=== PATIENT | female | born 1940 | race Caucasian/White ===

== ENCOUNTER → 2020-04-22 10:13 | Outpatient (BNVA) | payer MEDICARE, SELFPAY | PROVIDERS: PCP Internal Medicine; Visit Provider Internal Medicine Cardiovascular Disease | DX: I49.3 Ventricular premature depolarization (principal); I70.0 Atherosclerosis of aorta; R00.2 Palpitations; R53.82 Chronic fatigue, unspecified | CPT/HCPCS: 93005; 99212 ==

== ENCOUNTER 2020-07-16 10:27 | Outpatient (REF) | payer MEDICARE, SELFPAY ==
[2020-07-16 15:29] LABS: Alanine Aminotransferase 14 U/L (0-31); Albumin Level 3.8 g/dL (3.5-5.0); Alkaline Phosphatase 67 U/L (39-117); Anion Gap 15 (12-20); Aspartate Amino Transferase 18 U/L (5-31); Bilirubin Total 0.7 mg/dL (0.0-1.0); Blood Urea Nitrogen 17 mg/dL (9-16); Calcium 9.4 mg/dL (8.4-10.2); Carbon Dioxide 25 mmol/L (22-29); Chloride 107 mmol/L (96-108); Estimated Glomerular Filt Rate > 60; Glucose Random 113 mg/dL (60-115); Phosphorus 3.4 mg/dL (2.7-4.5); Potassium 4.5 mmol/L (3.3-5.1); Sodium 142 mmol/L (135-145); Total Protein 6.5 g/dL (6.5-8.0)
[2020-07-18 09:36] LABS: Calcium (PTHI) 9.5 mg/dL (8.6-10.4); PTHI 39 pg/mL (14-64)
[2020-07-20 12:21] LABS: Calcium, Ionized 5.2 mg/dL (4.8-5.6)
== END 2020-07-16 10:28 | disposition home or self-care (01) ==
LOC: HO.LAB 10:27
PROVIDERS: PCP Internal Medicine; Visit Provider Internal Medicine
DX: M81.0 Age-related osteoporosis without current pathological fracture (principal); E55.9 Vitamin D deficiency, unspecified; Z79.899 Other long term (current) drug therapy
CPT/HCPCS: 36415; 80053; 82306; 82330; 83970; 84100; Q3014

== ENCOUNTER 2020-07-17 11:47 | Outpatient (REF) | payer MEDICARE, SELFPAY | END 2020-07-17 11:48 | disposition home or self-care (01) | LOC: HO.LNP 11:47 | PROVIDERS: Visit Provider Internal Medicine | DX: Z13.89 Encounter for screening for other disorder (principal) | CPT/HCPCS: 82523 ==

== ENCOUNTER 2020-07-21 16:02 | Outpatient (REF) | payer MEDICARE, SELFPAY ==
[2020-07-26 04:41] LABS: N-Telopeptide 30 (see note); NTXCreaRU 44 mg/dL (20-275)
== END 2020-07-21 16:03 | disposition home or self-care (01) ==
LOC: HO.LNP 16:02
PROVIDERS: Visit Provider Internal Medicine
DX: M81.0 Age-related osteoporosis without current pathological fracture (principal)
CPT/HCPCS: 82523

== ENCOUNTER 2020-10-13 15:20 | Outpatient (REF) | payer MEDICARE, SELFPAY ==
--- NOTE | ~2020-10-13 | CT_ITS ---
EXAMINATION: CT CHEST WITHOUT CONTRAST CLINICAL INFORMATION: Solitary pulmonary nodule. COMPARISON: CTA chest dated 08/06/2019. TECHNIQUE: Multidetector volumetric CT imaging of the chest was done. Axial MIP volume rendering provided. Sagittal and coronal reformatted images were obtained. This CT examination was performed using dose optimization techniques as appropriate, variously including the following: *Automated exposure control *Adjustment of mA and/or kV according to patient size (this includes techniques or standardized protocols for targeted exams where dose is matched to indication/reason for exam; i.e. extremities or head) *Use of iterative reconstruction technique DLP: 155 mGy-cm. FINDINGS: [employer]ILD[employer] RETAIL: Unremarkable. LUNGS: Biapical nodular pleural thickening is unchanged. Linear scarring redemonstrated within the right middle lobe and lingula. Focal mucus plugging redemonstrated within the left upper lobe measuring up to 0.3 cm, slightly decreased when compared to the prior examination (previously 0.4 cm). No new pulmonary nodule, mass, or airspace consolidation. The central airways are patent. MEDIASTINUM: No cardiomegaly. No pericardial effusion. No thoracic aortic dilatation. Scattered atherosclerotic calcifications. No superior mediastinal or hilar lymphadenopathy. Unremarkable thyroid. PLEURA: No pleural effusion or pneumothorax. AXILLA: Left axillar surgical lymph nodes. No axillary or internal mammary lymphadenopathy. UPPER ABDOMEN: Status post cholecystectomy. Otherwise, the visualized upper abdominal structures are unremarkable. OSSEOUS STRUCTURES: Vertebral plasty redemonstrated in in T8 and T9. Mild compression deformity redemonstrated at T4, unchanged. No new lytic or blastic osseous lesion. CT/CT chest wo con IMPRESSION: 1. Previously described left upper lobe nodule represents focal mucus plugging and is slightly decreased in size when compared to the prior examination now measuring 0.3 cm (previously 0.4 cm). No new pulmonary nodule, mass, or airspace consolidation. 2. No lymphadenopathy.
== END 2020-10-13 15:21 | disposition home or self-care (01) ==
LOC: HO.CT 15:20
PROVIDERS: Visit Provider Internal Medicine
DX: R91.1 Solitary pulmonary nodule (principal)
CPT/HCPCS: 71250

== ENCOUNTER → 2020-10-19 09:53 | Outpatient (BNVA) | payer MEDICARE, SELFPAY | PROVIDERS: PCP Internal Medicine; Visit Provider Internal Medicine ==

== ENCOUNTER 2021-03-29 15:36 | Outpatient (REF) | payer MEDICARE, SELFPAY ==
--- NOTE | ~2021-03-29 | XR_ITS ---
EXAMINATION: XR THORACIC SPINE CLINICAL INFORMATION: Mid back pain COMPARISON: Dorsal spine 01/31/2019. TECHNIQUE: 3 views of the thoracic spine were obtained. FINDINGS: There is exaggerated thoracic kyphosis. There is cement augmentation of T8 and T9 compression fracture unchanged to 01/31/2019. There is compression deformity T8 T4 vertebra which is chronic and unchanged. No new acute compression fracture seen. There is mild ventral spondylosis/bridging osteophyte T9-T10 disc level. The vertebral alignments and the disc heights are maintained normal. No aggressive lytic or sclerotic process. The paravertebral soft tissues are normal. XR/XR thoracic spine 3V IMPRESSION: Old T8 and T9 compression fracture with cement augmentation. There is a old T4 compression fracture unchanged as well since 2019. Interval no acute compression fracture, lytic or sclerotic process. Mild spondylosis.
== END 2021-03-29 15:37 | disposition home or self-care (01) ==
LOC: HO.XRAY 15:36
PROVIDERS: PCP Internal Medicine; Visit Provider Internal Medicine
DX: M54.6 Pain in thoracic spine (principal); G89.29 Other chronic pain
CPT/HCPCS: 72072

== ENCOUNTER 2021-04-08 11:19 | Outpatient (REF) | payer MEDICARE, SELFPAY ==
[2021-04-08 11:58] LABS: MANUAL DIFF FLAG NO
[2021-04-08 13:04] LABS: Basophils Absolute Auto 0.1 X10*3/uL (0.0-0.2); Basophils Percent Auto 0.6 % (0-2); Eosinophils Absolute Auto 0.1 X10*3/uL (0.0-0.4); Eosinophils Percent Auto 1.8 % (0-4); Hematocrit 41.1 % (37.0-47.0); Imm Gran Abs Auto 0.03 X10*3/uL (0.00-0.03); Imm Gran Pct Auto 0.4 % (0.0-0.4); Lymphocytes Absolute Auto 3.1 X10*3/uL (1.2-4.9); Lymphocytes Percent Auto 38.6 % (20-40); Mean Corpuscular HGB Conc 34.1 g/dl (31.0-35.0); Mean Corpuscular Hemoglobin 31.2 pg (27.0-33.0); Mean Corpuscular Volume 91.5 fL (80.0-98.0); Mean Platelet Volume 10.3 fL (9.4-12.3); Monocytes Percent Auto 12.5 % (2-11); Neutrophils Absolute Auto 3.7 x10*3/uL (2.0-8.3); Neutrophils Percent Auto 46.1 % (45-73); Platelet Count 260 X10*3/uL (160-400); Red Blood Count 4.49 X10*6/uL (4.20-5.50)
[2021-04-08 13:07] LABS: Appearance Urine CLEAR; Color Urine YELLOW; Glucose Urine UA NEG (NEG); Leukocyte Esterase Urine NEG (NEG); Nitrite Urine NEG (NEG); Specific Gravity - Urine >= 1.030 (1.005-1.025); Urine Blood NEG (NEG); Urine Ketones NEG (NEG); Urine Protein NEG (NEG-TRACE)
[2021-04-08 13:21] LABS: Estimated Average Glucose 100 mg/dL; Hemoglobin A1c % 5.1 %
[2021-04-08 13:40] LABS: Alanine Aminotransferase 17 U/L (0-31); Albumin Level 4.1 g/dL (3.5-5.0); Alkaline Phosphatase 60 U/L (39-117); Anion Gap 14 (12-20); Aspartate Amino Transferase 26 U/L (5-31); Bilirubin Total 0.8 mg/dL (0.0-1.0); Blood Urea Nitrogen 16 mg/dL (9-16); Calcium 10.1 mg/dL (8.4-10.2); Carbon Dioxide 30 mmol/L (22-29); Chloride 101 mmol/L (96-108); Cholesterol 242 mg/dL; Estimated Glomerular Filt Rate > 60; Glucose Random 113 mg/dL (60-115); HDL Cholesterol 48 mg/dL; LDL Cholesterol Calculated 149 mg/dl; Potassium 4.2 mmol/L (3.3-5.1); Sodium 141 mmol/L (135-145); Total Protein 6.9 g/dL (6.5-8.0); Triglycerides 227 mg/dL
[2021-04-08 14:39] LABS: Vitamin B12 218 pg/mL (200-900)
== END 2021-04-08 11:20 | disposition home or self-care (01) ==
LOC: HO.LAB 11:19
PROVIDERS: PCP Internal Medicine; Visit Provider Internal Medicine
DX: R41.3 Other amnesia (principal); R73.01 Impaired fasting glucose; E78.00 Pure hypercholesterolemia, unspecified; K21.9 Gastro-esophageal reflux disease without esophagitis
CPT/HCPCS: 36415; 80053; 80061; 81003; 82607; 83036; 85025

== ENCOUNTER 2021-05-17 17:11 | Outpatient (REF) | payer OTHER, SELFPAY ==
[2021-05-17 18:24] LABS: Appearance Urine CLEAR; Color Urine DK YELLOW; Glucose Urine UA NEG (NEG); Leukocyte Esterase Urine NEG (NEG); Nitrite Urine NEG (NEG); PH 5.5 (5.0-8.0); Specific Gravity - Urine >= 1.030 (1.005-1.025); Urine Blood NEG (NEG); Urine Ketones NEG (NEG); Urine Protein NEG (NEG-TRACE)
== END 2021-05-17 17:12 | disposition home or self-care (01) ==
LOC: HO.LAB 17:11
PROVIDERS: Visit Provider Internal Medicine
DX: R35.0 Frequency of micturition (principal)
CPT/HCPCS: 81003; 87086

== ENCOUNTER 2021-07-05 13:20 | Outpatient (REF) | payer OTHER, SELFPAY ==
[2021-07-05 14:14] LABS: Appearance Urine CLEAR; Color Urine YELLOW; Glucose Urine UA NEG (NEG); Leukocyte Esterase Urine NEG (NEG); Nitrite Urine NEG (NEG); PH 5.5 (5.0-8.0); Specific Gravity - Urine >= 1.030 (1.005-1.025); Urine Blood NEG (NEG); Urine Ketones NEG (NEG); Urine Protein NEG (NEG-TRACE)
[2021-07-05 14:30] LABS: Calcium Oxalate Crystals Urine 2+ /LPF; Mucus Urine TRACE /LPF; RBC Urine 0 /HPF (0); Squamous Epithelial Cell Urine TRACE /LPF; WBC Urine 0-2 /HPF (0-4)
== END 2021-07-05 13:21 | disposition home or self-care (01) ==
LOC: HO.LNP 13:20
PROVIDERS: PCP Internal Medicine; Visit Provider Internal Medicine
DX: R35.0 Frequency of micturition (principal); R68.83 Chills (without fever)
CPT/HCPCS: 81001; 87086

== ENCOUNTER 2021-07-06 13:09 | Outpatient (REF) | payer OTHER, SELFPAY ==
--- NOTE | ~2021-07-06 | MM_ITS ---
EXAMINATION: MM SCREENING DIGITAL BREAST TOMOSYNTHESIS, BILATERAL CLINICAL INFORMATION: Screening. Asymptomatic. Left breast cancer status post lumpectomy, 1999. Due for yearly. COMPARISON: Mammography: 04/18/2017, 04/13/2016, 03/06/2015 TECHNIQUE: Digital breast tomosynthesis is performed in both the craniocaudal and mediolateral oblique views along with computer-aided detection (CAD). Synthesized 2D images are generated from the tomosynthesis. Additional right cleavage view is provided. FINDINGS: There are scattered areas of fibroglandular density (ACR BI-RADS breast composition Category b). There are post therapy changes left breast with reduced breast size and stable scarring. Neither breast shows interval mass or architectural abnormality or developing density. There are scattered bilateral benign coarse and ductal secretory and vascular calcifications overall slightly increased on each side. No interval abnormal calcifications. The axilla are unremarkable. There are no significant changes. MM/MM tomosynthesis screening BI IMPRESSION: No mammographic evidence of malignancy. Post therapy changes left breast. ASSESSMENT: BI-RADS 2: Benign RECOMMENDATION: Routine annual mammography screening. This patient's information was entered into a reminder system with a target due date for their next mammogram.
--- NOTE | ~2021-07-06 | MM_ITS ---
EXAMINATION: BONE DENSITOMETRY CLINICAL INDICATION: Age-related osteoporosis without current pathological fracture. COMPARISON: Previous BD dated 06/14/2018 and baseline BD dated 11/07/2007. TECHNIQUE: Using a [employer] DXA System (software version: 13.1) manufactured by [employer], dual-energy x-ray absorptiometry was performed of the lumbar spine and left hip. The images are of good technical quality. Summary results are attached. FINDINGS: AP SPINE L1-L4: Current: BMD 1.012 g/cm2, Z-score -0.1, T-score -1.4, osteopenia, 0.4% increase from previous, 6.8% increase from baseline (<5% change is not significant). Prior: BMD 1.008 g/cm2. Baseline: BMD 0.948 g/cm2. LEFT FEMUR, NECK: Current: BMD 0.750 g/cm2, Z-score -0.3, T-score -2.1, osteopenia. Prior: BMD 0.737 g/cm2. Baseline: BMD 0.812 g/cm2. LEFT FEMUR, TOTAL: Current: BMD 0.873 g/cm2, Z-score 0.5, T-score -1.1, osteopenia, 4.6% increase from previous, 9.2% decrease from baseline (<5% change is not significant). Prior: BMD 0.835 g/cm2. Baseline: BMD 0.961 g/cm2. IDENTIFIED RISK FACTORS: Osteoporosis, height loss, menopause. HISTORY OF FRACTURE: None listed. MEDICATIONS: Calcium supplements or multivitamin, vitamin D, calcitonin. MM/XR DEXA axial skeleton IMPRESSION: 1. DIAGNOSIS: Osteopenia based on the lowest T-score value of -2.1 in the femoral neck applying World Health Organization criteria. 2. 10-YEAR FRACTURE RISK PREDICTION, FRAX: Major osteoporotic fracture (clinical spine, forearm, hip or shoulder) 15.0%. Hip fracture 4.3%. 3. Treatment Recommendations: NOF guidelines recommend consideration for treatment in postmenopausal women and men age 50 and older presenting with the following: -A hip or vertebral (clinical or morphometric) fracture. -T-score less than or equal to -2.5 at the femoral neck or spine after appropriate evaluation to exclude secondary causes. -Low bone mass at the hip or spine and a 10-year fracture probability by FRAX of greater than or equal to 3% for hip fracture or greater than or equal to 20% for major osteoporotic fracture based on the [place] adapted WHO algorithm. 4. Other Recommendations: All treatment decisions require clinical judgment and consideration of individual patient factors, including patient preferences, comorbidities, previous drug use, risk factors not captured in the FRAX model (e.g. frailty, falls, vitamin D deficiency, increased bone turnover, interval significant decline in bone density) and possible under or overestimation of fracture risk by FRAX. Additional medical evaluation for secondary cause of low bone mineral density may be appropriate. FUTURE SCAN RECOMMENDATION: People with diagnosed cases of osteoporosis or at high risk for fracture should have regular bone mineral density tests. For patients eligible for Medicare, routine testing is allowed once every 2 years. The testing frequency can be increased to one year for patients who have rapidly progressing disease, those who are receiving or discontinuing medical therapy to restore bone mass, or have additional risk factors.
== END 2021-07-06 13:10 | disposition home or self-care (01) ==
LOC: HO.MAMMO 13:09
PROVIDERS: PCP Internal Medicine; Visit Provider Internal Medicine
DX: Z12.31 Encounter for screening mammogram for malignant neoplasm of breast (principal); Z13.820 Encounter for screening for osteoporosis; M81.0 Age-related osteoporosis without current pathological fracture; Z78.0 Asymptomatic menopausal state
CPT/HCPCS: 77063; 77067; 77080

== ENCOUNTER 2021-07-19 10:26 | Outpatient (REF) | payer OTHER, SELFPAY ==
[2021-07-19 14:24] LABS: Alanine Aminotransferase 22 U/L (0-31); Albumin Level 3.7 g/dL (3.5-5.0); Alkaline Phosphatase 62 U/L (39-117); Anion Gap 10 (12-20); Aspartate Amino Transferase 22 U/L (5-31); Bilirubin Total 0.5 mg/dL (0.0-1.0); Blood Urea Nitrogen 18 mg/dL (9-16); Calcium 9.3 mg/dL (8.4-10.2); Carbon Dioxide 28 mmol/L (22-29); Chloride 109 mmol/L (96-108); Estimated Glomerular Filt Rate > 60; Glucose Random 110 mg/dL (60-115); Phosphorus 2.9 mg/dL (2.7-4.5); Potassium 4.3 mmol/L (3.3-5.1); Sodium 143 mmol/L (135-145); Total Protein 6.4 g/dL (6.5-8.0)
[2021-07-19 14:48] LABS: Vitamin D 25-OH Total 26.2 ng/mL (>30)
[2021-07-20 13:37] LABS: Calcium (PTHI) 9.1 mg/dL (8.6-10.4); PTHI 52 pg/mL (16-77)
[2021-07-23 14:41] LABS: Alkaline Phosphatase Bone 10.1 mcg/L (see note)
== END 2021-07-19 10:27 | disposition home or self-care (01) ==
LOC: HO.LAB 10:26
PROVIDERS: PCP Internal Medicine; Visit Provider Internal Medicine
DX: M81.0 Age-related osteoporosis without current pathological fracture (principal); E55.9 Vitamin D deficiency, unspecified
CPT/HCPCS: 36415; 80053; 82306; 83970; 84075; 84100; Q3014

== ENCOUNTER 2021-09-08 13:00 | Outpatient (RCR) | payer OTHER, MEDICAID, SELFPAY | END 2021-09-30 17:12 | disposition home or self-care (01) | LOC: HO.PT 13:00 | PROVIDERS: PCP Internal Medicine; Visit Provider Internal Medicine | DX: R26.89 Other abnormalities of gait and mobility (principal) | CPT/HCPCS: 97110; 97162; 97530 ==

== ENCOUNTER 2021-10-07 15:12 | Outpatient (REF) | payer OTHER, MEDICAID, SELFPAY ==
[2021-10-07 16:25] LABS: Alanine Aminotransferase 18 U/L (0-31); Albumin Level 4.1 g/dL (3.5-5.0); Alkaline Phosphatase 75 U/L (39-117); Anion Gap 13 (12-20); Aspartate Amino Transferase 20 U/L (5-31); Bilirubin Total 0.7 mg/dL (0.0-1.0); Blood Urea Nitrogen 19 mg/dL (9-16); Calcium 9.7 mg/dL (8.4-10.2); Carbon Dioxide 28 mmol/L (22-29); Chloride 105 mmol/L (96-108); Estimated Glomerular Filt Rate > 60; Glucose Random 116 mg/dL (60-115); Phosphorus 3.3 mg/dL (2.7-4.5); Potassium 4.1 mmol/L (3.3-5.1); Sodium 142 mmol/L (135-145); Total Protein 6.9 g/dL (6.5-8.0)
[2021-10-07 16:45] LABS: Vitamin D 25-OH Total 38.1 ng/mL (>30)
[2021-10-08 12:27] LABS: Calcium (PTHI) 10.1 mg/dL (8.6-10.4); PTHI 44 pg/mL (16-77)
[2021-10-11 14:31] LABS: Alkaline Phosphatase Bone 11.1 mcg/L (see note)
== END 2021-10-07 15:13 | disposition home or self-care (01) ==
LOC: HO.LAB 15:12
PROVIDERS: PCP Internal Medicine; Visit Provider Internal Medicine
DX: M81.0 Age-related osteoporosis without current pathological fracture (principal); E55.9 Vitamin D deficiency, unspecified
CPT/HCPCS: 36415; 80053; 82306; 83970; 84075; 84100

== ENCOUNTER 2021-10-08 14:43 | Outpatient (REF) | payer OTHER, MEDICAID, SELFPAY ==
[2021-10-14 02:22] LABS: N-Telopeptide 56 (see note); NTXCreaRU 126 mg/dL (20-275)
== END 2021-10-08 14:44 | disposition home or self-care (01) ==
LOC: HO.LNP 14:43
PROVIDERS: Visit Provider Internal Medicine
DX: M81.0 Age-related osteoporosis without current pathological fracture (principal)
CPT/HCPCS: 82523

== ENCOUNTER → 2021-10-13 12:45 | Outpatient (BNVA) | payer OTHER, MEDICAID, SELFPAY | PROVIDERS: PCP Internal Medicine; Visit Provider Internal Medicine | DX: M81.0 Age-related osteoporosis without current pathological fracture (principal) | CPT/HCPCS: 96372 ==

== ENCOUNTER 2021-11-10 13:01 | Outpatient (REF) | payer OTHER, MEDICAID, SELFPAY ==
[2021-11-10 15:02] LABS: Estimated Glomerular Filt Rate > 60
[2021-11-10 15:16] LABS: Vitamin D 25-OH Total 33.5 ng/mL (>30)
[2021-11-11 14:03] LABS: Calcium (PTHI) 9.5 mg/dL (8.6-10.4); PTHI 56 pg/mL (16-77)
== END 2021-11-10 13:02 | disposition home or self-care (01) ==
LOC: HO.LAB 13:01
PROVIDERS: PCP Internal Medicine; Visit Provider Internal Medicine
DX: M81.0 Age-related osteoporosis without current pathological fracture (principal); E55.9 Vitamin D deficiency, unspecified
CPT/HCPCS: 36415; 82306; 82565; 83970

== ENCOUNTER 2021-11-29 15:57 | Outpatient (REF) | payer OTHER, MEDICAID, SELFPAY ==
[2021-11-29 16:12] LABS: Appearance Urine Clear; Color Urine Yellow; Glucose Urine UA Negative (Negative); Leukocyte Esterase Urine Negative (Negative); Nitrite Urine Negative (Negative); PH 5.5 (5.0-9.0); Urine Blood Negative (Negative); Urine Ketones Negative (Negative); Urine Protein Negative (Neg-Trace)
== END 2021-11-29 15:58 | disposition home or self-care (01) ==
LOC: HO.LNP 15:57
PROVIDERS: Visit Provider Internal Medicine
DX: R41.0 Disorientation, unspecified (principal); R35.0 Frequency of micturition
CPT/HCPCS: 81003; 87086

== ENCOUNTER 2021-12-13 12:04 | Outpatient (REF) | payer OTHER, MEDICAID, SELFPAY ==
--- NOTE | ~2021-12-13 | XR_ITS ---
EXAMINATION: XR PELVIS CLINICAL INFORMATION: Pain COMPARISON: CT abdomen pelvis 12/26/2018 TECHNIQUE: AP view of the pelvis. FINDINGS: Pelvic ring is intact. Sacroiliac joints are symmetric. There is neither fracture nor dislocation of either hip. There is mild narrowing of both femoral acetabular joint spaces. XR/XR pelvis 1-2V IMPRESSION: Mild degenerative changes of both hips without fracture or dislocation.
== END 2021-12-13 12:05 | disposition home or self-care (01) ==
LOC: HO.HOSX 12:04
PROVIDERS: Visit Provider Orthopaedic Surgery
DX: M54.50 Low back pain, unspecified (principal); M25.551 Pain in right hip; M25.552 Pain in left hip
CPT/HCPCS: 72170; 99202

== ENCOUNTER 2022-03-04 14:17 | Outpatient (REF) | payer OTHER, MEDICAID, SELFPAY ==
--- NOTE | ~2022-03-04 | MM_ITS ---
EXAMINATION: MM DIAGNOSTIC DIGITAL BREAST TOMOSYNTHESIS, LEFT US DIAGNOSTIC ULTRASOUND BREAST, LEFT CLINICAL INFORMATION: Pain upper right breast over one month. Tender fullness medial left breast near sternum. Prior history left lumpectomy for breast cancer, 1999. COMPARISON: Mammography: 07/06/2021, 04/18/2017, 04/13/2016 TECHNIQUE: Digital breast tomosynthesis is performed in both the craniocaudal and mediolateral oblique views along with computer-aided detection (CAD). Synthesized 2D images are generated from the tomosynthesis. Additional left CC and left MLO x2 views are obtained. Ultrasound left breast is targeted to the areas of clinical concern. Grayscale imaging and color Doppler are performed without and with harmonics. FINDINGS: There are scattered areas of fibroglandular density (ACR BI-RADS breast composition Category b). Parenchymal pattern is similar to prior exams and there is no interval mass or developing density or architectural abnormality. There is old scarring with benign dystrophic calcification within the scar. Other scattered benign coarse calcifications are seen in the left breast. The skin contours are smooth. There is no skin thickening or coarsening of the All's ligaments. The axilla is unremarkable. Ultrasound demonstrates no cystic or solid mass, architectural abnormality, or focal duct ectasia. The deep parasternal soft tissues are unremarkable. There is no skin thickening or edema tracking in soft tissue planes. Results are discussed with the patient at time of visit. MM/MM tomosynthesis diagnostic LT IMPRESSION: 1. No mammographic evidence of malignancy or inflammatory changes. 2. Unremarkable targeted left breast ultrasound. ASSESSMENT: BI-RADS 2: Benign RECOMMENDATION: Routine annual mammography screening. This patient's information was entered into a reminder system with a target due date for their next mammogram.
== END 2022-03-04 14:18 | disposition home or self-care (01) ==
LOC: HO.MAMMO 14:17
PROVIDERS: PCP Internal Medicine; Visit Provider Registered Nurse
DX: N64.4 Mastodynia (principal)
CPT/HCPCS: 76642; 77061; 77065

== ENCOUNTER 2022-05-03 09:36 | Outpatient (REF) | payer OTHER, MEDICAID, SELFPAY ==
[2022-05-03 11:43] LABS: Alanine Aminotransferase 24 U/L (0-31); Albumin Level 4.2 g/dL (3.5-5.0); Alkaline Phosphatase 67 U/L (39-117); Anion Gap 15 (12-20); Aspartate Amino Transferase 28 U/L (5-31); Bilirubin Total 0.9 mg/dL (0.0-1.0); Blood Urea Nitrogen 16 mg/dL (9-16); Calcium 9.5 mg/dL (8.4-10.2); Carbon Dioxide 30 mmol/L (22-29); Chloride 101 mmol/L (96-108); Estimated Glomerular Filt Rate > 60; Glucose Random 122 mg/dL (60-115); Potassium 4.2 mmol/L (3.3-5.1); Sodium 142 mmol/L (135-145); Total Protein 7.2 g/dL (6.5-8.0)
[2022-05-03 12:02] LABS: Vitamin D 25-OH Total 42.8 ng/mL (>30)
[2022-05-05 21:17] LABS: Calcium (PTHI) 8.4 mg/dL (8.6-10.4); PTHI 63 pg/mL (16-77)
[2022-05-06 15:54] LABS: Alkaline Phosphatase Bone 10.4 mcg/L (see note)
== END 2022-05-03 09:37 | disposition home or self-care (01) ==
LOC: HO.LAB 09:36
PROVIDERS: PCP Internal Medicine; Visit Provider Internal Medicine
DX: M81.0 Age-related osteoporosis without current pathological fracture (principal); E55.9 Vitamin D deficiency, unspecified
CPT/HCPCS: 36415; 80053; 82306; 83970; 84075; 84100

== ENCOUNTER 2022-05-04 14:11 | Outpatient (REF) | payer OTHER, MEDICAID, SELFPAY ==
[2022-05-11 17:49] LABS: N-Telopeptide 38 (see note); NTXCreaRU 247 mg/dL (20-275)
== END 2022-05-04 14:12 | disposition home or self-care (01) ==
LOC: HO.LNP 14:11
PROVIDERS: Visit Provider Internal Medicine
DX: M81.0 Age-related osteoporosis without current pathological fracture (principal)
CPT/HCPCS: 82523

== ENCOUNTER → 2022-05-18 12:39 | Outpatient (BNVA) | payer OTHER, MEDICAID, SELFPAY | PROVIDERS: PCP Internal Medicine; Visit Provider Internal Medicine | DX: M81.0 Age-related osteoporosis without current pathological fracture (principal) | CPT/HCPCS: 96372 ==

== ENCOUNTER 2022-05-25 13:06 | Outpatient (REF) | payer OTHER, MEDICAID, SELFPAY ==
[2022-05-31 04:08] LABS: HPV mRNA E6/E7 rflx Not Detected (Not Detected)
== END 2022-05-25 13:07 | disposition home or self-care (01) ==
LOC: HO.LNP 13:06
PROVIDERS: Visit Provider Obstetrics & Gynecology
DX: Z12.4 Encounter for screening for malignant neoplasm of cervix (principal); Z11.51 Encounter for screening for human papillomavirus (HPV); N95.0 Postmenopausal bleeding
CPT/HCPCS: 87624; 88142; 99202

== ENCOUNTER 2022-06-02 16:59 | Outpatient (REF) | payer OTHER, MEDICAID, SELFPAY ==
--- NOTE | ~2022-06-02 | XR_ITS ---
EXAMINATION: XR HIP, RIGHT CLINICAL INFORMATION: Pain chronic COMPARISON: None available. TECHNIQUE: Two views of the right hip. FINDINGS: Bones are normal. No fracture. Alignment is anatomic. Hip joint space is maintained. Mild atherosclerotic disease. XR/XR hip RT min 2V IMPRESSION: Normal right hip.
[2022-06-02 17:18] LABS: MANUAL DIFF FLAG NO
[2022-06-02 17:25] LABS: Basophils Percent Auto 0.4 % (0-2); Eosinophils Absolute Auto 0.2 X10*3/uL (0.0-0.4); Eosinophils Percent Auto 1.8 % (0-4); Hematocrit 44.3 % (37.0-47.0); Hemoglobin 14.8 g/dl (12.0-16.0); Imm Gran Abs Auto 0.04 X10*3/uL (0.00-0.03); Imm Gran Pct Auto 0.4 % (0.0-0.4); Lymphocytes Absolute Auto 3.5 X10*3/uL (1.2-4.9); Lymphocytes Percent Auto 34.8 % (20-40); Mean Corpuscular HGB Conc 33.4 g/dl (31.0-35.0); Mean Corpuscular Hemoglobin 30.5 pg (27.0-33.0); Mean Corpuscular Volume 91.3 fL (80.0-98.0); Mean Platelet Volume 9.6 fL (9.4-12.3); Monocytes Absolute Auto 0.8 X10*3/uL (0.1-1.2); Monocytes Percent Auto 8.3 % (2-11); Neutrophils Absolute Auto 5.4 x10*3/uL (2.0-8.3); Neutrophils Percent Auto 54.3 % (45-73); Platelet Count 247 X10*3/uL (160-400); Red Blood Count 4.85 X10*6/uL (4.20-5.50); Red Cell Distribution Width 12.9 % (11.0-16.0)
[2022-06-02 18:03] LABS: Alanine Aminotransferase 24 U/L (0-31); Albumin Level 4.1 g/dL (3.5-5.0); Alkaline Phosphatase 75 U/L (39-117); Anion Gap 13 (12-20); Aspartate Amino Transferase 27 U/L (5-31); Bilirubin Total 0.6 mg/dL (0.0-1.0); Blood Urea Nitrogen 24 mg/dL (9-16); Calcium 10.1 mg/dL (8.4-10.2); Carbon Dioxide 30 mmol/L (22-29); Chloride 104 mmol/L (96-108); Estimated Glomerular Filt Rate > 60; Glucose Random 110 mg/dL (60-115); Sodium 143 mmol/L (135-145); Total Protein 7.1 g/dL (6.5-8.0)
[2022-06-02 18:19] LABS: Thyroid Stimulating Hormone 4.09 uIU/mL (0.32-4.0)
== END 2022-06-02 17:00 | disposition home or self-care (01) ==
LOC: HO.LAB 16:59
PROVIDERS: PCP Internal Medicine; Visit Provider Internal Medicine
DX: M25.551 Pain in right hip (principal); G89.29 Other chronic pain; I10 Essential (primary) hypertension; M15.9 Polyosteoarthritis, unspecified; R35.0 Frequency of micturition
CPT/HCPCS: 36415; 73502; 80053; 83735; 84443; 85025

== ENCOUNTER 2022-06-06 12:55 | Emergency (ER) | payer OTHER, MEDICAID, SELFPAY ==
--- NOTE | ~2022-06-06 | CT_ITS ---
EXAMINATION: CT HEAD WITHOUT CONTRAST CLINICAL INFORMATION: Dizziness COMPARISON: Previous head CT September 2007 and brain MRI February 2012 TECHNIQUE: Contiguous axial imaging was performed from the skull base to vertex without intravenous administration of contrast. This CT examination was performed using dose optimization techniques as appropriate, variously including the following: *Automated exposure control *Adjustment of mA and/or kV according to patient size (this includes techniques or standardized protocols for targeted exams where dose is matched to indication/reason for exam; i.e. extremities or head) *Use of iterative reconstruction technique DLP: 604 mGy-cm FINDINGS: There is no evidence of an extra-axial collection. There is no evidence of intra or extra-axial hemorrhage. The ventricles and extra-axial CSF spaces are appropriate. Yanez-white matter differentiation is normal. No mass, mass effect or infarct. Review of bone windows is normal. The paranasal sinuses, mastoid air cells and middle ears are clear. CT/CT head/brain wo IV con IMPRESSION: Unremarkable exam.
[2022-06-06 13:41] VITALS: BP 179/63; PULSE 78; RESP 18; TEMP 36.7; O2SAT 99; BMI 34.2
--- NOTE | 2022-06-06 13:45 | ECG_ITS ---
Test Reason : dizziness Blood Pressure : / mmHG Vent. Rate : 073 BPM Atrial Rate : 073 BPM P-R Int : 198 ms QRS Dur : 090 ms QT Int : 380 ms P-R-T Axes : 011 005 011 degrees QTc Int : 418 ms Normal sinus rhythm Low voltage QRS Borderline ECG When compared with ECG of 06-AUG-2012 14:03, No significant change was found Referred By: Ramírez Doyle Electronically Signed By:VIRI HUIZAR MD
--- NOTE | 2022-06-06 13:48 | ED_ITS ---
HPI - General Adult General Chief complaint: General Medical <SOURAV Troy - Last Filed: 06/06/22 20:45> Stated complaint: dizziness <SOURAV Troy - Last Filed: 06/06/22 20:45> Time Seen by Provider: 06/06/22 16:49 <SOURAV Troy - Last Filed: 06/06/22 20:45> Source: patient, RN notes reviewed and old records reviewed <Leopoldo Mckeon - Last Filed: 06/06/22 18:29> Mode of arrival: ambulatory <Leopoldo Mckeon - Last Filed: 06/06/22 18:29> Limitations: no limitations <Leopoldo Mckeon - Last Filed: 06/06/22 18:29> History of Present Illness HPI narrative: 81-year-old female past medical history significant for osteoarthritis, osteoporosis, atherosclerosis presents for evaluation dizziness. Patient reports when she woke up this morning sometime between 8-9am she felt dizzy. She states she was not walking into things or anything, but I felt off kilter. She denies any associated symptoms including headaches, chest pain, palpitations, or shortness of breath. She did mention to nursing that she had an episode of diarrhea At the time of my evaluation, she reports her symptoms have mostly resolved. She does not feel dizzy. She believes she may have had an episode of vertigo in the past, many years ago <Leopoldo Mckeon - Last Filed: 06/06/22 18:29> Related Data Home medications: Home Medications Medication Instructions Recorded Confirmed hydrochlorothiazide 12.5 mg capsule 12.5 mg PO DAILY 04/22/20 12/13/21 multivitamin 1 tab PO DAILY 04/22/20 12/13/21 omeprazole 20 mg capsule,delayed 20 mg PO DAILY 04/22/20 12/13/21 release celecoxib 200 mg capsule 200 mg PO BID 05/25/22 magnesium oxide 400 mg (241.3 mg 400 mg PO DAILY 05/25/22 magnesium) tablet Previous Rx's Medication Instructions Recorded aspirin 81 mg tablet,delayed 81 mg PO DAILY #90 tabs 01/01/20 release (Adult Aspirin Regimen) metoprolol succinate 25 mg 25 mg PO DAILY #90 tabs 01/01/20 tablet,extended release 24 hr tolterodine 4 mg capsule,extended 4 mg PO .COMPLEX 90 days #90 caps 02/12/20 release 24 hr atorvastatin 40 mg tablet 40 mg PO BEDTIME 90 days #90 tabs 03/31/20 ciprofloxacin HCl 250 mg tablet 250 mg PO BID 5 days #10 tabs 04/24/21 cholecalciferol (vitamin D3) 50 100 mcg PO DAILY 30 days #60 caps 07/21/21 mcg (2,000 unit) capsule denosumab 60 mg/mL subcutaneous 60 mg subcut [id number] #1 mL 05/04/22 syringe (Prolia) meclizine 25 mg tablet 25 mg PO TID PRN dizziness #20 tabs 06/06/22 <SOURAV Troy - Last Filed: 06/06/22 20:45> Allergies/adverse reactions: Allergies Allergy/AdvReac Type Severity Reaction Status Date / Time meperidine [Meperidine] Allergy Intermediate HIVES Verified 05/25/22 13:24 Penicillins Allergy Intermediate OPPOSITE Verified 05/25/22 13:24 EFFECT phenobarbital [PHENOBARBITAL] Allergy Unknown SWELLING Verified 05/25/22 13:24 demerol Allergy Unknown Unknown Uncoded 05/25/22 13:24 penicillin Allergy Unknown Unknown Uncoded 05/25/22 13:24 <SOURAV Troy - Last Filed: 06/06/22 20:45> Review of Systems Constitutional: Constitutional: Reports as per HPI, Denies chills, Denies fatigue, Denies fever(s) and Denies headache(s) <Leopoldo Mckeon - Last Filed: 06/06/22 18:29> Comments: Reports dizziness <Leopoldo Mckeon - Last Filed: 06/06/22 18:29> ENT: Denies headache(s) <Leopoldo Mckeon - Last Filed: 06/06/22 18:29> Cardiovascular: Cardiovascular: Denies chest pain and Denies dyspnea <Leopoldo Mckeon - Last Filed: 06/06/22 18:29> Respiratory: Respiratory: Denies cough and Denies dyspnea <Leopoldo Mckeon - Last Filed: 06/06/22 18:29> Gastrointestinal: Gastrointestinal: Denies abdominal pain, Denies constipation and Denies vomiting <Leopoldo Mckeon - Last Filed: 06/06/22 18:29> Genitourinary: Genitourinary: Denies dysuria <Leopoldo Mckeon - Last Filed: 06/06/22 18:29> Neurologic: Denies headache(s) and Denies focal weakness <Leopoldo Mckeon - Last Filed: 06/06/22 18:29> Endocrine: Endocrine: Denies fatigue <Leopoldo Mckeon - Last Filed: 06/06/22 18:29> [facility] Past Medical History Medical History: Medical History Osteoporosis Vitamin D deficiency <SOURAV Troy - Last Filed: 06/06/22 20:45> Surgical History: Surgical History History of History of knee surgery <SOURAV Troy - Last Filed: 06/06/22 20:45> Family History Family History: Family History Father Appendicitis, acute Mother No problems noted. <SOURAV Troy - Last Filed: 06/06/22 20:45> Social History Social History: Social History Household Members: None Housing: House Alcohol intake: never Patient Tobacco Use Status: Never used Tobacco Smoked in Last 30 Days: No Use of substances other than those prescribed or required for medical reasons: No Advance Directives: No Advance Directives Information Provided: No Current occupational status: retired <SOURAV Troy - Last Filed: 06/06/22 20:45> Physical Exam ED Vital Signs: Vital Signs - 24 hr 06/06/22 13:41 06/06/22 17:11 06/06/22 17:11 Temperature 98.1 F Pulse Rate 78 80 78 Respiratory Rate 18 20 Blood Pressure 179/63 H 191/78 H 191/78 H Pulse Oximetry 99 97 Oxygen Delivery Method Room Air Room Air 06/06/22 17:13 06/06/22 17:14 06/06/22 18:08 Temperature Pulse Rate 76 83 77 Respiratory Rate 17 Blood Pressure 167/66 H 169/77 H 154/69 H Pulse Oximetry 97 Oxygen Delivery Method Room Air BMI result Body Mass Index 34.2 <SOURAV Troy - Last Filed: 06/06/22 20:45> Vital Signs - 24 hr 06/06/22 13:41 06/06/22 17:11 06/06/22 17:11 Temperature 98.1 F Pulse Rate 78 80 78 Respiratory Rate 18 20 Blood Pressure 179/63 H 191/78 H 191/78 H Pulse Oximetry 99 97 Oxygen Delivery Method Room Air Room Air 06/06/22 17:13 06/06/22 17:14 06/06/22 18:08 Temperature Pulse Rate 76 83 77 Respiratory Rate 17 Blood Pressure 167/66 H 169/77 H 154/69 H Pulse Oximetry 97 Oxygen Delivery Method Room Air BMI result Body Mass Index 34.2 <Leopoldo Mckeon - Last Filed: 06/06/22 18:29> Const General: healthy appearing, comfortable, no acute distress, alert and awake <Leopoldo Mckeon - Last Filed: 06/06/22 18:29> Nutritional Appearance: well nourished <Leopoldo Caleroy - Last Filed: 06/06/22 18:29> Orientation/consciousness: patient oriented x3 <Leopoldo Caleroy - Last Filed: 06/06/22 18:29> HENMT Head: Yes normocephalic and Yes atraumatic <Leopoldo OEben - Last Filed: 06/06/22 18:29> Throat: Yes posterior oropharynx normal <Leopoldo Caleroy - Last Filed: 06/06/22 18:29> Eyes Eyelids: Yes eyelids normal <Leopoldo Mckeon - Last Filed: 06/06/22 18:29> Conjunctivae: conjunctivae normal <Leopoldo Mckeon Last Filed: 06/06/22 18:29> Sclerae: sclerae normal <Leopoldochamp Calero Last Filed: 06/06/22 18:29> Corneas: corneas normal <Leopoldo Calero Last Filed: 06/06/22 18:29> Pupils: Equal, round and reactive pupils present <Leopoldo Mckeon - Last Filed: 06/06/22 18:29> EOM: EOMs intact bilaterally <Leopoldo Calero Last Filed: 06/06/22 18:29> Neck Neck: Yes full ROM <Leopoldo Calero Last Filed: 06/06/22 18:29> Resp Effort & Inspection: normal respiratory effort, able to speak in complete sentences, no audible wheezes and not labored <Leopoldo Calero Last Filed: 06/06/22 18:29> Auscultation: clear to auscultation bilaterally <Leopoldo OEben - Last Filed: 06/06/22 18:29> Cardio Rate: regular rate <Leopoldo O Last Filed: 06/06/22 18:29> Rhythm: regular rhythm <Leopoldo O Last Filed: 06/06/22 18:29> GI Inspection: No distended <Leopoldo [place]and[place] Filed: 06/06/22 18:29> Palpation (GI): Soft to palpation, not firm, nontender, no guarding and not rigid <Leopoldo OH[place]and[place] - Last Filed: 06/06/22 18:29> Auscultation: normoactive bowel sounds <Leopoldochamp Calero Last Filed: 06/06/22 18:29> Skin General skin exam: no rashes or lesions noted and elasticity normal <Leopoldo OHallandale - Last Filed: 06/06/22 18:29> Neuro General: patient oriented x3 <Leopoldo Calero Last Filed: 06/06/22 18:29> Cranial nerves: Yes CN's II-XII intact bilaterally, Yes Equal, round and reactive pupils present and Yes Bilaterally intact EOM present <Leopoldo Calero Last Filed: 06/06/22 18:29> Cognition (Neuro): normal cognition <Leopoldo OHalland[place] - Last Filed: 06/06/22 18:29> Gait exam (Neuro): Normal gait present <Leopoldo OEben - Last Filed: 06/06/22 18:29> Coordination: [id number] test normal, [id number] test normal, does not sway with eyes open and Normal rapid alternating movements of the distal upper extremity present (Neuro) <Leopoldochamp Calero Last Filed: 06/06/22 18:29> Romberg Test: Negative <Leopoldo Mckeon - Last Filed: 06/06/22 18:29> Extrem Other: Moving all extremities well without any obvious deformities <Leopoldo Mckeon - Last Filed: 06/06/22 18:29> Course Course Course Narrative: RME: 81 yold female with pmh of DM. presents to the ED for dizziness/lighteadedness. patient states she woke up with lighteadedness. Patient states also have diarrhea. Negatie for any neuro exam deficits on exam. negative for nystagmus. patient is A0x3. Labs/EKG/head CT/UA ordered. Nurse Vega spoke with her Son Catrachito who states patient has started become more confused the past couple of months. <SOURAV Troy - Last Filed: 06/06/22 20:45> Reevaluation(s) Reevaluation #1: Patient reports feeling significant after meclizine. Negative for orthostatics, UA negative for infection. Patient likely had an episode of vertigo <Leopoldo Mckeon - Last Filed: 06/06/22 18:29> Time: 18:24 <Leopoldo Mckeon - Last Filed: 06/06/22 18:29> Medications Administered Discontinued Medications Generic Name Dose Route Start Last Admin Trade Name Freq PRN Reason Stop Dose Admin Meclizine HCl 25 mg 06/06/22 17:06 06/06/22 17:21 Meclizine Hcl 25 Mg Tablet PO 06/06/22 17:07 25 mg ONCE ONE Administration <SOURAV Troy - Last Filed: 06/06/22 20:45> Medications Administered Discontinued Medications Generic Name Dose Route Start Last Admin Trade Name Freq PRN Reason Stop Dose Admin Meclizine HCl 25 mg 06/06/22 17:06 06/06/22 17:21 Meclizine Hcl 25 Mg Tablet PO 06/06/22 17:07 25 mg ONCE ONE Administration <Leopoldo Mckeon - Last Filed: 06/06/22 18:29> Medical Decision Making Medical Decision Making MDM Narrative: 81-year-old female presents for evaluation of dizziness and lightheadedness that has resolved prior to my evaluation.Thr patient's work up is negative including CT of brain, labs are unrearkable, ekg without acute ischemia. Vitals have been significant for Hypertension only. We will check orthostatics, but I feel this is less likely. The patient has a negative cerebellar neuro exam. At this time I feel the most likely diagnosis is peripheral vertigo. We will trial a dose of Meclizine <Leopoldo Mckeon - Last Filed: 06/06/22 18:29> Differential Diagnosis Vertigo, dizziness, lightheadedness, orthostasis, cerebellar infarct less likely <Leopoldo Mckeon - Last Filed: 06/06/22 18:29> Lab Data Result Diagrams: 06/06/22 14:07 06/06/22 14:07 <SOURAV Troy - Last Filed: 06/06/22 20:45> Labs: Lab Results 06/06/22 06/06/22 06/06/22 Range/Units 14:07 14:07 14:07 WBC 7.9 (4.8-10.8) X10*3/uL RBC 4.84 (4.20-5.50) X10*6/uL Hgb 14.5 (12.0-16.0) g/dl Hct 44.1 (37.0-47.0) % MCV 91.1 (80.0-98.0) fL MCH 30.0 (27.0-33.0) pg MCHC 32.9 (31.0-35.0) g/dl RDW 12.9 (11.0-16.0) % Plt Count 233 (160-400) X10*3/uL MPV 9.5 (9.4-12.3) fL Immature Gran % (Auto) 0.3 (0.0-0.4) % Neut % (Auto) 49.8 (45-73) % Lymph % (Auto) 38.2 (20-40) % [place] % (Auto) 9.1 (2-11) % Eos % (Auto) 2.1 (0-4) % Baso % (Auto) 0.5 (0-2) % Lymph # (Auto) 3.0 (1.2-4.9) X10*3/uL [place] # (Auto) 0.7 (0.1-1.2) X10*3/uL Eos # (Auto) 0.2 (0.0-0.4) X10*3/uL Baso # (Auto) 0.0 (0.0-0.2) X10*3/uL Abs Immat Gran (auto) 0.02 (0.00-0.03) X10*3/uL Absolute Neuts (auto) 4.0 (2.0-8.3) x10*3/uL Absolute Nucleated RBC 0.000 (0.0-0.012) X10*3/uL Nucleated RBC % (auto) 0.0 (0.0-0.2) /100WBC PT 10.8 (10.0-13.1) SEC INR 0.9 (0.9-1.1) APTT 31.8 (26.0-36.4) SEC Sodium 144 (135-145) mmol/L Potassium 4.7 (3.3-5.1) mmol/L Chloride 106 (96-108) mmol/L Carbon Dioxide 30 H (22-29) mmol/L Anion Gap 13 (12-20) BUN 24 H (9-16) mg/dL Creatinine 0.85 (0.5-1.4) mg/dL Estim Creat Clear Calc 49.1 Estimated GFR > 60 Random Glucose 119 H (60-115) mg/dL Calcium 9.6 (8.4-10.2) mg/dL Total Bilirubin 0.6 (0.0-1.0) mg/dL AST 26 (5-31) U/L ALT 22 (0-31) U/L Alkaline Phosphatase 66 (39-117) U/L Troponin I High Sens (<3.5-17.0) ng/L Total Protein 6.7 (6.5-8.0) g/dL Albumin 3.9 (3.5-5.0) g/dL Urine Color Urine Appearance Urine pH (5.0-9.0) Ur Specific [place] (1.005-1.025) Urine Protein (Neg-Trace) mg/dL Urine Glucose (UA) (Negative) mg/dL Urine Ketones (Negative) mg/dL Urine Blood (Negative) Urine Nitrite (Negative) Ur Leukocyte Esterase (Negative) Influenza Type A (PCR) (Negative) Influenza Type B (PCR) (Negative) RSV RNA Qual (PCR) (Negative) SARS-CoV-2 RNA (RT-PCR) (Negative) 06/06/22 06/06/22 06/06/22 Range/Units 14:07 14:07 18:12 WBC (4.8-10.8) X10*3/uL RBC (4.20-5.50) X10*6/uL Hgb (12.0-16.0) g/dl Hct (37.0-47.0) % MCV (80.0-98.0) fL MCH (27.0-33.0) pg MCHC (31.0-35.0) g/dl RDW (11.0-16.0) % Plt Count (160-400) X10*3/uL MPV (9.4-12.3) fL Immature Gran % (Auto) (0.0-0.4) % Neut % (Auto) (45-73) % Lymph % (Auto) (20-40) % [place] % (Auto) (2-11) % Eos % (Auto) (0-4) % Baso % (Auto) (0-2) % Lymph # (Auto) (1.2-4.9) X10*3/uL [place] # (Auto) (0.1-1.2) X10*3/uL Eos # (Auto) (0.0-0.4) X10*3/uL Baso # (Auto) (0.0-0.2) X10*3/uL Abs Immat Gran (auto) (0.00-0.03) X10*3/uL Absolute Neuts (auto) (2.0-8.3) x10*3/uL Absolute Nucleated RBC (0.0-0.012) X10*3/uL Nucleated RBC % (auto) (0.0-0.2) /100WBC PT (10.0-13.1) SEC INR (0.9-1.1) APTT (26.0-36.4) SEC Sodium (135-145) mmol/L Potassium (3.3-5.1) mmol/L Chloride (96-108) mmol/L Carbon Dioxide (22-29) mmol/L Anion Gap (12-20) BUN (9-16) mg/dL Creatinine (0.5-1.4) mg/dL Estim Creat Clear Calc Estimated GFR Random Glucose (60-115) mg/dL Calcium (8.4-10.2) mg/dL Total Bilirubin (0.0-1.0) mg/dL AST (5-31) U/L ALT (0-31) U/L Alkaline Phosphatase (39-117) U/L Troponin I High Sens 3.8 (<3.5-17.0) ng/L Total Protein (6.5-8.0) g/dL Albumin (3.5-5.0) g/dL Urine Color Yellow Urine Appearance Clear Urine pH 6.0 (5.0-9.0) Ur Specific [place] 1.025 (1.005-1.025) Urine Protein Negative (Neg-Trace) mg/dL Urine Glucose (UA) Negative (Negative) mg/dL Urine Ketones Negative (Negative) mg/dL Urine Blood Negative (Negative) Urine Nitrite Negative (Negative) Ur Leukocyte Esterase Negative (Negative) Influenza Type A (PCR) NEGATIVE (Negative) Influenza Type B (PCR) NEGATIVE (Negative) RSV RNA Qual (PCR) NEGATIVE (Negative) SARS-CoV-2 RNA (RT-PCR) NEGATIVE (Negative) <SOURAV Troy - Last Filed: 06/06/22 20:45> Lab Results 06/06/22 06/06/22 06/06/22 Range/Units 14:07 14:07 14:07 WBC 7.9 (4.8-10.8) X10*3/uL RBC 4.84 (4.20-5.50) X10*6/uL Hgb 14.5 (12.0-16.0) g/dl Hct 44.1 (37.0-47.0) % MCV 91.1 (80.0-98.0) fL MCH 30.0 (27.0-33.0) pg MCHC 32.9 (31.0-35.0) g/dl RDW 12.9 (11.0-16.0) % Plt Count 233 (160-400) X10*3/uL MPV 9.5 (9.4-12.3) fL Immature Gran % (Auto) 0.3 (0.0-0.4) % Neut % (Auto) 49.8 (45-73) % Lymph % (Auto) 38.2 (20-40) % [place] % (Auto) 9.1 (2-11) % Eos % (Auto) 2.1 (0-4) % Baso % (Auto) 0.5 (0-2) % Lymph # (Auto) 3.0 (1.2-4.9) X10*3/uL [place] # (Auto) 0.7 (0.1-1.2) X10*3/uL Eos # (Auto) 0.2 (0.0-0.4) X10*3/uL Baso # (Auto) 0.0 (0.0-0.2) X10*3/uL Abs Immat Gran (auto) 0.02 (0.00-0.03) X10*3/uL Absolute Neuts (auto) 4.0 (2.0-8.3) x10*3/uL Absolute Nucleated RBC 0.000 (0.0-0.012) X10*3/uL Nucleated RBC % (auto) 0.0 (0.0-0.2) /100WBC PT 10.8 (10.0-13.1) SEC INR 0.9 (0.9-1.1) APTT 31.8 (26.0-36.4) SEC Sodium 144 (135-145) mmol/L Potassium 4.7 (3.3-5.1) mmol/L Chloride 106 (96-108) mmol/L Carbon Dioxide 30 H (22-29) mmol/L Anion Gap 13 (12-20) BUN 24 H (9-16) mg/dL Creatinine 0.85 (0.5-1.4) mg/dL Estim Creat Clear Calc 49.1 Estimated GFR > 60 Random Glucose 119 H (60-115) mg/dL Calcium 9.6 (8.4-10.2) mg/dL Total Bilirubin 0.6 (0.0-1.0) mg/dL AST 26 (5-31) U/L ALT 22 (0-31) U/L Alkaline Phosphatase 66 (39-117) U/L Troponin I High Sens (<3.5-17.0) ng/L Total Protein 6.7 (6.5-8.0) g/dL Albumin 3.9 (3.5-5.0) g/dL Urine Color Urine Appearance Urine pH (5.0-9.0) Ur Specific [place] (1.005-1.025) Urine Protein (Neg-Trace) mg/dL Urine Glucose (UA) (Negative) mg/dL Urine Ketones (Negative) mg/dL Urine Blood (Negative) Urine Nitrite (Negative) Ur Leukocyte Esterase (Negative) Influenza Type A (PCR) (Negative) Influenza Type B (PCR) (Negative) RSV RNA Qual (PCR) (Negative) SARS-CoV-2 RNA (RT-PCR) (Negative) 06/06/22 06/06/22 06/06/22 Range/Units 14:07 14:07 18:12 WBC (4.8-10.8) X10*3/uL RBC (4.20-5.50) X10*6/uL Hgb (12.0-16.0) g/dl Hct (37.0-47.0) % MCV (80.0-98.0) fL MCH (27.0-33.0) pg MCHC (31.0-35.0) g/dl RDW (11.0-16.0) % Plt Count (160-400) X10*3/uL MPV (9.4-12.3) fL Immature Gran % (Auto) (0.0-0.4) % Neut % (Auto) (45-73) % Lymph % (Auto) (20-40) % [place] % (Auto) (2-11) % Eos % (Auto) (0-4) % Baso % (Auto) (0-2) % Lymph # (Auto) (1.2-4.9) X10*3/uL [place] # (Auto) (0.1-1.2) X10*3/uL Eos # (Auto) (0.0-0.4) X10*3/uL Baso # (Auto) (0.0-0.2) X10*3/uL Abs Immat Gran (auto) (0.00-0.03) X10*3/uL Absolute Neuts (auto) (2.0-8.3) x10*3/uL Absolute Nucleated RBC (0.0-0.012) X10*3/uL Nucleated RBC % (auto) (0.0-0.2) /100WBC PT (10.0-13.1) SEC INR (0.9-1.1) APTT (26.0-36.4) SEC Sodium (135-145) mmol/L Potassium (3.3-5.1) mmol/L Chloride (96-108) mmol/L Carbon Dioxide (22-29) mmol/L Anion Gap (12-20) BUN (9-16) mg/dL Creatinine (0.5-1.4) mg/dL Estim Creat Clear Calc Estimated GFR Random Glucose (60-115) mg/dL Calcium (8.4-10.2) mg/dL Total Bilirubin (0.0-1.0) mg/dL AST (5-31) U/L ALT (0-31) U/L Alkaline Phosphatase (39-117) U/L Troponin I High Sens 3.8 (<3.5-17.0) ng/L Total Protein (6.5-8.0) g/dL Albumin (3.5-5.0) g/dL Urine Color Yellow Urine Appearance Clear Urine pH 6.0 (5.0-9.0) Ur Specific [place] 1.025 (1.005-1.025) Urine Protein Negative (Neg-Trace) mg/dL Urine Glucose (UA) Negative (Negative) mg/dL Urine Ketones Negative (Negative) mg/dL Urine Blood Negative (Negative) Urine Nitrite Negative (Negative) Ur Leukocyte Esterase Negative (Negative) Influenza Type A (PCR) NEGATIVE (Negative) Influenza Type B (PCR) NEGATIVE (Negative) RSV RNA Qual (PCR) NEGATIVE (Negative) SARS-CoV-2 RNA (RT-PCR) NEGATIVE (Negative) <Leopoldo Mckeon - Last Filed: 06/06/22 18:29> Discharge Plan Discharge Clinical Impression: Vertigo <SOURAV Troy - Last Filed: 06/06/22 20:45> Patient Disposition: Home, Self-Care <SOURAV Troy - Last Filed: 06/06/22 20:45> Instructions: Vertigo (ED) <SOURAV Troy - Last Filed: 06/06/22 20:45> Additional Instructions: Take Meclizine as needed for any further dizziness. Your symptoms are most consistent with vertigo Follow up with your primary doctor <SOURAV Troy - Last Filed: 06/06/22 20:45> Prescriptions: New meclizine 25 mg tablet 25 mg PO TID PRN (Reason: dizziness) Qty: 20 0RF No Action metoprolol succinate 25 mg tablet extended release 24 hr 25 mg PO DAILY Qty: 90 4RF aspirin [Adult Aspirin Regimen] 81 mg tablet,delayed release (DR/EC) 81 mg PO DAILY Qty: 90 4RF tolterodine 4 mg capsule,extended release 24hr 4 mg PO .COMPLEX 90 Days Qty: 90 2RF Rx Instructions: 4 mg PO twice a day; atorvastatin 40 mg tablet 40 mg PO BEDTIME 90 Days Qty: 90 0RF Rx Instructions: needs cardiology follow up ciprofloxacin HCl 250 mg tablet 250 mg PO BID 5 Days Qty: 10 0RF cholecalciferol (vitamin D3) 50 mcg (2,000 unit) capsule 100 mcg PO DAILY 30 Days Qty: 60 11RF Prolia 60 mg/mL syringe 60 mg subcut [id number] Qty: 1 2RF omeprazole 20 mg capsule,delayed release(DR/EC) 20 mg PO DAILY hydrochlorothiazide 12.5 mg capsule 12.5 mg PO DAILY multivitamin Tablet 1 tab PO DAILY celecoxib 200 mg capsule 200 mg PO BID magnesium oxide 400 mg (241.3 mg magnesium) tablet 400 mg PO DAILY <SOURAV Troy - Last Filed: 06/06/22 20:45> Interventions: ED Discharge Assessment Last Done: 06/06/22 18:54 <SOURAV Troy - Last Filed: 06/06/22 20:45> Discharge Date/Time: 06/06/22 18:55 <SOURAV Troy - Last Filed: 06/06/22 20:45>
[2022-06-06 14:11] LABS: MANUAL DIFF FLAG NO
[2022-06-06 14:14] LABS: Basophils Percent Auto 0.5 % (0-2); Eosinophils Absolute Auto 0.2 X10*3/uL (0.0-0.4); Eosinophils Percent Auto 2.1 % (0-4); Hematocrit 44.1 % (37.0-47.0); Hemoglobin 14.5 g/dl (12.0-16.0); Imm Gran Abs Auto 0.02 X10*3/uL (0.00-0.03); Imm Gran Pct Auto 0.3 % (0.0-0.4); Lymphocytes Percent Auto 38.2 % (20-40); Mean Corpuscular HGB Conc 32.9 g/dl (31.0-35.0); Mean Corpuscular Volume 91.1 fL (80.0-98.0); Mean Platelet Volume 9.5 fL (9.4-12.3); Monocytes Absolute Auto 0.7 X10*3/uL (0.1-1.2); Monocytes Percent Auto 9.1 % (2-11); Neutrophils Percent Auto 49.8 % (45-73); Platelet Count 233 X10*3/uL (160-400); Red Blood Count 4.84 X10*6/uL (4.20-5.50); Red Cell Distribution Width 12.9 % (11.0-16.0); White Blood Count 7.9 X10*3/uL (4.8-10.8)
[2022-06-06 14:19] LABS: INTERNATIONAL NORM RATIO 0.9 (0.9-1.1); Prothrombin Time 10.8 SEC (10.0-13.1)
[2022-06-06 14:22] LABS: Partial Thromboplastin Time 31.8 SEC (26.0-36.4)
[2022-06-06 14:28] LABS: Alanine Aminotransferase 22 U/L (0-31); Albumin Level 3.9 g/dL (3.5-5.0); Alkaline Phosphatase 66 U/L (39-117); Anion Gap 13 (12-20); Aspartate Amino Transferase 26 U/L (5-31); Bilirubin Total 0.6 mg/dL (0.0-1.0); Blood Urea Nitrogen 24 mg/dL (9-16); Calcium 9.6 mg/dL (8.4-10.2); Carbon Dioxide 30 mmol/L (22-29); Chloride 106 mmol/L (96-108); Creatinine Clr Calc Pharmacy 49.1; Estimated Glomerular Filt Rate > 60; Glucose Random 119 mg/dL (60-115); Potassium 4.7 mmol/L (3.3-5.1); Sodium 144 mmol/L (135-145); Total Protein 6.7 g/dL (6.5-8.0)
[2022-06-06 14:35] LABS: Troponin-I High Sensitivity 3.8 ng/L (<3.5-17.0)
[2022-06-06 15:04] LABS: Influenza A PCR NEGATIVE (Negative); Influenza B PCR NEGATIVE (Negative); Resp Syncy Virus RNA Qual PCR NEGATIVE (Negative); SARS COV2 PCR INHOUSE NEGATIVE (Negative)
[2022-06-06 17:11] VITALS: BP 191/78; PULSE 78; PULSE 80; RESP 20; O2SAT 97
[2022-06-06 17:13] VITALS: BP 167/66; PULSE 76
[2022-06-06 17:14] VITALS: BP 169/77; PULSE 83
[2022-06-06] MEDS: Meclizine HCl 25 MG TABLET PO (17:21)
[2022-06-06 18:08] VITALS: BP 154/69; PULSE 77; RESP 17; O2SAT 97
[2022-06-06 18:18] LABS: Appearance Urine Clear; Color Urine Yellow; Glucose Urine UA Negative (Negative); Leukocyte Esterase Urine Negative (Negative); Nitrite Urine Negative (Negative); Specific Gravity - Urine 1.025 (1.005-1.025); Urine Blood Negative (Negative); Urine Ketones Negative (Negative); Urine Protein Negative (Neg-Trace)
== END 2022-06-06 18:55 | disposition home or self-care (01) ==
PROVIDERS: Physician Assistant; Emergency Provider Student in an Organized Health Care Education/Training Program; PCP Internal Medicine
DX: R42 Dizziness and giddiness (principal); R94.31 Abnormal electrocardiogram [ECG] [EKG]; Z20.822 Contact with and (suspected) exposure to COVID-19; Z20.828 Contact with and (suspected) exposure to other viral communicable diseases; Z79.899 Other long term (current) drug therapy
CPT/HCPCS: 0241U; 70450; 80053; 81003; 84484; 85025; 85610; 85730; 93005; 99284

== ENCOUNTER 2022-06-07 14:51 | Outpatient (REF) | payer OTHER, MEDICAID, SELFPAY ==
--- NOTE | ~2022-06-07 | US_ITS ---
EXAMINATION: US PELVIS CLINICAL INFORMATION: Postmenopausal bleeding COMPARISON: CT abdomen and pelvis 12/26/2018. TECHNIQUE: Ultrasound of the pelvis is performed using both transabdominal and transvaginal transducers along with Doppler. Transvaginal imaging is performed due to inadequate visualization transabdominally. FINDINGS: Uterus: The uterus is anteverted and measures 7.1 x 2.5 x 4.5 cm. The double wall endometrial thickness is 13 mm. The endometrium appears thickened and cystic. The myometrium is heterogeneous. There is a 2.5 x 2.7 x 3.0 cm fibroid at the uterine fundus. Adnexa: Neither ovary is seen. No free fluid. US/US pelvic and transvaginal IMPRESSION: Abnormally thickened and cystic endometrium measuring 1.3 cm in thickness. Neoplasm not excluded. Recommend gynecology referral for consideration of endometrial biopsy. 3.0 cm uterine fundal fibroid. Nonvisualization of the ovaries.
== END 2022-06-07 14:52 | disposition home or self-care (01) ==
LOC: HO.US 14:51
PROVIDERS: Visit Provider Obstetrics & Gynecology
DX: N95.0 Postmenopausal bleeding (principal)
CPT/HCPCS: 76830; 76856

== ENCOUNTER → 2022-06-14 10:23 | Outpatient (BNVA) | payer OTHER, MEDICAID, SELFPAY | PROVIDERS: PCP Internal Medicine; Visit Provider Obstetrics & Gynecology | DX: N95.0 Postmenopausal bleeding (principal) | CPT/HCPCS: 99212 ==

== ENCOUNTER → 2022-06-15 08:35 | Outpatient (BNVA) | payer OTHER, MEDICAID, SELFPAY | PROVIDERS: PCP Internal Medicine; Visit Provider Obstetrics & Gynecology | DX: N95.0 Postmenopausal bleeding (principal); R93.89 Abnormal findings on diagnostic imaging of other specified body structures; M81.0 Age-related osteoporosis without current pathological fracture; E55.9 Vitamin D deficiency, unspecified | CPT/HCPCS: 58100; 99212 ==

== ENCOUNTER 2022-07-06 14:00 | Outpatient (REF) | payer OTHER, MEDICAID, SELFPAY ==
[2022-07-15 05:39] LABS: N-Telopeptide 20 (see note); NTXCreaRU 120 mg/dL (20-275)
== END 2022-07-06 14:01 | disposition home or self-care (01) ==
LOC: HO.LNP 14:00
PROVIDERS: Visit Provider Internal Medicine
DX: M81.0 Age-related osteoporosis without current pathological fracture (principal)
CPT/HCPCS: 82523

== ENCOUNTER → 2022-07-12 14:58 | Outpatient (BNVA) | payer OTHER, MEDICAID, SELFPAY | PROVIDERS: PCP Internal Medicine; Visit Provider Obstetrics & Gynecology | DX: D25.9 Leiomyoma of uterus, unspecified (principal); N95.0 Postmenopausal bleeding; M81.0 Age-related osteoporosis without current pathological fracture; E55.9 Vitamin D deficiency, unspecified | CPT/HCPCS: 99212 ==

== ENCOUNTER 2022-07-29 08:50 | Day surgery (SDC) | payer OTHER, MEDICAID, SELFPAY ==
[2022-07-26 17:26] VITALS: BMI 35.3
--- NOTE | 2022-07-28 08:59 | P.CONAN_ITS ---
Documented by User: Lexy Mack NP 07/28/22 08:59 HPI - Anesthesia Eval Consult details Narrative: 81yo F for D&C Hysteroscopy,poss myomectomy,poss polypectomy, PMFSH Active Problems Active Problems: All Active Problems (Updated 07/12/22 @ 15:26 by Amarjit Saha MD) Myoma (Acute) Postmenopausal bleeding (Acute) Lumbosacral pain (Acute) Bilateral primary osteoarthritis of hip (Acute) Recurrent UTI (urinary tract infection) (Acute) Vitamin D deficiency (Acute) Osteoporosis (Acute) Fatigue (Acute) Aortic atherosclerosis (Acute) Palpitations (Acute) Premature ventricular complex (Acute) Past Medical History Medical History Osteoporosis Vitamin D deficiency Family History Family History Father Appendicitis, acute Mother No problems noted. Surgical History Surgical History History of History of knee surgery Social History Social History Household Members: None Housing: House Alcohol intake: never Patient Tobacco Use Status: Former Tobacco user Use of substances other than those prescribed or required for medical reasons: No Are you DNR?: No Advance Directives: No Advance Directives Information Provided: Yes Current occupational status: retired Meds Allergies Allergy/AdvReac Type Severity Reaction Status Date / Time meperidine [Meperidine] Allergy Intermediate HIVES Verified 07/12/22 15:17 Penicillins Allergy Intermediate OPPOSITE Verified 07/12/22 15:17 EFFECT phenobarbital [PHENOBARBITAL] Allergy Unknown SWELLING Verified 07/12/22 15:17 Home Medications Medication Instructions Recorded Confirmed Last Taken Type hydrochlorothiazide 12.5 mg capsule 12.5 mg PO DAILY 04/22/20 07/28/22 Unknown History multivitamin 1 tab PO DAILY 04/22/20 07/28/22 Unknown History celecoxib 200 mg capsule 200 mg PO BID 05/25/22 07/28/22 Unknown History magnesium oxide 400 mg (241.3 mg 400 mg PO DAILY 05/25/22 07/28/22 Unknown History magnesium) tablet cyanocobalamin (vitamin B-12) 1,000 mcg PO DAILY 07/28/22 07/28/22 Unknown History 1,000 mcg tablet (Vitamin B-12) pantoprazole 40 mg tablet,delayed 40 mg PO DAILY 07/28/22 07/28/22 Unknown History release Exam Exam Date and Time: July 28, 2022 0859 Height,Weight and Vital Signs: Height 5 ft Weight 82.1 kg Pertinent Lab Results Pertinent Lab Results: Laboratory Tests 06/06/22 06/06/22 14:07 14:07 WBC 7.9 Hgb 14.5 Hct 44.1 Plt Count 233 Sodium 144 Potassium 4.7 Chloride 106 Carbon Dioxide 30 H BUN 24 H Creatinine 0.85 Narrative Narrative: EKG 05/2022 Vent. Rate : 073 BPM ? ? Atrial Rate : 073 BPM ?? P-R Int : 198 ms? QRS Dur : 090 ms ? ? QT Int : 380 ms ? ? ? P-R-T Axes : 011 005 011 degrees ?? QTc Int : 418 ms ? Normal sinus rhythm Low voltage QRS Borderline ECG When compared with ECG of 06-AUG-2012 14:03, No significant change was found Assessment and Plan Assessment Anesthesia Assessment: Chart Reviewed Documented by User: Shanique Seals MD 07/29/22 09:22 [facility] Past Medical History Medical History Osteoporosis Vitamin D deficiency Family History Family History Father Appendicitis, acute Mother No problems noted. Surgical History Surgical History History of History of knee surgery Social History Social History Household Members: None Housing: House Alcohol intake: never Patient Tobacco Use Status: Former Tobacco user Use of substances other than those prescribed or required for medical reasons: No Are you DNR?: No Advance Directives: No Advance Directives Information Provided: Yes Current occupational status: retired Meds Allergies Allergy/AdvReac Type Severity Reaction Status Date / Time meperidine [Meperidine] Allergy Intermediate HIVES Verified 07/12/22 15:17 Penicillins Allergy Intermediate OPPOSITE Verified 07/12/22 15:17 EFFECT phenobarbital [PHENOBARBITAL] Allergy Unknown SWELLING Verified 07/12/22 15:17 Home Medications Medication Instructions Recorded Confirmed Last Taken Type hydrochlorothiazide 12.5 mg capsule 12.5 mg PO DAILY 04/22/20 07/28/22 Unknown History multivitamin 1 tab PO DAILY 04/22/20 07/28/22 Unknown History celecoxib 200 mg capsule 200 mg PO BID 05/25/22 07/28/22 Unknown History magnesium oxide 400 mg (241.3 mg 400 mg PO DAILY 05/25/22 07/28/22 Unknown History magnesium) tablet cyanocobalamin (vitamin B-12) 1,000 mcg PO DAILY 07/28/22 07/28/22 Unknown History 1,000 mcg tablet (Vitamin B-12) pantoprazole 40 mg tablet,delayed 40 mg PO DAILY 07/28/22 07/28/22 Unknown Hist ory release Exam Airway Mallampati Class: II TM Dist: >3cm Neck ROM: Full Partial: Upper Assessment and Plan Final Anesthetic Review NPO: Yes Final Preanesthetic Review: No Changes in Pt Med Stat, Meds/Allgs Chart Reviewed, Consent Obtained/Reviewed and Anes Risks/Benef Reviewed Patient Risk: Low Procedure Risk: Low Anesthetic Plan Anesthetic Plan: GA Disposition: Standard PACU
[2022-07-29] VITALS (17 sets, daily range): BP systolic 144–175; BP diastolic 61–77; PULSE 61–85; RESP 16–20; TEMP 36.1–36.6; O2SAT 91–99
--- NOTE | 2022-07-29 09:50 | MHC.SHP ---
Pre-Procedural Eval Section A Date of Service: 07/29/22 The patient is an INPATIENT: No Changes since office visit: No Cold of Flu in the past 2 weeks, No New Medical Problems, No Changes in Medication and No Patient answered all questions The History & Physical has been completed within 30 days and I have reviewed it.: Yes Section B Chief Complaint: Postmenopausal bleeding Allergies: Allergies Allergy/AdvReac Type Severity Reaction Status Date / Time meperidine [Meperidine] Allergy Intermediate HIVES Verified 07/12/22 15:17 Penicillins Allergy Intermediate OPPOSITE Verified 07/12/22 15:17 EFFECT phenobarbital [PHENOBARBITAL] Allergy Unknown SWELLING Verified 07/12/22 15:17 Plan Diagnosis/Plan: Unchanged I have reviewed the history and physical and performed a pertinent physical examination on my patient. No changes have occurred unless specified. Time Spent With Patient Time: Total time managing care of this patient today ____ minutes.
--- NOTE | 2022-07-29 10:46 | P.BOP_ITS ---
Brief Operative Note Date of Service: 07/29/22 Pre-op diagnosis: Postmenopausal bleeding with abnormal endometrial thickening by ultrasound Post-op diagnosis: same (Normal endometrial cavity with no evidence of pathology) Procedure: Hysteroscopy D&C Surgeon: Amarjit Saha MD Anesthesia: GLMA Was an Control And Recovery Combat Rescue used for this Procedure?: No Estimated blood loss (mL): 0 Pathology: other (Endometrial Scrapping. ) Condition: stable Disposition: PACU
--- NOTE | 2022-07-29 10:46 | P.OP_ITS ---
Operative Note Operative Note Date of Service: 07/29/22 Narrative: Preop Diagnosis: Post Menopausal bleeding with abnormal endometrium by ultrasound Operation: Diagnostic Hysteroscopy, Dilataion & Curettage Post Op Diagnosis: Normal endometrial cavity QBL: Minimal Anesthesia: GLMA Surgeon: Amarjit Saha MD Real Estate Transaction Coordinator: None Complication: None Pathology: Endometrial Scrapings Procedure: The patient was put in the dorsal lithotomy position, scrubbed, and draped in the usual manner. A sterile speculum was inserted in the patient's vagina. The anterior lip of the cervix was grasped with a single tooth tenaculum. The cervix was dilated up to 5 mm, then the scope was inserted in the patient's uterus. Inspection revealed Normal endometrial cavity. The Myosure Reach device was used; the scope was removed from the endometrial cavity , sharp curettings was carried on with minimal to moderate amount of tissues retrieved. At the end of the procedure, all instruments were taken out of the patient uterine and vaginal cavity. The single tooth tenaculum was removed and homeostasis was assured using pressure,. The patient tolerated the procedure well and was transferred to the PACU in a stable condition.
[2022-07-29] MEDS: Acetaminophen 325 MG TABLET 650 MG PO (11:11)
[2022-07-29] MEDS: fentaNYL citrate/PF 100 MCG/2 ML VIAL 25 MCG IVPUSH ×2 (11:13→11:24)
[2022-07-29] MEDS: ondansetron HCL 4 MG/2 ML VIAL IVPUSH (11:32)
== END 2022-07-29 15:33 | disposition home or self-care (01) ==
PROVIDERS: PCP Internal Medicine; Visit Provider Obstetrics & Gynecology
PROC: 0UDB8ZZ Extraction of Endometrium, Via Natural or Artificial Opening Endoscopic (ICD-10-PCS; CPT 58558; principal; 2022-07-29 10:30)
DX: N95.0 Postmenopausal bleeding (principal); D21.9 Benign neoplasm of connective and other soft tissue, unspecified; I10 Essential (primary) hypertension; M15.9 Polyosteoarthritis, unspecified; M81.0 Age-related osteoporosis without current pathological fracture; E55.9 Vitamin D deficiency, unspecified; R42 Dizziness and giddiness; Z79.899 Other long term (current) drug therapy; Z88.0 Allergy status to penicillin; Z88.8 Allergy status to other drugs, medicaments and biological substances; Z87.891 Personal history of nicotine dependence
CPT/HCPCS: 58558; 88305; J1100; J2250; J2405; J3010

== ENCOUNTER → 2022-08-01 13:50 | Outpatient (BNVA) | payer OTHER, MEDICAID, SELFPAY | PROVIDERS: PCP Internal Medicine; Visit Provider Obstetrics & Gynecology | DX: N95.0 Postmenopausal bleeding (principal) | CPT/HCPCS: 99212 ==

== ENCOUNTER → 2022-08-16 15:00 | Outpatient (BNVA) | payer OTHER, MEDICAID, SELFPAY | PROVIDERS: PCP Internal Medicine; Visit Provider Obstetrics & Gynecology | DX: N95.0 Postmenopausal bleeding (principal); Z98.890 Other specified postprocedural states | CPT/HCPCS: 99212 ==

== ENCOUNTER 2022-08-22 14:43 | Outpatient (REF) | payer OTHER, MEDICAID, SELFPAY ==
[2022-08-22 14:52] LABS: Appearance Urine Clear; Color Urine Yellow; Glucose Urine UA Negative (Negative); Leukocyte Esterase Urine Negative (Negative); Nitrite Urine Negative (Negative); Specific Gravity - Urine 1.015 (1.005-1.025); Urine Blood Negative (Negative); Urine Ketones Negative (Negative); Urine Protein Negative (Neg-Trace)
[2022-08-22 14:55] LABS: Bacteria Urine None Seen (None Seen); Hyaline Casts Urine 0-2 /LPF (0-2); RBC Urine 0-2 /HPF (0-2); Squamous Epithelial Cell Urine 0-2 /HPF (0-2); WBC Urine 0-5 /HPF (0-5)
== END 2022-08-22 14:44 | disposition home or self-care (01) ==
LOC: HO.LNP 14:43
PROVIDERS: Visit Provider Internal Medicine
DX: R39.15 Urgency of urination (principal); N30.00 Acute cystitis without hematuria
CPT/HCPCS: 81001

== ENCOUNTER 2022-08-26 15:02 | Outpatient (REF) | payer OTHER, MEDICAID, SELFPAY ==
[2022-08-26 15:21] LABS: Appearance Urine Clear; Color Urine Yellow; Glucose Urine UA Negative (Negative); Leukocyte Esterase Urine Negative (Negative); Nitrite Urine Negative (Negative); PH 6.5 (5.0-9.0); Urine Blood Negative (Negative); Urine Ketones Negative (Negative); Urine Protein Negative (Neg-Trace)
[2022-08-26 15:25] LABS: Bacteria Urine None Seen (None Seen); Hyaline Casts Urine 0-2 /LPF (0-2); RBC Urine 0-2 /HPF (0-2); Squamous Epithelial Cell Urine 0-2 /HPF (0-2); WBC Urine 0-5 /HPF (0-5)
== END 2022-08-26 15:03 | disposition home or self-care (01) ==
LOC: HO.LNP 15:02
PROVIDERS: Visit Provider Internal Medicine
DX: R30.0 Dysuria (principal)
CPT/HCPCS: 81001; 87086

== ENCOUNTER 2022-09-07 09:18 | Outpatient (AMB) | payer OTHER, MEDICAID, SELFPAY ==
--- NOTE | 2022-09-07 09:18 | MHC.OFFVIS ---
Intake Intake Visit Reasons: F/Up osteoporosis Allergies meperidine [Meperidine] Allergy (Intermediate, Verified 09/07/22 10:30) HIVES Penicillins Allergy (Intermediate, Verified 09/07/22 10:30) OPPOSITE EFFECT phenobarbital [PHENOBARBITAL] Allergy (Unknown, Verified 09/07/22 10:30) SWELLING Medication List - Last Reconciled 09/07/22 by Alis Oneil, DO celecoxib 200 mg PO BID cholecalciferol (vitamin D3) 100 mcg (2 x 50 mcg (2,000 unit)) PO DAILY 30 days cyanocobalamin (vitamin B-12) (Vitamin B-12) 1,000 mcg PO DAILY denosumab (Prolia) 60 mg subcut [id number] hydrochlorothiazide 12.5 mg PO DAILY magnesium oxide 400 mg PO DAILY multivitamin 1 tab PO DAILY pantoprazole 40 mg PO DAILY HPI HPI Comments History of Present Illness Details 81 YO Female who is seen in F/U for Osteoporosis. First diagnosed in 2018 after she suffered a compression fracture of the T8 vertebrate. She subsequently had kyphoplasty, which resulted in compression fracture of the T9 vertebrate. She was subsequently referred to Endocrinology. She underwent a full biochemical workup for secondary causes of Osteoporosis and this was WNL. She was started on Prolia 04/09/2019 and tolerated this well. She was due for her second dose in September 2019, but was scheduled for dental extractions so this was placed on hold. She then resumed therapy and had her most recent dose 05/18/2022. No history of pathologic fracture or ONJ. Has 0-1 servings of dietary calcium per day in the form of milk or cheese. Takes a Calcium supplement 600 mg once daily. She takes an additional Vitamin D 2000 IU daily. Takes Omeprazole daily. Was previously on phenobarbital for seizures, but not in many years. Denies ever using anticoagulant or glucocorticoid medication. Does no weight bearing exercise currently. Fracture history: Compression fracture of T8 Vertebrate in June 2018. Had Kyphoplasty 07/10/18 and subsequently suffered compression fracture of the T9 Vertebrate. Height loss: Has lost 4 inches in height. WEIGHER AND CRUSHER history: Menarche was age 14. Menses was always regular. . She did not breastfeed. Menopause was in her 50's. Did not use HRT. History of Kidney stones: She does have a history of kidney stones. Does not recall if these were calcium stones. Denies a family history of Osteoporosis or hip fracture. DXA dated 07/06/2021: FINDINGS: AP SPINE L1-L4: Current: BMD 1.012 g/cm2, Z-score -0.1, T-score -1.4, osteopenia, 0.4% increase from previous, 6.8% increase from baseline (<5% change is not significant). Prior: BMD 1.008 g/cm2. Baseline: BMD 0.948 g/cm2. LEFT FEMUR, NECK: Current: BMD 0.750 g/cm2, Z-score -0.3, T-score -2.1, osteopenia. Prior: BMD 0.737 g/cm2. Baseline: BMD 0.812 g/cm2. LEFT FEMUR, TOTAL: Current: BMD 0.873 g/cm2, Z-score 0.5, T-score -1.1, osteopenia, 4.6% increase from previous, 9.2% decrease from baseline (<5% change is not significant). Prior: BMD 0.835 g/cm2. Baseline: BMD 0.961 g/cm2. Labs: No recent pertinent labs. [facility] Medical History Breast cancer Osteoporosis Vitamin D deficiency Surgical History History of History of knee surgery Family History Father Appendicitis, acute Mother No problems noted. Social History Household Members: None Housing: House Alcohol intake: never Patient Tobacco Use Status: Former Tobacco user Current occupational status: retired Assessment & Plan Assessment & Plan (1) Osteoporosis: Code(s): M81.0 - Age-related osteoporosis without current pathological fracture Plan: Patient with Osteoporosis of the spine. BMD is artificially increased due to compression fractures and arthritic changes. The fact that she is having fragility/compression fractures of the spine indicates Osteoporosis. Treatment is indicated. Risk factors are daily PPI use, previous antiepileptic use and postmenopausal status. She is unable to tolerate oral bisphosphponates due to her severe GERD. She was started on Prolia and has tolerated this well. Her first dose was 04/09/2019. She had been having dental issues and her second dose was postponed. Most recent Prolia was 05/18/2022. She will be due October 2022 and this is scheduled. She will do labs 1 week prior to the visit. We did review that the risk of vertebral fracture significantly increases if prolia dose is delayed, so it is imperative that she gets her prolia on time every 6 months. She verbalizes understanding. All of her questions were answered. She is in agreement with this plan of care. I spent 20 minutes in reviewing the record, seeing the patient and documenting in the medical record, including 5 minutes on the phone with the Patient. (2) Vitamin D deficiency: Code(s): E55.9 - Vitamin D deficiency, unspecified Plan: Patient with Vitamin D deficiency. She remains on Vitamin D 2000 IU daily. Orders: Orders Alkaline Phosphatase Bone 2 Months M81.0 - Age-related osteoporosis without current pathological fracture Comprehensive Met. Panel 2 Months M81.0 - Age-related osteoporosis without current pathological fracture Phosphorus 2 Months M81.0 - Age-related osteoporosis without current pathological fracture PTHI 2 Months M81.0 - Age-related osteoporosis without current pathological fracture Vitamin D 25-OH Total 2 Months E55.9 - Vitamin D deficiency, unspecified Collagen Crosslinks NTX 2 Months M81.0 - Age-related osteoporosis without current pathological fracture Telehealth Telehealth Location of provider rendering services: practice address Location of patient: address on file Patient Identification confirmed using: Name, : Yes Telehealth method: voice only Patient verbally consented to treatment: Yes Patient verbally consented to billing insurance company: Yes Patient informed of any privacy concerns related to visit: Yes Coding Level of Care Code Tele Est Pt Level 3 (18704) Diagnoses Osteoporosis M81.0 Vitamin D deficiency E55.9
== END 2022-09-07 10:55 | disposition home or self-care (01) ==
LOC: HO.ENCR 09:18
PROVIDERS: PCP Internal Medicine; Visit Provider Internal Medicine
DX: M81.0 Age-related osteoporosis without current pathological fracture (principal); E55.9 Vitamin D deficiency, unspecified
CPT/HCPCS: 99213

== ENCOUNTER → 2022-09-07 09:18 | Outpatient (BNVA) | payer OTHER, MEDICAID, SELFPAY | PROVIDERS: PCP Internal Medicine; Visit Provider Internal Medicine | DX: M81.0 Age-related osteoporosis without current pathological fracture (principal); E55.9 Vitamin D deficiency, unspecified | CPT/HCPCS: Q3014 ==

== ENCOUNTER 2022-09-16 12:15 | Outpatient (REF) | payer OTHER, MEDICAID, SELFPAY ==
--- NOTE | ~2022-09-16 | XR_ITS ---
EXAMINATION: XR LUMBOSACRAL SPINE CLINICAL INFORMATION: Lumbar pain. COMPARISON: X-ray lumbar spine 01/26/2018. TECHNIQUE: Three views of the lumbosacral spine. FINDINGS: Again noted mild thoracolumbar scoliosis. No evidence of acute compression deformity or traumatic subluxation. Partially imaged chronic fractures with vertebroplasty cement at T8 and T9. Stable chronic mild anterolisthesis of L4 on L5. Mild multilevel intervertebral disc height loss. Moderate facet arthropathy at L4-L5 and L5-S1 leading to some degree of neural foraminal encroachment and central canal stenosis. SI joints are symmetric. Scattered atherosclerotic disease. Right upper quadrant surgical clips. Calcified body in the left pelvis, likely a phlebolith or a degenerative fibroid. XR/XR lumbar spine 2-3V IMPRESSION: 1. No acute compression deformity or traumatic subluxation. 2. Chronic fractures of T8 and T9 with vertebroplasty cement. 3. Mild thoracolumbar scoliosis. 4. Moderate facet arthropathy in the lower lumbar spine. Further imaging with an MRI of the lumbar spine could be obtained as clinically indicated.
== END 2022-09-16 12:16 | disposition home or self-care (01) ==
LOC: HO.XRAY 12:15
PROVIDERS: PCP Internal Medicine; Visit Provider Registered Nurse
DX: M54.50 Low back pain, unspecified (principal)
CPT/HCPCS: 72100

== ENCOUNTER 2022-11-16 10:32 | Outpatient (REF) | payer OTHER, MEDICAID, SELFPAY ==
--- NOTE | ~2022-11-16 | MR_ITS ---
EXAMINATION: MR LUMBAR SPINE WITHOUT CONTRAST CLINICAL INFORMATION: Lumbar radiculopathy with numbness down right leg. COMPARISON: Plain films the lumbar spine 09/16/2022. MRI scan of the lumbar spine 10/14/2016. TECHNIQUE: MRI of the lumbar spine was obtained using routine sequences without contrast. FINDINGS: VERTEBRAL BODIES AND PARASPINAL STRUCTURES: There is a mild levoscoliosis. There is a mild grade 1 anterolisthesis at L4-L5, with mild narrowing of intervertebral disc height at this level. There is disc desiccation of the discs throughout the lumbar spine. The study partially redemonstrates the compression fractures and sequelae of augmentation at T9. There are Schmorl's nodes at adjacent endplates at T10-T11, unchanged. No acute compression fractures are demonstrated on the current study. Overall, marrow signal is homogenous. The study redemonstrates the extrarenal pelvis an mild prominence of the collecting system of the right kidney. There is a small cyst at the lower pole of the left kidney. The visualized pelvic structures are unremarkable. CONUS MEDULLARIS AND CAUDA EQUINA: Normal, terminating at the level of L1. Accounting for artifact, spinal cord signal appears normal. SPINAL LEVELS: T12-L1: The facet joints appear normal bilaterally. Disc contour is normal. There is no central stenosis or foraminal narrowing. L1-L2: There is mild bilateral facet arthropathy. Disc contour is normal. There is no central stenosis or foraminal narrowing. L2-L3: There is mild to moderate bilateral facet arthropathy. There are small bilateral posterior disc protrusions with narrowing of the subarticular recesses, which have developed since the prior study, more prominent on the left. There is impingement on the traversing L3 nerve roots bilaterally. There is no foraminal nerve root impingement. There is mild central stenosis. L3-L4: There is moderate bilateral facet arthropathy. There is a broad-based posterior disc protrusion with minimal mass effect on the thecal sac. There is no central stenosis, and the neural foramina are patent bilaterally. L4-L5: There is severe bilateral facet arthropathy with ligamenta flava hypertrophy and facet joint effusions which appear more severe compared to prior imaging. There is mild unroofing of the disc as a result of the anterolisthesis, and there is narrowing of the bilateral subarticular recesses. There is moderate to severe central stenosis. There are inferior foraminal disc protrusions bilaterally without exiting nerve root impingement. L5-S1: There is severe left and moderate right facet arthropathy. There is a synovial cyst off the posterior left facet joint. There is a shallow posterior disc protrusion without mass effect on the thecal sac. There is no central stenosis, and the neural foramina are patent bilaterally. MR/MR lumbar spine wo con IMPRESSION: 1. There is a grade 1 anterolisthesis at L4-L5 secondary to severe facet arthropathy. There is narrowing of the bilateral subarticular recesses and there is moderate to severe central stenosis. 2. At L2-L3 there is facet arthropathy and there are small bilateral posterior disc protrusions. There is narrowing of the subarticular recesses with impingement on the traversing L3 nerve roots bilaterally. There is mild central stenosis. 3. At L5-S1 there is facet arthropathy and there is a shallow posterior disc protrusion. There is no central stenosis or foraminal narrowing. 4. The study partially redemonstrates the compression fracture of T9 with sequelae of augmentation.
== END 2022-11-16 10:33 | disposition home or self-care (01) ==
LOC: HO.MRI 10:32
PROVIDERS: PCP Internal Medicine; Visit Provider Internal Medicine
DX: M54.16 Radiculopathy, lumbar region (principal)
CPT/HCPCS: 72148

== ENCOUNTER 2022-11-22 15:25 | Outpatient (REF) | payer OTHER, MEDICAID, SELFPAY ==
[2022-11-26 21:14] LABS: N-Telopeptide 66 (see note); NTXCreaRU 203 mg/dL (20-275)
== END 2022-11-22 15:26 | disposition home or self-care (01) ==
LOC: HO.LNP 15:25
PROVIDERS: Visit Provider Internal Medicine
DX: M81.0 Age-related osteoporosis without current pathological fracture (principal)
CPT/HCPCS: 82523

== ENCOUNTER 2022-12-02 12:53 | Outpatient (AMB) | payer OTHER, MEDICAID, SELFPAY ==
--- NOTE | 2022-12-02 13:11 | MHC.PC.OV ---
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 Transferring care from Dr Pedro Sarmiento . Medical records have not been requested and have not received. Rubber Splicer Required: No Technician Semiconductor Development: Not Required per policy Accompanied by: Self / Same As Patient Allergies meperidine [Meperidine] Allergy (Intermediate, Verified 12/02/22 13:39) HIVES phenobarbital [PHENOBARBITAL] Allergy (Unknown, Verified 12/02/22 13:39) SWELLING Medication List - Last Reconciled 12/02/22 by BEVERLY Aguilar celecoxib 200 mg PO BID cholecalciferol (vitamin D3) 100 mcg (2 x 50 mcg (2,000 unit)) PO DAILY 30 days cyanocobalamin (vitamin B-12) (Vitamin B-12) 1,000 mcg PO DAILY denosumab (Prolia) 60 mg subcut [id number] hydrochlorothiazide 12.5 mg PO DAILY magnesium oxide 400 mg PO DAILY multivitamin 1 tab PO DAILY pantoprazole 40 mg PO DAILY Tobacco use date assessed: 12/02/22 Fall risk assessment: 1 Fall in past year Last assessed Fall Risk: 12/02/22 Dental Screening Dental Screen Date: 12/02/22 Did you have a dental visit in the last 12 months?: No Did you have a dental problem in the last 6 months where you did not have access to dental care?: No Was dental information given to patient?: No HPI HPI Comments History of Present Illness Details 82-year-old female new patient presents today to establish care. Past medical history significant for osteoporosis, vitamin-D deficiency, bilateral osteoarthritis of hips, aortic atherosclerosis. This is my 1st time meeting patient, she does appear to be somewhat forgetful he has a bunch hand written notes in order to remember to tell this PCP that she stepped on a patch fork and fell injuring her back. Patient was for lumbar spine MRI by previous PCP Dr. Prado which showed posterior disc protrusion with narrowing subarticular recess with impingement on transversing L3 nerve roots bilaterally and mild central canal stenosis. Patient reports she does have back soreness . Denies any radiculopathy symptoms. Denies any bowel incontinence does have previously documented urine incontinence. Patient was advised to follow-up with [facility] Dr. De Luna will enter referral for this. Patient was advised to the family member to her appointment with her. MR/MR lumbar spine wo con IMPRESSION: 1. There is a grade 1 anterolisthesis at L4-L5 secondary to severe facet arthropathy. There is narrowing of the bilateral subarticular recesses and there is moderate to severe central stenosis. 2. At L2-L3 there is facet arthropathy and there are small bilateral posterior disc protrusions. There is narrowing of the subarticular recesses with impingement on the traversing L3 nerve roots bilaterally. There is mild central stenosis. 3. At L5-S1 there is facet arthropathy and there is a shallow posterior disc protrusion. There is no central stenosis or foraminal narrowing. 4. The study partially redemonstrates the compression fracture of T9 with sequelae of augmentation. Previous pcp: Dr. Pedro Prado [facility] Medical History (Updated 12/02/22 @ 14:07 by BEVERLY Aguilar) Recurrent UTI (urinary tract infection) [place] Postmenopausal bleeding Palpitations Premature ventricular complex Breast cancer Vitamin D deficiency Osteoporosis Surgical History (Updated 12/02/22 @ 13:24 by Mrat Mckay [facility]) History of breast biopsy History of History of knee surgery Family History Father Appendicitis, acute Mother No problems noted. Social History (Updated 12/02/22 @ 13:45 by BEVERLY Aguilar) Household Members: None Housing: House Alcohol intake: current Alcohol intake frequency: holidays/special occasions only Alcohol type: wine Patient Tobacco Use Status: Former Tobacco user e-Cigarette/Vaping Use: Never Used Second Hand Smoke Exposure: Yes service: No Current occupational status: retired Cognitive needs: No Hearing needs: No Vision needs: Yes (glasses) Questionnaire PHQ-9 Over the last 2 weeks, how often have you been bothered by any of the following problems? 1. Little interest or pleasure in doing things: not at all 2. Feeling down, depressed, or hopeless: not at all 3. Trouble falling or staying asleep, or sleeping too much: not at all 4. Feeling tired or having little energy: not at all 5. Poor appetite or overeating: not at all 6. Feeling bad about yourself - or that you are a failure or have let yourself or your family down: not at all 7. Trouble concentrating on things, such as reading the newspaper or watching television: not at all 8. Moving or speaking so slowly that other people could have noticed. Or the opposite - being so fidgety or restless that you have been moving around a lot more than usual: not at all 9. Thoughts that you would be better off or of hurting yourself in some way: not at all Total score: 0 Depression Screening Interpretation: Negative Depression Screening Done: Yes 56909 - PHQ-9 Billing: Yes Source: Developed by Drs. Juan Manuel Camarillo, Eva Wesley, Davion Herrera and colleagues, with an educational sophia from [employer]. Thrive Questionnaire Date Thrive assessed: 12/02/22 I am a: Patient What is your living situation today?: I have a steady place to live Within the past 12 months, did the food you bought not last and you didn't have the money to get more?: Never true Within the past 12 months, did you worry whether your food would run out before you got money to buy more?: Never true Do you have trouble paying for medicines?: No Do you have trouble getting transportation to medical appointments?: No Do you have trouble paying your heating and electricity bill?: No Do you have trouble taking care of your child, family member or friend?: No Do you have trouble with day-to-day activities such as bathing, preparing meals, shopping, managing finances, etc.?: No Are you currently unemployed and looking for a job?: No Are you interested in more education?: No Currently or been in a relationship where the following occur: no concerns reported AUDIT C Alcohol Use Questionnaire (AUDIT-C) 1. How often do you have a drink containing alcohol?: Never Total Score: 0 AZUL-7 AMB Questionnaire AZUL-7 Date AZUL - 7 assessed: 12/02/22 Feeling nervous, anxious, or on edge: 0 = Not at all Not being able to stop or control worryin = Not at all Worrying too much about different things: 0 = Not at all Trouble relaxin = Not at all Being so restless that it is hard to sit still: 0 = Not at all Becoming easily annoyed or irritable: 0 = Not at all Feeling afraid as if something awful might happen: 0 = Not at all Total AZUL-7 score (0-4 normal; 5-9 mild; 10-14 moderate; 15-21 severe): 0 Source: Developed by Drs. Juan Manuel Camarillo, Eva Wesley, Davion Herrera and colleagues, with an educational sophia from [employer]. AZUL-7 Assessment Billing AZUL-7 Assessment Tool: AZUL-7 Assessment 62215 Review of Systems Const Denies chills, Denies fatigue, Denies fever(s) and Denies poor appetite Eyes Denies no additional complaints ENT Reports Normal hearing present Card Denies chest pain, Denies syncope, Denies rapid heart rate and Denies dyspnea Resp Denies cough and Denies dyspnea GI Denies change in stool character, Denies constipation, Denies diarrhea, Denies nausea and Denies vomiting Denies urinary frequency, Denies dysuria and Denies urinary urgency Neuro Reports Normal hearing present, Denies confusion and Denies syncope Psych Denies confusion Endo Denies fatigue Physical exam (Primary Care) Vital Signs: Last Vital Signs Pulse 77 12/02/22 13:13 BP 132/62 12/02/22 13:13 Pulse Ox 96 12/02/22 13:13 Oxygen Delivery Method Room Air 12/02/22 13:13 BMI result Body Mass Index 33.8 Tobacco/Smoking Status: Tobacco use Status Tobacco use date assessed 12/02/22 12/02/22 13:25 Patient Tobacco Use Status Former Tobacco user 12/02/22 13:45 e-Cigarette/Vaping Use Never Used 12/02/22 13:45 PHQ-9: PHQ-9 Score PHQ-9: Total score 0 12/02/22 13:45 Depression Screening Interpretation: Negative Thrive Assessment: Date of Thrive Assessment Date Thrive assessed 12/02/22 12/02/22 13:25 Currently or been in a relationship where the following occur: no concerns reported Const General: No confusion Orientation/consciousness: No confusion HENMT Head: Yes normocephalic and Yes atraumatic Eyes Conjunctivae: conjunctivae normal Chest Chest palpation & inspection: normal inspection of the chest Resp Effort & Inspection: normal respiratory effort Auscultation: clear to auscultation bilaterally, no crackles, no rhonchi and no wheezes Cardio Rate: regular rate Rhythm: regular rhythm Heart sounds: S1 normal heart sound present and S2 normal heart sound present GI Inspection: Yes normal to inspection Neuro General: No confusion Cranial nerves: Yes Normal hearing present Extrem General: No edema Office Procedures Flu Questionnaire Does the patient have a severe egg allergy?: No Does the patient have severe life threatening allergies?: No Does the patient have a fever or illness today?: No Has the patient ever had Guillain-[place] Syndrome?: No Has the patient ever had any past reaction to a flu shot?: No Immunizations flu vacc [id number] 6mos up(PF) 60 mcg(15 mcgx4)/0.5 mL IM syringe Performing Provider: BEVERLY Aguilar Performing Location: [facility] Administered by: JARED Gan on 12/02/22 13:26 Dose Route Admin Location Dispensed Lot Number Expiration Date NDC [employer] Captain 0.5 mL IM Right Deltoid 0.5 mL [id number] 08/27/23 27135-286-81 [facility] VIS Given Date VIS Provided VIS Publication Date 12/02/22 Single Vaccine 20 Eligibility Eligibility Date Funding Source Not [facility] Eligible 12/02/22 Private Assessment and Plan Assessment & Plan (1) Vitamin D deficiency: Code(s): E55.9 - Vitamin D deficiency, unspecified Plan: Vitamin-D level ordered (2) Hypertension: Code(s): I10 - Essential (primary) hypertension Plan: Continue on hydrochlorothiazide. Follow low-salt diet exercise. (3) Osteoporosis: Code(s): M81.0 - Age-related osteoporosis without current pathological fracture Plan: Patient reports previously followed by Dr. Donnelly, currently in the process of establishing care with Dr. Carrizales to continue denosumab injections. Patient reports her last appointment was canceled. Patient was advised to call endocrinology to reschedule this appointment. (4) Protrusion of lumbar intervertebral disc: Code(s): M51.26 - Other intervertebral disc displacement, lumbar region Plan: Referral entered to Dr. Turk [facility] spine [facility]. Plan Follow up in 3 months Orders: Orders Complete Blood Count Auto Diff Today Z13.0 - Encounter for screening for diseases of the blood and blood-forming organs and certain disorders involving the immune mechanism Comprehensive Alvin. Panel Fast Today I10 - Essential (primary) hypertension Influenza [id number] Immunization Today Z23 - Encounter for immunization Lipid Panel Today Z13.1 - Encounter for screening for diabetes mellitus TSH reflex Free T4 Today Z13.29 - Encounter for screening for other suspected endocrine disorder UA CC w/rflx Micro + Cult Today N39.0 - Urinary tract infection, site not specified Vitamin D 25-OH Total Today E55.9 - Vitamin D deficiency, unspecified Vitamin B12 and Folate Today Z13.21 - Encounter for screening for nutritional disorder Referrals Neurosurgery Referral M51.26 - Other intervertebral disc displacement, lumbar region Coding Level of Care Code New Pt Level 4 (34722) Diagnoses Vitamin D deficiency E55.9 Hypertension I10 Osteoporosis M81.0 Protrusion of lumbar intervertebral disc M51.26 Additional Codes AZUL-7 Assessment Billing - AZUL-7 Assessment Tool: AZUL-7 Assessment 67391 ([id number])
[2022-12-02 13:13] VITALS: BP 132/62; PULSE 77; O2SAT 96; BMI 33.8
== END 2022-12-02 14:11 | disposition home or self-care (01) ==
PROVIDERS: PCP Internal Medicine; Visit Provider Nurse Practitioner Family
DX: E55.9 Vitamin D deficiency, unspecified (principal); I10 Essential (primary) hypertension; M81.0 Age-related osteoporosis without current pathological fracture; M51.26 Other intervertebral disc displacement, lumbar region; Z23 Encounter for immunization
CPT/HCPCS: 90471; 90686; 99204

== ENCOUNTER 2023-01-03 13:50 | Outpatient (AMB) | payer OTHER, MEDICAID, SELFPAY ==
--- NOTE | 2023-01-03 14:04 | AM.OFFVISNUR ---
Intake Intake Visit Reasons: Prolia Allergies meperidine [Meperidine] Allergy (Intermediate, Verified 12/02/22 13:39) HIVES phenobarbital [PHENOBARBITAL] Allergy (Unknown, Verified 12/02/22 13:39) SWELLING Office Meds Prolia 60 mg/mL subcutaneous syringe Performing Provider: Juan Manuel Carrizales MD Performing Location: [facility] [place] [facility] Administered by: Jhonny Sanchez RN on 01/03/23 14:04 Dose Route Admin Location Dispensed Lot Number Expiration Date [facility] Respiratory Assistant 60 mg subcut Right arm 1 mL [id number] 04/26/25 AMGEN Comments: Patient denies pain, rash, N/V, fever, cough, itching, SOB, and fatigue. Coding Assessment & Plan Assessment & Plan Orders: Orders AMB Denosumab Injection Patient Supplied Today M81.0 - Age-related osteoporosis without current pathological fracture
== END 2023-01-03 14:16 | disposition home or self-care (01) ==
LOC: HO.ENCR 13:50
PROVIDERS: PCP Nurse Practitioner Family; Visit Provider Internal Medicine Endocrinology, Diabetes & Metabolism
DX: M81.0 Age-related osteoporosis without current pathological fracture (principal)

== ENCOUNTER → 2023-01-03 13:50 | Outpatient (BNVA) | payer OTHER, MEDICAID, SELFPAY | PROVIDERS: PCP Nurse Practitioner Family; Visit Provider Internal Medicine Endocrinology, Diabetes & Metabolism | DX: M81.0 Age-related osteoporosis without current pathological fracture (principal); Z79.620 Long term (current) use of immunosuppressive biologic | CPT/HCPCS: 96372; J0897 ==

== ENCOUNTER 2023-01-05 13:58 | Outpatient (AMB) | payer OTHER, MEDICAID, SELFPAY ==
--- NOTE | 2023-01-05 14:15 | MHC.OFFVIS ---
Intake Intake Visit Reasons: Intervertebral disc displacement Beef Splitter Required: No Allergies meperidine [Meperidine] Allergy (Intermediate, Verified 12/02/22 13:39) HIVES phenobarbital [PHENOBARBITAL] Allergy (Unknown, Verified 12/02/22 13:39) SWELLING PFSH Medical History (Updated 12/02/22 @ 14:07 by BEVERLY Aguilar) Recurrent UTI (urinary tract infection) [place] Postmenopausal bleeding Palpitations Premature ventricular complex Breast cancer Vitamin D deficiency Osteoporosis Surgical History (Updated 12/02/22 @ 13:24 by JARED Gan) History of breast biopsy History of History of knee surgery Family History Father Appendicitis, acute Mother No problems noted. Social History (Updated 12/02/22 @ 13:45 by BEVERLY Aguilar) Household Members: None Housing: House Alcohol intake: current Alcohol intake frequency: holidays/special occasions only Alcohol type: wine Patient Tobacco Use Status: Former Tobacco user e-Cigarette/Vaping Use: Never Used Second Hand Smoke Exposure: Yes service: No Current occupational status: retired Cognitive needs: No Hearing needs: No Vision needs: Yes (glasses) Assessment & Plan Assessment & Plan (1) Protrusion of lumbar intervertebral disc: Code(s): M51.26 - Other intervertebral disc displacement, lumbar region Plan Dear Makenna, Thank you for referring MRs Venegas to our office today. She is a very nice 82-year-old female who presents today for evaluation of her right leg numbness that happened after she was stepping on a pitch fork to push it into the ground. Initially it was quite bothersome but now it is at a point where she is really just noticing ever so slightly. She had a lumbar MRI done showing stenosis at L4-5 with spondylolisthesis and was sent today to see us. She does have chronic low back pain but it is not all that bothersome and she tells me it is nothing she would have come to the office to have an evaluation for. Currently, she is really just here for informational purposes and does not want any type of operation or intervention. PMH: She is reasonably healthy for age, had a history of 4 sections, knee surgery and a kidney stone. Previous thoracic compression fracture. Social hx: She does not smoke Medications: Celebrex, vitamin D3, vitamin B12, Prolia for osteoporosis, hydrochlorothiazide, magnesium oxide and pantoprazole Allergies: Meperidine and phenobarb Physical exam: She is awake alert oriented no acute distress demonstrates full strength of bilateral lower extremities with normal reflexes, no clonus, no Navarro's Imaging review: Lumbar MRI at [facility] shows degenerative disc disease at L4-5 with spondylolisthesis and facet arthropathy, there was a small synovial cyst on the left side of the facet. She has other low-grade degenerative disc disease at other levels but nothing severe. Impression: 82-year-old female presents for evaluation of right leg numbness which goes down into her right lateral thigh, into her lateral calf consistent with what sounds like an L5 dermatome. It started when she was putting a lot of force into a pinch fork trying to push it into the ground. I suspect that when she did this she irritated the facet joint and set the nerve into his cycle of inflammation. Thankfully it is not painful. Strictly speaking from the standpoint of numbness, there is nothing surgical we need to do for this, and the fact that it is resolving on its own is a good sign and it should continue to go away. If she develops any other concerning signs like weakness or severe pain she will call us back. Thank you for allowing us to care for your patient. The total time spent with this visit with this patient was 45 minutes reviewing history, physical exam, lumbar imaging review, and implementation of treatment plan or further diagnostic testing Rito De Luna MD,PhD [facility] Coding Level of Care Code New Pt Level 4 (92048) Diagnoses Protrusion of lumbar intervertebral disc M51.26
== END 2023-01-05 15:22 | disposition home or self-care (01) ==
PROVIDERS: PCP Nurse Practitioner Family; Referring Provider Nurse Practitioner Family; Visit Provider Physician Assistant
DX: M51.26 Other intervertebral disc displacement, lumbar region (principal)
CPT/HCPCS: 99204

== ENCOUNTER → 2023-01-05 13:58 | Outpatient (BNVA) | payer OTHER, MEDICAID, SELFPAY | PROVIDERS: PCP Nurse Practitioner Family; Referring Provider Nurse Practitioner Family; Visit Provider Physician Assistant | DX: M51.26 Other intervertebral disc displacement, lumbar region (principal) | CPT/HCPCS: 99202 ==

== ENCOUNTER 2023-02-16 13:49 | Outpatient (REF) | payer OTHER, MEDICAID, SELFPAY | END 2023-02-16 13:50 | disposition home or self-care (01) | LOC: HO.LNP 13:49 | PROVIDERS: Visit Provider Internal Medicine | DX: Z13.89 Encounter for screening for other disorder (principal) ==

== ENCOUNTER 2023-02-17 | Outpatient (REF) | payer OTHER, MEDICAID, SELFPAY ==
[2023-02-17 14:04] LABS: Appearance Urine Cloudy; Color Urine Dark Yellow; Glucose Urine UA Negative (Negative); Leukocyte Esterase Urine Small (1+) (Negative); Nitrite Urine Positive (Negative); Specific Gravity - Urine 1.025 (1.005-1.025); UMIC TRIGGER UACC YES; Urine Blood Negative (Negative); Urine Ketones Trace mg/dL (Negative); Urine Protein Negative (Neg-Trace)
[2023-02-17 14:21] LABS: Bacteria Urine 4+ (None Seen); Calcium Oxalate Crystals Urine Present; Hyaline Casts Urine 0-2 /LPF (0-2); UACC Culture Trigger YES; WBC Urine 21-50 /HPF (0-5)
== END 2023-02-17 00:01 | disposition home or self-care (01) ==
LOC: HO.LNP
PROVIDERS: Visit Provider Internal Medicine
DX: R39.9 Unspecified symptoms and signs involving the genitourinary system (principal)
CPT/HCPCS: 81001; 87086; 87088; 87186

== ENCOUNTER 2023-03-06 13:55 | Outpatient (AMB) | payer OTHER, MEDICAID, SELFPAY ==
--- NOTE | 2023-03-06 14:08 | A.OFFPC_ITS ---
Vital Signs 03/06/23 14:13 Height 5 ft Weight 177 lb BMI 34.6 BP 132/78 Blood Pressure Location Rt brachial Position Sitting Pulse 71 Pulse Source Pulse Oximeter Pulse Oximetry (%) 98 Oxygen Delivery Method Room Air Intake Visit Reasons: HTN, L3 disc protrusion, osteoporsis Intake Note: Patient is here to follow up on HTN, L3 Disc protrusion, Osteoporosis. Chief Credit Officer Required: No Photogrammetric Engineer: Not Required per policy Accompanied by: Self / Same As Patient Allergies meperidine [Meperidine] Allergy (Intermediate, Verified 03/06/23 14:57) HIVES phenobarbital [PHENOBARBITAL] Allergy (Unknown, Verified 03/06/23 14:57) SWELLING Medication List - Last Reconciled 03/06/23 by Abdirahman Sun MD celecoxib 200 mg PO BID cholecalciferol (vitamin D3) 100 mcg (2 x 50 mcg (2,000 unit)) PO DAILY 30 days cyanocobalamin (vitamin B-12) (Vitamin B-12) 1,000 mcg PO DAILY denosumab (Prolia) 60 mg subcut [id number] hydrochlorothiazide 12.5 mg PO DAILY magnesium oxide 400 mg PO DAILY multivitamin 1 tab PO DAILY nitrofurantoin macrocrystal (Macrodantin) 100 mg PO BID pantoprazole 40 mg PO DAILY Tobacco use date assessed: 03/06/23 Fall risk assessment: 1 Fall in past year (02/19/23) Last assessed Fall Risk: 03/06/23 Dental Screening Dental Screen Date: 03/06/23 Did you have a dental visit in the last 12 months?: No Did you have a dental problem in the last 6 months where you did not have access to dental care?: No Was dental information given to patient?: No HPI HTN, L3 disc protrusion, osteoporsis HPI Details 82-year-old female presents to the offic e for a review of her medical condition. I will be assuming her care as her primary care provider has left the office. Patient is complaining of chronic pain in the right and left hip. Symptoms started 2 months ago. No fall or injury prior to the onset of symptoms. She had an MRI of the lower back which showed degenerative joint disease. Patient has difficulty sleeping at night, the hips hurt and when she turns it bothers her even more. No urinary difficulties. Able to function and do activities of daily living. Patient lives alone, drives on her own. Getting into the car is not painful. Denies any morning stiffness. She is able to do her grocery shopping without difficulty. [facility] Medical History (Updated 12/02/22 @ 14:07 by BEVERLY Aguilar) Recurrent UTI (urinary tract infection) [place] Postmenopausal bleeding Palpitations Premature ventricular complex Breast cancer Vitamin D deficiency Osteoporosis Surgical History History of breast biopsy History of History of knee surgery Family History Father Appendicitis, acute Mother No problems noted. Social History Household Members: None Housing: House Alcohol intake: current Alcohol intake frequency: holidays/special occasions only Alcohol type: wine Patient Tobacco Use Status: Former Tobacco user e-Cigarette/Vaping Use: Never Used Second Hand Smoke Exposure: Yes service: No Current occupational status: retired Cognitive needs: No Hearing needs: No Vision needs: Yes (glasses) Questionnaire PHQ-9 Over the last 2 weeks, how often have you been bothered by any of the following problems? 1. Little interest or pleasure in doing things: not at all 2. Feeling down, depressed, or hopeless: not at all 3. Trouble falling or staying asleep, or sleeping too much: not at all 4. Feeling tired or having little energy: not at all 5. Poor appetite or overeating: not at all 6. Feeling bad about yourself - or that you are a failure or have let yourself or your family down: not at all 7. Trouble concentrating on things, such as reading the newspaper or watching television: not at all 8. Moving or speaking so slowly that other people could have noticed. Or the opposite - being so fidgety or restless that you have been moving around a lot more than usual: not at all 9. Thoughts that you would be better off or of hurting yourself in some way: not at all Total score: 0 Depression Screening Interpretation: Negative Depression Screening Done: Yes Source: Developed by Drs. Juan Manuel Camarillo, EvaDavion Mcgee and colleagues, with an educational sophia from [employer]. Thrive Questionnaire Date Thrive assessed: 03/06/23 I am a: Patient What is your living situation today?: I have a steady place to live Within the past 12 months, did the food you bought not last and you didn't have the money to get more?: Never true Within the past 12 months, did you worry whether your food would run out before you got money to buy more?: Never true Do you have trouble paying for medicines?: No Do you have trouble getting transportation to medical appointments?: No Do you have trouble paying your heating and electricity bill?: No Do you have trouble taking care of your child, family member or friend?: No Do you have trouble with day-to-day activities such as bathing, preparing meals, shopping, managing finances, etc.?: No Are you currently unemployed and looking for a job?: No Are you interested in more education?: No Currently or been in a relationship where the following occur: no concerns reported AUDIT C Alcohol Use Questionnaire (AUDIT-C) 1. How often do you have a drink containing alcohol?: Never Total Score: 0 AZUL-7 AMB Questionnaire AZUL-7 Date AZUL - 7 assessed: 03/06/23 Feeling nervous, anxious, or on edge: 0 = Not at all Not being able to stop or control worryin = Not at all Worrying too much about different things: 0 = Not at all Trouble relaxin = Not at all Being so restless that it is hard to sit still: 0 = Not at all Becoming easily annoyed or irritable: 0 = Not at all Feeling afraid as if something awful might happen: 0 = Not at all Total AZUL-7 score (0-4 normal; 5-9 mild; 10-14 moderate; 15-21 severe): 0 Source: Developed by Drs. Juan Manuel Camarillo, Davion Spear and colleagues, with an educational sophia from [employer]. Physical exam (Primary Care) Vital Signs: Last Vital Signs Pulse 71 03/06/23 14:13 BP 132/78 03/06/23 14:13 Pulse Ox 98 03/06/23 14:13 Oxygen Delivery Method Room Air 03/06/23 14:13 BMI result Body Mass Index 34.6 Tobacco/Smoking Status: Tobacco use Status Tobacco use date assessed 03/06/23 03/06/23 14:18 Patient Tobacco Use Status Former Tobacco user 03/06/23 14:11 e-Cigarette/Vaping Use Never Used 03/06/23 14:11 PHQ-9: PHQ-9 Score PHQ-9: Total score 0 03/06/23 14:11 Depression Screening Interpretation: Negative Thrive Assessment: Date of Thrive Assessment Date Thrive assessed 03/06/23 03/06/23 14:11 Currently or been in a relationship where the following occur: no concerns reported Const General: cooperative and healthy appearing Nutritional Appearance: well nourished Orientation/consciousness: patient oriented x3 Limitations: no limitations HENMT Head: Yes normal to inspection Eyes General: appearance normal, both eyes and all related structures Neck Neck: Yes normal visual inspection Chest Chest palpation & inspection: normal palpation of entire chest wall Resp Effort & Inspection: normal respiratory effort Neuro General: patient oriented x3 Extrem Other: Right and left hip: Tenderness over the greater tuberosity. Bilaterally. Assessment and Plan Assessment & Plan (1) Bursitis: Code(s): M71.9 - Bursopathy, unspecified Plan: Anti-inflammatory and Voltaren gel prescribed. Patient needs anti- inflammatories but due to her advanced age, bleeding is a significant risk. Patient was advised to use the topical anti-inflammatory as much as possible. Her MRIs were reviewed and discussed with the patient. Coding Level of Care Code Est Pt Level 4 (22307) Diagnoses Bursitis M71.9
[2023-03-06 14:13] VITALS: BP 132/78; PULSE 71; O2SAT 98; BMI 34.6
== END 2023-03-06 15:00 | disposition home or self-care (01) ==
PROVIDERS: PCP Internal Medicine; Visit Provider Internal Medicine
DX: M71.9 Bursopathy, unspecified (principal)
CPT/HCPCS: 99214

== ENCOUNTER → 2023-03-20 14:00 | Outpatient (BNV) | payer OTHER, MEDICAID, SELFPAY | PROVIDERS: PCP Internal Medicine; Visit Provider Radiology Diagnostic Radiology | DX: Z12.31 Encounter for screening mammogram for malignant neoplasm of breast (principal) | CPT/HCPCS: 77063; 77067 ==

== ENCOUNTER 2023-03-20 15:20 | Outpatient (REF) | payer OTHER, MEDICAID, SELFPAY ==
--- NOTE | ~2023-03-20 | MM_ITS ---
EXAMINATION: MM SCREENING DIGITAL BREAST TOMOSYNTHESIS, BILATERAL CLINICAL INFORMATION: Screening. Asymptomatic. The patient has a history of left breast cancer diagnosed in 2000. COMPARISON: Mammography: This study is compared with prior exams dating back to 2018. TECHNIQUE: Digital breast tomosynthesis is performed in both the craniocaudal and mediolateral oblique views along with computer-aided detection (CAD). Synthesized 2D images are generated from the tomosynthesis. FINDINGS: There are scattered areas of fibroglandular density (ACR BI-RADS breast composition Category b). There are no significant masses, abnormal calcifications, or other abnormalities. There are unchanged, bilateral, benign calcifications. There are postsurgical changes in the upper outer quadrant of the left breast from prior cancer treatment. MM/MM tomosynthesis screening BI IMPRESSION: No mammographic evidence of malignancy. ASSESSMENT: BI-RADS BI-RADS 2 - Benign Findings RECOMMENDATION: Routine annual mammography screening. 1 year F/U This examination should not preclude the clinical evaluation of a suspicious palpable abnormality. This patient's information was entered into a reminder system with a target due date for their next mammogram.
== END 2023-03-20 15:21 | disposition home or self-care (01) ==
LOC: HO.MAMMO 15:20
PROVIDERS: PCP Internal Medicine; Visit Provider Internal Medicine
DX: Z12.31 Encounter for screening mammogram for malignant neoplasm of breast (principal)
CPT/HCPCS: 77063; 77067

== ENCOUNTER 2023-04-06 13:51 | Outpatient (AMB) | payer OTHER, MEDICAID, SELFPAY ==
--- NOTE | 2023-04-06 13:54 | A.OFFPC_ITS ---
Vital Signs 04/06/23 13:55 Height 5 ft Weight 175 lb 4 oz BMI 34.2 BP 132/70 Blood Pressure Location Rt brachial Position Sitting Pulse 92 Pulse Source Pulse Oximeter Pulse Oximetry (%) 97 Oxygen Delivery Method Room Air Intake Visit Reasons: Dizziness (neurology) Intake Note: Patient is here today for dizziness and has been going on for a while. Complaint of chills in the spine. 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 Patient is reporting symptoms of feeling woozy . She reports the symptoms have been going on for months. Happens once in a while with no specific aggravating or relieving factors. No loss of consciousness. No fall or injury. Does not report any nausea or vomiting. [facility] Medical History Recurrent UTI (urinary tract infection) [place] Postmenopausal bleeding Palpitations Premature ventricular complex Breast cancer Vitamin D deficiency Osteoporosis Surgical History History of breast biopsy History of History of knee surgery Family History Father Appendicitis, acute Mother No problems noted. Social History Household Members: None Housing: House Alcohol intake: current Alcohol intake frequency: holidays/special occasions only Alcohol type: wine Patient Tobacco Use Status: Former Tobacco user e-Cigarette/Vaping Use: Never Used Second Hand Smoke Exposure: Yes service: No Current occupational status: retired Cognitive needs: No Hearing needs: No Vision needs: Yes (glasses) Questionnaire Thrive Questionnaire Date Thrive assessed: 03/06/23 AZUL-7 AMB Questionnaire AZUL-7 Date AZUL - 7 assessed: 03/06/23 Source: Developed by Eva Rivera B.W. Lupillo, Davion Herrera and colleagues, with an educational sophia from [employer]. Physical exam (Primary Care) Vital Signs: Last Vital Signs Pulse 92 04/06/23 13:55 BP 132/70 04/06/23 13:55 Pulse Ox 97 04/06/23 13:55 Oxygen Delivery Method Room Air 04/06/23 13:55 Care Plan Goal for BP management: Blood pressure is stable. Continue current medications. BMI result Body Mass Index 34.2 BMI Assessment/Plan discussion: High (1 lb per week weight loss suggested.) BMI High, discussed plan: lifestyle, weight reduction and dietary Tobacco/Smoking Status: Tobacco use Status Tobacco use date assessed 03/06/23 04/06/23 14:04 Patient Tobacco Use Status Former Tobacco user 04/06/23 14:04 e-Cigarette/Vaping Use Never Used 04/06/23 14:04 Thrive Assessment: Date of Thrive Assessment Date Thrive assessed 03/06/23 04/06/23 14:04 Office Procedures EKG Details: Sinus tachycardia. 04175-[id number], Complete Assessment and Plan Assessment & Plan (1) Dizziness: Code(s): R42 - Dizziness and giddiness Plan: EKG was unremarkable. Patient was reassured. A CT scan of the head will be ordered. Will call with the results. Orders: Orders AMB EKG-In Office Today R42 - Dizziness and giddiness Coding Level of Care Code Est Pt Level 4 (13418) Diagnoses Dizziness R42 CPT Codes EKG - CPT: 88742-[id number], Complete ([id number])
[2023-04-06 13:55] VITALS: BP 132/70; PULSE 92; O2SAT 97; BMI 34.2
== END 2023-04-06 14:56 | disposition home or self-care (01) ==
PROVIDERS: PCP Nurse Practitioner Family; Visit Provider Internal Medicine
DX: R42 Dizziness and giddiness (principal)
CPT/HCPCS: 93000; 99214

== ENCOUNTER 2023-07-07 16:14 | Outpatient (REF) | payer OTHER, MEDICAID, SELFPAY ==
[2023-07-07 18:56] LABS: Anion Gap 14 (12-20); Blood Urea Nitrogen 20 mg/dL (9-16); Carbon Dioxide 26 mmol/L (22-29); Chloride 104 mmol/L (96-108); Estimated Glomerular Filt Rate > 60; Glucose Random 100 mg/dL (60-115); Potassium 3.9 mmol/L (3.3-5.1); Sodium 140 mmol/L (135-145)
== END 2023-07-07 16:15 | disposition home or self-care (01) ==
LOC: HO.LAB 16:14
PROVIDERS: Visit Provider Internal Medicine Endocrinology, Diabetes & Metabolism
DX: M81.0 Age-related osteoporosis without current pathological fracture (principal)
CPT/HCPCS: 36415; 80048; 82040

== ENCOUNTER 2023-07-10 13:56 | Outpatient (AMB) | payer OTHER, MEDICAID, SELFPAY ==
--- NOTE | 2023-07-10 14:09 | AM.OFFVISNUR ---
Intake Intake Visit Reasons: Prolia injection Allergies meperidine [Meperidine] Allergy (Intermediate, Verified 04/06/23 13:55) HIVES phenobarbital [PHENOBARBITAL] Allergy (Unknown, Verified 04/06/23 13:55) SWELLING Office Meds Prolia 60 mg/mL subcutaneous syringe Performing Provider: Juan Manuel Carrizales MD Performing Location[facility] Administered by: Anna Bradley RN on 07/10/23 14:11 Dose Route Admin Location Dispensed Lot Number Expiration Date [facility] Synthetic Department Supervisor 60 mg subcut 1 mL [id number] 10/27/25 43622-752-14 AMGEN Comments: Consent for signed. Pt tolerated injection well. Given in right arm, per pt request with hx breast cancer Coding Assessment & Plan Assessment & Plan Orders: Orders AMB Denosumab Injection Patient Supplied Today M81.0 - Age-related osteoporosis without current pathological fracture Medications: New Prolia (denosumab) 60 mg subcut ONCE 1 mL 0RF NS M81.0 - Age-related osteoporosis without current pathological fracture
== END 2023-07-10 14:08 | disposition home or self-care (01) ==
PROVIDERS: PCP Internal Medicine
DX: M81.0 Age-related osteoporosis without current pathological fracture (principal)

== ENCOUNTER → 2023-07-10 13:56 | Outpatient (BNVA) | payer OTHER, MEDICAID, SELFPAY | PROVIDERS: PCP Internal Medicine | DX: M81.0 Age-related osteoporosis without current pathological fracture (principal); Z79.620 Long term (current) use of immunosuppressive biologic | CPT/HCPCS: 96372; J0897 ==

== ENCOUNTER 2023-07-27 15:01 | Outpatient (AMB) | payer OTHER, MEDICAID, SELFPAY ==
--- NOTE | 2023-07-27 15:26 | A.OFFPC_ITS ---
Vital Signs 07/27/23 15:27 Height 5 ft Weight 179 lb 2 oz BMI 35.0 BP 110/72 Blood Pressure Location Lt brachial Position Sitting Pulse 66 Pulse Source Pulse Oximeter Pulse Oximetry (%) 97 Oxygen Delivery Method Room Air Intake Visit Reasons: 3mth f/u Intake Note: Patient is here to follow up on HTN, Osteoporosis. Pencil Inspector Required: No Federal Law Clerk: Not Required per policy Accompanied by: Self / Same As Patient Allergies meperidine [Meperidine] Allergy (Intermediate, Verified 07/28/23 12:40) HIVES phenobarbital [PHENOBARBITAL] Allergy (Unknown, Verified 07/28/23 12:40) SWELLING Medication List - Last Reconciled 07/28/23 by Abdirahman Sun MD cholecalciferol (vitamin D3) 100 mcg (2 x 50 mcg (2,000 unit)) PO DAILY 30 days cyanocobalamin (vitamin B-12) (Vitamin B-12) 1,000 mcg PO DAILY denosumab (Prolia) 60 mg subcut [id number] diclofenac sodium 1% (Voltaren Arthritis Pain) 4 grams topical QID hydrochlorothiazide 12.5 mg PO DAILY magnesium oxide 400 mg PO DAILY meloxicam 15 mg PO DAILY multivitamin 1 tab PO DAILY pantoprazole 40 mg PO DAILY sulfamethoxazole-trimethoprim 800-160 mg (Bactrim DS) 1 tab PO BID 7 days Tobacco use date assessed: 07/27/23 Fall risk assessment: No Falls in past year Last assessed Fall Risk: 07/27/23 Dental Screening Dental Screen Date: 03/06/23 HPI 3mth f/u HPI Details 82-year-old female presents to the [facility] to discuss her chronic medical conditions. Patient comes alone to the office. Patient is complaining of wooziness an unsteady gait while walking. She reports no falls. There has been no improvement in this complaint since her last visit. She can not recall if she had a CT scan done. Still driving and able to do her activities of daily living independently. Patient is requesting refills on medications for her lower back pain. Patient reports in the past she has had urinary tract infections, her symptoms were lower back pain. Though she does not have obvious symptoms currently she would like a refill on Bactrim. [facility] Medical History Dementia Recurrent UTI (urinary tract infection) [place] Postmenopausal bleeding Palpitations Premature ventricular complex Breast cancer Vitamin D deficiency Osteoporosis Surgical History History of breast biopsy History of History of knee surgery Family History Father Appendicitis, acute Mother No problems noted. Social History Household Members: None Housing: House Alcohol intake: current Alcohol intake frequency: holidays/special occasions only Alcohol type: wine Patient Tobacco Use Status: Former Tobacco user e-Cigarette/Vaping Use: Never Used Second Hand Smoke Exposure: Yes service: No Current occupational status: retired Cognitive needs: No Hearing needs: No Vision needs: Yes (glasses) Questionnaire Thrive Questionnaire Date Thrive assessed: 03/06/23 AZUL-7 AMB Questionnaire AZUL-7 Date AZUL - 7 assessed: 03/06/23 Source: Developed by Drs. Juan Manuel Camarillo, Eva Wesley, Davion Herrera and colleagues, with an educational sophia from [employer]. Physical exam (Primary Care) Vital Signs: Last Vital Signs Pulse 66 07/27/23 15:27 BP 110/72 07/27/23 15:27 Pulse Ox 97 07/27/23 15:27 Oxygen Delivery Method Room Air 07/27/23 15:27 Care Plan Goal for BP management: Blood pressure is in range. BMI result Body Mass Index 35.0 Tobacco/Smoking Status: Tobacco use Status Tobacco use date assessed 07/27/23 07/27/23 15:36 Patient Tobacco Use Status Former Tobacco user 07/27/23 15:36 e-Cigarette/Vaping Use Never Used 07/27/23 15:36 Thrive Assessment: Date of Thrive Assessment Date Thrive assessed 03/06/23 07/27/23 15:36 Advance Care Planning discussion: Exists, not on file Date of discussion: 07/27/23 Who was present: Patient Forms completed: Health Care Proxy and MOLST Actual minutes spent: 5 Const General: cooperative and healthy appearing Nutritional Appearance: well nourished Orientation/consciousness: patient oriented x3 Limitations: no limitations HENMT Head: Yes normal to inspection Eyes General: appearance normal, both eyes and all related structures Neck Neck: Yes normal visual inspection Chest Chest palpation & inspection: normal palpation of entire chest wall Resp Effort & Inspection: normal respiratory effort Neuro General: patient oriented x3 Assessment and Plan Assessment & Plan (1) Dementia: Code(s): F03.90 - Unspecified dementia, unspecified severity, without behavioral disturbance, psychotic disturbance, mood disturbance, and anxiety Plan: After patient left, I spoke to her son after obtaining the necessary permission. Son reports that on 2 separate occasions patient forgot where she had parked her car in the mall. She needed assistance in finding her car. Also she has b andren confused at certain times. I suspect she is beginning to have the early onset of dementia. A CT scan was ordered in March and despite patient's insistence, it was never done. There is no record of it in the hospital. A repeat CT scan has been ordered again. This time I informed the son that he should accompany his mother at the time of the procedure. (2) Urine incontinence: Code(s): R32 - Unspecified urinary incontinence Plan: Empiric treatment with Bactrim. (3) Aortic atherosclerosis: Code(s): I70.0 - Atherosclerosis of aorta Plan: Condition is stable. Orders: Orders CT head/brain wo IV con Today F03.90 - Unspecified dementia, unspecified severity, without behavioral disturbance, psychotic disturbance, mood disturbance, and anxiety Medications: New sulfamethoxazole-trimethoprim 800-160 mg (Bactrim DS) 1 tab PO BID 7 days 14 tabs 0RF Refilled meloxicam 15 mg PO DAILY 14 tabs 0RF diclofenac sodium 1% (Voltaren Arthritis Pain) apply to single knee, ankle, foot; for foot includes sole/toes/top of foot 4 grams topical QID 100 grams 0RF Coding Level of Care Code Est Pt Level 4 (36748) Complex EM visit Add On G2211 Diagnoses Dementia F03.90 Urine incontinence R32 Aortic atherosclerosis I70.0 Additional Codes Vital Signs *Quality* - Advance Care Planning discussion: Exists, not on file ([id number])
[2023-07-27 15:27] VITALS: BP 110/72; PULSE 66; O2SAT 97; BMI 35.0
== END 2023-07-27 16:38 | disposition home or self-care (01) ==
PROVIDERS: PCP Internal Medicine; Visit Provider Internal Medicine
DX: F03.90 Unspecified dementia, unspecified severity, without behavioral disturbance, psychotic disturbance, mood disturbance, and anxiety (principal); R32 Unspecified urinary incontinence; I70.0 Atherosclerosis of aorta; Z00.00 Encounter for general adult medical examination without abnormal findings
CPT/HCPCS: 1123F; 99214; G2211

== ENCOUNTER 2023-08-08 15:35 | Outpatient (AMB) | payer OTHER, MEDICAID, SELFPAY ==
[2023-08-08 15:36] VITALS: BP 136/76; PULSE 77; BMI 35.0
--- NOTE | 2023-08-08 15:36 | MHC.OFFVIS ---
Vital Signs 08/08/23 15:36 Height 5 ft Weight 179 lb 0.246 oz BMI 35.0 BP 136/76 Blood Pressure Location Lt brachial Position Sitting Pulse 77 Pulse Source Pulse Oximeter Intake Visit Reasons: Osteoporosis/confirmed Intake Note: Patient presents today for Osteoporosis, last seen by Dr. Donnelly on 09/07/2022. Swing Ride Operator Required: No Accompanied by: Self / Same As Patient Allergies meperidine [Meperidine] Allergy (Intermediate, Verified 08/08/23 15:40) HIVES phenobarbital [PHENOBARBITAL] Allergy (Unknown, Verified 08/08/23 15:40) SWELLING HPI Comments Details: 82 YO Female who is seen in F/U for Osteoporosis. First diagnosed in 2018 after she suffered a compression fracture of the T8 vertebrate. She subsequently had kyphoplasty, which resulted in compression fracture of the T9 vertebrate. She was subsequently referred to Endocrinology. She underwent a full biochemical workup for secondary causes of Osteoporosis and this was WNL. She was started on Prolia 04/09/2019 and tolerated this well. She was due for her second dose in September 2019, but was scheduled for dental extractions so this was placed on hold. She then resumed therapy and had her most recent dose 05/18/2022. No history of pathologic fracture or ONJ. Has 0-1 servings of dietary calcium per day in the form of milk or cheese. Takes a Calcium supplement 600 mg once daily. She takes an additional Vitamin D 2000 IU daily. Takes Omeprazole daily. Was previously on phenobarbital for seizures, but not in many years. Denies ever using anticoagulant or glucocorticoid medication. Does no weight bearing exercise currently. Fracture history: Compression fracture of T8 Vertebrate in June 2018. Had Kyphoplasty 07/10/18 and subsequently suffered compression fracture of the T9 Vertebrate. Height loss: Has lost 4 inches in height. 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 Menses was always regular. . She did not breastfeed. Menopause was in her 50's. Did not use HRT. History of Kidney stones: She does have a history of kidney stones. Does not recall if these were calcium stones. Denies a family history of Osteoporosis or hip fracture. DXA dated 07/06/2021: FINDINGS: AP SPINE L1-L4: Current: BMD 1.012 g/cm2, Z-score -0.1, T-score -1.4, osteopenia, 0.4% increase from previous, 6.8% increase from baseline (<5% change is not significant). Prior: BMD 1.008 g/cm2. Baseline: BMD 0.948 g/cm2. LEFT FEMUR, NECK: Current: BMD 0.750 g/cm2, Z-score -0.3, T-score -2.1, osteopenia. Prior: BMD 0.737 g/cm2. Baseline: BMD 0.812 g/cm2. LEFT FEMUR, TOTAL: Current: BMD 0.873 g/cm2, Z-score 0.5, T-score -1.1, osteopenia, 4.6% increase from previous, 9.2% decrease from baseline (<5% change is not significant). Prior: BMD 0.835 g/cm2. Baseline: BMD 0.961 g/cm2. Labs: No recent pertinent labs. Secondary workup was negative. Some back pain but no fx PFSH Medical History Dementia Recurrent UTI (urinary tract infection) My[place] Postmenopausal bleeding Palpitations Premature ventricular complex Breast cancer Vitamin D deficiency Osteoporosis Surgical History History of breast biopsy History of History of knee surgery Family History Father Appendicitis, acute Mother No problems noted. Social History Household Members: None Housing: House Alcohol intake: current Alcohol intake frequency: holidays/special occasions only Alcohol type: wine Patient Tobacco Use Status: Former Tobacco user e-Cigarette/Vaping Use: Never Used Second Hand Smoke Exposure: Yes service: No Current occupational status: retired Cognitive needs: No Hearing needs: No Vision needs: Yes (glasses) Assessment & Plan Assessment & Plan (1) Osteoporosis: Code(s): M81.0 - Age-related osteoporosis without current pathological fracture Category: Medical Plan: This 82-year-old white female with a history of osteoporosis and compression fractures of the lumbar spine with negative secondary workup. She is currently receiving Prolia since 2019. Plan is to recheck a DEXA bone density of the hip and spine. Assuming no subsequent fractures and stable bone density, could consider transitioning from Prolia to either oral or intravenous bisphosphonate or could continue Prolia for a full 5 years considering the previous history of vertebral fractures before transitioning Orders: Orders XR DEXA axial skeleton Today M81.0 - Age-related osteoporosis without current pathological fracture Coding Level of Care Code Est Pt Level 3 (72768) Diagnoses Osteoporosis M81.0
== END 2023-08-08 15:53 | disposition home or self-care (01) ==
PROVIDERS: PCP Internal Medicine; Visit Provider Internal Medicine Endocrinology, Diabetes & Metabolism
DX: M81.0 Age-related osteoporosis without current pathological fracture (principal)
CPT/HCPCS: 99213

== ENCOUNTER → 2023-08-08 15:35 | Outpatient (BNVA) | payer OTHER, MEDICAID, SELFPAY | PROVIDERS: PCP Internal Medicine; Visit Provider Internal Medicine Endocrinology, Diabetes & Metabolism | DX: M81.0 Age-related osteoporosis without current pathological fracture (principal) | CPT/HCPCS: 99212 ==

== ENCOUNTER 2023-08-30 14:35 | Outpatient (REF) | payer OTHER, MEDICAID, SELFPAY ==
--- NOTE | ~2023-08-30 | MM_ITS ---
EXAMINATION: BONE DENSITOMETRY CLINICAL INDICATION: Age-related osteoporosis without current pathological fracture. COMPARISON: Previous BD dated 07/06/2021 and baseline BD dated 11/07/2007. TECHNIQUE: Using a [employer] DXA System (software version: 13.1) manufactured by [employer], dual-energy x-ray absorptiometry was performed of the lumbar spine and left hip. The images are of good technical quality. Summary results are attached. FINDINGS: LEFT FEMUR, NECK: Current: BMD 0.766 g/cm2, Z-score 0.0, T-score -2.0, osteopenia. Prior: BMD 0.750 g/cm2. Baseline: BMD 0.812 g/cm2. LEFT FEMUR, TOTAL: Current: BMD 0.905 g/cm2, Z-score 1.0, T-score -0.8, normal, 3.7% increase from previous, 5.8% decrease from baseline (<5% change is not significant). Prior: BMD 0.873 g/cm2. Baseline: BMD 0.961 g/cm2. AP SPINE L1-L4: Current: BMD 1.033 g/cm2, Z-score 0.2, T-score -1.2, osteopenia, 2.1% increase from previous, 9.0% increase from baseline (<5% change is not significant). Prior: BMD 1.012 g/cm2. Baseline: BMD 0.948 g/cm2. IDENTIFIED RISK FACTORS: Height loss, history of fracture (adult), menopause, osteoporosis, thiazide. HISTORY OF FRACTURE: Spine. MEDICATIONS: Vitamin D, calcium. MM/XR DEXA axial skeleton IMPRESSION: 1. DIAGNOSIS: Osteopenia based on the lowest T-score value of -2.0 in the femoral neck applying World Health Organization criteria. 2. 10-YEAR FRACTURE RISK PREDICTION, FRAX: Major osteoporotic fracture (clinical spine, forearm, hip or shoulder) 21.1%. Hip fracture 5.7%. 3. Treatment Recommendations: NOF guidelines recommend consideration for treatment in postmenopausal women and men age 50 and older presenting with the following: -A hip or vertebral (clinical or morphometric) fracture. -T-score less than or equal to -2.5 at the femoral neck or spine after appropriate evaluation to exclude secondary causes. -Low bone mass at the hip or spine and a 10-year fracture probability by FRAX of greater than or equal to 3% for hip fracture or greater than or equal to 20% for major osteoporotic fracture based on the [place] adapted WHO algorithm. 4. Other Recommendations: All treatment decisions require clinical judgment and consideration of individual patient factors, including patient preferences, comorbidities, previous drug use, risk factors not captured in the FRAX model (e.g. frailty, falls, vitamin D deficiency, increased bone turnover, interval significant decline in bone density) and possible under or overestimation of fracture risk by FRAX. Additional medical evaluation for secondary cause of low bone mineral density may be appropriate. FUTURE SCAN RECOMMENDATION: People with diagnosed cases of osteoporosis or at high risk for fracture should have regular bone mineral density tests. For patients eligible for Medicare, routine testing is allowed once every 2 years. The testing frequency can be increased to one year for patients who have rapidly progressing disease, those who are receiving or discontinuing medical therapy to restore bone mass, or have additional risk factors.
== END 2023-08-30 14:36 | disposition home or self-care (01) ==
LOC: HO.MAMMO 14:35
PROVIDERS: PCP Internal Medicine; Visit Provider Internal Medicine Endocrinology, Diabetes & Metabolism
DX: M81.0 Age-related osteoporosis without current pathological fracture (principal)
CPT/HCPCS: 77080

== ENCOUNTER 2023-09-06 13:26 | Outpatient (REF) | payer OTHER, MEDICAID, SELFPAY | END 2023-09-06 13:27 | disposition home or self-care (01) | LOC: HO.LAB 13:26 | PROVIDERS: PCP Internal Medicine; Visit Provider Internal Medicine | DX: Z13.89 Encounter for screening for other disorder (principal) ==

== ENCOUNTER 2023-09-06 15:50 | Outpatient (REF) | payer OTHER, MEDICAID, SELFPAY ==
[2023-09-07 11:12] LABS: Appearance Urine Cloudy; Color Urine Dark Yellow; Glucose Urine UA Negative (Negative); Leukocyte Esterase Urine Negative (Negative); Nitrite Urine Positive (Negative); PH 6.5 (5.0-9.0); UMIC TRIGGER UACC YES; Urine Blood Negative (Negative); Urine Ketones Trace mg/dL (Negative); Urine Protein Trace mg/dL (Neg-Trace)
[2023-09-07 11:40] LABS: Bacteria Urine None Seen (None Seen); Calcium Oxalate Crystals Urine Present; Hyaline Casts Urine 0-2 /LPF (0-2); RBC Urine 0-2 /HPF (0-2); Squamous Epithelial Cell Urine 0-2 /HPF (0-2); UACC Culture Trigger YES; WBC Urine 0-5 /HPF (0-5)
== END 2023-09-06 15:51 | disposition home or self-care (01) ==
LOC: HO.LNP 15:50
PROVIDERS: Visit Provider Internal Medicine
DX: N39.0 Urinary tract infection, site not specified (principal)
CPT/HCPCS: 81001; 81003; 87086

== ENCOUNTER 2023-09-27 09:46 | Outpatient (AMB) | payer OTHER, MEDICAID, SELFPAY ==
--- NOTE | 2023-09-27 09:50 | MHC.PC.OV ---
Vital Signs 09/27/23 09:51 Height 5 ft Weight 172 lb 2 oz BMI 33.6 BP 118/72 Blood Pressure Location Rt brachial Position Sitting Pulse 89 Pulse Source Pulse Oximeter Pulse Oximetry (%) 95 Oxygen Delivery Method Room Air Intake Visit Reasons: Urinary tract infection Intake Note: Patient is here to follow up on UTI, symptoms are burning, urgency and unbalance gait. Vice President Risk Management Required: No Supervisor Hide House: Not Required per policy Accompanied by: Self / Same As Patient Allergies meperidine [Meperidine] Allergy (Intermediate, Verified 09/27/23 09:50) HIVES Sulfa (Sulfonamide Antibiotics) Allergy (Intermediate, Verified 09/27/23 09:50) Unknown phenobarbital [PHENOBARBITAL] Allergy (Unknown, Verified 09/27/23 09:50) SWELLING Tobacco use date assessed: 09/27/23 Fall risk assessment: No Falls in past year Last assessed Fall Risk: 09/27/23 Dental Screening Dental Screen Date: 03/06/23 HPI Urinary tract infection HPI Details 82-year-old female presents to the office for a sick visit. Patient is reporting burning symptoms on urination. Increased frequency of urination. No urinary incontinence. No fevers or chills. [facility] Medical History Dementia Recurrent UTI (urinary tract infection) [place] Postmenopausal bleeding Palpitations Premature ventricular complex Breast cancer Vitamin D deficiency Osteoporosis Surgical History History of breast biopsy History of History of knee surgery Family History Father Appendicitis, acute Mother No problems noted. Social History Household Members: None Housing: House Alcohol intake: current Alcohol intake frequency: holidays/special occasions only Alcohol type: wine Patient Tobacco Use Status: Former Tobacco user e-Cigarette/Vaping Use: Never Used Second Hand Smoke Exposure: Yes service: No Current occupational status: retired Cognitive needs: No Hearing needs: No Vision needs: Yes (glasses) Questionnaire Thrive Questionnaire Date Thrive assessed: 03/06/23 AZUL-7 AMB Questionnaire AZUL-7 Date AZUL - 7 assessed: 03/06/23 Source: Developed by Drs. Juan Manuel Camarillo, Eva Wesley, Davion Herrera and colleagues, with an educational sophia from [employer]. Physical exam (Primary Care) Vital Signs: Last Vital Signs Pulse 89 09/27/23 09:51 BP 118/72 09/27/23 09:51 Pulse Ox 95 09/27/23 09:51 Oxygen Delivery Method Room Air 09/27/23 09:51 BMI result Body Mass Index 33.6 Tobacco/Smoking Status: Tobacco use Status Tobacco use date assessed 09/27/23 09/27/23 09:57 Patient Tobacco Use Status Former Tobacco user 09/27/23 09:57 e-Cigarette/Vaping Use Never Used 09/27/23 09:57 Thrive Assessment: Date of Thrive Assessment Date Thrive assessed 03/06/23 09/27/23 09:57 Const General: cooperative and healthy appearing Nutritional Appearance: well nourished Orientation/consciousness: patient oriented x3 Limitations: no limitations HENMT Head: Yes normal to inspection Eyes General: appearance normal, both eyes and all related structures Neck Neck: Yes normal visual inspection Chest Chest palpation & inspection: normal palpation of entire chest wall Resp Effort & Inspection: normal respiratory effort General: Yes Bimanual renal exam normal bilaterally and Yes no CVA tenderness Back/Spine/Pelvis Back: no CVA tenderness Neuro General: patient oriented x3 Assessment and Plan Assessment & Plan (1) Recurrent UTI (urinary tract infection): Code(s): N39.0 - Urinary tract infection, site not specified Plan: 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 Bactrim and Pyridium have been called in. Orders: Orders AMB Urinalysis Automated Today N39.0 - Urinary tract infection, site not specified Coding Level of Care Code Est Pt Level 3 (56445) Complex EM visit Add On G2211 Diagnoses Recurrent UTI (urinary tract infection) N39.0
[2023-09-27 09:51] VITALS: BP 118/72; PULSE 89; O2SAT 95; BMI 33.6
== END 2023-09-27 11:09 | disposition home or self-care (01) ==
PROVIDERS: PCP Internal Medicine; Visit Provider Internal Medicine
DX: N39.0 Urinary tract infection, site not specified (principal)
CPT/HCPCS: 99213; G2211

== ENCOUNTER 2023-09-27 12:42 | Outpatient (REF) | payer OTHER, MEDICAID, SELFPAY ==
[2023-09-27 12:50] LABS: Appearance Urine Clear; Color Urine Yellow; Glucose Urine UA Negative (Negative); Leukocyte Esterase Urine Negative (Negative); Nitrite Urine Negative (Negative); Specific Gravity - Urine 1.015 (1.005-1.025); Urine Blood Negative (Negative); Urine Ketones Negative (Negative); Urine Protein Negative (Neg-Trace)
== END 2023-09-27 12:43 | disposition home or self-care (01) ==
LOC: HO.LNP 12:42
PROVIDERS: Visit Provider Internal Medicine
DX: N39.0 Urinary tract infection, site not specified (principal)
CPT/HCPCS: 81003

== ENCOUNTER 2023-10-13 16:09 | Emergency (ER) | payer OTHER, MEDICAID, SELFPAY ==
--- NOTE | ~2023-10-13 | XR_ITS ---
EXAMINATION: XR ANKLE, RIGHT XR FOOT, RIGHT CLINICAL INFORMATION: Pain. Swelling. COMPARISON: None TECHNIQUE: AP, lateral, and mortise views of the right ankle and AP, lateral, and oblique views of the right foot. FINDINGS: RIGHT ANKLE: Bones are osteopenic. No fracture or malalignment. Ankle mortise is symmetric. Soft tissues are swollen. Mild multifocal osteoarthritis in the midfoot at the TMT joints. Moderate sized enthesopathic spurs are present at the Achilles tendon insertion and plantar fascial origin on the calcaneus. RIGHT FOOT: Bones are osteopenic. No fracture or malalignment. Mild multifocal osteoarthritis in the midfoot at the TMT joints and at the first MTP joint. More moderate multifocal osteoarthritis in the interphalangeal joints. No erosions. Soft tissues are unremarkable. XR/XR foot RT min 3V IMPRESSION: 1. No acute fracture or malalignment in the right ankle and foot. 2. Mild multifocal osteoarthritis in the midfoot and forefoot, most notably at the interphalangeal joints 3. Osteopenia.
--- NOTE | ~2023-10-13 | XR_ITS ---
EXAMINATION: XR ANKLE, RIGHT XR FOOT, RIGHT CLINICAL INFORMATION: Pain. Swelling. COMPARISON: None TECHNIQUE: AP, lateral, and mortise views of the right ankle and AP, lateral, and oblique views of the right foot. FINDINGS: RIGHT ANKLE: Bones are osteopenic. No fracture or malalignment. Ankle mortise is symmetric. Soft tissues are swollen. Mild multifocal osteoarthritis in the midfoot at the TMT joints. Moderate sized enthesopathic spurs are present at the Achilles tendon insertion and plantar fascial origin on the calcaneus. RIGHT FOOT: Bones are osteopenic. No fracture or malalignment. Mild multifocal osteoarthritis in the midfoot at the TMT joints and at the first MTP joint. More moderate multifocal osteoarthritis in the interphalangeal joints. No erosions. Soft tissues are unremarkable. XR/XR ankle RT min 3V IMPRESSION: 1. No acute fracture or malalignment in the right ankle and foot. 2. Mild multifocal osteoarthritis in the midfoot and forefoot, most notably at the interphalangeal joints 3. Osteopenia.
--- NOTE | 2023-10-13 16:55 | ED_ITS ---
HPI - Extremity Injury (Lower) General Chief Complaint: Extremity Injury, Lower Stated Complaint: R ankle pain Time Seen by Provider: 10/13/23 18:00 Source: patient Mode of arrival: ambulatory Limitations: no limitations History of Present Illness ED Provider: Gabriela RUBIN HPI Narrative: 83-year-old female history of dementia, osteoporosis, aortic arthrosclerosis, hypertension, incontinence presenting to the emergency department with complaints of right-sided foot pain atraumatic in nature for the past 2 days. Patient reports pain is worse with weight-bearing, movement and better at rest. She has been elevating her extremity with little to no relief. Reports pain is 3/10, with associated tingling. Denies fevers, chills, blunt trauma, numbness, chest pain or shortness of breath. Related Data Home Medications ?Medication ?Instructions ?Recorded ?Confirmed hydrochlorothiazide 12.5 mg capsule 12.5 mg PO DAILY 04/22/20 03/06/23 multivitamin 1 tab PO DAILY 04/22/20 03/06/23 magnesium oxide 400 mg (241.3 mg 400 mg PO DAILY 05/25/22 03/06/23 magnesium) tablet cyanocobalamin (vitamin B-12) 1,000 mcg PO DAILY 07/28/22 03/06/23 1,000 mcg tablet (Vitamin B-12) pantoprazole 40 mg tablet,delayed 40 mg PO DAILY 07/28/22 03/06/23 release Previous Rx's ?Medication ?Instructions ?Recorded cholecalciferol (vitamin D3) 50 100 mcg (2 x 50 mcg (2,000 unit)) 07/21/21 mcg (2,000 unit) capsule PO DAILY 30 days #60 caps denosumab 60 mg/mL subcutaneous 60 mg subcut [id number] #1 mL 06/14/23 syringe (Prolia) diclofenac sodium 1 % topical gel 4 g topical QID #100 grams 07/27/23 (Voltaren Arthritis Pain) celecoxib 200 mg capsule (Celebrex) 200 mg PO DAILY #14 caps 08/03/23 memantine 5 mg-10 mg tablets in a See Rx Instructions PO PER PKG DIR 08/04/23 dose pack (Namenda Titration Ashwin) #49 ea nitrofurantoin macrocrystal 100 mg 100 mg PO BID 5 days #10 caps 07/31/24 capsule phenazopyridine 200 mg tablet 200 mg PO TID #6 tabs 09/27/23 acetaminophen 325 mg capsule 325 mg PO Q4H PRN pain #30 caps 10/13/23 (Tylenol) Allergies Allergy/AdvReac Type Severity Reaction Status Date / Time meperidine [Meperidine] Allergy Intermediate HIVES Verified 10/13/23 17:01 Sulfa (Sulfonamide Allergy Intermediate Unknown Verified 10/13/23 17:01 Antibiotics) phenobarbital [PHENOBARBITAL] Allergy Unknown SWELLING Verified 10/13/23 17:01 Review of Systems Review of Systems: Yes all other systems are reviewed and are negative [facility] Past Medical History Attestation statement: The following information was validated with the patient. Source: old records reviewed and nursing notes reviewed Medical History Dementia Recurrent UTI (urinary tract infection) [place] Postmenopausal bleeding Palpitations Premature ventricular complex Breast cancer Vitamin D deficiency Osteoporosis Surgical History History of breast biopsy History of History of knee surgery Family History Family History Father Appendicitis, acute Mother No problems noted. Social History Social History Household Members: None Housing: House Alcohol intake: current Alcohol intake frequency: holidays/special occasions only Alcohol type: wine Patient Tobacco Use Status: Former Tobacco user e-Cigarette/Vaping Use: Never Used Second Hand Smoke Exposure: Yes Advance Directives: No Advance Directives Information Provided: No service: No Current occupational status: retired Cognitive needs: No Hearing needs: No Vision needs: Yes (glasses) Physical Exam Vital Signs: Vital Signs: Last Vital Signs Temp 98.0 F 10/13/23 20:21 Pulse 82 10/13/23 20:21 Resp 16 10/13/23 20:21 BP 165/71 H 10/13/23 20:21 Pulse Ox 97 10/13/23 20:21 O2 Del Method Room Air 10/13/23 20:21 BMI result Body Mass Index 31.1 Vital signs stable Appearance: Alert.? Oriented X3.? No acute distress.? Head: Normocephalic, atraumatic, no step-offs or deformities Eyes: Pupils equal, round and reactive to light.? ENT: Pharynx normal.? Neck: Normal inspection.? Neck supple.? CVS: Normal heart rate and rhythm.? Pulses normal.? Respiratory: No respiratory distress.? Breath sounds normal.? Abdomen: Soft and nontender.? Skin: Skin warm and dry.? Normal skin color.? Normal skin turgor.? Extremities: No lower extremity edema.? No calf ttp. 5/5 strength to bilateral upper and lower extremities + mild swelling noted to lateral aspect of R foot. 2+ DP,AT,PT pulses equal and b/l. Normal distal sensation. No foot drop b/l. Back: No midline tenderness, no C-spine tenderness, full range of motion, no CVA tenderness bilaterally Neuro: Oriented X 3.? No motor deficit.? No sensory deficit. CN 2-12 intact Course Course Course Narrative: This is a Rapid Medical Exam performed in triage by Graciela Lennon PA-C. Full HPI, ROS and PE to be performed by primary ED provider. 83 year-old w/ PMHx dementia, OA, presenting to the ED c/o atraumatic right ankle pain since yesterday. reports difficulty ambulating 2/2 pain. PE: + mild swelling noted to lateral aspect of right foot. NV intact. No calf tenderness Plan: XR Reevaluation(s) Reevaluation #1: nallely wrap applied. Imaging still pending. Time: 20:00 Reevaluation #2: Imaging taking a long time to result therefore will only call patient if results are abnormal Educated patient on diagnosis and treatment plan, answered all question, patient verbalizes understanding. At this time patient will be discharged home, advised to return with new or worsening symptoms. Educated on worrisome signs and symptoms and when to return. At this time I feel comfortable discharge home. Medications Administered Discontinued Medications Generic Name Dose Route Start Last Admin Trade Name Freq PRN Reason Stop Dose Admin Acetaminophen 975 mg 10/13/23 19:57 10/13/23 20:12 Acetaminophen 325 Mg Tablet PO 10/13/23 19:58 975 mg ONCE ONE Administration Medical Decision Making Medical Decision Making [facility] Narrative: 1806 83 year old female presents w/ atraumatic r ankle pain X 2 days PE No lower extremity edema.? No calf ttp. 5/5 strength to bilateral upper and lower extremities + mild swelling noted to lateral aspect of R foot. 2+ DP,AT,PT pulses equal and b/l. Normal distal sensation. No foot drop b/l. History and physical exam concerning for inflammatory arthritis versus arthritis versus pathological fracture. Unlikely dislocations no signs of neurovascular compromise, threat to limb. Unlikely arterial or venous occlusion. Less likely gout or pseudogout. Plan imaging. Differential Diagnosis Differential Diagnoses: The differential diagnosis associated with the presentation includes History and physical exam concerning for inflammatory arthritis versus arthritis versus pathological fracture. Unlikely dislocations no signs of neurovascular compromise, threat to limb. Unlikely arterial or venous occlusion. Less likely gout or pseudogout. Admission/Observation Consideration of admission/observation: Escalation of care including admission/observation considered possible Independent Interpretation I performed an independent interpretation of an: Plain X-Ray Radiology Impression Discussion of test interpretation with radiology: I have reviewed the radiologist's reading. Discharge Plan Discharge Clinical Impression: Acute pain of right foot Patient Disposition: Home, Self-Care Instructions: Arthralgia (ED) Additional Instructions: Take your medications as prescribed. If you were prescribed antibiotics today, it is important that you take your medication to their entirety, do not skip any doses, do not finish them early. Follow-up with your primary care provider this week. Return to the emergency department with new or worsening symptoms. Such as fevers, chills, chest pain, shortness of breath, nausea, vomiting, dizziness, headache, vision changes, lethargy In case of emergency call 911 You can take ibuprofen every 6 hours Tylenol every 4 as needed for pain or discomfort. Follow up with ortho Prescriptions: New acetaminophen [Tylenol] 325 mg capsule 325 mg PO Q4H PRN (Reason: pain) Qty: 30 0RF No Action cholecalciferol (vitamin D3) 50 mcg (2,000 unit) capsule 100 mcg PO DAILY 30 Days Qty: 60 11RF Prolia 60 mg/mL syringe 60 mg subcut [id number] Qty: 1 3RF celecoxib [Celebrex] 200 mg capsule 200 mg PO DAILY Qty: 14 0RF memantine [Namenda Titration Ashwin] 5-10 mg tablets,dose pack See Rx Instructions PO PER PKG DIR Qty: 49 0RF Rx Instructions: PO PER PKG DIR pantoprazole 40 mg tablet,delayed release (DR/EC) 40 mg PO DAILY cyanocobalamin (vitamin B-12) [Vitamin B-12] 1,000 mcg tablet 1,000 mcg PO DAILY diclofenac sodium [Voltaren Arthritis Pain] 1 % gel 4 g topical QID Qty: 100 0RF Rx Instructions: apply to single knee, ankle, foot; for foot includes sole/toes/top of foot phenazopyridine 200 mg tablet 200 mg PO TID Qty: 6 0RF Rx Instructions: TID daily after meals for 2 days nitrofurantoin macrocrystal 100 mg capsule 100 mg PO BID 5 Days Qty: 10 0RF Rx Instructions: must administer with a meal/food hydrochlorothiazide 12.5 mg capsule 12.5 mg PO DAILY multivitamin Tablet 1 tab PO DAILY magnesium oxide 400 mg (241.3 mg magnesium) tablet 400 mg PO DAILY Referrals: [facility] Orthopedic Surgeons [Provider Group] - 2 days Abdirahman Sun MD [Primary Care Provider] - 2 days Interventions: ED Discharge Assessment Last Done: 10/13/23 20:21 Discharge Date/Time: 10/13/23 20:22 Print Language: Surinamese
[2023-10-13 16:56] VITALS: BP 142/64; PULSE 81; RESP 18; TEMP 37.1; O2SAT 93; BMI 31.1
[2023-10-13 17:12] VITALS: BP 165/71; PULSE 82; RESP 16; TEMP 36.7; O2SAT 97
[2023-10-13] MEDS: Acetaminophen 325 MG TABLET 975 MG PO (20:12)
[2023-10-13 20:21] VITALS: BP 165/71; PULSE 82; RESP 16; TEMP 36.7; O2SAT 97
== END 2023-10-13 20:22 | disposition home or self-care (01) ==
PROVIDERS: Emergency Provider Emergency Medicine; PCP Internal Medicine
DX: M25.571 Pain in right ankle and joints of right foot (principal)
CPT/HCPCS: 73610; 73630; 99283

== ENCOUNTER 2023-10-19 13:54 | Outpatient (AMB) | payer OTHER, MEDICAID, SELFPAY ==
--- NOTE | 2023-10-19 14:07 | AM.OFFWIN_ITS ---
Intake Vital Signs 10/19/23 14:08 Height 5 ft 2 in Weight 175 lb BMI 32.0 BP 124/80 Blood Pressure Location Rt brachial Position Sitting Pulse 87 Pulse Source Pulse Oximeter Pulse Oximetry (%) 98 Oxygen Delivery Method Room Air Intake Visit Reasons: EP- sore throat, RT twisted ankle Intake Note: Patient here for sore throat that has been present for a couple of days. Patient Tobacco Use Status: Former Tobacco user Allergies meperidine [Meperidine] Allergy (Intermediate, Verified 10/19/23 14:09) HIVES Sulfa (Sulfonamide Antibiotics) Allergy (Intermediate, Verified 10/19/23 14:09) Unknown phenobarbital [PHENOBARBITAL] Allergy (Unknown, Verified 10/19/23 14:09) SWELLING Do you need a note to return to daycare/school/sports/work: No HPI HPI Comments History of Present Illness Details 83 y/o female patient who presents to [facility] walk [facility] clinic with c/o sore- throat x 3 days. Denies fevers, chills, nausea or vomiting. Pt also c/o right Ankle/foot pain. She twisted her Ankle last week. She was seen at [facility] and Xrays were taken. Impression: OA right Ankle. [facility] Medical History Dementia Recurrent UTI (urinary tract infection) [place] Postmenopausal bleeding Palpitations Premature ventricular complex Breast cancer Vitamin D deficiency Osteoporosis Surgical History History of breast biopsy History of History of knee surgery Family History Father Appendicitis, acute Mother No problems noted. Social History Household Members: None Housing: House Alcohol intake: current Alcohol intake frequency: holidays/special occasions only Alcohol type: wine Patient Tobacco Use Status: Former Tobacco user e-Cigarette/Vaping Use: Never Used Second Hand Smoke Exposure: Yes service: No Current occupational status: retired Cognitive needs: No Hearing needs: No Vision needs: Yes (glasses) Review of Systems Const All systems reviewed & are unremarkable except as noted in HPI and below Physical Exam Vital Signs: Last Vital Signs Pulse 87 10/19/23 14:08 BP 124/80 10/19/23 14:08 Pulse Ox 98 10/19/23 14:08 Oxygen Delivery Method Room Air 10/19/23 14:08 BMI result Body Mass Index 32.0 Const General: cooperative and comfortable Nutritional Appearance: obese Orientation/consciousness: patient oriented x3 HEENT Head: Yes normocephalic Ears: external ears normal and TM's normal bilaterally General nose exam: Normal external nose present Mouth: moist mucous membranes Resp Effort & Inspection: normal respiratory effort and able to speak in complete sentences Auscultation: clear to auscultation bilaterally, no crackles, no rales, no rhonchi and no wheezes Cardio Heart sounds: S1 normal heart sound present and S2 normal heart sound present Neuro General: patient oriented x3, gait normal and moves all extremities Extrem Right lower extremity: normal to inspection, full ROM and ankle Details: normal to inspection and no edema; no tenderness and no swelling Left lower extremity: normal to inspection and full ROM Psych Speech and movement: Normal speech and movement present Results AMB Rapid Strep AMB Rapid Strep Negative Last Edit by JASMYN Henao on 10/19/23 14:20 Results Reviewed Results Reviewed: Laboratory Last Values Strep Scn Rapid Clinic Negative 10/19/23 14:19 Assessment & Plan Assessment & Plan (1) Laryngitis: Code(s): J04.0 - Acute laryngitis Plan: Rest Voice Warm fluids with honey OTC remedies (2) Acute right ankle pain: Code(s): M25.571 - Pain in right ankle and joints of right foot Plan: Xray show OA Rest joint IceHot NSAIDs for pain relief. Orders: Orders AMB Rapid Strep Screen Today Z13.9 - Encounter for screening, unspecified Coding Level of Care Code Est Pt Level 3 (59496) Diagnoses Laryngitis J04.0 Acute right ankle pain M25.571 Time Spent (min) 15
[2023-10-19 14:08] VITALS: BP 124/80; PULSE 87; O2SAT 98; BMI 32.0
== END 2023-10-19 14:50 | disposition home or self-care (01) ==
PROVIDERS: PCP Internal Medicine; Visit Provider Nurse Practitioner Family
DX: J04.0 Acute laryngitis (principal); M25.571 Pain in right ankle and joints of right foot; Z13.9 Encounter for screening, unspecified
CPT/HCPCS: 87880; 99213

== ENCOUNTER → 2023-11-02 15:19 | Outpatient (AMB) | payer OTHER, MEDICAID, SELFPAY ==
--- NOTE | 2023-11-02 15:20 | MHC.PC.OV ---
Vital Signs 11/02/23 15:21 Height 5 ft 2 in Weight 172 lb 6 oz BMI 31.5 BP 130/80 Blood Pressure Location Rt brachial Position Sitting Pulse 84 Pulse Source Pulse Oximeter Pulse Oximetry (%) 96 Oxygen Delivery Method Room Air Intake Visit Reasons: 3mth f/u Intake Note: Patient is here to follow up on Dementia, Osteoporosis. Complain of right ankle sprain over a week ago. 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 Required: No Senior Instructional Designer: Not Required per policy Accompanied by: Self / Same As Patient Allergies meperidine [Meperidine] Allergy (Intermediate, Verified 11/03/23 13:01) HIVES Sulfa (Sulfonamide Antibiotics) Allergy (Intermediate, Verified 11/03/23 13:01) Unknown phenobarbital [PHENOBARBITAL] Allergy (Unknown, Verified 11/03/23 13:01) SWELLING Medication List - Last Reconciled 11/03/23 by Abdirahman Sun MD acetaminophen (Tylenol) 325 mg PO Q4H PRN celecoxib (Celebrex) 200 mg PO DAILY cholecalciferol (vitamin D3) 100 mcg (2 x 50 mcg (2,000 unit)) PO DAILY 30 days cyanocobalamin (vitamin B-12) (Vitamin B-12) 1,000 mcg PO DAILY denosumab (Prolia) 60 mg subcut [id number] diclofenac sodium 1% (Voltaren Arthritis Pain) 4 grams topical QID hydrochlorothiazide 12.5 mg PO DAILY magnesium oxide 400 mg PO DAILY memantine (Namenda Titration Ashwin) PO PER PKG DIR multivitamin 1 tab PO DAILY pantoprazole 40 mg PO DAILY Tobacco use date assessed: 11/02/23 Fall risk assessment: No Falls in past year Last assessed Fall Risk: 11/02/23 Dental Screening Dental Screen Date: 03/06/23 HPI 3mth f/u HPI Details 83 yr old female presents to the office to discuss her chronic medical problems. She sprained her ankle 2 weeks ago. Patient was evaluated at the walk-in clinic. X-rays were unremarkable. Patient's symptoms are improving. Compliant with her medications. Able to function and do activities of daily living. Patient is driving and living independently. [facility] Medical History Dementia Recurrent UTI (urinary tract infection) Myoma Postmenopausal bleeding Palpitations Premature ventricular complex Breast cancer Vitamin D deficiency Osteoporosis Surgical History History of breast biopsy History of History of knee surgery Family History Father Appendicitis, acute Mother No problems noted. Social History Household Members: None Housing: House Alcohol intake: current Alcohol intake frequency: holidays/special occasions only Alcohol type: wine Patient Tobacco Use Status: Former Tobacco user e-Cigarette/Vaping Use: Never Used Second Hand Smoke Exposure: Yes service: No Current occupational status: retired Cognitive needs: No Hearing needs: No Vision needs: Yes (glasses) Questionnaire Thrive Questionnaire Date Thrive assessed: 03/06/23 AZUL-7 AMB Questionnaire AZUL-7 Date AZUL - 7 assessed: 03/06/23 Source: Developed by Drs. Juan Manuel Camarillo, Eva Wesley, Davion Herrera and colleagues, with an educational sophia from [employer]. Physical exam (Primary Care) Vital Signs: Last Vital Signs Pulse 84 11/02/23 15:21 BP 130/80 11/02/23 15:21 Pulse Ox 96 11/02/23 15:21 Oxygen Delivery Method Room Air 11/02/23 15:21 BMI result Body Mass Index 31.5 Tobacco/Smoking Status: Tobacco use Status Tobacco use date assessed 11/02/23 11/02/23 15:29 Patient Tobacco Use Status Former Tobacco user 11/02/23 15:29 e-Cigarette/Vaping Use Never Used 11/02/23 15:29 Thrive Assessment: Date of Thrive Assessment Date Thrive assessed 03/06/23 11/02/23 15:29 Extrem Other: Right Ankle: No swelling noted. Full range of motion. Assessment and Plan Assessment & Plan (1) Ankle sprain: Code(s): S93.409A - Sprain of unspecified ligament of unspecified ankle, initial encounter Plan: The ankle sprain should improve and patient should have full recovery. I am more concerned about her mental health. Patient today is more active and alert. In the past she has been confused. Patient is living alone, driving. I have tried to reach the family on 2 separate occasions. I will be contacting the son again today. If I do not hear from the son, I will be contacting elderly services for guidance. Coding Level of Care Code Est Pt Level 4 (44405) Complex EM visit Add On G2211 Diagnoses Ankle sprain S93.409A
[2023-11-02 15:21] VITALS: BP 130/80; PULSE 84; O2SAT 96; BMI 31.5
== END ==
PROVIDERS: PCP Internal Medicine; Visit Provider Internal Medicine
DX: S93.401A Sprain of unspecified ligament of right ankle, initial encounter (principal); F03.90 Unspecified dementia, unspecified severity, without behavioral disturbance, psychotic disturbance, mood disturbance, and anxiety; M81.0 Age-related osteoporosis without current pathological fracture
CPT/HCPCS: 99214; G2211

== ENCOUNTER 2023-11-11 13:42 | Emergency (ER) | payer OTHER, MEDICAID, SELFPAY ==
--- NOTE | 2023-11-11 13:45 | ED_ITS ---
HPI - Female Genitourinary General Chief complaint: Urogenital-Female Stated complaint: UTI Time Seen by Provider: 11/11/23 17:12 Source: patient Mode of arrival: ambulatory Limitations: no limitations History of Present Illness ED Provider: Dr. Damian Gardner HPI Narrative: 83-year-old female with a history of urinary tract infections, dementia, lumbar disc disease, hypertension, osteoporosis who presents emergency department for evaluation of right flank pain, burning with urination, urgency x2 days. Patient states that yesterday she developed a burning sensation ?below?. She states that the sensation is worse with urinating. She did not have frequency but she states she has urgency and ?just makes it to the bathroom on time?. She also states that she was having pain in her right flank area. She describes this as a mild, constant pain which is not worse with movement. She denied fever, chills, vomiting or diarrhea. She did have nausea. She was not noted any hematuria. Patient had a positive urine culture on 02/17/2023 which grew Proteus mirabilis greater than 100,000 colony-forming units resistant to amoxicillin, nitrofurantoin and ceftriaxone. It was sensitive to ceftriaxone, ertapenem, levofloxacin and Bactrim Related Data Home Medications ?Medication ?Instructions ?Recorded ?Confirmed hydrochlorothiazide 12.5 mg capsule 12.5 mg PO DAILY 04/22/20 03/06/23 multivitamin 1 tab PO DAILY 04/22/20 03/06/23 magnesium oxide 400 mg (241.3 mg 400 mg PO DAILY 05/25/22 03/06/23 magnesium) tablet cyanocobalamin (vitamin B-12) 1,000 mcg PO DAILY 07/28/22 03/06/23 1,000 mcg tablet (Vitamin B-12) pantoprazole 40 mg tablet,delayed 40 mg PO DAILY 07/28/22 03/06/23 release Previous Rx's ?Medication ?Instructions ?Recorded cholecalciferol (vitamin D3) 50 100 mcg (2 x 50 mcg (2,000 unit)) 07/21/21 mcg (2,000 unit) capsule PO DAILY 30 days #60 caps denosumab 60 mg/mL subcutaneous 60 mg subcut [id number] #1 mL 06/14/23 syringe (Prolia) diclofenac sodium 1 % topical gel 4 g topical QID #100 grams 07/27/23 (Voltaren Arthritis Pain) celecoxib 200 mg capsule (Celebrex) 200 mg PO DAILY #14 caps 08/03/23 memantine 5 mg-10 mg tablets in a See Rx Instructions PO PER PKG DIR 08/04/23 dose pack (Nano Christopher) #49 ea acetaminophen 325 mg capsule 325 mg PO Q4H PRN pain #30 caps 10/13/23 (Tylenol) levofloxacin 500 mg tablet 500 mg PO DAILY 3 days #3 tabs 11/11/23 Allergies Allergy/AdvReac Type Severity Reaction Status Date / Time meperidine [Meperidine] Allergy Intermediate HIVES Verified 11/11/23 13:51 Sulfa (Sulfonamide Allergy Intermediate Unknown Verified 11/11/23 13:51 Antibiotics) phenobarbital [PHENOBARBITAL] Allergy Unknown SWELLING Verified 11/11/23 13:51 PMFSH Past Medical History Medical History Dementia Recurrent UTI (urinary tract infection) Myoma Postmenopausal bleeding Palpitations Premature ventricular complex Breast cancer Vitamin D deficiency Osteoporosis Surgical History History of breast biopsy History of History of knee surgery Family History Family History Father Appendicitis, acute Mother No problems noted. Social History Social History Household Members: None Housing: House Alcohol intake: current Alcohol intake frequency: holidays/special occasions only Alcohol type: wine Patient Tobacco Use Status: Former Tobacco user e-Cigarette/Vaping Use: Never Used Second Hand Smoke Exposure: Yes Advance Directives: No Advance Directives Information Provided: No Do you have a plan to hurt others: No Plan service: No Current occupational status: retired Cognitive needs: No Hearing needs: No Vision needs: Yes (glasses) Physical Exam 2 Vital Signs: Vital Signs: Last Vital Signs Temp 97.6 F 11/11/23 17:13 Pulse 70 11/11/23 17:13 Resp 16 11/11/23 17:13 BP 221/66 H 11/11/23 17:13 Pulse Ox 96 11/11/23 17:13 O2 Del Method Room Air 11/11/23 17:13 BMI result Body Mass Index 33.8 Elevated blood pressure 221/66 Exam: General: Awake, alert in no distress Head: Normocephalic, atraumatic EENT: PERRL, sclera normal, conjunctiva normal, mouth revealed moist membranes Neck: Supple, no adenopathy Lung: breath sounds symmetric, no wheezing, rales or rhonchi Heart: regular rate and rhythm, normal S1, S2 no murmurs or rubs Abdomen: soft, non-tender, nondistended, normal bowel sounds Back: no vertebral tenderness, no CVAT Neuro: Awake, alert, oriented, normal speech Course Course Course Narrative: This is an RME performed by Charlie Theodore CNP: Additional HPI, ROS, PE not included below will be deferred to primary provider. Patient is an 83-year-old female who presents to emergency department for evaluation of R flank pain my kidney is sore tothe touch , dysuria onset was yesterday. Hx prior UTI. Endorses associated nausea but no vomiting, no fevers or chills. Has a previous urine culture 01/2023 growing Proteus mirabilis with susceptibility to ertapenem, gentamicin, levofloxacin, and Bactrim / resistance to ampicillin, ceftriaxone, Macrobid. Plan: Serum labs, urinalysis Medical Decision Making Medical Decision Making MDM Narrative: 83-year-old female with a history of urinary tract infections, dementia, lumbar disc disease, hypertension, osteoporosis who presents emergency department for evaluation of right flank pain, burning with urination, urgency x2 days with no concerning systemic symptoms. Vital signs did reveal an elevated blood pressure but the patient does have essential hypertension and is asymptomatic. Physical examination was unremarkable. Differential diagnosis: ?Includes but is not limited to cystitis, pyelonephritis, renal colic, ureteral stone, electrolyte abnormalities, anemia Following evaluation was ordered: CBC, CMP, urinalysis Patient was initially treated with the following: Levofloxacin 500 mg over Course: 17:52 Patient's physical examination was unremarkable with no significant CVA tenderness or suprapubic tenderness. Patient's laboratory evaluation was unremarkable and urinalysis was negative. Patient's clinical presentation however is concerning for urinary tract infection and I did discuss empiric treatment with the patient and she agreed. Given her previous positive culture for Proteus mirabilis I did treat the patient with levofloxacin 500 mg daily for 3 days. She was given her 1st dose here in the emergency department. She was given printed and verbal instructions and discharged home. Admission/Observation Consideration of admission/observation: Escalation of care including admission/observation considered Lab Data MDM Lab Attestation statement: I reviewed the patient's lab results. My interpretation patient's laboratory evaluation is as follows: CBC was normal. CMP was normal. Urinalysis was negative. 11/11/23 14:16 11/11/23 14:16 Labs: Lab Results 11/11/23 11/11/23 Range/Units 14:16 16:47 WBC 6.7 (4.8-10.8) X10*3/uL RBC 4.44 (4.20-5.50) X10*6/uL Hgb 14.1 (12.0-16.0) g/dl Hct 39.6 (37.0-47.0) % MCV 89.2 (80.0-98.0) fL MCH 31.8 (27.0-33.0) pg MCHC 35.6 H (31.0-35.0) g/dl RDW 12.6 (11.0-16.0) % Plt Count 205 (160-400) X10*3/uL MPV 9.6 (9.4-12.3) fL Immature Gran % (Auto) 0.3 (0.0-0.4) % Neut % (Auto) 44.3 L (45-73) % Lymph % (Auto) 41.9 H (20-40) % [place] % (Auto) 11.1 H (2-11) % Eos % (Auto) 1.8 (0-4) % Baso % (Auto) 0.6 (0-2) % Lymph # (Auto) 2.8 (1.2-4.9) X10*3/uL [place] # (Auto) 0.8 (0.1-1.2) X10*3/uL Eos # (Auto) 0.1 (0.0-0.4) X10*3/uL Baso # (Auto) 0.0 (0.0-0.2) X10*3/uL Abs Immat Gran (auto) 0.02 (0.00-0.03) X10*3/uL Absolute Neuts (auto) 3.0 (2.0-8.3) x10*3/uL Absolute Nucleated RBC 0.000 (0.0-0.012) X10*3/uL Nucleated RBC % (auto) 0.0 (0.0-0.2) /100WBC Sodium 139 (135-145) mmol/L Potassium 3.6 (3.3-5.1) mmol/L Chloride 104 (96-108) mmol/L Carbon Dioxide 26 (22-29) mmol/L Anion Gap 13 (12-20) BUN 13 (9-16) mg/dL Creatinine 0.76 (0.5-1.4) mg/dL Estim Creat Clear Calc 52.9 Estimated GFR > 60 Random Glucose 108 (60-115) mg/dL Calcium 9.6 (8.4-10.2) mg/dL Total Bilirubin 0.4 (0.0-1.0) mg/dL AST 22 (5-31) U/L ALT 19 (0-31) U/L Alkaline Phosphatase 46 (39-117) U/L Total Protein 6.7 (6.5-8.0) g/dL Albumin 3.8 (3.5-5.0) g/dL Urine Color Yellow Urine Appearance Clear Urine pH 6.5 (5.0-9.0) Ur Specific [place] <= 1.005 (1.005-1.025) Urine Protein Negative (Neg-Trace) mg/dL Urine Glucose (UA) Negative (Negative) mg/dL Urine Ketones Negative (Negative) mg/dL Urine Blood Negative (Negative) Urine Nitrite Negative (Negative) Ur Leukocyte Esterase Negative (Negative) External Record Review External record reviewed: Other (Microbiology studies) Prescription Management I considered prescription management with: Antibiotic (Levofloxacin) Chronic Conditions Patient?s care impacted by: Hypertension Discharge Plan Discharge Clinical Impression: Urinary tract infection Patient Disposition: Home, Self-Care Instructions: Acute Urinary Retention in Women (ED) Additional Instructions: Your blood work was normal. Your urine chemical test did not reveal any evidence for white blood cells however your symptoms are concerning for urinary tract infection therefore I am going to treat you with oral antibiotics. Take Levaquin (levofloxacin) 500 mg pills, 1 pill daily for 3 days. You were given your 1st dose here in the emergency department at 18:00 so take your next dose tomorrow, Monday11/11/2023 at 6 p.m. Take Tylenol 325 mg pills, 2 pills every 6 hours as needed for pain and fever Follow-up with your doctor in 2 days. Please return to the emergency department if your symptoms get worse or if you develop any symptoms that are concerning to you. Prescriptions: New levofloxacin 500 mg tablet 500 mg PO DAILY 3 Days Qty: 3 0RF No Action cholecalciferol (vitamin D3) 50 mcg (2,000 unit) capsule 100 mcg PO DAILY 30 Days Qty: 60 11RF Prolia 60 mg/mL syringe 60 mg subcut [id number] Qty: 1 3RF celecoxib [Celebrex] 200 mg capsule 200 mg PO DAILY Qty: 14 0RF memantine [Namenda Titration Ashwin] 5-10 mg tablets,dose pack See Rx Instructions PO PER PKG DIR Qty: 49 0RF Rx Instructions: PO PER PKG DIR pantoprazole 40 mg tablet,delayed release (DR/EC) 40 mg PO DAILY cyanocobalamin (vitamin B-12) [Vitamin B-12] 1,000 mcg tablet 1,000 mcg PO DAILY acetaminophen [Tylenol] 325 mg capsule 325 mg PO Q4H PRN (Reason: pain) Qty: 30 0RF diclofenac sodium [Voltaren Arthritis Pain] 1 % gel 4 g topical QID Qty: 100 0RF Rx Instructions: apply to single knee, ankle, foot; for foot includes sole/toes/top of foot hydrochlorothiazide 12.5 mg capsule 12.5 mg PO DAILY multivitamin Tablet 1 tab PO DAILY magnesium oxide 400 mg (241.3 mg magnesium) tablet 400 mg PO DAILY Print Language: Slovak
[2023-11-11 13:47] VITALS: BP 152/68; PULSE 77; RESP 18; TEMP 36.6; O2SAT 98; BMI 33.8
[2023-11-11 14:20] LABS: MANUAL DIFF FLAG NO
[2023-11-11 14:22] LABS: Basophils Percent Auto 0.6 % (0-2); Eosinophils Absolute Auto 0.1 X10*3/uL (0.0-0.4); Eosinophils Percent Auto 1.8 % (0-4); Hematocrit 39.6 % (37.0-47.0); Hemoglobin 14.1 g/dl (12.0-16.0); Imm Gran Abs Auto 0.02 X10*3/uL (0.00-0.03); Imm Gran Pct Auto 0.3 % (0.0-0.4); Lymphocytes Absolute Auto 2.8 X10*3/uL (1.2-4.9); Lymphocytes Percent Auto 41.9 % (20-40); Mean Corpuscular HGB Conc 35.6 g/dl (31.0-35.0); Mean Corpuscular Hemoglobin 31.8 pg (27.0-33.0); Mean Corpuscular Volume 89.2 fL (80.0-98.0); Mean Platelet Volume 9.6 fL (9.4-12.3); Monocytes Absolute Auto 0.8 X10*3/uL (0.1-1.2); Monocytes Percent Auto 11.1 % (2-11); Neutrophils Percent Auto 44.3 % (45-73); Platelet Count 205 X10*3/uL (160-400); Red Blood Count 4.44 X10*6/uL (4.20-5.50); Red Cell Distribution Width 12.6 % (11.0-16.0); White Blood Count 6.7 X10*3/uL (4.8-10.8)
[2023-11-11 14:44] LABS: Alanine Aminotransferase 19 U/L (0-31); Albumin Level 3.8 g/dL (3.5-5.0); Alkaline Phosphatase 46 U/L (39-117); Anion Gap 13 (12-20); Aspartate Amino Transferase 22 U/L (5-31); Bilirubin Total 0.4 mg/dL (0.0-1.0); Blood Urea Nitrogen 13 mg/dL (9-16); Calcium 9.6 mg/dL (8.4-10.2); Carbon Dioxide 26 mmol/L (22-29); Chloride 104 mmol/L (96-108); Creatinine Clr Calc Pharmacy 52.9; Estimated Glomerular Filt Rate > 60; Glucose Random 108 mg/dL (60-115); Potassium 3.6 mmol/L (3.3-5.1); Sodium 139 mmol/L (135-145); Total Protein 6.7 g/dL (6.5-8.0)
[2023-11-11 16:56] LABS: Appearance Urine Clear; Color Urine Yellow; Glucose Urine UA Negative (Negative); Leukocyte Esterase Urine Negative (Negative); Nitrite Urine Negative (Negative); PH 6.5 (5.0-9.0); Specific Gravity - Urine <= 1.005 (1.005-1.025); Urine Blood Negative (Negative); Urine Ketones Negative (Negative); Urine Protein Negative (Neg-Trace)
[2023-11-11 17:13] VITALS: BP 221/66; PULSE 70; RESP 16; TEMP 36.4; O2SAT 96
[2023-11-11] MEDS: levoFLOXacin 500 MG TABLET PO (17:56)
[2023-11-11 17:58] VITALS: BP 194/67; PULSE 74; RESP 16; TEMP 36.5; O2SAT 94
[2023-11-11 19:12] VITALS: BP 194/67; PULSE 74; RESP 16; TEMP 36.5; O2SAT 94
== END 2023-11-11 19:12 | disposition home or self-care (01) ==
PROVIDERS: Nurse Practitioner Family; Emergency Provider Emergency Medicine Emergency Medical Services; PCP Internal Medicine
DX: N39.0 Urinary tract infection, site not specified (principal); I10 Essential (primary) hypertension; Z87.440 Personal history of urinary (tract) infections
CPT/HCPCS: 36415; 80053; 81003; 85025; 99283; 99284

== ENCOUNTER 2023-11-21 13:04 | Outpatient (AMB) | payer OTHER, MEDICAID, SELFPAY ==
[2023-11-21 13:10] VITALS: BP 136/80; PULSE 92; TEMP 36.5; O2SAT 97; BMI 33.4
--- NOTE | 2023-11-21 13:10 | MHC.OFFWIV ---
Intake Vital Signs 11/21/23 13:10 Height 5 ft Weight 171 lb BMI 33.4 BP 136/80 Blood Pressure Location Lt brachial Position Sitting Pulse 92 Pulse Source Pulse Oximeter Temp 97.7 F Temp Source Oral Pulse Oximetry (%) 97 Oxygen Delivery Method Room Air Intake Visit Reasons: EP ?UTI Intake Note: pt c/o burning, foggy mind. Started yesterday Patient Tobacco Use Status: Former Tobacco user Allergies meperidine [Meperidine] Allergy (Intermediate, Verified 11/21/23 13:10) HIVES Sulfa (Sulfonamide Antibiotics) Allergy (Intermediate, Verified 11/21/23 13:10) Unknown phenobarbital [PHENOBARBITAL] Allergy (Unknown, Verified 11/21/23 13:10) SWELLING Do you need a note to return to daycare/school/sports/work: No HPI HPI Comments History of Present Illness Details Patient is an 83-year-old female complaining of 2 days of burning with urination and brain fog. She denies any low back pain, blood in her urine or fevers. She states usually when she has UTIs, she gets a little bit of brain fog. [facility] Medical History Dementia Recurrent UTI (urinary tract infection) Myoma Postmenopausal bleeding Palpitations Premature ventricular complex Breast cancer Vitamin D deficiency Osteoporosis Surgical History History of breast biopsy History of History of knee surgery Family History Father Appendicitis, acute Mother No problems noted. Social History Household Members: None Housing: House Alcohol intake: current Alcohol intake frequency: holidays/special occasions only Alcohol type: wine Patient Tobacco Use Status: Former Tobacco user e-Cigarette/Vaping Use: Never Used Second Hand Smoke Exposure: Yes service: No Current occupational status: retired Cognitive needs: No Hearing needs: No Vision needs: Yes (glasses) Review of Systems Const All systems reviewed & are unremarkable except as noted in HPI and below Physical Exam Vital Signs: Last Vital Signs Temp 97.7 F 11/21/23 13:10 Pulse 92 09/24/24 13:10 BP 136/80 11/21/23 13:10 Pulse Ox 97 11/21/23 13:10 Oxygen Delivery Method Room Air 11/21/23 13:10 BMI result Body Mass Index 33.4 Const General: cooperative, healthy appearing, comfortable, no acute distress and well developed Orientation/consciousness: patient oriented x3 Limitations: no limitations HEENT Head: Yes normal to inspection Ears: hearing grossly normal bilaterally General nose exam: Normal external nose present Face and sinus: Yes normal facial exam Eyes General: appearance normal, both eyes and all related structures Neck Neck: Yes normal visual inspection and Yes full ROM Resp Effort & Inspection: normal respiratory effort and able to speak in complete sentences Skin General skin exam: no rashes or lesions noted Neuro General: patient oriented x3 Extrem General: Yes normal to inspection Assessment & Plan Assessment & Plan (1) Urinary tract infection: Code(s): N39.0 - Urinary tract infection, site not specified Qualifiers: Urinary tract infection type: acute cystitis Hematuria presence: without hematuria Qualified Code(s): N30.00 - Acute cystitis without hematuria Plan: Vital signs stable, patient well-appearing, sent antibiotic to pharmacy. Plan See above Medications: New cefuroxime axetil 500 mg PO Q12H 10 tabs 0RF Coding Level of Care Code Est Pt Level 3 (43599) Diagnoses Acute cystitis without hematuria N30.00 Urinary tract infection type: acute cystitis Hematuria presence: without hematuria
== END 2023-11-21 15:43 | disposition home or self-care (01) ==
PROVIDERS: PCP Internal Medicine; Visit Provider Physician Assistant
DX: Z13.9 Encounter for screening, unspecified (principal); N30.00 Acute cystitis without hematuria

== ENCOUNTER → 2023-11-21 13:04 | Outpatient (BNVA) | payer OTHER, MEDICAID, SELFPAY | PROVIDERS: PCP Internal Medicine | DX: N30.00 Acute cystitis without hematuria (principal) | CPT/HCPCS: 81003; 99212 ==

== ENCOUNTER 2023-12-07 14:36 | Outpatient (AMB) | payer OTHER, MEDICAID, SELFPAY ==
--- NOTE | 2023-12-07 14:46 | MHC.OFFVIS ---
Vital Signs 12/07/23 14:50 Height 5 ft Weight 172 lb 9.951 oz BMI 33.7 BP 146/66 H Blood Pressure Location Lt brachial Position Sitting Pulse 83 Pulse Source Pulse Oximeter Intake Visit Reasons: Osteoporosis-conf Intake Note: Patient present today for Osteoporosis follow up visit. 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 Accompanied by: Self / Same As Patient Allergies meperidine [Meperidine] Allergy (Intermediate, Verified 12/07/23 14:52) HIVES Sulfa (Sulfonamide Antibiotics) Allergy (Intermediate, Verified 12/07/23 14:52) Unknown phenobarbital [PHENOBARBITAL] Allergy (Unknown, Verified 12/07/23 14:52) SWELLING Medication List - Last Reconciled 12/07/23 by Juan Manuel Carrizales MD acetaminophen (Tylenol) 325 mg PO Q4H PRN cefuroxime axetil 500 mg PO Q12H celecoxib (Celebrex) 200 mg PO DAILY cholecalciferol (vitamin D3) 100 mcg (2 x 50 mcg (2,000 unit)) PO DAILY 30 days cyanocobalamin (vitamin B-12) (Vitamin B-12) 1,000 mcg PO DAILY denosumab (Prolia) 60 mg subcut [id number] diclofenac sodium 1% (Voltaren Arthritis Pain) 4 grams topical QID hydrochlorothiazide 12.5 mg PO DAILY magnesium oxide 400 mg PO DAILY memantine (Namenda Titration Ashwin) PO PER PKG DIR multivitamin 1 tab PO DAILY HPI Comments Details: 83 YO Female who is seen in F/U for Osteoporosis. First diagnosed in 2018 after she suffered a compression fracture of the T8 vertebrate. She subsequently had kyphoplasty, which resulted in compression fracture of the T9 vertebrate. She was subsequently referred to Endocrinology. She underwent a full biochemical workup for secondary causes of Osteoporosis and this was WNL. She was started on Prolia 04/09/2019 and tolerated this well. She was due for her second dose in September 2019, but was scheduled for dental extractions so this was placed on hold. She then resumed therapy and had her most recent dose 05/18/2022. No history of pathologic fracture or ONJ. Has 0-1 servings of dietary calcium per day in the form of milk or cheese. Takes a Calcium supplement 600 mg once daily. She takes an additional Vitamin D 2000 IU daily. Takes Omeprazole daily. Was previously on phenobarbital for seizures, but not in many years. Denies ever using anticoagulant or glucocorticoid medication. Does no weight bearing exercise currently. Fracture history: Compression fracture of T8 Vertebrate in June 2018. Had Kyphoplasty 07/10/18 and subsequently suffered compression fracture of the T9 Vertebrate. Height loss: Has lost 4 inches in height. 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 Menses was always regular. . She did not breastfeed. Menopause was in her 50's. Did not use HRT. History of Kidney stones: She does have a history of kidney stones. Does not recall if these were calcium stones. Denies a family history of Osteoporosis or hip fracture. DXA dated 07/06/2021: FINDINGS: AP SPINE L1-L4: Current: BMD 1.012 g/cm2, Z-score -0.1, T-score -1.4, osteopenia, 0.4% increase from previous, 6.8% increase from baseline (<5% change is not significant). Prior: BMD 1.008 g/cm2. Baseline: BMD 0.948 g/cm2. LEFT FEMUR, NECK: Current: BMD 0.750 g/cm2, Z-score -0.3, T-score -2.1, osteopenia. Prior: BMD 0.737 g/cm2. Baseline: BMD 0.812 g/cm2. LEFT FEMUR, TOTAL: Current: BMD 0.873 g/cm2, Z-score 0.5, T-score -1.1, osteopenia, 4.6% increase from previous, 9.2% decrease from baseline (<5% change is not significant). Prior: BMD 0.835 g/cm2. Baseline: BMD 0.961 g/cm2. Labs: No recent pertinent labs. Secondary workup was negative. Some back pain but no fx . She has received almost 5 years of Prolia therapy. Recent bone density showed osteopenia [facility] Medical History Dementia Recurrent UTI (urinary tract infection) Myoma Postmenopausal bleeding Palpitations Premature ventricular complex Breast cancer Vitamin D deficiency Osteoporosis Surgical History History of breast biopsy History of History of knee surgery Family History Father Appendicitis, acute Mother No problems noted. Social History Household Members: None Housing: House Alcohol intake: current Alcohol intake frequency: holidays/special occasions only Alcohol type: wine Patient Tobacco Use Status: Former Tobacco user e-Cigarette/Vaping Use: Never Used Second Hand Smoke Exposure: Yes service: No Current occupational status: retired Cognitive needs: No Hearing needs: No Vision needs: Yes (glasses) Physical Exam Vital Signs: Last Vital Signs Pulse 83 12/07/23 14:50 BP 146/66 H 12/07/23 14:50 BMI result Body Mass Index 33.7 Assessment & Plan Assessment & Plan (1) Osteoporosis: Code(s): M81.0 - Age-related osteoporosis without current pathological fracture Category: Medical Plan: This 83-year-old white female with a history of osteoporosis and compression fractures of the lumbar spine with negative secondary workup. She is currently receiving Prolia since 2019. DEXA bone density shows stability Plan is to consider transitioning from Prolia to either oral or intravenous bisphosphonate or could continue Prolia for a full 5 years considering the previous history of vertebral fractures before transitioning. This could be done after the next subsequent dose of Prolia is given in 12/2023 when the subsequent dose is due on 06/2024 or, we can continue the Prolia for full 5- 10 years duration as safety data is present for up to 10 years of Prolia use Coding Level of Care Code Est Pt Level 3 (49613) Diagnoses Osteoporosis M81.0
[2023-12-07 14:50] VITALS: BP 146/66; PULSE 83; BMI 33.7
== END 2023-12-07 15:22 | disposition home or self-care (01) ==
PROVIDERS: PCP Internal Medicine; Visit Provider Internal Medicine Endocrinology, Diabetes & Metabolism
DX: M81.0 Age-related osteoporosis without current pathological fracture (principal)
CPT/HCPCS: 99213

== ENCOUNTER → 2023-12-07 14:36 | Outpatient (BNVA) | payer OTHER, MEDICAID, SELFPAY | PROVIDERS: PCP Internal Medicine; Visit Provider Internal Medicine Endocrinology, Diabetes & Metabolism | DX: M81.0 Age-related osteoporosis without current pathological fracture (principal); E55.9 Vitamin D deficiency, unspecified; Z79.620 Long term (current) use of immunosuppressive biologic | CPT/HCPCS: 99212 ==

== ENCOUNTER 2023-12-12 11:42 | Outpatient (AMB) | payer OTHER, MEDICAID, SELFPAY ==
--- NOTE | 2023-12-12 11:59 | MHC.OFFWIV ---
Intake Vital Signs 12/12/23 12:00 Height 5 ft Weight 171 lb BMI 33.4 BP 140/90 H Blood Pressure Location Rt brachial Position Sitting Pulse 60 Pulse Source Pulse Oximeter Pulse Oximetry (%) 98 Oxygen Delivery Method Room Air Intake Visit Reasons: EP UTI? Intake Note: Patient here for burning when urinating that have been present for a couple of days. Patient Tobacco Use Status: Former Tobacco user Allergies meperidine [Meperidine] Allergy (Intermediate, Verified 12/12/23 12:09) HIVES Sulfa (Sulfonamide Antibiotics) Allergy (Intermediate, Verified 12/12/23 12:09) Unknown phenobarbital [PHENOBARBITAL] Allergy (Unknown, Verified 12/12/23 12:09) SWELLING Do you need a note to return to daycare/school/sports/work: No HPI HPI Comments History of Present Illness Details Patient is an 83-year-old female complaining of 2 days of burning with urination and increased frequency of urination. She denies any low back pain or fevers and has a very remote history of kidney stones. She states it does not feel like kidney stones and she has not noticed any blood in her urine. [facility] Medical History Dementia Recurrent UTI (urinary tract infection) Myoma Postmenopausal bleeding Palpitations Premature ventricular complex Breast cancer Vitamin D deficiency Osteoporosis Surgical History History of breast biopsy History of History of knee surgery Family History Father Appendicitis, acute Mother No problems noted. Social History Household Members: None Housing: House Alcohol intake: current Alcohol intake frequency: holidays/special occasions only Alcohol type: wine Patient Tobacco Use Status: Former Tobacco user e-Cigarette/Vaping Use: Never Used Second Hand Smoke Exposure: Yes service: No Current occupational status: retired Cognitive needs: No Hearing needs: No Vision needs: Yes (glasses) Review of Systems Const All systems reviewed & are unremarkable except as noted in HPI and below Physical Exam Vital Signs: Last Vital Signs Pulse 60 12/12/23 12:00 BP 140/90 H 12/12/23 12:00 Pulse Ox 98 12/12/23 12:00 Oxygen Delivery Method Room Air 12/12/23 12:00 BMI result Body Mass Index 33.4 Const General: cooperative, healthy appearing, comfortable and no acute distress Orientation/consciousness: patient oriented x3 HEENT Head: Yes normal to inspection Ears: hearing grossly normal bilaterally General nose exam: Normal external nose present Face and sinus: Yes normal facial exam Neck Neck: Yes normal visual inspection, Yes trachea midline and Yes supple Resp Effort & Inspection: normal respiratory effort and able to speak in complete sentences Skin General skin exam: no rashes or lesions noted Neuro General: patient oriented x3 Psych Appearance: grossly normal Speech and movement: Normal speech and movement present Attitude: cooperative Thought process: Normal thought process present Insight: Good insight present (Psych) Judgement: Good judgement present (Psych) Assessment & Plan Assessment & Plan (1) Urinary tract infection: Code(s): N39.0 - Urinary tract infection, site not specified Qualifiers: Hematuria presence: without hematuria Urinary tract infection type: acute cystitis Qualified Code(s): N30.00 - Acute cystitis without hematuria Plan: Urinalysis is negative for leukocyte esterase or nitrites or blood. We will treat based on symptoms. Recommended patient follow up with PCP if no improvement in her symptoms. Plan See above Medications: New cefuroxime axetil 500 mg PO Q12H 10 tabs 0RF Coding Level of Care Code Est Pt Level 3 (65425) Diagnoses Acute cystitis without hematuria N30.00 Hematuria presence: without hematuria Urinary tract infection type: acute cystitis
[2023-12-12 12:00] VITALS: BP 140/90; PULSE 60; O2SAT 98; BMI 33.4
== END 2023-12-12 12:21 | disposition home or self-care (01) ==
PROVIDERS: PCP Internal Medicine; Visit Provider Physician Assistant
DX: Z13.9 Encounter for screening, unspecified (principal); N30.00 Acute cystitis without hematuria

== ENCOUNTER → 2023-12-12 11:42 | Outpatient (BNVA) | payer OTHER, MEDICAID, SELFPAY | PROVIDERS: PCP Internal Medicine; Visit Provider Physician Assistant | DX: N30.00 Acute cystitis without hematuria (principal) | CPT/HCPCS: 81003; 99212 ==

== ENCOUNTER 2023-12-16 17:48 | Emergency (ER) | payer OTHER, MEDICAID, SELFPAY ==
--- NOTE | 2023-12-16 17:49 | ECG_ITS ---
Test Reason : CHEST PAIN Blood Pressure : / mmHG Vent. Rate : 070 BPM Atrial Rate : 070 BPM P-R Int : 194 ms QRS Dur : 094 ms QT Int : 376 ms P-R-T Axes : 036 -03 018 degrees QTc Int : 406 ms Normal sinus rhythm Normal ECG When compared with ECG of 06-JUN-2022 13:56, No significant change was found Referred By: Generic ED Physician Electronically Signed By:ANASTASIA ARANA
[2023-12-16 17:54] VITALS: BP 162/57; PULSE 67; RESP 18; TEMP 36.2; O2SAT 98; BMI 33.5
[2023-12-16 18:39] LABS: MANUAL DIFF FLAG NO
[2023-12-16 18:45] LABS: Basophils Absolute Auto 0.1 X10*3/uL (0.0-0.2); Basophils Percent Auto 0.5 % (0-2); Eosinophils Absolute Auto 0.1 X10*3/uL (0.0-0.4); Eosinophils Percent Auto 1.1 % (0-4); Hemoglobin 14.8 g/dl (12.0-16.0); Imm Gran Abs Auto 0.03 X10*3/uL (0.00-0.03); Imm Gran Pct Auto 0.3 % (0.0-0.4); Lymphocytes Absolute Auto 3.6 X10*3/uL (1.2-4.9); Lymphocytes Percent Auto 34.4 % (20-40); Mean Corpuscular HGB Conc 35.2 g/dl (31.0-35.0); Mean Corpuscular Hemoglobin 31.9 pg (27.0-33.0); Mean Corpuscular Volume 90.5 fL (80.0-98.0); Mean Platelet Volume 9.7 fL (9.4-12.3); Monocytes Percent Auto 9.4 % (2-11); Neutrophils Absolute Auto 5.6 x10*3/uL (2.0-8.3); Neutrophils Percent Auto 54.3 % (45-73); Platelet Count 228 X10*3/uL (160-400); Red Blood Count 4.64 X10*6/uL (4.20-5.50); White Blood Count 10.4 X10*3/uL (4.8-10.8)
[2023-12-16 18:58] LABS: Alanine Aminotransferase 21 U/L (0-31); Albumin Level 4.1 g/dL (3.5-5.0); Alkaline Phosphatase 56 U/L (39-117); Anion Gap 13 (12-20); Aspartate Amino Transferase 26 U/L (5-31); Bilirubin Direct 0.2 mg/dL (0.0-0.5); Bilirubin Total 0.5 mg/dL (0.0-1.0); Blood Urea Nitrogen 11 mg/dL (9-16); Calcium 9.9 mg/dL (8.4-10.2); Carbon Dioxide 29 mmol/L (22-29); Chloride 100 mmol/L (96-108); Creatinine Clr Calc Pharmacy 57.9; Estimated Glomerular Filt Rate > 60; Glucose Random 105 mg/dL (60-115); Lipase 21 U/L (8-78); Potassium 4.2 mmol/L (3.3-5.1); Sodium 138 mmol/L (135-145); Total Protein 7.1 g/dL (6.5-8.0)
[2023-12-16 19:03] LABS: Troponin-I High Sensitivity 3.5 ng/L (<3.5-17.0)
[2023-12-16 19:32] VITALS: BP 208/67; PULSE 69; RESP 16; TEMP 36.4; O2SAT 98
[2023-12-16 20:48] VITALS: BP 174/68
[2023-12-16 20:51] LABS: Appearance Urine Clear; Color Urine Yellow; Glucose Urine UA Negative (Negative); Leukocyte Esterase Urine Negative (Negative); Nitrite Urine Negative (Negative); Urine Blood Negative (Negative); Urine Ketones Trace mg/dL (Negative); Urine Protein Negative (Neg-Trace)
--- NOTE | 2023-12-16 21:19 | ED_ITS ---
HPI - General Adult General Chief complaint: General Medical Stated complaint: HBP/heartburn Time Seen by Provider: 12/16/23 21:07 Source: patient Mode of arrival: ambulatory Limitations: no limitations History of Present Illness ED Provider: lexy JOAQUIN narrative: Patient with history of chronic GERD on Protonix patient was seen at urgent care center earlier blood pressure was 206/74 repeat blood pressure in the ER was 148/88 patient denied any chest pain no shortness a breath Related Data Home Medications ?Medication ?Instructions ?Recorded ?Confirmed hydrochlorothiazide 12.5 mg capsule 12.5 mg PO DAILY 04/22/20 12/07/23 multivitamin 1 tab PO DAILY 04/22/20 12/07/23 magnesium oxide 400 mg (241.3 mg 400 mg PO DAILY 05/25/22 12/07/23 magnesium) tablet cyanocobalamin (vitamin B-12) 1,000 mcg PO DAILY 07/28/22 12/07/23 1,000 mcg tablet (Vitamin B-12) denosumab 60 mg/mL subcutaneous 60 mg subcut [id number] 12/14/23 syringe (Prolia) Previous Rx's ?Medication ?Instructions ?Recorded cholecalciferol (vitamin D3) 50 100 mcg (2 x 50 mcg (2,000 unit)) 07/21/21 mcg (2,000 unit) capsule PO DAILY 30 days #60 caps diclofenac sodium 1 % topical gel 4 g topical QID #100 grams 07/27/23 (Voltaren Arthritis Pain) celecoxib 200 mg capsule (Celebrex) 200 mg PO DAILY #14 caps 08/03/23 memantine 5 mg-10 mg tablets in a See Rx Instructions PO PER PKG DIR 08/04/23 dose pack (Namenda Titration Ashwin) #49 ea acetaminophen 325 mg capsule 325 mg PO Q4H PRN pain #30 caps 10/13/23 (Tylenol) cefuroxime axetil 500 mg tablet 500 mg PO Q12H #10 tabs 12/12/23 sucralfate 1 gram tablet 1 g PO TID #90 tabs 12/16/23 Allergies Allergy/AdvReac Type Severity Reaction Status Date / Time meperidine [Meperidine] Allergy Intermediate HIVES Verified 12/16/23 17:58 Sulfa (Sulfonamide Allergy Intermediate Unknown Verified 12/16/23 17:58 Antibiotics) phenobarbital [PHENOBARBITAL] Allergy Unknown SWELLING Verified 12/16/23 17:58 Review of Systems 2 Review of Systems: Yes all other systems are reviewed and are negative [facility] Past Medical History Medical History Dementia Recurrent UTI (urinary tract infection) Myoma Postmenopausal bleeding Palpitations Premature ventricular complex Breast cancer Vitamin D deficiency Osteoporosis Surgical History History of breast biopsy History of History of knee surgery Family History Family History Father Appendicitis, acute Mother No problems noted. Social History Social History Household Members: None Housing: House Alcohol intake: never Patient Tobacco Use Status: Former Tobacco user Smoked in Last 30 Days: No e-Cigarette/Vaping Use: Never Used Second Hand Smoke Exposure: Yes Use of substances other than those prescribed or required for medical reasons: No Advance Directives: No Advance Directives Information Provided: No Do you have a plan to hurt others: No Plan service: No Current occupational status: retired Cognitive needs: No Hearing needs: No Vision needs: Yes (glasses) Physical Exam ED Vital Signs: Vital Signs - 24 hr 12/16/23 17:54 12/16/23 19:32 12/16/23 20:48 Temperature 97.2 F 97.6 F Pulse Rate 67 69 Respiratory Rate 18 16 Blood Pressure 162/57 H 208/67 H 174/68 H Pulse Oximetry 98 98 Oxygen Delivery Method Room Air Room Air 12/16/23 21:53 12/16/23 22:24 Temperature 97.6 F 97.6 F Pulse Rate 68 68 Respiratory Rate 18 18 Blood Pressure 148/88 H 148/88 H Pulse Oximetry 96 96 Oxygen Delivery Method Room Air Room Air BMI result Body Mass Index 33.5 Appearance: Alert. Oriented X3. No acute distress. Eyes: No pallor or icterus ENT: Pharynx normal. Oral Mucosa moist Neck: Normal inspection. Neck supple. CVS: Normal heart rate and rhythm. Pulses normal. Respiratory: No respiratory distress. Equal air entry bilateral, no wheezing/rales/rhonchi Abdomen: Soft and mild epigastric tenderness Bowel sounds are present, no mass palpable, no CVA tenderness Skin: Skin warm and dry. Normal skin color. Normal skin turgor. Extremities: No lower extremity edema. No calf tenderness Neuro: Oriented X 3. Medications Administered Discontinued Medications Generic Name Dose Route Start Last Admin Trade Name Kuldeepq PRN Reason Stop Dose Admin Al Hydroxide/Mg Hydroxide 30 ml 12/16/23 21:31 12/16/23 21:46 Magnesium Hydrox/Alum Hydrox 30 Ml Oral.Susp PO 12/16/23 21:32 30 ml ONCE ONE Administration Lidocaine HCl 15 ml 12/16/23 21:31 12/16/23 21:46 Lidocaine Hcl Viscous 2 % 15 Ml Solution MUCOUS MEM 12/16/23 21:32 15 ml ONCE ONE Administration Medical Decision Making Medical Decision Making [facility] Narrative: Patient with chronic GERDworkup is negative for ACS patient has responded to Maalox and lidocaine viscous will discharge home on sucralfate advised to follow up with GI Differential Diagnosis Differential Diagnoses: The differential diagnosis associated with the presentation includes Gastritis/pancreatitis/cholecystitis Lab Data [facility] Lab Attestation statement: I reviewed the patient's lab results. 12/16/23 18:33 12/16/23 18:33 Labs: Lab Results 12/16/23 12/16/23 Range/Units 18:33 20:44 WBC 10.4 (4.8-10.8) X10*3/uL RBC 4.64 (4.20-5.50) X10*6/uL Hgb 14.8 (12.0-16.0) g/dl Hct 42.0 (37.0-47.0) % MCV 90.5 (80.0-98.0) fL MCH 31.9 (27.0-33.0) pg MCHC 35.2 H (31.0-35.0) g/dl RDW 13.0 (11.0-16.0) % Plt Count 228 (160-400) X10*3/uL MPV 9.7 (9.4-12.3) fL Immature Gran % (Auto) 0.3 (0.0-0.4) % Neut % (Auto) 54.3 (45-73) % Lymph % (Auto) 34.4 (20-40) % Blanco % (Auto) 9.4 (2-11) % Eos % (Auto) 1.1 (0-4) % Baso % (Auto) 0.5 (0-2) % Lymph # (Auto) 3.6 (1.2-4.9) X10*3/uL Blanco # (Auto) 1.0 (0.1-1.2) X10*3/uL Eos # (Auto) 0.1 (0.0-0.4) X10*3/uL Baso # (Auto) 0.1 (0.0-0.2) X10*3/uL Abs Immat Gran (auto) 0.03 (0.00-0.03) X10*3/uL Absolute Neuts (auto) 5.6 (2.0-8.3) x10*3/uL Absolute Nucleated RBC 0.000 (0.0-0.012) X10*3/uL Nucleated RBC % (auto) 0.0 (0.0-0.2) /100WBC Sodium 138 (135-145) mmol/L Potassium 4.2 (3.3-5.1) mmol/L Chloride 100 (96-108) mmol/L Carbon Dioxide 29 (22-29) mmol/L Anion Gap 13 (12-20) BUN 11 (9-16) mg/dL Creatinine 0.69 (0.5-1.4) mg/dL Estim Creat Clear Calc 57.9 Estimated GFR > 60 Random Glucose 105 (60-115) mg/dL Calcium 9.9 (8.4-10.2) mg/dL Total Bilirubin 0.5 (0.0-1.0) mg/dL Direct Bilirubin 0.2 (0.0-0.5) mg/dL AST 26 (5-31) U/L ALT 21 (0-31) U/L Alkaline Phosphatase 56 (39-117) U/L Troponin I High Sens 3.5 (<3.5-17.0) ng/L Total Protein 7.1 (6.5-8.0) g/dL Albumin 4.1 (3.5-5.0) g/dL Lipase 21 (8-78) U/L Urine Color Yellow Urine Appearance Clear Urine pH 6.0 (5.0-9.0) Ur Specific Souris 1.010 (1.005-1.025) Urine Protein Negative (Neg-Trace) mg/dL Urine Glucose (UA) Negative (Negative) mg/dL Urine Ketones Trace (Negative) mg/dL Urine Blood Negative (Negative) Urine Nitrite Negative (Negative) Ur Leukocyte Esterase Negative (Negative) Independent Interpretation I performed an independent interpretation of an: EKG Interpretation: Normal sinus rhythm heart rate 70 beats per minute normal intervals normal axis no acute ST-T changes no acute ischemia Discharge Plan Discharge Clinical Impression: GERD with esophagitis Patient Disposition: Home, Self-Care Instructions: Gastroesophageal Reflux Disease (ED) Additional Instructions: Continue to take protonix Take sucralfate 1 tablet 3 times a day before meals Follow up with city surveyor Continue take your blood pressure medicine Prescriptions: New sucralfate 1 gram tablet 1 g PO TID Qty: 90 0RF No Action cholecalciferol (vitamin D3) 50 mcg (2,000 unit) capsule 100 mcg PO DAILY 30 Days Qty: 60 11RF celecoxib [Celebrex] 200 mg capsule 200 mg PO DAILY Qty: 14 0RF memantine [Namenda Titration Ashwin] 5-10 mg tablets,dose pack See Rx Instructions PO PER PKG DIR Qty: 49 0RF Rx Instructions: PO PER PKG DIR Prolia 60 mg/mL syringe 60 mg subcut [id number] cyanocobalamin (vitamin B-12) [Vitamin B-12] 1,000 mcg tablet 1,000 mcg PO DAILY acetaminophen [Tylenol] 325 mg capsule 325 mg PO Q4H PRN (Reason: pain) Qty: 30 0RF diclofenac sodium [Voltaren Arthritis Pain] 1 % gel 4 g topical QID Qty: 100 0RF Rx Instructions: apply to single knee, ankle, foot; for foot includes sole/toes/top of foot hydrochlorothiazide 12.5 mg capsule 12.5 mg PO DAILY multivitamin Tablet 1 tab PO DAILY magnesium oxide 400 mg (241.3 mg magnesium) tablet 400 mg PO DAILY cefuroxime axetil 500 mg tablet 500 mg PO Q12H Qty: 10 0RF Referrals: Parvin Dodge MD [Physician] - 1 week Interventions: ED Discharge Assessment Last Done: 12/16/23 22:24 Discharge Date/Time: 12/16/23 22:25 Print Language: Finnish
[2023-12-16] MEDS: Lidocaine HCl Viscous 2 % 15 ML SOLUTION MUCOUS MEM (21:46)
[2023-12-16] MEDS: Magnesium Hydrox/Alum Hydrox 30 ML ORAL.SUSP PO (21:46)
[2023-12-16 21:53] VITALS: BP 148/88; PULSE 68; RESP 18; TEMP 36.4; O2SAT 96
[2023-12-16 22:24] VITALS: BP 148/88; PULSE 68; RESP 18; TEMP 36.4; O2SAT 96
== END 2023-12-16 22:25 | disposition home or self-care (01) ==
PROVIDERS: Emergency Provider Internal Medicine; PCP Internal Medicine
DX: K21.00 Gastro-esophageal reflux disease with esophagitis, without bleeding (principal); R10.13 Epigastric pain; Z87.440 Personal history of urinary (tract) infections; Z87.891 Personal history of nicotine dependence; Z79.899 Other long term (current) drug therapy
CPT/HCPCS: 36415; 80048; 80076; 81003; 83690; 84484; 85025; 93005; 99283; 99284

== ENCOUNTER → 2023-12-16 17:49 | Outpatient (BNV) | payer OTHER, MEDICAID, SELFPAY | PROVIDERS: Emergency Provider Internal Medicine; PCP Internal Medicine; Visit Provider Internal Medicine | DX: R07.9 Chest pain, unspecified (principal) | CPT/HCPCS: 93010 ==

== ENCOUNTER 2023-12-22 11:47 | Outpatient (AMB) | payer OTHER, MEDICAID, SELFPAY ==
[2023-12-22 12:01] VITALS: BP 142/84; PULSE 86; O2SAT 96; BMI 33.3
--- NOTE | 2023-12-22 12:01 | MHC.OFFWIV ---
Intake Vital Signs 12/22/23 12:01 Height 5 ft Weight 170 lb 6 oz BMI 33.3 BP 142/84 H Blood Pressure Location Rt brachial Position Sitting Pulse 86 Pulse Source Pulse Oximeter Pulse Oximetry (%) 96 Oxygen Delivery Method Room Air Intake Visit Reasons: EP ? UTI Patient Tobacco Use Status: Former Tobacco user Allergies meperidine [Meperidine] Allergy (Intermediate, Verified 12/22/23 12:01) HIVES Sulfa (Sulfonamide Antibiotics) Allergy (Intermediate, Verified 12/22/23 12:01) Unknown phenobarbital [PHENOBARBITAL] Allergy (Unknown, Verified 12/22/23 12:01) SWELLING Medication List - Last Reconciled 12/22/23 by Destini Christine MD acetaminophen (Tylenol) 325 mg PO Q4H PRN cholecalciferol (vitamin D3) 100 mcg (2 x 50 mcg (2,000 unit)) PO DAILY 30 days cyanocobalamin (vitamin B-12) (Vitamin B-12) 1,000 mcg PO DAILY denosumab (Prolia) 60 mg subcut [id number] diclofenac sodium 1% (Voltaren Arthritis Pain) 4 grams topical QID hydrochlorothiazide 12.5 mg PO DAILY magnesium oxide 400 mg PO DAILY memantine (Namenda Titration Ashwin) PO PER PKG DIR multivitamin 1 tab PO DAILY sucralfate 1 g PO TID Do you need a note to return to daycare/school/sports/work: No HPI EP ? UTI HPI Details Patient is 83-year-old female with a history of recurrent UTI Came in today to be evaluated for possible bladder infection Patient is allergic to sulfa Last set of labs reviewed, GFR 57.9, that was this month Review system reveals no fever no chills no nausea no vomiting no abdominal pain except slight suprapubic discomfort No new back pain There is no blood in the urine, patient says that there is some mild irritation around genitalia but there is no dysuria or frequency of urination UA reveals no signs of infection Patient was reassured If irritation gets worse patient need to see primary care for evaluation She does not want any examination at this time She will consult with pharmacy to see if she can use [id number] diaper rash cream for few days That might help with the irritation PFSH Medical History Dementia Recurrent UTI (urinary tract infection) Myoma Postmenopausal bleeding Palpitations Premature ventricular complex Breast cancer Vitamin D deficiency Osteoporosis Surgical History History of breast biopsy History of History of knee surgery Family History Father Appendicitis, acute Mother No problems noted. Social History Household Members: None Housing: House Alcohol intake: never Patient Tobacco Use Status: Former Tobacco user e-Cigarette/Vaping Use: Never Used Second Hand Smoke Exposure: Yes service: No Current occupational status: retired Cognitive needs: No Hearing needs: No Vision needs: Yes (glasses) Review of Systems Const All systems reviewed & are unremarkable except as noted in HPI and below Physical Exam Vital Signs: Last Vital Signs Pulse 86 12/22/23 12:01 BP 142/84 H 12/22/23 12:01 Pulse Ox 96 12/22/23 12:01 Oxygen Delivery Method Room Air 12/22/23 12:01 BMI result Body Mass Index 33.3 Const General: no acute distress Orientation/consciousness: patient oriented x3 Eyes General: appearance normal, both eyes and all related structures Resp Effort & Inspection: normal respiratory effort and able to speak in complete sentences Neuro General: patient oriented x3 Psych Mental Status: mental status grossly normal Assessment & Plan Assessment & Plan (1) Burning with urination: Code(s): R30.0 - Dysuria Plan Patient is 83-year-old female with a history of recurrent UTI Came in today to be evaluated for possible bladder infection Patient is allergic to sulfa Last set of labs reviewed, GFR 57.9, that was this month Review system reveals no fever no chills no nausea no vomiting no abdominal pain except slight suprapubic discomfort No new back pain There is no blood in the urine, patient says that there is some mild irritation around genitalia but there is no dysuria or frequency of urination UA reveals no signs of infection Patient was reassured If irritation gets worse patient need to see primary care for evaluation She does not want any examination at this time She will consult with pharmacy to see if she can use [id number] diaper rash cream for few days That might help with the irritati Coding Level of Care Code Est Pt Level 3 (08206) Diagnoses Burning with urination R30.0
== END 2023-12-22 12:19 | disposition home or self-care (01) ==
PROVIDERS: PCP Internal Medicine; Visit Provider Internal Medicine
DX: R30.0 Dysuria (principal); Z13.9 Encounter for screening, unspecified

== ENCOUNTER → 2023-12-22 11:47 | Outpatient (BNVA) | payer OTHER, MEDICAID, SELFPAY | PROVIDERS: PCP Internal Medicine | DX: R30.0 Dysuria (principal) | CPT/HCPCS: 81003; 99212 ==

== ENCOUNTER 2024-01-09 13:48 | Outpatient (REF) | payer OTHER, MEDICAID, SELFPAY ==
[2024-01-09 15:36] LABS: Albumin Level 4.3 g/dL (3.5-5.0); Anion Gap 14 (12-20); Blood Urea Nitrogen 15 mg/dL (9-16); Calcium 10.8 mg/dL (8.4-10.2); Carbon Dioxide 32 mmol/L (22-29); Chloride 100 mmol/L (96-108); Estimated Glomerular Filt Rate > 60; Glucose Random 100 mg/dL (60-115); Potassium 4.4 mmol/L (3.3-5.1); Sodium 142 mmol/L (135-145)
== END 2024-01-09 13:49 | disposition home or self-care (01) ==
LOC: HO.LAB 13:48
PROVIDERS: PCP Internal Medicine; Referring Provider Internal Medicine Endocrinology, Diabetes & Metabolism; Visit Provider Internal Medicine
DX: I10 Essential (primary) hypertension (principal); M81.0 Age-related osteoporosis without current pathological fracture; Z79.899 Other long term (current) drug therapy
CPT/HCPCS: 36415; 80048; 82040; 99212

== ENCOUNTER 2024-01-09 13:48 | Outpatient (AMB) | payer OTHER, MEDICAID, SELFPAY ==
--- NOTE | 2024-01-09 14:01 | MHC.PC.OV ---
Vital Signs 01/09/24 14:02 Height 5 ft Weight 169 lb BMI 33.0 BP 130/70 Blood Pressure Location Lt brachial Position Sitting Pulse 84 Pulse Source Pulse Oximeter Pulse Oximetry (%) 97 Oxygen Delivery Method Room Air Intake Visit Reasons: [facility] 12/15 HBP/heartburn Intake Note: Patient is here to follow-up after a visit the emergency department at [facility] on 12/16/23. Pt decline flu shot today. Sanitation Lead Required: No Data Support Analyst: Not Required per policy Accompanied by: Self / Same As Patient Allergies meperidine [Meperidine] Allergy (Intermediate, Verified 01/09/24 14:02) HIVES Sulfa (Sulfonamide Antibiotics) Allergy (Intermediate, Verified 01/09/24 14:02) Unknown phenobarbital [PHENOBARBITAL] Allergy (Unknown, Verified 01/09/24 14:02) SWELLING Tobacco use date assessed: 01/09/24 Fall risk assessment: No Falls in past year Last assessed Fall Risk: 01/09/24 Dental Screening Dental Screen Date: 03/06/23 HPI [facility] 12/15 HBP/heartburn HPI Details 83-year-old female with a past medical history of hypertension currently on hydrochlorothiazide 12.5 mg daily who presents for concerns of elevated blood pressure. On 12/16/2023 patient was noted to have an elevated BP reading at the Urgent Care she was then sent to the ER. Patient initially went to the urgent care for dysuria. They noticed her blood pressure was elevated at 206/74 and she was sent to the ER. While in the emergency department patient's blood pressure was monitored and the highest it went was 144/88. She denied any chest pain, shortness of breath therefore she was discharged home. She reports she has been taking her hydrochlorothiazide as prescribed daily. She denies any changes in medication or diet. She has been monitoring her blood pressure daily at 15:00 and reports it has been in the 130s/80s. She denies any dysuria, urinary frequency, urgency, hematuria, rashes, abnormal vaginal discharge, abnormal vaginal odor, diarrhea constipation or any other symptoms complaints or concerns. Patient has not received flu shot although she does not want to receive the flu vaccine here she would like to go to [facility] and received the COVID/RSV/flu vaccine all at once. Patient reports she lives alone. She can perform all daily activities. She does her own grocery shopping. She still drives her own car. She walks without any assistive devices. She reports she has 4 kids although 3 of them live out of state and her 1 son lives in [place]. [facility] Medical History Dementia Recurrent UTI (urinary tract infection) Myoma Postmenopausal bleeding Palpitations Premature ventricular complex Breast cancer Vitamin D deficiency Osteoporosis Surgical History History of breast biopsy History of History of knee surgery Family History Father Appendicitis, acute Mother No problems noted. Social History Household Members: None Housing: House Alcohol intake: never Patient Tobacco Use Status: Former Tobacco user e-Cigarette/Vaping Use: Never Used Second Hand Smoke Exposure: Yes service: No Current occupational status: retired Cognitive needs: No Hearing needs: No Vision needs: Yes (glasses) Questionnaire Thrive Questionnaire Date Thrive assessed: 03/06/23 AZUL-7 AMB Questionnaire AZUL-7 Date AZUL - 7 assessed: 03/06/23 Source: Developed by Drs. Juan Manuel Camarillo, Eva Wesley, Davion Herrera and colleagues, with an educational sophia from [employer]. Review of Systems Const All systems reviewed & are unremarkable except as noted in HPI and below Physical exam (Primary Care) Vital Signs: Last Vital Signs Pulse 84 01/09/24 14:02 BP 130/70 01/09/24 14:02 Pulse Ox 97 01/09/24 14:02 Oxygen Delivery Method Room Air 01/09/24 14:02 Appearance: Alert. Oriented. No acute distress. ? Head: Normal external exam. Normocephalic. Atraumatic.? Eyes: EOMI. Conjunctiva and sclera normal. Eyelids normal. ? ENT: Moist mucous membranes. Normal Voice, Neck: Normal inspection. Neck supple. FROM. No adenopathy. Thyroid Normal. No meningeal signs. No neck mass noted. CVS: Normal heart rate and rhythm. Heart sound normal. No murmurs noted. Pulses normal throughout. Respiratory: No respiratory distress. Painless inspiration. Breath sounds normal. No wheezes/rales/rhonchi noted. Chest nontender. ?No accessory muscle usage noted or decreased air movement noted. Abdomen: Soft and nontender. Bowel sounds normal in all 4 quadrants. No distention noted.? No organomegaly noted.? Back: ?No CVA tenderness.? Full range of motion noted. Skin: Skin warm and dry.? Normal skin color.? Normal skin turgor. No rashes/lesions/lacerations noted. Extremities: No lower extremity edema. ? Extremities exhibit normal range of motion.? Extremities nontender. Neuro: Oriented.? No motor deficit.? No sensory deficit.? Reflexes normal. Psych: Normal affect. Normal thought process. Normal judgment. Good insight. BMI result Body Mass Index 33.0 Tobacco/Smoking Status: Tobacco use Status Tobacco use date assessed 01/09/24 01/09/24 14:07 Patient Tobacco Use Status Former Tobacco user 01/09/24 14:07 e-Cigarette/Vaping Use Never Used 01/09/24 14:07 Thrive Assessment: Date of Thrive Assessment Date Thrive assessed 03/06/23 01/09/24 14:07 Results Reviewed Results Reviewed: Patient had blood pressure cuff monitor at bedside when I reviewed the readings it appears that patient's blood pressure has been in the 120s/130s over 80/90s. Coding Level of Care Code Est Pt Level 4 (97882) Complex EM visit Add On G2211 Diagnoses Hypertension I10 Assessment & Plan Assessment & Plan (1) Hypertension: Code(s): I10 - Essential (primary) hypertension Category: Medical Plan: Patient is currently on hydrochlorothiazide 12.5 mg daily taking as prescribed. When assessing her blood pressure monitor her blood pressure was in the 130s/120s-89/90's over the past few days. Patient will continue her current antihypertensive regimen.
[2024-01-09 14:02] VITALS: BP 130/70; PULSE 84; O2SAT 97; BMI 33.0
== END 2024-01-09 14:25 | disposition home or self-care (01) ==
PROVIDERS: PCP Internal Medicine; Visit Provider Internal Medicine
DX: I10 Essential (primary) hypertension (principal)

== ENCOUNTER 2024-01-15 13:36 | Outpatient (AMB) | payer OTHER, MEDICAID, SELFPAY ==
--- NOTE | 2024-01-15 14:10 | AM.OFFVISNUR ---
Intake Visit Reasons: Prolia injection Allergies meperidine [Meperidine] Allergy (Intermediate, Verified 01/09/24 14:02) HIVES Sulfa (Sulfonamide Antibiotics) Allergy (Intermediate, Verified 01/09/24 14:02) Unknown phenobarbital [PHENOBARBITAL] Allergy (Unknown, Verified 01/09/24 14:02) SWELLING Office Meds Prolia 60 mg/mL subcutaneous syringe Performing Provider: Juan Manuel Carrizales MD [place] [facility] Administered by: Anna Bradley RN on 01/15/24 14:10 Dose Route Admin Location Dispensed Lot Number Expiration Date [facility] Senior Partner 60 mg subcut Left upper arm 1 mL [id number] 08/26/26 39250-767-82 AMGEN Comments: Pt signed consent form. Pt tolerated injection well and denied any problems with previous injections. Pt aware to repeat labs. Assessment & Plan Assessment & Plan Orders: Orders AMB Denosumab Injection Practice Supplied Today M81.0 - Age-related osteoporosis without current pathological fracture Medications: New Prolia (denosumab) 60 mg subcut ONCE 1 mL 0RF NS M81.0 - Age-related osteoporosis without current pathological fracture
== END 2024-01-15 14:08 | disposition home or self-care (01) ==
PROVIDERS: PCP Internal Medicine
DX: M81.0 Age-related osteoporosis without current pathological fracture (principal)

== ENCOUNTER → 2024-01-15 13:36 | Outpatient (BNVA) | payer OTHER, MEDICAID, SELFPAY | PROVIDERS: PCP Internal Medicine | DX: M81.0 Age-related osteoporosis without current pathological fracture (principal) | CPT/HCPCS: 36415; 82040; 82310; 96372; J0897 ==

== ENCOUNTER 2024-01-15 14:19 | Outpatient (REF) | payer OTHER, MEDICAID, SELFPAY ==
[2024-01-15 15:05] LABS: Albumin Level 3.9 g/dL (3.5-5.0); Calcium 10.2 mg/dL (8.4-10.2)
== END 2024-01-15 14:20 | disposition home or self-care (01) ==
LOC: HO.LAB 14:19
PROVIDERS: PCP Internal Medicine; Visit Provider Internal Medicine Endocrinology, Diabetes & Metabolism
DX: Z13.89 Encounter for screening for other disorder (principal)
CPT/HCPCS: 36415; 82040; 82310

== ENCOUNTER 2024-02-06 12:57 | Outpatient (AMB) | payer OTHER, MEDICAID, SELFPAY ==
--- NOTE | 2024-02-06 13:31 | A.OFFPC_ITS ---
Vital Signs 02/06/24 13:32 Height 5 ft Weight 169 lb 2 oz BMI 33.0 BP 130/66 Blood Pressure Location Lt brachial Position Sitting Pulse 77 Pulse Source Pulse Oximeter Pulse Oximetry (%) 96 Oxygen Delivery Method Room Air Intake Visit Reasons: Back pain Intake Note: Patient is here to follow up on Back pain. 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 per policy Accompanied by: Self / Same As Patient Allergies meperidine [Meperidine] Allergy (Intermediate, Verified 02/06/24 14:35) HIVES Sulfa (Sulfonamide Antibiotics) Allergy (Intermediate, Verified 02/06/24 14:35) Unknown phenobarbital [PHENOBARBITAL] Allergy (Unknown, Verified 02/06/24 14:35) SWELLING Medication List - Last Reconciled 02/06/24 by Abdirahman Sun MD acetaminophen (Tylenol) 325 mg PO Q4H PRN cholecalciferol (vitamin D3) 100 mcg (2 x 50 mcg (2,000 unit)) PO DAILY 30 days cyanocobalamin (vitamin B-12) (Vitamin B-12) 1,000 mcg PO DAILY denosumab (Prolia) 60 mg subcut [id number] diclofenac sodium 1% (Voltaren Arthritis Pain) 4 grams topical QID hydrochlorothiazide 12.5 mg PO DAILY magnesium oxide 400 mg PO DAILY memantine (Namenda Titration Ashwin) PO PER PKG DIR multivitamin 1 tab PO DAILY sucralfate 1 g PO TID Tobacco use date assessed: 02/06/24 Fall risk assessment: No Falls in past year Last assessed Fall Risk: 02/06/24 Dental Screening Dental Screen Date: 03/06/23 HPI Back pain HPI Details 83-year-old female [facility] for a sick [facility]. Patient reports mild lower back pain that started yesterday. She was worried about kidney stones and wanted a follow-up visit. No difficulty urinating. No fevers or chills. No nausea or vomiting. [facility] Medical History Dementia Recurrent UTI (urinary tract infection) Myoma Postmenopausal bleeding Palpitations Premature ventricular complex Breast cancer Vitamin D deficiency Osteoporosis Surgical History History of breast biopsy History of History of knee surgery Family History Father Appendicitis, acute Mother No problems noted. Social History Household Members: None Housing: House Alcohol intake: never Patient Tobacco Use Status: Former Tobacco user e-Cigarette/Vaping Use: Never Used Second Hand Smoke Exposure: Yes service: No Current occupational status: retired Cognitive needs: No Hearing needs: No Vision needs: Yes (glasses) Questionnaire Thrive Questionnaire Date Thrive assessed: 03/06/23 AZUL-7 AMB Questionnaire AZUL-7 Date AZUL - 7 assessed: 03/06/23 Source: Developed by Drs. Juan Manuel Camarillo, Eva Wesley, Davion Herrera and colleagues, with an educational sophia from [employer]. Physical exam (Primary Care) Vital Signs: Last Vital Signs Pulse 77 02/06/24 13:32 BP 130/66 02/06/24 13:32 Pulse Ox 96 02/06/24 13:32 Oxygen Delivery Method Room Air 02/06/24 13:32 BMI result Body Mass Index 33.0 Tobacco/Smoking Status: Tobacco use Status Tobacco use date assessed 02/06/24 02/06/24 13:39 Patient Tobacco Use Status Former Tobacco user 02/06/24 13:39 e-Cigarette/Vaping Use Never Used 02/06/24 13:39 Thrive Assessment: Date of Thrive Assessment Date Thrive assessed 03/06/23 02/06/24 13:39 Back/Spine/Pelvis Other: Back: No visible rash. No spinal tenderness. No paraspinal spasm. Results AMB Urinalysis Dipstick UR Leukocytes Negative Last Edit by JARED Gan on 02/06/24 13:49 UR Nitrite Negative Last Edit by JARED Gan on 02/06/24 13:49 UR Urobilinogen Normal Last Edit by JARED Gan on 02/06/24 13:49 UR Protein 30 Last Edit by JARED Gan on 02/06/24 13:49 UR Ph 6.0 Last Edit by JARED Gan on 02/06/24 13:49 UR Blood Negative Last Edit by JARED Gan on 02/06/24 13:49 UR Specific [place] 1.030 Last Edit by JARED Gan on 02/06/24 13: 49 UR Ketone Negative Last Edit by LÓPEZ GanA on 02/06/24 13:49 UR Bilirubin Negative Last Edit by Mart Mckay A on 02/06/24 13:49 UR Glucose Negative Last Edit by Mart Mckay A on 02/06/24 13:49 Results Reviewed Results Reviewed: Laboratory Last Values Urine pH (Clinic) 6.0 02/06/24 13:46 Specific [place] (Clinic) 1.030 02/06/24 13:46 Ur Protein (Clinic) 30 02/06/24 13:46 Ur Ketones (Clinic) Negative 02/06/24 13:46 Urine Blood (Clinic) Negative 02/06/24 13:46 Urine Nitrite Negative 02/06/24 13:46 Urine Bilirubin (Clinic) Negative 02/06/24 13:46 Urobilinogen (Clinic) Normal 02/06/24 13:46 Leukocyte Esterase (Clinic) Negative 02/06/24 13:46 Urine Glucose (Clinic) Negative 02/06/24 13:46 Coding Level of Care Code Est Pt Level 3 (81529) Diagnoses Lower thoracic back pain M54.6 Assessment & Plan Assessment & Plan (1) Lower thoracic back pain: Code(s): M54.6 - Pain in thoracic spine Plan: Likely musculoskeletal. Urinalysis was negative. Reassurance. Orders: Orders AMB Urinalysis Dipstick Today R30.0 - Dysuria Medications: Refilled diclofenac sodium 1% (Voltaren Arthritis Pain) apply to single knee, ankle, foot; for foot includes sole/toes/top of foot 4 grams topical QID 100 grams 0RF
[2024-02-06 13:32] VITALS: BP 130/66; PULSE 77; O2SAT 96; BMI 33.0
== END 2024-02-06 14:13 | disposition home or self-care (01) ==
PROVIDERS: PCP Internal Medicine; Visit Provider Internal Medicine
DX: R30.0 Dysuria (principal); M54.6 Pain in thoracic spine

== ENCOUNTER → 2024-02-06 12:57 | Outpatient (BNVA) | payer OTHER, MEDICAID, SELFPAY | PROVIDERS: PCP Internal Medicine; Visit Provider Internal Medicine | DX: M54.6 Pain in thoracic spine (principal) | CPT/HCPCS: 81002; 99212 ==

== ENCOUNTER 2024-03-21 09:46 | Outpatient (AMB) | payer MEDICARE, MEDICAID, SELFPAY ==
[2024-03-21 10:10] VITALS: BP 128/88; PULSE 71; TEMP 36.1; O2SAT 95; BMI 33.0
--- NOTE | 2024-03-21 10:10 | A.OFFPC_ITS ---
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 by: Self / Same As Patient Allergies meperidine [Meperidine] Allergy (Intermediate, Verified 03/21/24 10:42) HIVES Sulfa (Sulfonamide Antibiotics) Allergy (Intermediate, Verified 03/21/24 10:42) Unknown phenobarbital [PHENOBARBITAL] Allergy (Unknown, Verified 03/21/24 10:42) SWELLING Medication List - Last Reconciled 03/21/24 by Macho Bell PA-C acetaminophen (Tylenol) 325 mg PO Q4H PRN cholecalciferol (vitamin D3) 100 mcg (2 x 50 mcg (2,000 unit)) PO DAILY 30 days cyanocobalamin (vitamin B-12) (Vitamin B-12) 1,000 mcg PO DAILY denosumab (Prolia) 60 mg subcut [id number] diclofenac sodium 1% (Voltaren Arthritis Pain) 4 grams topical QID hydrochlorothiazide 12.5 mg PO DAILY magnesium oxide 400 mg PO DAILY memantine (Namenda Titration Ashwin) PO PER PKG DIR multivitamin 1 tab PO DAILY sucralfate 1 g PO TID Tobacco use date assessed: 03/21/24 Fall risk assessment: No Falls in past year Last assessed Fall Risk: 03/21/24 Dental Screening Dental Screen Date: 03/21/24 Did you have a dental visit in the last 12 months?: Yes Did you have a dental problem in the last 6 months where you did not have access to dental care?: No Was dental information given to patient?: Patient has dentist HPI Sore throat/UTI HPI Details The patient is an 83-year-old female presenting with symptoms of a sore throat, cough, and sneezing, which have been persistent for approximately a week. She reports associated upper respiratory symptoms, including discomfort in the throat and ear without subjective fever. No significant redness or white spots were observed in the throat. She mentions using [id number]-[id number] medications, such as phenol-containing throat spray, Tylenol, and Motrin, intermittently for symptom relief. In addition, she reports experiencing urinary frequency with slight burning, though a urine analysis showed no nitrites or white blood cells, only a small amount of protein. She lives alone and has had no known recent contacts with sick individuals. There is a mention of occasional postnasal drip contributing to her cough, alongside voice changes suggestive of laryngitis, reportedly causing soreness around the vocal cords. The patient has neither sought immediate care for these new symptoms prior to this visit nor experienced similar episodes before. [facility] Medical History Dementia Recurrent UTI (urinary tract infection) Myoma Postmenopausal bleeding Palpitations Premature ventricular complex Breast cancer Vitamin D deficiency Osteoporosis Surgical History History of breast biopsy History of History of knee surgery Family History Father Appendicitis, acute Mother No problems noted. Social History Household Members: None Housing: House Alcohol intake: never Patient Tobacco Use Status: Former Tobacco user e-Cigarette/Vaping Use: Never Used Second Hand Smoke Exposure: Yes service: No Current occupational status: retired Cognitive needs: No Hearing needs: No Vision needs: Yes (glasses) Questionnaire PHQ-9 Over the last 2 weeks, how often have you been bothered by any of the following problems? 1. Little interest or pleasure in doing things: not at all 2. Feeling down, depressed, or hopeless: not at all 3. Trouble falling or staying asleep, or sleeping too much: not at all 4. Feeling tired or having little energy: not at all 5. Poor appetite or overeating: not at all 6. Feeling bad about yourself - or that you are a failure or have let yourself or your family down: not at all 7. Trouble concentrating on things, such as reading the newspaper or watching television: not at all 8. Moving or speaking so slowly that other people could have noticed. Or the opposite - being so fidgety or restless that you have been moving around a lot more than usual: not at all 9. Thoughts that you would be better off or of hurting yourself in some way: not at all Total score: 0 Depression Screening Interpretation: Negative Depression Screening Done: Yes 24002 - PHQ-9 Billing: Yes Source: Developed by Drs. Juan Manuel Camarillo, Eva Wesley, Davion Herrera and colleagues, with an educational sophia from [employer]. Thrive Questionnaire Date Thrive assessed: 03/21/24 I am a: Patient What is your living situation today?: I have a steady place to live Within the past 12 months, did the food you bought not last and you didn't have the money to get more?: Never true Within the past 12 months, did you worry whether your food would run out before you got money to buy more?: Never true Do you have trouble paying for medicines?: No Do you have trouble getting transportation to medical appointments?: No Do you have trouble paying your heating and electricity bill?: No Do you have trouble taking care of your child, family member or friend?: No Do you have trouble with day-to-day activities such as bathing, preparing meals, shopping, managing finances, etc.?: No Are you currently unemployed and looking for a job?: No Are you interested in more education?: No Please select the resources that you would like help with: None Currently or been in a relationship where the following occur: No concerns reported THRIVE Score: 0 AUDIT C Alcohol Use Questionnaire (AUDIT-C) 1. How often do you have a drink containing alcohol?: Never 3. How often do you have six or more drinks on one occasion?: Never Total Score: 0 AZUL-7 AMB Questionnaire AZUL-7 Date AZUL - 7 assessed: 03/21/24 Feeling nervous, anxious, or on edge: 0 = Not at all Not being able to stop or control worryin = Not at all Worrying too much about different things: 0 = Not at all Trouble relaxin = Not at all Being so restless that it is hard to sit still: 0 = Not at all Becoming easily annoyed or irritable: 0 = Not at all Feeling afraid as if something awful might happen: 0 = Not at all Total AZUL-7 score (0-4 normal; 5-9 mild; 10-14 moderate; 15-21 severe): 0 Source: Developed by Drs. Juan Manuel Camarillo, Eva Wesley, Davion Herrera and colleagues, with an educational sophia from [employer]. AZUL-7 Assessment Billing AZUL-7 Assessment Tool: AZUL-7 Assessment 36879 Review of Systems Const Denies headache(s) Eyes Denies loss of vision ENT Details: + change in voice, hoarseness of voice Denies vertigo, Denies dizziness, Denies headache(s), Reports sinus pressure and Reports sore throat Card Denies chest pain, Denies leg edema and Denies lightheadedness Resp Denies cough, Denies hemoptysis and Denies wheezing GI Denies abdominal pain, Denies melena, Denies constipation, Denies diarrhea and Denies vomiting Denies urinary frequency, Denies dysuria, Reports urinary hesitancy and Reports urinary urgency Musc Denies arthralgias, Denies joint swelling, Denies numbness and Denies tingling Neuro Denies Abnormal speech present, Denies behavioral changes, Denies vertigo, Denies dizziness, Denies headache(s), Denies loss of vision, Denies memory loss, Denies numbness and Denies tingling Psych Denies anxiety, Denies behavioral changes, Denies depression, Denies memory loss and Denies panic attacks Alberto/Lymph Denies easy bleeding and Denies easy bruising Aller/Immun Denies wheezing Physical exam (Primary Care) Vital Signs: Last Vital Signs Temp 97.0 F 03/21/24 10:10 Pulse 71 03/21/24 10:10 BP 128/88 03/21/24 10:10 Pulse Ox 95 03/21/24 10:10 Oxygen Delivery Method Room Air 03/21/24 10:10 BMI result Body Mass Index 33.0 Tobacco/Smoking Status: Tobacco use Status Tobacco use date assessed 03/21/24 03/21/24 10:13 Patient Tobacco Use Status Former Tobacco user 03/21/24 10:10 e-Cigarette/Vaping Use Never Used 03/21/24 10:10 PHQ-9: PHQ-9 Score PHQ-9: Total score 0 03/21/24 10:44 Depression Screening Interpretation: Negative Thrive Assessment: Date of Thrive Assessment Date Thrive assessed 03/21/24 03/21/24 10:13 Currently or been in a relationship where the following occur: No concerns reported Const General: healthy appearing, no acute distress, alert and awake Nutritional Appearance: well nourished Orientation/consciousness: oriented to person, oriented to place and oriented to time HENMT Ears: TM's normal bilaterally General nose exam: Normal nasal mucous membranes and turbinates present Eyes Conjunctivae: conjunctivae normal Sclerae: sclerae normal Pupils: Equal, round and reactive pupils present Neck Neck: Yes no lymphadenopathy and Yes no JVD Thyroid: Thyroid normal Carotids: no bruits Resp Effort & Inspection: normal respiratory effort and not tachypneic Auscultation: no crackles, no rales, no rhonchi and no wheezes Cardio Rate: regular rate Rhythm: regular rhythm Heart sounds: no murmurs and normal S1 and S2 GI Palpation (GI): Soft to palpation, nontender, no hepatomegaly and no splenomegaly Auscultation: normal bowel sounds Skin General skin exam: no rashes or lesions noted and dry skin Neuro General: oriented to person, oriented to place and oriented to time Cranial nerves: Yes Equal, round and reactive pupils present Speech: No Abnormal speech present Gait exam (Neuro): Normal gait present Motor exam (neuro): no tremor noted Extrem Right upper extremity: full ROM Left upper extremity: full ROM Right lower extremity: full ROM; no edema Left lower extremity: full ROM; no edema Psych Mental Status: mental status grossly normal Speech and movement: Normal speech and movement present Affect: normal affect Attitude: cooperative Thought process: Normal thought process present Results AMB Urinalysis, Automated UA Leukoctes 0 Leonel/uL Last Edit by JASMYN Rocha on 03/21/24 10:33 UA Nitrite Negative Last Edit by JASMYN Rocha on 03/21/24 10:33 UA Urobilinogen 0 mg/dL Last Edit by JASMYN Rocha on 03/21/24 10:33 UA Protein 15 mg/dL Last Edit by JASMYN Rocha on 03/21/24 10:33 UA pH 6.0 Last Edit by JASMYN Rocha on 03/21/24 10:33 UA Blood 0 [place]/uL Last Edit by JASMYN Rocha on 03/21/24 10:33 UA Specific [place] 1.030 Last Edit by JASMYN Rocha on 03/21/24 10:33 UA Ketone Negative Last Edit by JASMYN Rocha on 03/21/24 10:33 UA Bilirubin 1 mg/dL Last Edit by JASMYN Rocha on 03/21/24 10:33 UA Glucose 0 mg/dL Last Edit by JASMYN Rocha on 03/21/24 10:33 Results Reviewed Results Reviewed: Laboratory Last Values Urine pH (Auto) 6.0 03/21/24 10:32 Specific [place] (Auto) 1.030 03/21/24 10:32 Urine Protein (Auto) 15 mg/dL 03/21/24 10:32 Glucose (UA)(Auto) 0 mg/dL 03/21/24 10:32 Urine Ketones (Auto) Negative 03/21/24 10:32 Urine Blood (Auto) 0 [place]/uL 03/21/24 10:32 Urine Nitrite (Auto) Negative 03/21/24 10:32 Urine Bilirubin (Auto) 1 mg/dL 03/21/24 10:32 Urine Urobilinogen (Auto) 0 mg/dL 03/21/24 10:32 Leukocyte Esterase (Auto) 0 Leonel/uL 03/21/24 10:32 Coding Level of Care Code Est Pt Level 3 (14498) Diagnoses Viral upper respiratory tract infection J06.9 URI type: unspecified viral URI Additional Codes AZUL-7 Assessment Billing - AZUL-7 Assessment Tool: AZUL-7 Assessment 54632 ([id number]) PHQ-9 - 20356 - PHQ-9 Billing: Yes ([id number]) Assessment & Plan Assessment & Plan (1) URI (upper respiratory infection): Code(s): J06.9 - Acute upper respiratory infection, unspecified Category: Medical Qualifiers: URI type: unspecified viral URI Qualified Code(s): J06.9 - Acute upper respiratory infection, unspecified Plan: I discussed with the patient the probable viral nature of her upper respiratory symptoms and advised that symptomatic relief might include staying hydrated, using nasal sprays, and continuing intermittent analgesic use. I offered an antibiotic prescription as a precautionary measure for her symptoms?should they indicate a bacterial component?but explained the virus typically resolves on its own within two weeks, especially given her age. We reviewed the absence of a confirmed urinary infection but acknowledged the symptom of frequency. I explained that if symptoms persist beyond a few days, beginning the prescribed antibiotic might be beneficial Orders: Orders AMB Urinalysis Automated Today R30.0 - Dysuria Medications: New amoxicillin-pot clavulanate 875-125 mg 1 tab PO BID 10 tabs 0RF 5 days N39.0 - Urinary tract infection, site not specified
--- OUTSIDE RECORDS SUMMARY | 2024-03-21 11:07 | XMS_ITS | Clinical Summary ---
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 Name Role Phone Unavailable Primary Care Provider Unavailabl e Social History Tobacco Use Types Packs/Day Years Used Date Smoking Tobacco: Never Assessed Comments Unknown Sex and Gender Information Value Date Recorded Sex Assigned at Female 12/27/2021 10:35 AM EDT Legal Sex Female 10:35 AM EDT Gender Identity Female 12/27/2021 10:35 AM EDT Sexual Orientation Straight 12/27/2021 10 :35 AM EDT Plan of Treatment Health Maintenance Due Date Last Done Comments Depression Screening 1940 Alcohol/Substance Use Screening 1952 Tobacco Screening 1952 DTaP/Tdap/Td Vaccines (1 - Tdap) 09/28/2002 09/27/2002 RSV Patients and Patients Aged 60 years or older (1 - 1-dose 75+ series) 2016 Zoster Vaccines (2 of 2) 01/30/2022 12/05/2021 COVID-19 Vaccine (3 season) 2023 04/27/2020, 04/06/2020 Influenza Vaccine (#1) 2023 3, 12/02/2022, 11/23/2021, Additional history exists Pneumococcal Vaccine: 65+ Years Completed 12/19/2014, 11/27/2006 HIB Vaccines Aged Out No longer eligi ble based on patient's age to complete this topic HPV Vaccines Aged Out No longer eligi ble based on patient's age to complete this topic Hepatitis A Vaccines Aged Out No long er eligible based on patient's age to complete this topic Hepatitis B Vaccines Aged Out No long er eligible based on patient's age to complete this topic IPV Vaccines Aged Out No longer eligi ble based on patient's age to complete this topic Meningococcal Vaccine Aged Out No rody sindi eligible based on patient's age to complete this topic RSV under 20 months Aged Out No longe r eligible based on patient's age to complete this topic Rotavirus Vaccines Aged Out No longer eligible based on patient's age to complete this topic
== END 2024-03-21 10:59 | disposition home or self-care (01) ==
PROVIDERS: PCP Internal Medicine; Visit Provider Physician Assistant
DX: R30.0 Dysuria (principal); J06.9 Acute upper respiratory infection, unspecified

== ENCOUNTER → 2024-03-21 09:46 | Outpatient (BNVA) | payer MEDICARE, MEDICAID, SELFPAY | PROVIDERS: PCP Internal Medicine; Visit Provider Physician Assistant | DX: J06.9 Acute upper respiratory infection, unspecified (principal); R35.0 Frequency of micturition | CPT/HCPCS: 81003; 96127; 99212 ==

== ENCOUNTER 2024-03-25 13:34 | Outpatient (REF) | payer MEDICARE, MEDICAID, SELFPAY ==
--- OUTSIDE RECORDS SUMMARY | 2024-03-25 18:18 | XMS_ITS | Clinical Summary ---
Author Organization [employer] Address 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
== END 2024-03-25 13:35 | disposition home or self-care (01) ==
LOC: HO.MAMMO 13:34
PROVIDERS: PCP Internal Medicine; Visit Provider Internal Medicine
DX: Z13.89 Encounter for screening for other disorder (principal)

== ENCOUNTER 2024-04-03 16:37 | Emergency (ER) | payer MEDICARE, MEDICAID, SELFPAY ==
[2024-04-03 16:39] VITALS: BP 188/76; PULSE 84; RESP 20; TEMP 36.1; O2SAT 97; BMI 33.1
--- NOTE | 2024-04-03 16:42 | ED.GENADULT ---
HPI - General Adult General Chief complaint: Urogenital-Female Stated complaint: UTI/PCP called in Time Seen by Provider: 04/03/24 21:59 Source: patient Mode of arrival: ambulatory Limitations: no limitations History of Present Illness ED Provider: HPI narrative: Patient comes here for dysuria started earlier today denies any frequency does feel pain when she urinates no history of kidney stone no hematuria no fever no chills patient has a workup done before my evaluation which showed normal UA and normal labs Related Data Home Medications ?Medication ?Instructions ?Recorded ?Confirmed hydrochlorothiazide 12.5 mg capsule 12.5 mg PO DAILY 04/22/20 03/21/24 multivitamin 1 tab PO DAILY 04/22/20 03/21/24 magnesium oxide 400 mg (241.3 mg 400 mg PO DAILY 05/25/22 03/21/24 magnesium) tablet cyanocobalamin (vitamin B-12) 1,000 mcg PO DAILY 07/28/22 03/21/24 1,000 mcg tablet (Vitamin B-12) denosumab 60 mg/mL subcutaneous 60 mg subcut [id number] 12/14/23 03/21/24 syringe (Prolia) Previous Rx's ?Medication ?Instructions ?Recorded cholecalciferol (vitamin D3) 50 100 mcg (2 x 50 mcg (2,000 unit)) 07/21/21 mcg (2,000 unit) capsule PO DAILY 30 days #60 caps memantine 5 mg-10 mg tablets in a See Rx Instructions PO PER PKG DIR 08/04/23 dose pack (Namenda Titration Ashwin) #49 ea acetaminophen 325 mg capsule 325 mg PO Q4H PRN pain #30 caps 10/13/23 (Tylenol) sucralfate 1 gram tablet 1 g PO TID #90 tabs 12/16/23 diclofenac sodium 1 % topical gel 4 g topical QID #100 grams 02/06/24 (Voltaren Arthritis Pain) amoxicillin 875 mg-potassium 1 tab PO BID 5 days #10 tabs 03/21/24 clavulanate 125 mg tablet phenazopyridine 200 mg tablet 200 mg PO TID 2 days #6 tabs 04/03/24 (Pyridium) Allergies Allergy/AdvReac Type Severity Reaction Status Date / Time meperidine [Meperidine] Allergy Intermediate HIVES Verified 04/03/24 16:43 Sulfa (Sulfonamide Allergy Intermediate Unknown Verified 04/03/24 16:43 Antibiotics) phenobarbital [PHENOBARBITAL] Allergy Unknown SWELLING Verified 04/03/24 16:43 Review of Systems Review of Systems: Yes all other systems are reviewed and are negative [facility] Past Medical History Medical History Dementia Recurrent UTI (urinary tract infection) Myoma Postmenopausal bleeding Palpitations Premature ventricular complex Breast cancer Vitamin D deficiency Osteoporosis Surgical History History of breast biopsy History of History of knee surgery Family History Family History Father Appendicitis, acute Mother No problems noted. Social History Social History Household Members: None Housing: House Alcohol intake: never Patient Tobacco Use Status: Former Tobacco user e-Cigarette/Vaping Use: Never Used Second Hand Smoke Exposure: Yes Advance Directives: No Advance Directives Information Provided: Yes Do you have a plan to hurt others: No Plan service: No Current occupational status: retired Cognitive needs: No Hearing needs: No Vision needs: Yes (glasses) Physical Exam ED Vital Signs: Vital Signs - 24 hr 04/03/24 16:39 Temperature 97.0 F Pulse Rate 84 Respiratory Rate 20 Blood Pressure 188/76 H Pulse Oximetry 97 Oxygen Delivery Method Room Air BMI result Body Mass Index 33.1 Appearance: Alert. Oriented X3. No acute distress. Eyes: No pallor or icterus ENT: Pharynx normal. Oral Mucosa moist Neck: Normal inspection. Neck supple. CVS: Normal heart rate and rhythm. Pulses normal. Respiratory: No respiratory distress. Equal air entry bilateral, no wheezing/rales/rhonchi Abdomen: Soft and nontender. Bowel sounds are present, no mass palpable, no CVA tenderness Skin: Skin warm and dry. Normal skin color. Normal skin turgor. Neuro: Oriented X 3. No motor deficit. Course Course Course Narrative: This is a Rapid Medical Examination (RME) performed by Hector Brown PA-C in triage. Full HPI, ROS, assessment and treatment plan per primary provider in the Main ED. Plan: Medical Decision Making Medical Decision Making [facility] Narrative: Patient with normal urine evaluate does have dysuria likely from the bladder irritability will prescribe Pyridium advised to drink plenty of fluids Differential Diagnosis Differential Diagnoses: The differential diagnosis associated with the presentation includes Lab Data [facility] Lab Attestation statement: I reviewed the patient's lab results. 04/03/24 17:05 04/03/24 17:05 Labs: Lab Results 04/03/24 04/03/24 Range/Units 17:05 18:12 WBC 8.3 (4.8-10.8) X10*3/uL RBC 4.62 (4.20-5.50) X10*6/uL Hgb 14.5 (12.0-16.0) g/dl Hct 41.8 (37.0-47.0) % MCV 90.5 (80.0-98.0) fL MCH 31.4 (27.0-33.0) pg MCHC 34.7 (31.0-35.0) g/dl RDW 12.8 (11.0-16.0) % Plt Count 207 (160-400) X10*3/uL MPV 9.8 (9.4-12.3) fL Immature Gran % (Auto) 0.2 (0.0-0.4) % Neut % (Auto) 44.2 L (45-73) % Lymph % (Auto) 42.1 H (20-40) % [place] % (Auto) 10.3 (2-11) % Eos % (Auto) 2.8 (0-4) % Baso % (Auto) 0.4 (0-2) % Lymph # (Auto) 3.5 (1.2-4.9) X10*3/uL [place] # (Auto) 0.9 (0.1-1.2) X10*3/uL Eos # (Auto) 0.2 (0.0-0.4) X10*3/uL Baso # (Auto) 0.0 (0.0-0.2) X10*3/uL Abs Immat Gran (auto) 0.02 (0.00-0.03) X10*3/uL Absolute Neuts (auto) 3.7 (2.0-8.3) x10*3/uL Absolute Nucleated RBC 0.000 (0.0-0.012) X10*3/uL Nucleated RBC % (auto) 0.0 (0.0-0.2) /100WBC Sodium 140 (135-145) mmol/L Potassium 4.4 (3.3-5.1) mmol/L Chloride 105 (96-108) mmol/L Carbon Dioxide 29 (22-29) mmol/L Anion Gap 10 L (12-20) BUN 16 (9-16) mg/dL Creatinine 0.79 (0.5-1.4) mg/dL Estim Creat Clear Calc 50.3 Estimated GFR > 60 Random Glucose 114 (60-115) mg/dL Calcium 9.5 D (8.4-10.2) mg/dL Total Bilirubin 0.3 (0.0-1.0) mg/dL AST 26 (5-31) U/L ALT 16 (0-31) U/L Alkaline Phosphatase 50 (39-117) U/L Total Protein 7.3 (6.5-8.0) g/dL Albumin 3.8 (3.5-5.0) g/dL Urine Color Yellow Urine Appearance Cloudy Urine pH 6.0 (5.0-9.0) Ur Specific [place] 1.020 (1.005-1.025) Urine Protein Negative (Neg-Trace) mg/dL Urine Glucose (UA) Negative (Negative) mg/dL Urine Ketones Trace (Negative) mg/dL Urine Blood Negative (Negative) Urine Nitrite Negative (Negative) Ur Leukocyte Esterase Negative (Negative) Discharge Plan Discharge Clinical Impression: Dysuria Patient Disposition: Home, Self-Care Instructions: Dysuria (ED) Additional Instructions: no urinary tract infection seen at this time Your symptoms likely from bladder irritability Drink plenty of fluids, have cranberry juice Pyridium for discomfort Follow up with your PCP if symptoms continues Prescriptions: New phenazopyridine [Pyridium] 200 mg tablet 200 mg PO TID 2 Days Qty: 6 0RF No Action cholecalciferol (vitamin D3) 50 mcg (2,000 unit) capsule 100 mcg PO DAILY 30 Days Qty: 60 11RF memantine [Namenda Titration Ashwin] 5-10 mg tablets,dose pack See Rx Instructions PO PER PKG DIR Qty: 49 0RF Rx Instructions: PO PER PKG DIR Prolia 60 mg/mL syringe 60 mg subcut [id number] cyanocobalamin (vitamin B-12) [Vitamin B-12] 1,000 mcg tablet 1,000 mcg PO DAILY acetaminophen [Tylenol] 325 mg capsule 325 mg PO Q4H PRN (Reason: pain) Qty: 30 0RF sucralfate 1 gram tablet 1 g PO TID Qty: 90 0RF hydrochlorothiazide 12.5 mg capsule 12.5 mg PO DAILY multivitamin Tablet 1 tab PO DAILY diclofenac sodium [Voltaren Arthritis Pain] 1 % gel 4 g topical QID Qty: 100 0RF Rx Instructions: apply to single knee, ankle, foot; for foot includes sole/toes/top of foot magnesium oxide 400 mg (241.3 mg magnesium) tablet 400 mg PO DAILY amoxicillin-pot clavulanate 875-125 mg tablet 1 tab PO BID 5 Days Qty: 10 0RF Print Language: Kyrgyz
[2024-04-03 17:10] LABS: MANUAL DIFF FLAG NO
[2024-04-03 17:12] LABS: Basophils Percent Auto 0.4 % (0-2); Eosinophils Absolute Auto 0.2 X10*3/uL (0.0-0.4); Eosinophils Percent Auto 2.8 % (0-4); Hematocrit 41.8 % (37.0-47.0); Hemoglobin 14.5 g/dl (12.0-16.0); Imm Gran Abs Auto 0.02 X10*3/uL (0.00-0.03); Imm Gran Pct Auto 0.2 % (0.0-0.4); Lymphocytes Absolute Auto 3.5 X10*3/uL (1.2-4.9); Lymphocytes Percent Auto 42.1 % (20-40); Mean Corpuscular HGB Conc 34.7 g/dl (31.0-35.0); Mean Corpuscular Hemoglobin 31.4 pg (27.0-33.0); Mean Corpuscular Volume 90.5 fL (80.0-98.0); Mean Platelet Volume 9.8 fL (9.4-12.3); Monocytes Absolute Auto 0.9 X10*3/uL (0.1-1.2); Monocytes Percent Auto 10.3 % (2-11); Neutrophils Absolute Auto 3.7 x10*3/uL (2.0-8.3); Neutrophils Percent Auto 44.2 % (45-73); Platelet Count 207 X10*3/uL (160-400); Red Blood Count 4.62 X10*6/uL (4.20-5.50); Red Cell Distribution Width 12.8 % (11.0-16.0); White Blood Count 8.3 X10*3/uL (4.8-10.8)
[2024-04-03 17:33] LABS: Alanine Aminotransferase 16 U/L (0-31); Albumin Level 3.8 g/dL (3.5-5.0); Anion Gap 10 (12-20); Aspartate Amino Transferase 26 U/L (5-31); Bilirubin Total 0.3 mg/dL (0.0-1.0); Blood Urea Nitrogen 16 mg/dL (9-16); Calcium 9.5 mg/dL (8.4-10.2); Carbon Dioxide 29 mmol/L (22-29); Chloride 105 mmol/L (96-108); Creatinine Clr Calc Pharmacy 50.3; Estimated Glomerular Filt Rate > 60; Glucose Random 114 mg/dL (60-115); Potassium 4.4 mmol/L (3.3-5.1); Sodium 140 mmol/L (135-145); Total Protein 7.3 g/dL (6.5-8.0)
[2024-04-03 17:44] LABS: Alkaline Phosphatase 50 U/L (39-117)
[2024-04-03 18:21] LABS: Appearance Urine Cloudy; Color Urine Yellow; Glucose Urine UA Negative (Negative); Leukocyte Esterase Urine Negative (Negative); Nitrite Urine Negative (Negative); Urine Blood Negative (Negative); Urine Ketones Trace mg/dL (Negative); Urine Protein Negative (Neg-Trace)
[2024-04-03] MEDS: Phenazopyridine HCL 200 MG TABLET PO (22:30)
[2024-04-03 22:37] VITALS: BP 188/76; PULSE 84; RESP 20; TEMP 36.1; O2SAT 97
== END 2024-04-03 22:37 | disposition home or self-care (01) ==
PROVIDERS: Physician Assistant Medical; Emergency Provider Internal Medicine; PCP Internal Medicine
DX: R30.0 Dysuria (principal); F03.90 Unspecified dementia, unspecified severity, without behavioral disturbance, psychotic disturbance, mood disturbance, and anxiety
CPT/HCPCS: 36415; 80053; 81003; 85025; 99283

== ENCOUNTER 2024-04-25 14:49 | Outpatient (AMB) | payer MEDICARE, MEDICAID, SELFPAY ==
--- NOTE | 2024-04-25 15:17 | MHC.PC.OV ---
Vital Signs 04/25/24 15:18 Height 5 ft Weight 169 lb BMI 33.0 BP 132/70 Blood Pressure Location Lt brachial Position Sitting Pulse 102 H Pulse Source Pulse Oximeter Temp Source Temporal Artery Scan Pulse Oximetry (%) 96 Oxygen Delivery Method Room Air Intake Visit Reasons: 3mth f/u Meat Cooler Required: No Welt Sewer: Not Required per policy Accompanied by: Self / Same As Patient Allergies meperidine [Meperidine] Allergy (Intermediate, Verified 04/26/24 19:42) HIVES Sulfa (Sulfonamide Antibiotics) Allergy (Intermediate, Verified 04/26/24 19:42) Unknown phenobarbital [PHENOBARBITAL] Allergy (Unknown, Verified 04/26/24 19:42) SWELLING Medication List - Last Reconciled 04/26/24 by Abdirahman Sun MD acetaminophen (Tylenol) 325 mg PO Q4H PRN cholecalciferol (vitamin D3) 100 mcg (2 x 50 mcg (2,000 unit)) PO DAILY 30 days cyanocobalamin (vitamin B-12) (Vitamin B-12) 1,000 mcg PO DAILY denosumab (Prolia) 60 mg subcut [id number] diclofenac sodium 1% (Voltaren Arthritis Pain) 4 grams topical QID hydrochlorothiazide 12.5 mg PO DAILY magnesium oxide 400 mg PO DAILY memantine (Namenda Titration Ashwin) PO PER PKG DIR multivitamin 1 tab PO DAILY sucralfate 1 g PO TID Tobacco use date assessed: 04/25/24 Fall risk assessment: No Falls in past year Last assessed Fall Risk: 04/25/24 Dental Screening Dental Screen Date: 03/21/24 HPI 3mth f/u HPI Details 83 yr old female presents to the office to discuss her chronic medical issues. She is requesting an EKG. She has no symptoms of discomfirt or shortness of breath. Wants it for a baseline check. Feeling well otherwise. Compliant with medications/ PFSH Medical History Dementia Recurrent UTI (urinary tract infection) Myoma Postmenopausal bleeding Palpitations Premature ventricular complex Breast cancer Vitamin D deficiency Osteoporosis Surgical History History of breast biopsy History of History of knee surgery Family History Father Appendicitis, acute Mother No problems noted. Social History Household Members: None Housing: House Alcohol intake: never Patient Tobacco Use Status: Former Tobacco user e-Cigarette/Vaping Use: Never Used Second Hand Smoke Exposure: Yes service: No Current occupational status: retired Cognitive needs: No Hearing needs: No Vision needs: Yes (glasses) Questionnaire Thrive Questionnaire Date Thrive assessed: 03/21/24 AZUL-7 AMB Questionnaire AZUL-7 Date AZUL - 7 assessed: 03/21/24 Source: Developed by Drs. Juan Manuel Camarillo, Eva Wesley, Davion Herrera and colleagues, with an educational sophia from [employer]. Physical exam (Primary Care) Vital Signs: Last Vital Signs Pulse 102 H 04/25/24 15:18 BP 132/70 04/25/24 15:18 Pulse Ox 96 04/25/24 15:18 Oxygen Delivery Method Room Air 04/25/24 15:18 BMI result Body Mass Index 33.0 Tobacco/Smoking Status: Tobacco use Status Tobacco use date assessed 04/25/24 04/25/24 15:33 Patient Tobacco Use Status Former Tobacco user 04/25/24 15:17 e-Cigarette/Vaping Use Never Used 04/25/24 15:17 Thrive Assessment: Date of Thrive Assessment Date Thrive assessed 03/21/24 04/25/24 15:17 Const General: cooperative and healthy appearing Nutritional Appearance: well nourished Orientation/consciousness: patient oriented x3 Limitations: no limitations HENMT Head: Yes normal to inspection Eyes General: appearance normal, both eyes and all related structures Neck Neck: Yes normal visual inspection Chest Chest palpation & inspection: normal palpation of entire chest wall Resp Effort & Inspection: normal respiratory effort Neuro General: patient oriented x3 Coding Level of Care Code Est Pt Level 3 (96045) Complex EM visit Add On G2211 Diagnoses Aortic atherosclerosis I70.0 Assessment & Plan Assessment & Plan (1) Aortic atherosclerosis: Code(s): I70.0 - Atherosclerosis of aorta Category: Medical Plan: Condition is stable Plan EKG has been requested. Orders: Orders ECG 12 lead EKG Today I70.0 - Atherosclerosis of aorta
[2024-04-25 15:18] VITALS: BP 132/70; PULSE 102; O2SAT 96; BMI 33.0
--- OUTSIDE RECORDS SUMMARY | 2024-04-25 18:06 | XMS_ITS | Clinical Summary ---
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
== END 2024-04-25 16:12 | disposition home or self-care (01) ==
PROVIDERS: PCP Internal Medicine; Visit Provider Internal Medicine
DX: I70.0 Atherosclerosis of aorta (principal)

== ENCOUNTER → 2024-04-25 14:49 | Outpatient (BNVA) | payer MEDICARE, MEDICAID, SELFPAY | PROVIDERS: PCP Internal Medicine; Visit Provider Internal Medicine | DX: I70.0 Atherosclerosis of aorta (principal) | CPT/HCPCS: 99212 ==

== ENCOUNTER → 2024-04-26 13:39 | Outpatient (REF) | payer MEDICARE, MEDICAID, SELFPAY ==
--- NOTE | 2024-04-26 13:45 | ECG_ITS ---
Test Reason : i70.0 Blood Pressure : */* mmHG Vent. Rate : 84 BPM Atrial Rate : 84 BPM P-R Int : 190 ms QRS Dur : 86 ms QT Int : 348 ms P-R-T Axes : 87 10 36 degrees QTcB Int : 411 ms Normal sinus rhythm Normal ECG When compared with ECG of 16-Dec-2023 17:45, No significant change was found Referred By: Abdirahman Sun Electronically Signed By: Bayron Wilson
--- OUTSIDE RECORDS SUMMARY | 2024-04-26 15:49 | XMS_ITS | Clinical Summary ---
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
== END ==
LOC: HO.CARD 13:39
PROVIDERS: PCP Internal Medicine; Visit Provider Internal Medicine
DX: I70.0 Atherosclerosis of aorta (principal)
CPT/HCPCS: 93005

== ENCOUNTER → 2024-04-26 13:45 | Outpatient (BNV) | payer MEDICARE, MEDICAID, SELFPAY | PROVIDERS: PCP Internal Medicine; Visit Provider Internal Medicine Cardiovascular Disease | DX: I70.0 Atherosclerosis of aorta (principal) | CPT/HCPCS: 93010 ==

== ENCOUNTER 2024-06-06 14:24 | Outpatient (AMB) | payer OTHER, MEDICAID, SELFPAY ==
--- NOTE | 2024-06-06 14:32 | MHC.OFFVIS ---
Vital Signs 06/06/24 14:35 Height 5 ft 0.83 in Weight 172 lb 13.478 oz BMI 32.8 BP 128/84 Blood Pressure Location Rt brachial Position Sitting Pulse 90 Pulse Source Pulse Oximeter Pulse Oximetry (%) 96 Oxygen Delivery Method Room Air Intake Visit Reasons: Osteoporosis Intake Note: Patient present today for Osteoporosis follow up. 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 Accompanied by: Self / Same As Patient Allergies meperidine [Meperidine] Allergy (Intermediate, Verified 06/06/24 14:36) HIVES Sulfa (Sulfonamide Antibiotics) Allergy (Intermediate, Verified 06/06/24 14:36) Unknown phenobarbital [PHENOBARBITAL] Allergy (Unknown, Verified 06/06/24 14:36) SWELLING Medication List - Last Reconciled 06/06/24 by Juan Manuel Carrizales MD acetaminophen (Tylenol) 325 mg PO Q4H PRN cholecalciferol (vitamin D3) 100 mcg (2 x 50 mcg (2,000 unit)) PO DAILY 30 days cyanocobalamin (vitamin B-12) (Vitamin B-12) 1,000 mcg PO DAILY denosumab (Prolia) 60 mg subcut [id number] diclofenac sodium 1% (Voltaren Arthritis Pain) 4 grams topical QID hydrochlorothiazide 12.5 mg PO DAILY magnesium oxide 400 mg PO DAILY memantine (Namenda Titration Ashwin) PO PER PKG DIR multivitamin 1 tab PO DAILY sucralfate 1 g PO TID HPI Comments Details: 83 YO Female who is seen in F/U for Osteoporosis. First diagnosed in 2018 after she suffered a compression fracture of the T8 vertebrate. She subsequently had kyphoplasty, which resulted in compression fracture of the T9 vertebrate. She was subsequently referred to Endocrinology. She underwent a full biochemical workup for secondary causes of Osteoporosis and this was WNL. She was started on Prolia 04/09/2019 and tolerated this well. She was due for her second dose in September 2019, but was scheduled for dental extractions so this was placed on hold. She then resumed therapy and had her most recent dose 05/18/2022. No history of pathologic fracture or ONJ. Has 0-1 servings of dietary calcium per day in the form of milk or cheese. Takes a Calcium supplement 600 mg once daily. She takes an additional Vitamin D 2000 IU daily. Takes Omeprazole daily. Was previously on phenobarbital for seizures, but not in many years. Denies ever using anticoagulant or glucocorticoid medication. Does no weight bearing exercise currently. Fracture history: Compression fracture of T8 Vertebrate in June 2018. Had Kyphoplasty 07/10/18 and subsequently suffered compression fracture of the T9 Vertebrate. Height loss: Has lost 4 inches in height. 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 Menses was always regular. . She did not breastfeed. Menopause was in her 50's. Did not use HRT. History of Kidney stones: She does have a history of kidney stones. Does not recall if these were calcium stones. Denies a family history of Osteoporosis or hip fracture. DXA dated 07/06/2021: FINDINGS: AP SPINE L1-L4: Current: BMD 1.012 g/cm2, Z-score -0.1, T-score -1.4, osteopenia, 0.4% increase from previous, 6.8% increase from baseline (<5% change is not significant). Prior: BMD 1.008 g/cm2. Baseline: BMD 0.948 g/cm2. LEFT FEMUR, NECK: Current: BMD 0.750 g/cm2, Z-score -0.3, T-score -2.1, osteopenia. Prior: BMD 0.737 g/cm2. Baseline: BMD 0.812 g/cm2. LEFT FEMUR, TOTAL: Current: BMD 0.873 g/cm2, Z-score 0.5, T-score -1.1, osteopenia, 4.6% increase from previous, 9.2% decrease from baseline (<5% change is not significant). Prior: BMD 0.835 g/cm2. Baseline: BMD 0.961 g/cm2. Labs: No recent pertinent labs. Secondary workup was negative. Some back pain but no fx since last visit . She has received almost 5 years of Prolia therapy. Recent bone density showed osteopenia The patient is an 83-year-old female presenting with a follow-up related to osteoporosis management, currently undergoing treatment with Prolia injections every six months. Her most recent injection was in December, with the next due in June. Although treatment transition was considered, due to her history of vertebral fractures and slightly improved bone density, it was decided to continue Prolia for 10 years. Recently, the patient sustained a shoulder injury after a fall. While the shoulder is painful, its severity is uncertain. The patient has been advised to seek evaluation either through her primary care physician or an urgent care center. Additionally, the patient reports twisting her ankle, though details on the severity are limited. The patient notes early-stage dementia diagnosed by her physician. This raises concerns about her recall capacity for medical instructions, and she was encouraged to consider bringing someone along for appointments. [facility] Medical History Dementia Recurrent UTI (urinary tract infection) Myoma Postmenopausal bleeding Palpitations Premature ventricular complex Breast cancer Vitamin D deficiency Osteoporosis Surgical History History of breast biopsy History of History of knee surgery Family History Father Appendicitis, acute Mother No problems noted. Social History Household Members: None Housing: House Alcohol intake: never Patient Tobacco Use Status: Former Tobacco user e-Cigarette/Vaping Use: Never Used Second Hand Smoke Exposure: Yes service: No Current occupational status: retired Cognitive needs: No Hearing needs: No Vision needs: Yes (glasses) Physical Exam Const Other: 83 YO Female who is seen in F/U for Osteoporosis. First diagnosed in 2018 after she suffered a compression fracture of the T8 vertebrate. She subsequently had kyphoplasty, which resulted in compression fracture of the T9 vertebrate. She was subsequently referred to Endocrinology. She underwent a full biochemical workup for secondary causes of Osteoporosis and this was WNL. She was started on Prolia 04/09/2019 and tolerated this well. She was due for her second dose in September 2019, but was scheduled for dental extractions so this was placed on hold. She then resumed therapy and had her most recent dose 05/18/2022. No history of pathologic fracture or ONJ. Has 0-1 servings of dietary calcium per day in the form of milk or cheese. Takes a Calcium supplement 600 mg once daily. She takes an additional Vitamin D 2000 IU daily. Takes Omeprazole daily. Was previously on phenobarbital for seizures, but not in many years. Denies ever using anticoagulant or glucocorticoid medication. Does no weight bearing exercise currently. Fracture history: Compression fracture of T8 Vertebrate in June 2018. Had Kyphoplasty 07/10/18 and subsequently suffered compression fracture of the T9 Vertebrate. Height loss: Has lost 4 inches in height. 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 Menses was always regular. . She did not breastfeed. Menopause was in her 50's. Did not use HRT. History of Kidney stones: She does have a history of kidney stones. Does not recall if these were calcium stones. Denies a family history of Osteoporosis or hip fracture. DXA dated 07/06/2021: FINDINGS: AP SPINE L1-L4: Current: BMD 1.012 g/cm2, Z-score -0.1, T-score -1.4, osteopenia, 0.4% increase from previous, 6.8% increase from baseline (<5% change is not significant). Prior: BMD 1.008 g/cm2. Baseline: BMD 0.948 g/cm2. LEFT FEMUR, NECK: Current: BMD 0.750 g/cm2, Z-score -0.3, T-score -2.1, osteopenia. Prior: BMD 0.737 g/cm2. Baseline: BMD 0.812 g/cm2. LEFT FEMUR, TOTAL: Current: BMD 0.873 g/cm2, Z-score 0.5, T-score -1.1, osteopenia, 4.6% increase from previous, 9.2% decrease from baseline (<5% change is not significant). Prior: BMD 0.835 g/cm2. Baseline: BMD 0.961 g/cm2. Labs: No recent pertinent labs. Secondary workup was negative. Currently on Prolia for 5 years. No recent fractures Assessment & Plan Assessment & Plan (1) Osteoporosis: Code(s): M81.0 - Age-related osteoporosis without current pathological fracture Category: Medical Plan: This 83-year-old white female with a history of osteoporosis and compression fractures of the lumbar spine with negative secondary workup. She is currently receiving Prolia since 2019. DEXA bone density shows stability Plan is to continue the Prolia when the subsequent dose is due on 06/2024 Ee can continue the Prolia for full 5- 10 years duration as safety data is present for up to 10 years of Prolia use. The other option would be to switch the Prolia and transition to either oral intravenous bisphosphonate but I feel the risk of vertebral fracture and this patient has 2 great considering a high risk of previous history of vertebral fractures to make the transition. Will discuss these options with the patient. After discussion with the patient, was decided to continue the Prolia for full 10 years' duration 1. Osteoporosis The Prolia treatment will continue for its full course as it appears effective in improving bone density and preventing further fractures. Monitoring of calcium levels will be scheduled prior to the next injection. 2. Shoulder pain Further evaluation by a primary care physician or urgent care provider is advised to determine if a fracture exists. 4. Dementia The patient should consider bringing someone to appointments for support due to early-stage dementia. I discussed with the patient the importance of continuing Prolia treatment due to the positive results observed and the prevention of vertebral fractures. The risks of altering treatment in light of existing vertebral fractures were highlighted. We also went over options for evaluating the shoulder injury and whether urgent care facilities might be an alternative to hospital visits. Additionally, the potential benefits of having someone accompany her to appointments were discussed, considering the early-stage dementia. I instructed her on the importance of completing a blood test a week before the next Prolia injection to ensure her calcium levels are monitored properly. - Continue current osteoporosis management with Prolia and calcium/vitamin D supplements. - Schedule and complete blood tests a week prior to your next injection in June. - Seek evaluation for the shoulder injury at a primary care or urgent care facility. - If persistent or worsened symptoms from the twisted ankle, get it examined. - Consider having someone accompany you to future appointments to assist with recall. The patient had an opportunity to ask questions regarding treatment plan. The patient expressed understanding and agreement with the above treatment plan. The patient is aware they should contact our office by phone for worsening glucose readings or for any low blood sugars which may warrant a change in diabetes medication. Compliance is encouraged with medications and any followup testing/consults which may have been ordered. Patient was informed and verbally consented to the use of an ambient scribe for clinic note documentation during this visit. Orders: Orders Calcium 1 Month M81.0 - Age-related osteoporosis without current pathological fracture Albumin Level 1 Month M81.0 - Age-related osteoporosis without current pathological fracture Basic Metabolic Panel 1 Month M81.0 - Age-related osteoporosis without current pathological fracture Coding Level of Care Code Est Pt Level 3 (04296) Diagnoses Osteoporosis M81.0
[2024-06-06 14:35] VITALS: BP 128/84; PULSE 90; O2SAT 96; BMI 32.8
--- OUTSIDE RECORDS SUMMARY | 2024-06-06 17:09 | XMS_ITS | Clinical Summary ---
Author Organization [employer] Address [address] [facility] [address] [place] [address] Care Team Providers Care Paleobotanist Name Role Phone Unavailable Primary Care Provider [...]
== END 2024-06-06 14:55 | disposition home or self-care (01) ==
LOC: HO.ENCR 14:25
PROVIDERS: PCP Internal Medicine; Visit Provider Internal Medicine Endocrinology, Diabetes & Metabolism
DX: M81.0 Age-related osteoporosis without current pathological fracture (principal)
CPT/HCPCS: 99213

== ENCOUNTER → 2024-06-06 14:24 | Outpatient (BNVA) | payer MEDICARE, MEDICAID, SELFPAY | PROVIDERS: PCP Internal Medicine; Visit Provider Internal Medicine Endocrinology, Diabetes & Metabolism | DX: M81.0 Age-related osteoporosis without current pathological fracture (principal) | CPT/HCPCS: 99212 ==

== ENCOUNTER 2024-07-01 14:21 | Outpatient (REF) | payer MEDICARE, MEDICAID, SELFPAY ==
--- OUTSIDE RECORDS SUMMARY | 2024-07-01 15:53 | XMS_ITS | Clinical Summary ---
Author Organization [employer] Address [address] [facility] [address] [place] [address] Care Team Providers Care Verification Engineer Name Role Phone Unavailable Primary Care Provider [...]
[2024-07-01 16:11] LABS: Albumin Level 4.1 g/dL (3.5-5.0); Anion Gap 12 (12-20); Blood Urea Nitrogen 18 mg/dL (9-16); Calcium 9.9 mg/dL (8.4-10.2); Carbon Dioxide 30 mmol/L (22-29); Chloride 102 mmol/L (96-108); Estimated Glomerular Filt Rate > 60; Glucose Random 97 mg/dL (60-115); Potassium 4.2 mmol/L (3.3-5.1); Sodium 140 mmol/L (135-145)
== END 2024-07-01 14:22 | disposition home or self-care (01) ==
LOC: HO.LAB 14:21
PROVIDERS: PCP Internal Medicine; Visit Provider Internal Medicine Endocrinology, Diabetes & Metabolism
DX: M81.0 Age-related osteoporosis without current pathological fracture (principal)
CPT/HCPCS: 36415; 80048; 82040

== ENCOUNTER 2024-07-16 13:51 | Outpatient (AMB) | payer MEDICARE, MEDICAID, SELFPAY ==
--- NOTE | 2024-07-16 14:15 | AM.OFFVISNUR ---
Intake Visit Reasons: Prolia injection Allergies meperidine [Meperidine] Allergy (Intermediate, Verified 06/06/24 14:36) HIVES Sulfa (Sulfonamide Antibiotics) Allergy (Intermediate, Verified 06/06/24 14:36) Unknown phenobarbital [PHENOBARBITAL] Allergy (Unknown, Verified 06/06/24 14:36) SWELLING Office Meds Prolia 60 mg/mL subcutaneous syringe Performing Provider: Juan Manuel Carrizales MD Performing Location: [facility] Endocrinology Administered by: Theodora Christiansen RN on 07/16/24 14:15 Dose Route Admin Location Dispensed Lot Number Expiration Date [facility] Airset Molder 60 mg subcut Left upper arm 1 mL [id number] 09/26/26 25026-993-94 AMGEN Comments: Pt tolerated injection well. No adverse reactions reported from previous injection. No questions at this time. Assessment & Plan Assessment & Plan Orders: Orders AMB Denosumab Injection Practice Supplied Today M81.0 - Age-related osteoporosis without current pathological fracture Medications: New Prolia (denosumab) 60 mg subcut ONCE 1 mL 0RF NS M81.0 - Age-related osteoporosis without current pathological fracture Coding
--- OUTSIDE RECORDS SUMMARY | 2024-07-16 15:10 | XMS_ITS | Clinical Summary ---
Author Organization [employer] Address [address] [facility] [address] [place] [address] Care Team Providers Care Quality Control Coordinator Name Role Phone Unavailable Primary Care Provider [...] patient's age to complete this topic Meningococcal B Vaccine Aged Out No l onger eligible based on patient's age to complete [...]
== END 2024-07-16 14:11 | disposition home or self-care (01) ==
LOC: HO.ENCR 13:51
PROVIDERS: PCP Internal Medicine; Visit Provider Internal Medicine Endocrinology, Diabetes & Metabolism
DX: M81.0 Age-related osteoporosis without current pathological fracture (principal)

== ENCOUNTER → 2024-07-16 13:51 | Outpatient (BNVA) | payer MEDICARE, MEDICAID, SELFPAY | PROVIDERS: PCP Internal Medicine; Visit Provider Internal Medicine Endocrinology, Diabetes & Metabolism | DX: M81.0 Age-related osteoporosis without current pathological fracture (principal) | CPT/HCPCS: 96372; J0897 ==

== ENCOUNTER 2024-07-23 15:05 | Outpatient (AMB) | payer MEDICARE, MEDICAID, SELFPAY ==
--- OUTSIDE RECORDS SUMMARY | 2024-07-23 15:06 | XMS_ITS | Clinical Summary ---
Author Organization [employer] Address [address] [facility] [address] [place] [address] Care Team Providers Care Automatic Riveting Machine Operator Name Role Phone Unavailable Primary Care Provider [...]
--- NOTE | 2024-07-23 16:22 | AM.OFFWIN_ITS ---
Intake Vital Signs 07/23/24 16:23 Weight 174 lb BP 124/80 Blood Pressure Location Rt brachial Position Sitting Pulse 72 Pulse Source Pulse Oximeter Temp 97.6 F Temp Source Oral Pulse Oximetry (%) 98 Oxygen Delivery Method Room Air Intake Visit Reasons: EP ? UTI Intake Note: Patient here for constant vaginal burning and fatigue that started today. Patient Tobacco Use Status: Former Tobacco user Allergies meperidine [Meperidine] Allergy (Intermediate, Verified 07/23/24 16:23) HIVES Sulfa (Sulfonamide Antibiotics) Allergy (Intermediate, Verified 07/23/24 16:23) Unknown phenobarbital [PHENOBARBITAL] Allergy (Unknown, Verified 07/23/24 16:23) SWELLING Do you need a note to return to daycare/school/sports/work: No HPI HPI Comments History of Present Illness Details 83 y/o Female patient who presents to [facility] walk in clinic with c/o Urinary symptoms since this morning. Pt c/o Dsyuria but denies Frequency and urgency. Denies vaginal discharge or itching. She does stress urinary incontinence and wears Pads. Denies Fevers, chills, nausea or vomiting. [facility] Medical History Dementia Recurrent UTI (urinary tract infection) Myoma Postmenopausal bleeding Palpitations Premature ventricular complex Breast cancer Vitamin D deficiency Osteoporosis Surgical History (Updated 06/13/24 @ 12:21 by Anna Wyatt) History of colonoscopy (~10/13/14) History of breast biopsy History of History of knee surgery Family History Father Appendicitis, acute Mother No problems noted. Social History Household Members: None Housing: House Alcohol intake: never Patient Tobacco Use Status: Former Tobacco user e-Cigarette/Vaping Use: Never Used Second Hand Smoke Exposure: Yes service: No Current occupational status: retired Cognitive needs: No Hearing needs: No Vision needs: Yes (glasses) Review of Systems Const All systems reviewed & are unremarkable except as noted in HPI and below Physical Exam Vital Signs: Last Vital Signs Temp 97.6 F 07/23/24 16:23 Pulse 72 07/23/24 16:23 BP 124/80 07/23/24 16:23 Pulse Ox 98 07/23/24 16:23 Oxygen Delivery Method Room Air 07/23/24 16:23 Const General: no acute distress Nutritional Appearance: obese Orientation/consciousness: patient oriented x3 General: Yes bladder normal to palpation and Yes no CVA tenderness Bimanual exam- vagina & uterus: bladder normal to palpation Back/Spine/Pelvis Back: no CVA tenderness Neuro General: patient oriented x3 Psych Speech and movement: Normal speech and movement present Assessment & Plan Assessment & Plan (1) Burning with urination: Code(s): R30.0 - Dysuria Plan: No urinary tract infection seen at this time. Rapid U/A negative. Symptoms likely from bladder irritability Drink plenty of fluids, have cranberry juice Pyridium for discomfort Follow up with your PCP if symptoms continues Coding Level of Care Code Est Pt Level 4 (76939) Diagnoses Burning with urination R30.0 Time Spent (min) 20
[2024-07-23 16:23] VITALS: BP 124/80; PULSE 72; TEMP 36.4; O2SAT 98
== END 2024-07-23 17:01 | disposition home or self-care (01) ==
PROVIDERS: PCP Internal Medicine; Visit Provider Nurse Practitioner Family
DX: R30.0 Dysuria (principal)

== ENCOUNTER → 2024-07-23 15:05 | Outpatient (BNVA) | payer MEDICARE, MEDICAID, SELFPAY | PROVIDERS: PCP Internal Medicine; Visit Provider Nurse Practitioner Family | DX: R30.0 Dysuria (principal) | CPT/HCPCS: 99212 ==

== ENCOUNTER 2024-10-07 12:51 | Outpatient (AMB) | payer MEDICARE, MEDICAID, SELFPAY ==
--- OUTSIDE RECORDS SUMMARY | 2024-10-07 12:56 | XMS_ITS | Clinical Summary ---
Author Organization [employer] Address [address] [facility] 7[address] [place] [address] Care Team Providers Care Dietician Name Role Phone Unavailable Primary Care Provider [...] season) 2023 04/27/2020, 04/06/2020 Influenza Vaccine (#1) 2024 , 12/02/2022, 11/23/2021, Additional history exists Pneumococcal Vaccine: [...]
--- OUTSIDE RECORDS SUMMARY | 2024-10-07 12:56 | XMS_ITS | Clinical Summary ---
Author Organization [facility] Address [address] [facility] [address] [place] [address] Phone Care Team Providers Care Tong Carrier Name Role Phone Pedro Prado MD Unavailable [phone] Meghan Hodge NP Unavailable [phone] Bayron Wilson MD Unavailable [phone] Unknown, Unknown Primary Care Provider Ena west Allergies Active Allergy Reactions Criticality Noted Date Comments Amlodipine Dizziness 03/17/2022 Esomeprazole Magnesium Headaches 09/08/2016 Meperidine Nausea Only,Hives High 09/08/2016 Montelukast Headaches 09/08/2016 Penicillin Rash Low 09/08/2016 Penicillins High 07/12/2022 Other reaction(s): OPPOSITE EFFECT Phenobarbital Other (See Comments) 09/08/2016 Other reaction(s): swelling of feet Other reaction(s): SWELLING Omeprazole Headaches 09/08/2016 Medications multivitamin per tablet TAKE 1 TABLET BY MOUTH EVERY DAY 90 tablet 3 03/27/19 21 Active vit C,G-ginnyn-nqcnidy hin-minerals (PRESERVISION AREDS-2) capsule Take 1 capsule by mouth 2 (two) times a day. Active VITAMIN D3 50 mcg (2,000 unit) capsule Take 2,000 Units by mouth every morning. 07/22/19 22 Active PROLIA 60 mg/mL Syrg subcutaneous syringe 60 mg every 6 (six) months. Last injection in 02/2022 next injection due 07/[address] Donnelly 05/05/19 Active magnesium oxide (MAG-OX) 400 mg (241.3 mg elemental) tabletIndications: Cramping of hands Take 1 tablet (400 mg total) by mouth nightly at bedtime. 30 tablet 3 05/18/19 23 Active Additional Information Patient taking differently:400 mg Oral2 times daily, Reported on 06/24/2022 acetaminophen (TYLENOL) 325 mg tablet Take 325 mg by mouth daily as needed for headache. Active VITAMIN B-12 1000 MCG tabletIndications: Vitamin B 12 deficiency TAKE 1 TABLET BY MOUTH EVERY DAY 90 tablet 3 10/22/19 23 Active celecoxib (CELEBREX) 200 MG capsuleIndications :Primary osteoarthritis involving multiple joints take 1 capsule by mouth twice a day 60 capsule 1 04/19/19 24 Active hydroCHLOROthiazid e (MICROZIDE) 12.5 mg capsuleIndications :Benign essential hypertension take 1 capsule by mouth every day 90 capsule 3 06/02/19 24 Active pantoprazole (PROTONIX) 40 MG tabletIndications: Gastroesophageal reflux disease, unspecified whether esophagitis present take 1 tablet by mouth every day 90 tablet 3 06/14/19 24 Active Active Problems Problem Noted Date Diagnosed Date Right leg numbness 11/10/2022 Assessment & Plan (11/10/2022 11:46 AM EDT): Await MRI exam stable Dizzy spells 11/10/2022 Assessment & Plan (11/10/2022 11:50 AM EDT): VSS, and exam stable. Discussed adequate hydration and ankle/ leg pumps to assist with maintaining her b/p ervin position slowly Heart burn 11/10/2022 Assessment & Plan (11/10/2022 11:49 AM EDT): Taking PPI, in addition was taking pepto bismol regularly- advised her to stop pepto bismol as that makes stools black. She will monitor and I will ask nsg to call her in a week to see if BM are back to normal If her GI s/s are not controlled with PPI can consider h pylori testing Mild cognitive impairment 11/10/2022 Assessment & Plan (11/10/2022 11:45 AM EDT): She had forgotten her previous evaluations for this complaint. She was A/OX3 Today. Her last labs were WNL. Will monitor. She does live alone and is still driving- has 3 children locally Change in voice 09/14/2022 Assessment & Plan (09/14/2022 3:52 PM EDT): Referral generated Cramping of hands 05/17/2022 Assessment & Plan (05/17/2022 2:48 PM EDT): The complaint of a cramping of the hands is probably related to dehydration. She has been drinking a lot of green tea and then she is on hydrochlorothiazide. Recommend stopping caffeinated beverages including the green tea or at least substituting with decaffeinated version. Drink plenty of water and I have written the magnesium oxide to be taken at night which will help with the cramping. Vaginal bleeding 05/17/2022 Assessment & Plan (05/17/2022 2:50 PM EDT): Reading the original message it sounds like it was vaginal bleeding on 13 May and a one-time process and it needs to be evaluated to rule out malignancy and malignant causes. I do not do a NUMERICAL CONTROL MACHINE OPERATOR examinations but the patient should seek out a tree marker. Since she lives in [place] we will set the patient up with Dr. Kashif Saha, tree marker. Who will be marked a urgent consult. The tree marker can decide whether to image her. We can obtain a CBC today to assess for anemia. This was in part done because she is a little bit symptomatic in terms of wooziness. 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 Discussed possible causes of symptoms including trauma due to jolting pressure on right leg/hip last week. Continue to slowly advance activity. If any swelling or progressive numbness please f/u. Pure hypercholesterolemia 02/17/2017 Immunizations Immunization Administration Dates Next Due COVID-19 (Pre-12/19) Pfizer Vaccine, mRNA, PF ,04/06/2020 Influenza High-Dose Quadrivalent Preservative Fr ee IM 11/23/2021,11/21/2019 Influenza High-Dose Trivalent Preservative Free IM 03/28/2019 Influenza Quadrivalent Adjuvanted Preservative F ree IM 01/05/2023,01/28/2021 Influenza Quadrivalent Preservative Free IM 07/2022 Pneumococcal conjugate PCV13 12/19/2014 Pneumococcal polysaccharide PPSV23 11/27/2006 RSV Vaccine (monovalent, adjuvanted) 01/05/2023 Td (adult) 5 Lf Tetanus Toxoid, PF, Adsorbed 02/2002 Zoster recombinant 12/05/2021 Family History Relation Status Comments Father Mother Social History Tobacco Use Types Packs/Day Years Used Date Smoking Tobacco: Former Cigarettes 0.5 14 1 644 - 2426 Passive Smoke Exposure: Past Smokeless Tobacco: Never Tobacco Cessation:Counseling Given: Not Answered Alcohol Use Standard Drinks/Week Comments No 0 (1 standard drink = 0.6 oz pur e alcohol) Education Answer Date Recorded Are you interested in more education? Not on abel e 06/24/2022 Are you concerned about learning? Not on file 06/24/2022 No 06/24/2022 No 06/24/2022 Digital Access Answer Date Recorded No 07/24/2022 No 07/24/2022 Reliable internet access at home? Not on file 07/24/2022 Device with a working camera? Not on file Comments No Sex and Gender Information Value Date Recorded Sex Assigned at Not on file Legal Sex Female 10:11 PM EDT Gender Identity Not on file Sexual Orientation Not on file Last Filed Vital Signs Vital Sign Reading Time Taken Comments Blood Pressure 142/80 11/10/2022 11:02 AM EDT Pulse 74 11/10/2022 11:02 AM EDT Temperature 36.7 C (98 F) 11/10/2022 11:02 AM EDT Respiratory Rate 16 10/21/2022 12:58 PM EDT Oxygen Saturation 95% 11/10/2022 11:02 AM EDT Inhaled Oxygen Concentration - - Weight 79.4 kg (175 lb) 11/10/2022 11:02 AM EDT Height 152.4 cm (5') 11/10/2022 11:02 AM EDT Body Mass Index 34.18 11/10/2022 11:02 AM EDT Plan of Treatment Health Maintenance Due Date Last Done Comments Adult Td,Tdap Booster 09/27/2012 09/27/2002 ZOSTER VACCINES (2 of 2) 01/30/2022 12/05/2021 BLOOD PRESSURE 05/11/2023 11/10/2022 POTASSIUM LEVEL 06/25/2023 06/24/2022, 05/28, 06/02/2022, Additional history exists FOLLOW UP BONE DENSITY TESTING 07/07/2023 07/06/2021, 07/25/2018, 06/15/2018, Additional history exists DEPRESSION SCREENING 09/15/2023 09/14/2022 COVID-19 VACCINE ( season) 2023 07/21/2021, 12/08/2020, 04/27/2020, Additional history exists PNEUMOCOCCAL VACCINES (50+ years) Completed 12/19/2014, 11/27/2006 OSTEOPOROSIS SCREENING INITIAL (ONE-TIME) Completed 07/06/2021, 07/25/2018, 06/15/2018, Additional history exists RSV VACCINE Completed 01/05/2023 HEPATITIS A VACCINES Aged Out No long er eligible based on patient's age to complete this topic HIB VACCINES Aged Out No longer eligi ble based on patient's age to complete this topic MENINGOCOCCAL VACCINES (ACWY) Aged Out No longer eligible based on patient's age to complete this topic MENINGOCOCCAL VACCINES (B) Aged Out N o longer eligible based on patient's age to complete this topic Medical Devices Not on file Procedures Procedure Name Priority Date/Time Associated Diagnosis Comments BASIC METABOLIC PANEL Routine 06/24/2022 4:15 PM EDT Primary osteoarthritis involving multiple joints Vaginal bleeding Essential hypertension DEXA SCAN Routine 07/06/2021 from Last 3 Months or Most Recently Relevant to Health Maintenance Results * (ABNORMAL) Basic metabolic panel (06/24/2022 4:15 PM EDT) SODIUM 139 133 - 146 mmol/L [facility] CHLORIDE 100 96 - 108 mmol/L [facility] POTASSIUM 4.5 3.3 - 5.1 mmol/L [facility] Comment:Specimen slightly he molyzed, result may be falsely elevated. CO2 28 21 - 35 mmol/L [facility] BUN 21(H) 6 - 19 mg/dL [facility] CREATININE 0.90 0.5 - 1.5 mg/dL [facility] GLUCOSE 90 70 - 99 mg/dL [facility] CALCIUM 10.1 8.4 - 10.3 mg/dL [facility] EGFR 65 >59 mL/min/1.7 3m2 [facility] Comment:Estimated glomerular filtration rate calculated using the CKD-EPI refit equation. ANION GAP 16 10 - 20 mmol/L [facility] Blood 06/24/2022 4:15 PM EDT 06/24/2022 4:17 PM EDT Pedro Prado MD LAB BLOOD ORDERABLES Final Re [facility] Organization Address City/State/ZIP Co de Phone Number [facility] [address] [place] [address] * DEXA SCAN (07/06/2021) us Historical Provider HEALTH MAINTENANCE Edited Result - Final from Last 3 Months or Most Recently Relevant to Health Maintenance Insurance [facility] MEDICARE PART A & B [facility] MEDICARE REPLACEMENT [facility] MEDICARE PART A & B [employer] PPO MEDICARE REPLACEMENT [facility] MEDICARE PART A & B [facility] PPO MEDICARE REPLACEMENT [facility] MEDIC[facility] PART A & B [facility] MEDICARE REPLACEMENT [place] MEDICARE PART A & B [facility] MEDICARE [facility]PLACEMENT [facility] MEDIC[facility] PART A & B [facility] PPO MEDICARE REPLACEMENT [facility] MEDICARE PART A & B [facility] MEDICARE [facility]PLACEMENT [facility] MEDICARE PART A & B [facility] MEDICARE REPLACEMENT [facility] MEDICARE PART A & B [facility] MEDICARE REPLACEMENT Care Teams Tong Carrier Relationship Specialty Start Date End Date Unknown, Unknown, PCP - General 06/26/23 Pedro Prado MD [address] [place] [address] [email or web address] Historical LMR Provider 12/17/16 Meghan Hodge NP [address] [place] [address] Historical LMR Provider 12/17/16 Bayron Wilson MD [address] [place] [address] Hospitalist 04/02/19 Additional Source Comments The information contained in this document represents components of the legal health record. It is not the complete legal health record.[facility]
--- NOTE | 2024-10-07 13:02 | MHC.OFFWIV ---
Intake Vital Signs 10/07/24 13:06 Weight 173 lb BP 142/86 H Blood Pressure Location Rt brachial Position Sitting Pulse 80 Pulse Source Pulse Oximeter Temp 97.8 F Temp Source Oral Pulse Oximetry (%) 95 Oxygen Delivery Method Room Air Intake Visit Reasons: EP UTI? Intake Note: presents with burning sensation when peeing and confusion. *Is on nitrofurantoin x2 days Patient Tobacco Use Status: Former Tobacco user Allergies meperidine (Meperidine) Allergy (Intermediate, Verified 10/07/24 13:15) HIVES Sulfa (Sulfonamide Antibiotics) Allergy (Intermediate, Verified 10/07/24 13:15) Unknown phenobarbital (PHENOBARBITAL) Allergy (Unknown, Verified 10/07/24 13:15) SWELLING Do you need a note to return to daycare/school/sports/work: No HPI HPI Comments History of Present Illness Details History - The patient is an 84-year-old female presenting with symptoms suggestive of a urinary tract infection. - The burning sensation started today, with possible onset yesterday. - No associated fever, abdominal pain, back pain, or hematuria reported. - No vaginal discharge or recent changes in personal hygiene products noted. - The patient denies frequent urination or incomplete bladder emptying. - She denies fever, chills, rashes, or vaginal discharge. Physical Exam General: Cooperative, healthy appearing, comfortable, no acute distress and well developed Cardiac: Normal S1 and S2. RRR, no M/R/G noted. Respiratory: Normal respiratory effort and able to speak in complete sentences. Clear to auscultation bilaterally. No w/r/r noted. Skin: No rashes or lesions noted. GI: Normal inspection. Normal BS noted. Soft, non-tender, non-distended. No TTP of all 4 quadrants. No guarding or rebound tenderness noted. Back: Negative CVA bilaterally Patient was informed and verbally consented to the use of an ambient scribe for clinic note documentation during this visit. [facility] Medical History Dementia Recurrent UTI (urinary tract infection) Myoma Postmenopausal bleeding Palpitations Premature ventricular complex Breast cancer Vitamin D deficiency Osteoporosis Surgical History (Updated 06/13/24 @ 12:21 by Anna Wyatt) History of colonoscopy (~10/13/14) History of breast biopsy History of History of knee surgery Family History Father Appendicitis, acute Mother No problems noted. Social History Household Members: None Housing: House Alcohol intake: never Patient Tobacco Use Status: Former Tobacco user e-Cigarette/Vaping Use: Never Used Second Hand Smoke Exposure: Yes service: No Current occupational status: retired Cognitive needs: No Hearing needs: No Vision needs: Yes (glasses) Review of Systems Const All systems reviewed & are unremarkable except as noted in HPI and below Physical Exam Vital Signs: Last Vital Signs Temp 97.8 F 10/07/24 13:06 Pulse 80 10/07/24 13:06 BP 142/86 H 10/07/24 13:06 Pulse Ox 95 10/07/24 13:06 Oxygen Delivery Method Room Air 10/07/24 13:06 Assessment & Plan Assessment & Plan (1) Dysuria: Code(s): R30.0 - Dysuria Plan Most likely UTI vs candidiasis UA in the office 2+ketones Plan - Urine culture to be performed to confirm bacterial growth. - Patient advised to monitor symptoms and report if they worsen. - Antifungal medication prescribed as a precautionary measure - will call with the results - drink lots of water - follow up with PCP Orders: Orders Urine Culture Today N39.0 - Urinary tract infection, site not specified Medications: New fluconazole may repeat second dose 72 hrs after first dose if symptoms persist 150 mg PO Q3D 2 tabs 0RF Coding Level of Care Code Est Pt Level 3 (40362) Diagnoses Dysuria R30.0
[2024-10-07 13:06] VITALS: BP 142/86; PULSE 80; TEMP 36.6; O2SAT 95
== END 2024-10-07 14:08 | disposition home or self-care (01) ==
PROVIDERS: PCP Internal Medicine; Visit Provider Physician Assistant Medical
DX: Z13.9 Encounter for screening, unspecified (principal); R30.0 Dysuria

== ENCOUNTER 2024-10-07 12:51 | Outpatient (REF) | payer MEDICARE, MEDICAID, SELFPAY | END 2024-10-07 12:52 | disposition home or self-care (01) | LOC: HO.LNP 12:51 | PROVIDERS: PCP Internal Medicine; Visit Provider Physician Assistant Medical | DX: R30.0 Dysuria (principal) | CPT/HCPCS: 81003; 87086; 99212 ==

== ENCOUNTER 2024-10-15 13:32 | Outpatient (AMB) | payer MEDICARE, MEDICAID, SELFPAY ==
--- NOTE | 2024-10-15 13:33 | A.OFFPC_ITS ---
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 Allergies meperidine (Meperidine) Allergy (Intermediate, Verified 10/15/24 17:26) HIVES Sulfa (Sulfonamide Antibiotics) Allergy (Intermediate, Verified 10/15/24 17:26) Unknown phenobarbital (PHENOBARBITAL) Allergy (Unknown, Verified 10/15/24 17:26) SWELLING Medication List - Last Reconciled 10/15/24 by Emerald Navarrete PA-C acetaminophen (Tylenol) 325 mg PO Q4H PRN cholecalciferol (vitamin D3) 100 mcg (2 x 50 mcg (2,000 unit)) PO DAILY 30 days cyanocobalamin (vitamin B-12) (Vitamin B-12) 1,000 mcg PO DAILY denosumab (Prolia) 60 mg subcut [id number] fluconazole 150 mg PO Q3D hydrochlorothiazide 12.5 mg PO DAILY magnesium oxide 400 mg PO DAILY memantine (Namenda Titration Ashwin) PO PER PKG DIR multivitamin 1 tab PO DAILY nitrofurantoin macrocrystal 100 mg PO BID 5 days pantoprazole 40 mg PO DAILY Tobacco use date assessed: 04/25/24 Dental Screening Dental Screen Date: 03/21/24 HPI uti sx HPI Details The patient is an 84-year-old female presenting with symptoms suggestive of a urinary tract infection. She reports experiencing a burning sensation and general malaise. Previously, on October 07, 2024, she visited urgent care with similar symptoms, where a urine culture was performed and returned negative for infection. The results indicated dehydration rather than a urinary tract infection. The patient was advised to undergo further testing, including blood work and a repeat urine analysis, to reassess her condition and rule out any infection. [facility] Medical History (Updated 10/15/24 @ 17:30 by Emerald Navarrete PA-C) Acute dehydration Dysuria Dementia Recurrent UTI (urinary tract infection) Myoma Postmenopausal bleeding Palpitations Premature ventricular complex Breast cancer Vitamin D deficiency Osteoporosis Surgical History History of colonoscopy (~10/13/14) History of breast biopsy History of History of knee surgery Family History Father Appendicitis, acute Mother No problems noted. Social History Household Members: None Housing: House Alcohol intake: never Patient Tobacco Use Status: Former Tobacco user e-Cigarette/Vaping Use: Never Used Second Hand Smoke Exposure: Yes service: No Current occupational status: retired Cognitive needs: No Hearing needs: No Vision needs: Yes (glasses) Questionnaire PHQ-9 Over the last 2 weeks, how often have you been bothered by any of the following problems? 1. Little interest or pleasure in doing things: not at all 2. Feeling down, depressed, or hopeless: not at all 3. Trouble falling or staying asleep, or sleeping too much: not at all 4. Feeling tired or having little energy: not at all 5. Poor appetite or overeating: not at all 6. Feeling bad about yourself - or that you are a failure or have let yourself or your family down: not at all 7. Trouble concentrating on things, such as reading the newspaper or watching television: not at all 8. Moving or speaking so slowly that other people could have noticed. Or the opposite - being so fidgety or restless that you have been moving around a lot more than usual: not at all 9. Thoughts that you would be better off or of hurting yourself in some way: not at all Total score: 0 Depression Screening Interpretation: Negative Depression Screening Done: Yes 41973 - PHQ-9 Billing: Yes Source: Developed by Drs. Juan Manuel Camarillo, Eva Wesley, Davion Herrera and colleagues, with an educational sophia from [employer]. Thrive Questionnaire Date Thrive assessed: 03/21/24 I am a: Patient What is your living situation today?: I have a steady place to live Within the past 12 months, did the food you bought not last and you didn't have the money to get more?: Never true Within the past 12 months, did you worry whether your food would run out before you got money to buy more?: Never true Do you have trouble paying for medicines?: No Do you have trouble getting transportation to medical appointments?: No Do you have trouble paying your heating and electricity bill?: No Do you have trouble taking care of your child, family member or friend?: No Do you have trouble with day-to-day activities such as bathing, preparing meals, shopping, managing finances, etc.?: No Are you currently unemployed and looking for a job?: No Are you interested in more education?: No Please select the resources that you would like help with: None Currently or been in a relationship where the following occur: No concerns reported THRIVE Score: 0 AUDIT C Alcohol Use Questionnaire (AUDIT-C) 1. How often do you have a drink containing alcohol?: Never 3. How often do you have six or more drinks on one occasion?: Never Total Score: 0 Score Reviewed/Action Taken: No AZUL-7 AMB Questionnaire AZUL-7 Date AZUL - 7 assessed: 03/21/24 Feeling nervous, anxious, or on edge: 0 = Not at all Not being able to stop or control worryin = Not at all Worrying too much about different things: 0 = Not at all Trouble relaxin = Not at all Being so restless that it is hard to sit still: 0 = Not at all Becoming easily annoyed or irritable: 0 = Not at all Feeling afraid as if something awful might happen: 0 = Not at all Total AZUL-7 score (0-4 normal; 5-9 mild; 10-14 moderate; 15-21 severe): 0 Source: Developed by Drs. Juan Manuel Camarillo, Eva Wesley, Davion Herrera and colleagues, with an educational sophia from [employer]. AZUL-7 Assessment Billing AZUL-7 Assessment Tool: AZUL-7 Assessment 73553 Review of Systems Const Details: - Genitourinary: Reports burning sensation and general malaise. All systems reviewed & are unremarkable except as noted in HPI and below Physical exam (Primary Care) Tobacco/Smoking Status: Tobacco use Status Tobacco use date assessed 04/25/24 10/15/24 13:34 Patient Tobacco Use Status Former Tobacco user 10/15/24 13:34 e-Cigarette/Vaping Use Never Used 10/15/24 13:34 PHQ-9: PHQ-9 Score PHQ-9: Total score 0 10/15/24 13:34 Depression Screening Interpretation: Negative Thrive Assessment: Date of Thrive Assessment Date Thrive assessed 03/21/24 10/15/24 13:34 Currently or been in a relationship where the following occur: No concerns rep orted Telehealth Telehealth Telehealth Platform: Telephone Location of provider rendering services: practice address Location of patient: address on file Patient Identification confirmed using: Name, : Yes Telehealth method: voice only Patient verbally consented to treatment: Yes Patient verbally consented to billing insurance company: Yes Patient informed of any privacy concerns related to visit: Yes Minutes spent on Phone/Video with Pt.: 15 Results Reviewed Results Reviewed: - Labs: Previous urine culture on October 07, 2024, was negative for infection. Coding Level of Care Code Tele Est Pt Level 4 (78519) Complex EM visit Add On G2211 Diagnoses Dysuria R30.0 Acute dehydration E86.0 Additional Codes AZUL-7 Assessment Billing - AZUL-7 Assessment Tool: AZUL-7 Assessment 41309 ([id number]) PHQ-9 - 82092 - PHQ-9 Billing: Yes ([id number]) Assessment & Plan Assessment & Plan (1) Dysuria: Code(s): R30.0 - Dysuria Category: Medical Plan: Patient had CBC, CMP, magnesium and a UA with reflex culture and all her labs are completely normal. I discussed this with the patient most likely is related to dehydration she denies any other symptoms related to this. I explained to her if she continues to have symptoms and she can call us for an appointment so I can examine her in person. Patient understands agrees with this plan. (2) Acute dehydration: Code(s): E86.0 - Dehydration Category: Medical Plan: The patient is encouraged to maintain adequate hydration to prevent recurrence of symptoms. Plan Plan Patient was informed and verbally consented to the use of an ambient scribe for clinic note documentation during this visit. 1. Suspected Urinary Tract Infection The patient is advised to undergo further diagnostic testing, including blood work and a repeat urine analysis, to confirm the presence of a urinary tract infection. The previous urine culture was negative, and dehydration was ident ified as a potential cause of symptoms. 2. Dehydration The patient is encouraged to maintain adequate hydration to prevent recurrence of symptoms. I discussed with the patient the importance of confirming a urinary tract infection through diagnostic testing before initiating antibiotic therapy. We reviewed the previous urine culture results, which were negative, and identified dehydration as a potential cause of her symptoms. I advised her to undergo further testing, including blood work and a repeat urine analysis, and to maintain adequate hydration. Patient Instructions: - Go to the designated medical center for blood work and urine analysis today. - Maintain adequate hydration to prevent dehydration. - Await a follow-up call with test results and further instructions.
--- OUTSIDE RECORDS SUMMARY | 2024-10-15 14:47 | XMS_ITS | Patient Health Record ---
Author Organization [facility] Address [address] [place] [address] Care Team Providers Care Food Mixer Assembler Name Role Phone Pedro Prado MD Primary Care Provider Juan Manuel Mahoney Unavailable [phone] Allergies Allergen (clinical drug ingredient) Drug/Non Drug Allergy documented on EMR Reaction Allergy Type Onset Date Status meperidine Demerol Unknown Drug Allergy Active phenobarbital Phenobarbitol (uncoded) Unknown Allergy Active PCN (uncoded) Unknown Allergy Active Reason For Referral No Information Medications Medication SIG (Take, Route, Frequency, Duration) Notes Start Date End Date Status Omeprazole 20 MG 1 capsule Orally Onc e a day Active Colyte w Flavor Packs 240 GM as directed Orally as directed for 1 day(s) 07/17/2014 Active Atorvastatin Calcium 10 MG 1 tablet Oral ly Once a day Active Citalopram & Diet Manage Pro d 10 MG Orally Active Gabapentin 600 MG 1 tablet Orally qd Active Multi Vitamin/Minerals 1 1 Orally qd Active PreserVision/Lutein 1 1 Orally qd Active hydroCHLOROthiazide 12.5 MG 1 capsule Or ally Once a day Active VESIcare 10 MG 1 tablet Orally Once a day Active Problems Problem Type SNOMED Code ICD Code Onset Dates Problem Status W/U Status Risk Notes Problem Colon cancer screening (828818872) Colon cancer screening (V76.51) Active confirmed Problem Gastroesophageal reflux disease (873708539) GERD (gastroesophag eal reflux disease) (530.81) Active confirmed Problem History of adenomatous polyp of colon (574467031) History of adenomatous polyp of colon (V12.72) Active confirmed Plan Of Treatment Future Test Test Name Order Date COLONOSCOPY 07/15/2014 Insurance Providers Payer Name Payer Address Payer Phone Subscriber Number Group Number Insured Name Patient Relationship to Insured Coverage Start Date Coverage End Date MEDICARE OF [place] [address] [place] [id number] SHELL NARVAEZ Self - patient is the insured [facility] [address] [place] [phone] [id number] SHELL NARVAEZ Self - patient is the insured Medical (General) History Medical History History ICD Code GERD--02/02/2010 EGD-small t o moderate-sized HH-Candidia esophagitis-treated with Diflucan--no Peterson's--in 2010 she had a positive 24-hour pH study and a basically normal esophageal motility study other than a slight decrease in esophageal contractility Multiple Tubular adenomas re moved in 2006-most recent colonoscopy was in 01/2010-small tubular adenomas removed Diverticulosis Internal hemorrhoids Hyperlipidemia Seizures Breast [id number]-2004-sees Dr. Letitia parsons Denies DC,DM,CVA,Lung disease,renal dise ase Kidney stones Sleep apnea--uses a CPAP mask sometimes Surgical History Surgery Date(Month/Year) C-sections x4 left knee arthroscopy right knee arthroscopy [facility] Lumpectomy and lymph nodes, left breast 2004
--- OUTSIDE RECORDS SUMMARY | 2024-10-15 14:47 | XMS_ITS | Clinical Summary ---
Author Organization [facility] Address [address] [place] [address] Phone Care Team Providers Care Medical Office Scheduler Name Role Phone Pedro Prado MD Unavailable [phone] Meghan Hodge NP Unavailable [phone] Bayron Wilson MD Unavailable [phone] Unknown, Unknown Primary Care Provider Ena [...] 90 tablet 3 03/27/19 21 Active vit C,F-trocsy-otbsjnd hin-minerals (PRESERVISION AREDS-2) capsule Take 1 capsule [...] malignant causes. I do not do a COOK ICE CREAM examinations but the patient should seek out a fruit buyer. Since she lives in [place] we will set the patient up with Dr. Kashif Saha, fruit buyer. Who will be marked a urgent consult. The fruit buyer can decide whether to image her. We [...] Smoking Tobacco: Former Cigarettes 0.5 14 1 164 - 8394 Passive Smoke Exposure: Past Smokeless Tobacco: Never [...] EDT) SODIUM 139 133 - 146 mmol/L [facility] CHLORIDE 100 96 - 108 mmol/L [facility] POTASSIUM 4.5 3.3 - 5.1 mmol/L [facility] Comment:Specimen slightly he molyzed, result may be falsely elevated. CO2 28 21 - 35 mmol/L [facility] BUN 21(H) 6 - 19 mg/dL [facility] CREATININE 0.90 0.5 - 1.5 mg/dL [facility] GLUCOSE 90 70 - 99 mg/dL [facility] CALCIUM 10.1 8.4 - 10.3 mg/dL [facility] EGFR 65 >59 mL/min/1.7 3m2 [facility] Comment:Estimated glomerular filtration rate calculated using the CKD-EPI refit equation. ANION GAP 16 10 - 20 mmol/L [facility] Blood 06/24/2022 4:15 PM EDT 06/24/2022 4:17 PM EDT Pedro Prado MD LAB BLOOD ORDERABLES Final [facility] Organization Address City/State/ZIP Co de Phone Number [facility] [address] [place] [address] * DEXA SCAN (07/06/2021) us Historical Provider HEALTH MAINTENANCE Edited Result - Final from Last 3 Months or Most Recently Relevant to Health Maintenance Insurance [facility] MEDIC[facility] PART A & B [facility] MEDICARE REPLACEMENT [facility] MED[facility] PART A & B [facility] P[employer] MEDICARE REPLACEMENT [facility] MEDICARE PART A & B [facility] PPO MEDICARE REPLACEMENT [facility] MEDIC[facility]PLACEMENT [place] MED[place]ARE PART A & B [facility] MEDIC[facility] REPL[facility] B [facility] PPO MEDICARE REPLACEMENT [facility] MED[facility] PART A & [facility] MEDIC[facility] PART A & B [facility] MEDICARE REPLACEMENT [facility] MED[facility] PART A & [facility] Care Teams Medical Office Scheduler Relationship Specialty Start Date End Date Unknown, Unknown, PCP - General 06/26/23 Pedro Prado MD [address] [place] [address] [email or web address] Historical LMR Provider 12/17/16 Meghan Hodge NP [address] [place] [address] Historical LMR Provider 12/17/16 Bayron Wilson MD [address] [place] [address] Hospitalist 04/02/19 Additional Source Comments The information contained in this document represents components of the legal health record. It is not the complete legal health record.[facility]
== END 2024-10-15 14:20 | disposition home or self-care (01) ==
LOC: HO.HMCSH 13:32
PROVIDERS: PCP Internal Medicine; Visit Provider Physician Assistant Medical
DX: R30.0 Dysuria (principal); E86.0 Dehydration

== ENCOUNTER 2024-10-15 13:32 | Outpatient (REF) | payer MEDICARE, MEDICAID, SELFPAY ==
[2024-10-15 16:13] LABS: MANUAL DIFF FLAG NO
[2024-10-15 16:16] LABS: Appearance Urine Clear; Glucose Urine UA Negative (Negative); PH 6.5 (5.0-9.0); Specific Gravity - Urine 1.015 (1.005-1.025)
[2024-10-15 16:34] LABS: Hematocrit 43.5 % (37.0-47.0); Hemoglobin 14.7 g/dl (12.0-16.0); Imm Gran Abs Auto 0.02 X10*3/uL (0.00-0.03); Imm Gran Pct Auto 0.3 % (0.0-0.4); Lymphocytes Absolute Auto 3.1 X10*3/uL (1.2-4.9); Mean Corpuscular HGB Conc 33.8 g/dl (31.0-35.0); Mean Corpuscular Hemoglobin 30.9 pg (27.0-33.0); Mean Corpuscular Volume 91.4 fL (80.0-98.0); NRBC Abs Auto 0.000 X10*3/uL (0.0-0.012); NRBC Pct Auto 0.0 /100WBC (0.0-0.2); Platelet Count 236 X10*3/uL (160-400); Red Blood Count 4.76 X10*6/uL (4.20-5.50); White Blood Count 7.8 X10*3/uL (4.8-10.8)
[2024-10-15 16:50] LABS: Alanine Aminotransferase 20 U/L (0-31); Albumin Level 4.2 g/dL (3.5-5.0); Alkaline Phosphatase 50 U/L (39-117); Anion Gap 13 (12-20); Aspartate Amino Transferase 27 U/L (5-31); Blood Urea Nitrogen 16 mg/dL (9-16); Calcium 9.7 mg/dL (8.4-10.2); Carbon Dioxide 28 mmol/L (22-29); Chloride 105 mmol/L (96-108); Estimated Glomerular Filt Rate > 60; Magnesium 2.4 mg/dL (1.6-2.6); Potassium 4.6 mmol/L (3.3-5.1); Sodium 141 mmol/L (135-145); Total Protein 7.0 g/dL (6.5-8.0)
== END 2024-10-15 13:33 | disposition home or self-care (01) ==
LOC: HO.HMGCLDS 13:32
PROVIDERS: PCP Internal Medicine; Visit Provider Physician Assistant Medical
DX: R30.0 Dysuria (principal); E86.0 Dehydration; Z00.00 Encounter for general adult medical examination without abnormal findings
CPT/HCPCS: 36415; 80053; 81003; 83735; 85025; 96127

== ENCOUNTER 2024-11-05 14:20 | Outpatient (REF) | payer MEDICARE, MEDICAID, SELFPAY | END 2024-11-05 14:21 | disposition home or self-care (01) | LOC: HO.LNP 14:20 | PROVIDERS: PCP Internal Medicine; Visit Provider Physician Assistant | DX: R30.0 Dysuria (principal); R39.9 Unspecified symptoms and signs involving the genitourinary system; Z13.89 Encounter for screening for other disorder | CPT/HCPCS: 81003; 87086; 99212 ==

== ENCOUNTER 2024-11-05 14:20 | Outpatient (AMB) | payer MEDICARE, MEDICAID, SELFPAY ==
--- NOTE | 2024-11-05 14:22 | MHC.OFFWIV ---
Intake Vital Signs 11/05/24 14:23 Height 5 ft Weight 170 lb BMI 33.2 BP 126/82 Blood Pressure Location Lt brachial Position Sitting Pulse 77 Pulse Source Pulse Oximeter Temp 97.3 F Temp Source Temporal Artery Scan Pulse Oximetry (%) 97 Oxygen Delivery Method Room Air Intake Visit Reasons: EP UTI? Intake Note: Pt presents to the office today for c/o frequent urination, and slight burning. Patient Tobacco Use Status: Former Tobacco user Allergies meperidine (Meperidine) Allergy (Intermediate, Verified 11/05/24 14:29) HIVES Sulfa (Sulfonamide Antibiotics) Allergy (Intermediate, Verified 11/05/24 14:29) Unknown phenobarbital (PHENOBARBITAL) Allergy (Unknown, Verified 11/05/24 14:29) SWELLING HPI HPI Comments History of Present Illness Details History - The patient is an 84-year-old female presenting with urinary frequency and right-sided mid-back pain. - Reports increased urinary frequency with small amounts of urine and mild dysuria. - Denies fever and hematuria, with previous negative urine cultures in August and September. - History of kidney stones, though not experienced for decades. - Right-sided back pain associated with the kidney, not exacerbated by physical examination. - Multiple past antibiotic prescriptions without confirmed infections Physical Exam General: Cooperative, healthy appearing, comfortable, no acute distress and well developed Orientation: Patient oriented x3 Limitations: No limitations Head: Normal to inspection Ears: Hearing grossly normal bilaterally Face and sinus: Normal facial exam Neck: Normal visual inspection and Yes full ROM Respiratory: Normal respiratory effort and able to speak in complete sentences. Skin: No rashes or lesions noted Neuro: Patient oriented x3 Back/spine: negative CVA bilaterally PFSH Medical History Acute dehydration Dysuria Dementia Recurrent UTI (urinary tract infection) Myoma Postmenopausal bleeding Palpitations Premature ventricular complex Breast cancer Vitamin D deficiency Osteoporosis Surgical History History of colonoscopy (~10/13/14) History of breast biopsy History of History of knee surgery Family History Father Appendicitis, acute Mother No problems noted. Social History Household Members: None Housing: House Alcohol intake: never Patient Tobacco Use Status: Former Tobacco user e-Cigarette/Vaping Use: Never Used Second Hand Smoke Exposure: Yes service: No Current occupational status: retired Cognitive needs: No Hearing needs: No Vision needs: Yes (glasses) Review of Systems Const All systems reviewed & are unremarkable except as noted in HPI and below Physical Exam Vital Signs: Last Vital Signs Temp 97.3 F 11/05/24 14:23 Pulse 77 11/05/24 14:23 BP 126/82 11/05/24 14:23 Pulse Ox 97 11/05/24 14:23 Oxygen Delivery Method Room Air 11/05/24 14:23 BMI result Body Mass Index 33.2 Results AMB Urinalysis, Automated UA Leukoctes 0 Leonel/uL Last Edit by Radha Man CMA on 11/05/24 14:34 UA Nitrite Negative Last Edit by Radha Man CMA on 11/05/24 14:34 UA Urobilinogen 0.2 mg/dL Last Edit by Radha Man CMA on 11/05/24 14:34 UA Protein 0 mg/dL Last Edit by Radha Man CMA on 11/05/24 14:34 UA pH 6.0 Last Edit by Radha Man CMA on 11/05/24 14:34 UA Blood 0 Dakota/uL Last Edit by Radha Man CMA on 11/05/24 14:34 UA Specific [place] 1.015 Last Edit by Radha Man CMA on 11/05/24 14:34 UA Ketone Negative Last Edit by Radha Man CMA on 11/05/24 14:34 UA Bilirubin 0 mg/dL Last Edit by Radha Man CMA on 11/05/24 14:34 UA Glucose 0 mg/dL Last Edit by Radha Man CMA on 11/05/24 14:34 Results Reviewed Results Reviewed: Laboratory Last Values Urine pH (Auto) 6.0 11/05/24 14:32 Specific [place] (Auto) 1.015 11/05/24 14:32 Urine Protein (Auto) 0 mg/dL 11/05/24 14:32 Glucose (UA)(Auto) 0 mg/dL 11/05/24 14:32 Urine Ketones (Auto) Negative 11/05/24 14:32 Urine Blood (Auto) 0 [place]/uL 11/05/24 14:32 Urine Nitrite (Auto) Negative 11/05/24 14:32 Urine Bilirubin (Auto) 0 mg/dL 11/05/24 14:32 Urine Urobilinogen (Auto) 0.2 mg/dL 11/05/24 14:32 Leukocyte Esterase (Auto) 0 Leonel/uL 11/05/24 14:32 Assessment & Plan Assessment & Plan (1) Symptoms of urinary tract infection: Code(s): R39.9 - Unspecified symptoms and signs involving the genitourinary system Plan: Plan Patient was informed and verbally consented to the use of an ambient scribe for clinic note documentation during this visit. Urinary Tract Infection (Uti) symptoms - Urine culture to confirm infection, with antibiotics prescribed if positive. - Increased fluid intake advised to alleviate symptoms. - Advised to monitor pain and seek emergency care if pain worsens. - Consideration of interstitial cystitis due to recurrent urinary symptoms without infection. - Follow-up with primary care/PCP and possible referral to urology if symptoms persist. Orders: Orders AMB Urinalysis Automated Today Z13.9 - Encounter for screening, unspecified Urine Culture Today R30.0 - Dysuria Coding Level of Care Code Est Pt Level 3 (25101) Diagnoses Symptoms of urinary tract infection R39.9
[2024-11-05 14:23] VITALS: BP 126/82; PULSE 77; TEMP 36.3; O2SAT 97; BMI 33.2
--- OUTSIDE RECORDS SUMMARY | 2024-11-05 16:55 | XMS_ITS | Clinical Summary ---
Author Organization [facility] Address [address] [place] [address] Phone Care Team Providers Care Eradicator Name Role Phone Pedro Prado MD Unavailable [phone] Meghan Hodge NP Unavailable [phone] Bayron Wilson MD Unavailable [phone] Unknown, Unknown Primary Care Provider Ena [...] 90 tablet 3 03/27/19 21 Active vit C,O-hhhswu-inlnglb hin-minerals (PRESERVISION AREDS-2) capsule Take 1 capsule [...] malignant causes. I do not do a VEGETABLE LOADER MACHINE OPERATOR examinations but the patient should seek out a corsetier. Since she lives in [place] we will set the patient up with Dr. Kashif Saha, corsetier. Who will be marked a urgent consult. The corsetier can decide whether to image her. We [...] Smoking Tobacco: Former Cigarettes 0.5 14 1 824 - 5800 Passive Smoke Exposure: Past Smokeless Tobacco: Never [...] Additional history exists DEPRESSION SCREENING 09/15/2023 09/14/2022 INFLUENZA VACCINE (#1) 2024 , 12/02/2022, 11/23/2021, Additional history exists COVID-19 VACCINE ( season) 2024 07/21/2021, 12/08/2020, 04/27/2020, Additional history exists PNEUMOCOCCAL [...] EDT) SODIUM 139 133 - 146 mmol/L [facility] CHLORIDE 100 96 - 108 mmol/L [facility] POTASSIUM 4.5 3.3 - 5.1 mmol/L [facility] Comment:Specimen slightly he molyzed, result may be falsely elevated. CO2 28 21 - 35 mmol/L [facility] BUN 21(H) 6 - 19 mg/dL [facility] CREATININE 0.90 0.5 - 1.5 mg/dL [facility] GLUCOSE 90 70 - 99 mg/dL [facility] CALCIUM 10.1 8.4 - 10.3 mg/dL [facility] EGFR 65 >59 mL/min/1.7 3m2 [facility] Comment:Estimated glomerular filtration rate calculated using the CKD-EPI refit equation. ANION GAP 16 10 - 20 mmol/L [facility] Blood 06/24/2022 4:15 PM EDT 06/24/2022 4:17 PM EDT Pedro Prado MD LAB BLOOD ORDERABLES Final Re sult [facility] [address] [place] [address] * DEXA SCAN (07/06/2021) Historical Provider HEALTH MAINTENANCE Edited Result - Final from Last 3 Months or Most Recently Relevant to Health Maintenance [facility] PART A & B [facility]PO MEDICARE REPLACEMENT [address] [address] MEDICARE PART A & B [facility] P[facility] MEDICARE REPLACEMENT [address] [place] [address] MEDICARE PART A & B [facility] MED[facility]PL[facility] & [facility] MED[facility] REPL[facility] & [facility] MEDIC[facility]PLACEMENT [facility] MEDICARE PART A & B [employer] PPO MEDICARE REPLACEMENT [facility] MEDICARE PART A & B [employer] PPO MEDICARE REPLACEMENT [facility] MEDICARE PART A & B [facility] MEDIC[facility] REPLACEMENT Care Teams Eradicator Relationship Specialty Start Date End Date Unknown, Unknown, PCP - General 06/26/23 Pedro Prado MD [address] [place] [address] [email or web address] Historical LMR Provider 12/17/16 Meghan Hodge NP [address] [place] [id number] [email or web address] Historical LMR Provider 12/17/16 Bayron Wilson MD [address] [place] [address] [place] [address] Hospitalist 04/02/19 Additional Source Comments The information contained in this document represents components of the legal health record. It is not the complete legal health record.[facility]
--- OUTSIDE RECORDS SUMMARY | 2024-11-05 16:56 | XMS_ITS | Clinical Summary ---
Author Organization [employer] Address [address] [place] [address] Care Team Providers Care Employment Service Specialist Name Role Phone Unavailable Primary Care Provider [...] of 2) 01/30/2022 12/05/2021 COVID-19 Vaccine (3 - season) 2024 04/27/2020, 04/06/2020 Influenza Vaccine (#1) 2024 3, 12/02/2022, 11/23/2021, Additional history exists Pneumococcal [...]
--- OUTSIDE RECORDS SUMMARY | 2024-11-05 16:56 | XMS_ITS | Patient Health Record ---
Author Organization [facility] Address [address] [place] [address] Care Team Providers Care Safety Assistant Name Role Phone Pedro Prado MD Primary Care Provider Juan Manuel Mahoney Unavailable [phone] Allergies Allergen (clinical drug ingredient) Drug/Non Drug [...] Status Risk Notes Problem Colon cancer screening (419661221) Colon cancer screening (V76.51) Active confirmed Problem Gastroesophageal reflux disease (139011220) GERD (gastroesophag eal reflux disease) (530.81) Active confirmed Problem History of adenomatous polyp of colon (770415210) History of adenomatous polyp of colon (V12.72) Active confirmed Plan Of Treatment Future Test Test Name Order Date COLONOSCOPY 07/15/2014 Insurance Providers Payer Name Payer Address Payer Phone Subscriber Number Group Number Insured Name Patient Relationship to Insured Coverage Start Date Coverage End Date MEDICARE OF [place] [address] [place] [id number] SHELL NARVAEZ Self - patient is the insured MEDICAID [facility] [address] [place] [phone] [id number] SHELL NARVAEZ Self - patient is the [...] removed Diverticulosis Internal hemorrhoids Hyperlipidemia Seizures Breast vrpwmo-emuh-rwuim-2004-sees Dr. Letitia parsons Denies [place],DM,CVA,Lung disease,renal dise ase Kidney stones Sleep apnea--uses a CPAP mask sometimes Surgical History Surgery Date(Month/Year) C-sections x4 left knee arthroscopy right knee arthroscopy [facility] Lumpectomy and lymph nodes, left breast 2004
== END 2024-11-05 14:49 | disposition home or self-care (01) ==
PROVIDERS: PCP Internal Medicine; Visit Provider Physician Assistant
DX: R39.9 Unspecified symptoms and signs involving the genitourinary system (principal); Z13.9 Encounter for screening, unspecified

== ENCOUNTER 2024-11-07 15:46 | Outpatient (AMB) | payer MEDICARE, MEDICAID, SELFPAY ==
[2024-11-07 16:04] VITALS: BP 146/82; PULSE 84; RESP 18; TEMP 36.2; O2SAT 97; BMI 33.9
--- NOTE | 2024-11-07 16:04 | MHC.PC.OV ---
Vital Signs 11/07/24 16:04 Height 5 ft Weight 173 lb 8 oz BMI 33.9 BP 146/82 H Blood Pressure Location Lt brachial Position Sitting Respiration 18 Pulse 84 Pulse Source Pulse Oximeter Temp 97.1 F Temp Source Temporal Artery Scan Pulse Oximetry (%) 97 Oxygen Delivery Method Room Air Intake Visit Reasons: ? dementia recurrent UTIs Fire Chief'S Aide Required: No Accompanied by: Self / Same As Patient Allergies meperidine (Meperidine) Allergy (Intermediate, Verified 11/07/24 16:19) HIVES Sulfa (Sulfonamide Antibiotics) Allergy (Intermediate, Verified 11/07/24 16:19) Unknown phenobarbital (PHENOBARBITAL) Allergy (Unknown, Verified 11/07/24 16:19) SWELLING Medication List - Last Reconciled 11/07/24 by LIZA Braga acetaminophen (Tylenol) 325 mg PO Q4H PRN cholecalciferol (vitamin D3) 100 mcg (2 x 50 mcg (2,000 unit)) PO DAILY 30 days cyanocobalamin (vitamin B-12) (Vitamin B-12) 1,000 mcg PO DAILY denosumab (Prolia) 60 mg subcut [id number] hydrochlorothiazide 12.5 mg PO DAILY magnesium oxide 400 mg PO DAILY memantine (Namenda Titration Ashwin) PO PER PKG DIR multivitamin 1 tab PO DAILY pantoprazole 40 mg PO DAILY Tobacco use date assessed: 11/07/24 Fall risk assessment: No Falls in past year Last assessed Fall Risk: 11/07/24 Dental Screening Dental Screen Date: 11/07/24 Did you have a dental visit in the last 12 months?: No Did you have a dental problem in the last 6 months where you did not have access to dental care?: No Was dental information given to patient?: No HPI ? dementia recurrent UTIs HPI Details The patient is an 84-year-old female presenting with a swollen gland on the left side of the neck and voice changes. The swelling is localized to the left side, with associated throat soreness and voice alterations. The patient has a history of urinary tract infections, though recent tests have not indicated an active infection. She occasionally experiences slight burning during urination and is uncertain about her hydration levels. The patient reports urinary incontinence, particularly when standing after driving, and uses pads as a precautionary measure. The patient is forgetful in office and requires the information to be repeated multiple times. The patient does have history of dementia, reports that she is living alone and she drove herself here. Reports that she has 3 kids but only 1 lives close by, but she has been living independently. [facility] Medical History Acute dehydration Dysuria Dementia Recurrent UTI (urinary tract infection) Myoma Postmenopausal bleeding Palpitations Premature ventricular complex Breast cancer Vitamin D deficiency Osteoporosis Surgical History History of colonoscopy (~10/13/14) History of breast biopsy History of History of knee surgery Family History Father Appendicitis, acute Mother No problems noted. Social History Household Members: None Housing: House Alcohol intake: never Patient Tobacco Use Status: Former Tobacco user e-Cigarette/Vaping Use: Never Used Second Hand Smoke Exposure: Yes service: No Current occupational status: retired Cognitive needs: No Hearing needs: No Vision needs: Yes (glasses) Questionnaire PHQ-9 Over the last 2 weeks, how often have you been bothered by any of the following problems? 1. Little interest or pleasure in doing things: not at all 2. Feeling down, depressed, or hopeless: not at all 3. Trouble falling or staying asleep, or sleeping too much: not at all 4. Feeling tired or having little energy: nearly every day 5. Poor appetite or overeating: not at all 6. Feeling bad about yourself - or that you are a failure or have let yourself or your family down: not at all 7. Trouble concentrating on things, such as reading the newspaper or watching television: not at all 8. Moving or speaking so slowly that other people could have noticed. Or the opposite - being so fidgety or restless that you have been moving around a lot more than usual: not at all 9. Thoughts that you would be better off or of hurting yourself in some way: not at all Total score: 3 Source: Developed by Drs. Juan Manuel Camarillo, Davion Spear and colleagues, with an educational sophia from [employer]. Thrive Questionnaire Date Thrive assessed: 11/07/24 I am a: Patient What is your living situation today?: I have a steady place to live Within the past 12 months, did the food you bought not last and you didn't have the money to get more?: Never true Within the past 12 months, did you worry whether your food would run out before you got money to buy more?: Never true Do you have trouble paying for medicines?: No Do you have trouble getting transportation to medical appointments?: No Do you have trouble paying your heating and electricity bill?: No Do you have trouble taking care of your child, family member or friend?: No Do you have trouble with day-to-day activities such as bathing, preparing meals, shopping, managing finances, etc.?: No Are you currently unemployed and looking for a job?: No Are you interested in more education?: No Please select the resources that you would like help with: Utilities Currently or been in a relationship where the following occur: No concerns reported THRIVE Score: 0 AUDIT C Alcohol Use Questionnaire (AUDIT-C) 1. How often do you have a drink containing alcohol?: Never Total Score: 0 AZUL-7 AMB Questionnaire AZUL-7 Date AZUL - 7 assessed: 11/07/24 Feeling nervous, anxious, or on edge: 0 = Not at all Not being able to stop or control worryin = Not at all Worrying too much about different things: 0 = Not at all Trouble relaxin = Not at all Being so restless that it is hard to sit still: 0 = Not at all Becoming easily annoyed or irritable: 0 = Not at all Feeling afraid as if something awful might happen: 0 = Not at all Total AZUL-7 score (0-4 normal; 5-9 mild; 10-14 moderate; 15-21 severe): 0 Source: Developed by Drs. Juan Manuel Camarillo, Davion Spear and colleagues, with an educational sophia from [employer]. Review of Systems Const Denies body aches, Denies chills, Denies fever(s), Denies headache(s) and Denies poor appetite Eyes Reports no additional complaints ENT Denies dysphagia, Denies dizziness, Denies headache(s), Reports hoarseness (self reported-noted in visit), Reports neck mass (reports on the left side of neck), Denies odynophagia, Denies sore throat, Denies throat swelling and Denies tongue swelling Card Denies chest pain, Denies syncope, Denies edema, Denies irregular heart rhythm, Denies lightheadedness and Denies dyspnea Resp Denies cough and Denies dyspnea GI Denies abdominal pain, Denies constipation, Denies dysphagia, Denies diarrhea, Denies nausea, Denies odynophagia and Denies vomiting Reports urinary incontinence (Infrequent stress related) Musc Reports no additional complaints and Denies abnormal gait Skin/Breast Reports system reviewed and no additional complaints, except as documented Neuro Denies abnormal gait, Denies dizziness, Denies syncope and Denies headache(s) Psych Reports no additional complaints Aller/Immun Denies throat swelling and Denies tongue swelling Physical exam (Primary Care) Vital Signs: Last Vital Signs Temp 97.1 F 11/07/24 16:04 Pulse 84 11/07/24 16:04 Resp 18 11/07/24 16:04 BP 146/82 H 11/07/24 16:04 Pulse Ox 97 11/07/24 16:04 Oxygen Delivery Method Room Air 11/07/24 16:04 BMI result Body Mass Index 33.9 Tobacco/Smoking Status: Tobacco use Status Tobacco use date assessed 11/07/24 11/07/24 16:12 Patient Tobacco Use Status Former Tobacco user 11/07/24 16:12 e-Cigarette/Vaping Use Never Used 11/07/24 16:12 PHQ-9: PHQ-9 Score PHQ-9: Total score 3 11/08/24 07:49 Thrive Assessment: Date of Thrive Assessment Date Thrive assessed 11/07/24 11/07/24 16:12 Currently or been in a relationship where the following occur: No concerns reported Const General: cooperative, healthy appearing, comfortable and no acute distress Orientation/consciousness: patient oriented x3 HENMT Head: Yes normocephalic Ears: hearing grossly normal bilaterally General nose exam: Normal external nose present Eyes General: appearance normal, both eyes and all related structures Conjunctivae: conjunctivae normal Neck Neck: Yes full ROM and Yes no lymphadenopathy Thyroid: solitary palpable nodule on the left Resp Effort & Inspection: normal respiratory effort Auscultation: clear to auscultation bilaterally, no crackles, no rales, no rhonchi and no wheezes Cardio Rate: regular rate Rhythm: regular rhythm Skin General skin exam: no rashes or lesions noted Neuro General: patient oriented x3 Gait exam (Neuro): Normal gait present Extrem General: Yes normal to inspection, Yes full ROM and No edema Psych Affect: normal affect Attitude: cooperative Insight: Good insight present (Psych) Judgement: Good judgement present (Psych) Coding Level of Care Code Est Pt Level 3 (83499) Diagnoses Thyroid nodule E04.1 Hoarseness R49.0 Dementia, unspecified dementia severity, unspecified dementia type, unspecified whether behavioral, psychotic, or mood disturbance or anxiety F03.90 Dementia behavioral or psychological symptom: unspecified whether behavioral, psychotic, or mood disturbance or anxiety Dementia severity: unspecified severity Dementia type: unspecified type Time Spent (min) 36 Assessment & Plan Assessment & Plan (1) Thyroid nodule: Code(s): E04.1 - Nontoxic single thyroid nodule Category: Medical (2) Hoarseness: Code(s): R49.0 - Dysphonia Category: Medical (3) Dementia: Code(s): F03.90 - Unspecified dementia, unspecified severity, without behavioral disturbance, psychotic disturbance, mood disturbance, and anxiety Category: Medical Qualifiers: Dementia behavioral or psychological symptom: unspecified whether behavioral, psychotic, or mood disturbance or anxiety Dementia severity: unspecified severity Dementia type: unspecified type Qualified Code(s): F03.90 - Unspecified dementia, unspecified severity, without behavioral disturbance, psychotic disturbance, mood disturbance, and anxiety Plan A thyroid ultrasound has been ordered to evaluate the swelling on the left side of the neck, which may involve the thyroid gland. Will order orders to evaluate as well. The voice changes may be related to the thyroid swelling or potential allergies affecting the throat. The patient is forgetful in office and needs frequent redirections. She is has a history of dementia, but does not seem to have a constant support system. We will refer the patient to the community navigator see what services are available for her. Orders: Orders UA CC w/rflx Micro + Cult Today E04.1 - Nontoxic single thyroid nodule Triiodothyronine T3 Total Today E04.1 - Nontoxic single thyroid nodule Triiodothyronine T3 Reverse Today E04.1 - Nontoxic single thyroid nodule Triiodothyronine T3 Free Today E04.1 - Nontoxic single thyroid nodule Iodine, Serum/Plasma Today E04.1 - Nontoxic single thyroid nodule Free T4 (Free Thyroxine) Today E04.1 - Nontoxic single thyroid nodule TSH reflex Free T4 Today E04.1 - Nontoxic single thyroid nodule US thyroid Today E04.1 - Nontoxic single thyroid nodule, R49.0 - Dysphonia
--- OUTSIDE RECORDS SUMMARY | 2024-11-07 18:48 | XMS_ITS | Patient Health Record ---
Author Organization [facility] Address [address] [place] [address] Care Team Providers Care Scale Clerk Name Role Phone Pedro Prado MD Primary Care Provider Juan Manuel Mahoney Unavailable [phone] Allergies Allergen (clinical drug ingredient) Drug/Non Drug [...] Status Risk Notes Problem Colon cancer screening (214377459) Colon cancer screening (V76.51) Active confirmed Problem Gastroesophageal reflux disease (017447168) GERD (gastroesophag eal reflux disease) (530.81) Active confirmed Problem History of adenomatous polyp of colon (617453520) History of adenomatous polyp of colon (V12.72) Active confirmed Plan Of Treatment Future Test Test Name Order Date COLONOSCOPY 07/15/2014 Insurance Providers Payer Name Payer Address Payer Phone Subscriber Number Group Number Insured Name Patient Relationship to Insured Coverage Start Date Coverage End Date MEDICARE OF [place] [address] [place] [id number] SHELL NARVAEZ Self - patient is the insured MEDICAID OF [employer] [facility] [address] [place] [phone] [id number] SHELL NARVAEZ Self - patient is the [...] removed Diverticulosis Internal hemorrhoids Hyperlipidemia Seizures Breast sbyapf-lfrk-kxziy-2004-sees Dr. Letitia parsons Denies [place],DM,CVA,Lung disease,renal dise ase Kidney stones Sleep apnea--uses a CPAP mask sometimes Surgical History Surgery Date(Month/Year) C-sections x4 left knee arthroscopy right knee arthroscopy [facility] Lumpectomy and lymph nodes, left breast 2004
--- OUTSIDE RECORDS SUMMARY | 2024-11-07 18:48 | XMS_ITS | Clinical Summary ---
Author Organization [facility] Address [address] [place] [address] Phone Care Team Providers Care Lehr Tender Name Role Phone Pedro Prado MD Unavailable Meghan Hodge NP Unavailable [phone] Bayron Wilson MD Unavailable [phone] Unknown, Unknown Primary Care Provider Ena [...] 90 tablet 3 03/27/19 21 Active vit C,T-hyrslo-dqerfhk hin-minerals (PRESERVISION AREDS-2) capsule Take 1 capsule [...] malignant causes. I do not do a SORTER OPERATOR examinations but the patient should seek out a fax machine operator. Since she lives in [place] we will set the patient up with Dr. Kashif Saha, fax machine operator. Who will be marked a urgent consult. The fax machine operator can decide whether to image her. We [...] Smoking Tobacco: Former Cigarettes 0.5 14 1 904 - 6314 Passive Smoke Exposure: Past Smokeless Tobacco: Never [...] EDT) SODIUM 139 133 - 146 mmol/L [facility] CHLORIDE 100 96 - 108 mmol/L [facility] POTASSIUM 4.5 3.3 - 5.1 mmol/L [facility] Comment:Specimen slightly he molyzed, result may be falsely elevated. CO2 28 21 - 35 mmol/L [facility] BUN 21(H) 6 - 19 mg/dL [facility] CREATININE 0.90 0.5 - 1.5 mg/dL [facility] GLUCOSE 90 70 - 99 mg/dL [facility] CALCIUM 10.1 8.4 - 10.3 mg/dL [facility] EGFR 65 >59 mL/min/1.7 3m2 [facility] Comment:Estimated glomerular filtration rate calculated using the CKD-EPI refit equation. ANION GAP 16 10 - 20 mmol/L [facility] Blood 06/24/2022 4:15 PM EDT 06/24/2022 4:17 PM EDT Pedro Prado MD LAB BLOOD ORDERABLES Final Re sult [facility] [address] [place] [address] * DEXA SCAN (07/06/2021) Historical Provider HEALTH MAINTENANCE Edited Result - Final from Last 3 Months or Most Recently Relevant to Health Maintenance [facility] [place] [phone] [facility] & B [employer] PPO MEDICARE REPLACEMENT [address] [address] [address] MEDICARE PART A & B [facility] PPO MEDICARE REPLACEMENT [place] [address] MEDICARE PART A & B [facility] REPLAC[facility] RE[facility]AC[facility] MEDIC[facility] PART A & B [employer] PPO MEDICARE REPLACEMENT [facility] MEDIC[facility] PART A & B [employer] PPO MEDICARE REPLACEMENT [facility] MEDICARE PART A & B [facility]PLAC[facility] Care Teams Lehr Tender Relationship Specialty Start Date End Date Unknown, Unknown, PCP - General 06/26/23 Pedro Prado MD [address] [place] [address] [email or web address] Historical LMR Provider 12/17/16 Meghan Hodge NP [address] [place] [address] [email or web address] Historical LMR Provider 12/17/16 Bayron Wilson MD [address] [place] [address] [place] [address] Hospitalist 04/02/19 Additional Source Comments The information contained in this document represents components of the legal health record. It is not the complete legal health record.[facility]
== END 2024-11-07 16:57 | disposition home or self-care (01) ==
LOC: HO.HMCH 15:47
PROVIDERS: PCP Internal Medicine
DX: E04.1 Nontoxic single thyroid nodule (principal); R49.0 Dysphonia; F03.90 Unspecified dementia, unspecified severity, without behavioral disturbance, psychotic disturbance, mood disturbance, and anxiety

== ENCOUNTER → 2024-11-07 15:46 | Outpatient (BNVA) | payer MEDICARE, MEDICAID, SELFPAY | PROVIDERS: PCP Internal Medicine | DX: E04.1 Nontoxic single thyroid nodule (principal); R49.0 Dysphonia; F03.90 Unspecified dementia, unspecified severity, without behavioral disturbance, psychotic disturbance, mood disturbance, and anxiety; Z87.891 Personal history of nicotine dependence | CPT/HCPCS: 99212 ==

== ENCOUNTER 2024-11-08 12:02 | Outpatient (REF) | payer MEDICARE, MEDICAID, SELFPAY ==
[2024-11-08 14:00] LABS: Free T4 (Free Thyroxine) 0.91 ng/dL (0.71-1.85)
--- OUTSIDE RECORDS SUMMARY | 2024-11-08 14:32 | XMS_ITS | Patient Health Record ---
Author Organization [facility] Address [address] [place] [address] Care Team Providers Care Transmission Line Engineer Name Role Phone Pedro Prado MD Primary Care Provider Juan Manuel Mahoney Unavailable [phone] Allergies Allergen (clinical drug ingredient) Drug/Non Drug [...] Status Risk Notes Problem Colon cancer screening (113040547) Colon cancer screening (V76.51) Active confirmed Problem Gastroesophageal reflux disease (599446686) GERD (gastroesophag eal reflux disease) (530.81) Active confirmed Problem History of adenomatous polyp of colon (396107931) History of adenomatous polyp of colon (V12.72) Active confirmed Plan Of Treatment Future Test Test Name Order Date COLONOSCOPY 07/15/2014 Insurance Providers Payer Name Payer Address Payer Phone Subscriber Number Group Number Insured Name Patient Relationship to Insured Coverage Start Date Coverage End Date MEDICARE OF [place] [address] [place] [id number] SHELL NARVAEZ Self - patient is the insured [facility] [address] [place] [phone] [id number] SHELL NARVAEZ Self - patient is the [...] removed Diverticulosis Internal hemorrhoids Hyperlipidemia Seizures Breast drthuw-mjiy-xxrjb-2004-sees Dr. Letitia parsons Denies [place],DM,CVA,Lung disease,renal dise ase Kidney stones Sleep apnea--uses a CPAP mask sometimes Surgical History Surgery Date(Month/Year) C-sections x4 left knee arthroscopy right knee arthroscopy CCY Lumpectomy and lymph nodes, left breast 2004
--- OUTSIDE RECORDS SUMMARY | 2024-11-08 14:32 | XMS_ITS | Clinical Summary ---
Author Organization [employer] Address [address] 7[address] [place] [address] Care Team Providers Care Crimping Press Operator Name Role Phone Unavailable Primary Care [...]
[2024-11-08 15:34] LABS: Appearance Urine Clear; Glucose Urine UA Negative (Negative); PH 6.0 (5.0-9.0); Specific Gravity - Urine 1.015 (1.005-1.025)
[2024-11-12 03:39] LABS: Iodine, Serum/Plasma 46 mcg/L (52-109)
[2024-11-12 09:37] LABS: Triiodothyronine T3 Reverse 15 ng/dL (8-25)
== END 2024-11-08 12:03 | disposition home or self-care (01) ==
LOC: HO.LAB 12:02
PROVIDERS: PCP Internal Medicine
DX: E04.1 Nontoxic single thyroid nodule (principal)
CPT/HCPCS: 36415; 81003; 83789; 84439; 84443; 84480; 84481; 84482

== ENCOUNTER 2024-11-25 10:16 | Outpatient (REF) | payer MEDICARE, MEDICAID, SELFPAY ==
--- NOTE | ~2024-11-25 | US_ITS ---
EXAMINATION: US THYROID CLINICAL INFORMATION: Dysphonia. COMPARISON: None available. TECHNIQUE: Linear transducer grayscale and color Doppler examination with attention to the region of the thyroid. FINDINGS: SIZE: Measurements of the thyroid lobes and nodules are given in sagittal, anteroposterior and transverse dimensions respectively. Right Thyroid Lobe: 3.0 x 1.8 x 1.2 cm, volume 3.4 mL. Parenchyma: The gland echotexture is normal. Scattered subcentimeter choroidal cysts. Thyroid vascularity is normal. Left Thyroid Lobe: 3.0 x 1.5 x 1.0 cm, volume 2.4 mL. Parenchyma: The gland echotexture is normal. Scattered subcentimeter choroidal cysts.Thyroid vascularity is normal. Isthmus: 0.2 cm in maximum AP dimension. Estimated total number of nodules greater than or equal to 1 cm: 0. Parking Enforcer nodules are described as follows: NODES: No lymphadenopathy is seen in the tissue surrounding the thyroid gland. US/US thyroid IMPRESSION: ACR TI-RADS category: 1 ACR TI-RADS RECOMMENDATION REFERENCE: Ultrasound-guided fine-needle aspiration, followup ultrasound, no further follow up. * TR1 (0 point) and TR2 (2 points): No FNA or follow up. * TR3 (3 points): FNA if more than or equal to 2.5 cm in maximum dimension, followup ultrasound in 1, 3 and 5 years if 1.5 to 2.4 cm in maximum dimension. * TR4 (4-6 points): FNA if more than or equal to 1.5 cm in maximum dimension, followup ultrasound in 1, 2, 3 and 5 years if 1 to 1.4 cm in maximum dimension. * TR5 (more than or equal to 7 points): FNA if more than or equal to 1 cm in maximum dimension, followup ultrasound every year for 5 years if 0.5 to 0.9 cm in maximum dimension. * TR3, TR4 or TR5 nodules that are below the size threshold for followup receive no follow up. Electronically signed by: Dwight Teague MD 11/25/2024 11:02 AM EDT
--- OUTSIDE RECORDS SUMMARY | 2024-11-25 11:25 | XMS_ITS | Clinical Summary ---
Author Organization [facility] Address [address] [place] [address] Phone Care Team Providers Care Awning Hanger Name Role Phone Pedro Prado MD Unavailable Meghan Hodge NP Unavailable [phone] Bayron Wilson MD Unavailable [phone] Unknown, Unknown Primary Care Provider Ena [...] 90 tablet 3 03/27/19 21 Active vit C,N-jnawgv-zmukucy hin-minerals (PRESERVISION AREDS-2) capsule Take 1 capsule [...] malignant causes. I do not do a MANAGER OB examinations but the patient should seek out a airborne sensor specialist. Since she lives in [place] we will set the patient up with Dr. Kashif Saha, airborne sensor specialist. Who will be marked a urgent consult. The airborne sensor specialist can decide whether to image her. We [...] Smoking Tobacco: Former Cigarettes 0.5 14 1 194 - 6206 Passive Smoke Exposure: Past Smokeless Tobacco: Never [...] EDT) SODIUM 139 133 - 146 mmol/L [facility] CHLORIDE 100 96 - 108 mmol/L [facility] POTASSIUM 4.5 3.3 - 5.1 mmol/L [facility] Comment:Specimen slightly he molyzed, result may be falsely elevated. CO2 28 21 - 35 mmol/L [facility] BUN 21(H) 6 - 19 mg/dL [facility] CREATININE 0.90 0.5 - 1.5 mg/dL [facility] GLUCOSE 90 70 - 99 mg/dL [facility] CALCIUM 10.1 8.4 - 10.3 mg/dL [facility] EGFR 65 >59 mL/min/1.7 3m2 [facility] Comment:Estimated glomerular filtration rate calculated using the CKD-EPI refit equation. ANION GAP 16 10 - 20 mmol/L [facility] Blood 06/24/2022 4:15 PM EDT 06/24/2022 4:17 PM EDT Pedro Prado MD LAB BLOOD ORDERABLES Final Re sult [facility] [address] [place] [address] * DEXA SCAN (07/06/2021) Historical Provider HEALTH MAINTENANCE Edited Result - Final from Last 3 Months or Most Recently Relevant to Health Maintenance [facility] MEDIC[facility] REPLACEMENT [facility] B [employer] PPO MEDICARE [place] [address] [place] [address] MEDICARE PART A & B [facility] PPO MEDICARE [facility]PLACEMENT [place] [place] [address] MEDICARE PART A & B [facility] MEDICARE REPLACEMENT [facility] B [facility] MEDICARE REPLACEMENT [facility] MEDICARE REPLACEMENT [facility] MEDIC[facility] PART A & B [employer] PPO MEDICARE REPLACEMENT [facility] MEDICARE PART A & B [facility] PPO MEDICARE REPLACEMENT [facility] MEDICARE PART A & B [facility] MEDICARE REPLACEMENT Care Teams Awning Hanger Relationship Specialty Start Date End Date Unknown, Unknown, PCP - General 06/26/23 Pedro Prado MD [address] [place] [id number] [email or web address] Historical LMR Provider 12/17/16 Meghan Hodge NP [address] [place] [address] [email or web address] Historical LMR Provider 12/17/16 Bayron Wilson MD [address] [place] [address] Internal [place] [address] Hospitalist 04/02/19 Additional Source Comments The information contained in this document represents components of the legal health record. It is not the complete legal health record.[facility]
--- OUTSIDE RECORDS SUMMARY | 2024-11-25 11:25 | XMS_ITS | Patient Health Record ---
Author Organization [facility] Address [address] [place] [address] Care Team Providers Care Malthouse Laborer Name Role Phone Pedro Prado MD Primary Care Provider Juan Manuel Mahoney Unavailable [phone] Allergies Allergen (clinical drug ingredient) Drug/Non Drug [...] Status Risk Notes Problem Colon cancer screening (397570465) Colon cancer screening (V76.51) Active confirmed Problem Gastroesophageal reflux disease (678180190) GERD (gastroesophag eal reflux disease) (530.81) Active confirmed Problem History of adenomatous polyp of colon (628292976) History of adenomatous polyp of colon (V12.72) Active confirmed Plan Of Treatment Future Test Test Name Order Date COLONOSCOPY 07/15/2014 Insurance Providers Payer Name Payer Address Payer Phone Subscriber Number Group Number Insured Name Patient Relationship to Insured Coverage Start Date Coverage End Date MEDICARE OF [place] [address] [place] [id number] SHELL NARVAEZ Self - patient is the insured [facility]ICAID [facility] [address] [place] [phone] [id number] SHELL NARVAEZ Self - patient is the [...] removed Diverticulosis Internal hemorrhoids Hyperlipidemia Seizures Breast pjjpoe-apls-houqs-2004-sees Dr. Letitia parsons Denies [place],DM,CVA,Lung disease,renal dise ase Kidney stones Sleep apnea--uses a CPAP mask sometimes Surgical History Surgery Date(Month/Year) C-sections x4 left knee arthroscopy right knee arthroscopy [facility]Y Lumpectomy and lymph nodes, left breast 2004
--- OUTSIDE RECORDS SUMMARY | 2024-11-25 11:25 | XMS_ITS | Clinical Summary ---
Author Organization [employer] Address [address] 7[address] [place] [address] Care Team Providers Care Cost Accounting Clerk Name Role Phone Unavailable Primary Care Provider [...]
== END 2024-11-25 10:17 | disposition home or self-care (01) ==
LOC: HO.US 10:16
PROVIDERS: PCP Internal Medicine
DX: E04.1 Nontoxic single thyroid nodule (principal); R49.0 Dysphonia
CPT/HCPCS: 76536

== ENCOUNTER → 2024-11-25 10:19 | Outpatient (BNV) | payer MEDICARE, MEDICAID, SELFPAY | PROVIDERS: PCP Internal Medicine; Visit Provider Radiology Diagnostic Radiology | DX: R49.0 Dysphonia (principal) | CPT/HCPCS: 76536 ==

== ENCOUNTER 2024-12-18 12:58 | Outpatient (AMB) | payer MEDICARE, MEDICAID, SELFPAY ==
[2024-12-18 13:04] VITALS: BP 126/80; PULSE 85; O2SAT 96; BMI 34.4
--- NOTE | 2024-12-18 13:04 | A.OFFVIS_ITS ---
Vital Signs 12/18/24 13:04 Height 5 ft Weight 176 lb 5.917 oz BMI 34.4 BP 126/80 Blood Pressure Location Rt brachial Position Sitting Pulse 85 Pulse Oximetry (%) 96 Oxygen Delivery Method Room Air Intake Visit Reasons: Nontoxic single thyroid nodule Intake Note: NEW Patient presents today to establish care for Nontoxic single thyroid nodule: Electroformer Required: No Accompanied by: Self / Same As Patient Allergies meperidine (Meperidine) Allergy (Intermediate, Verified 12/18/24 13:07) HIVES Sulfa (Sulfonamide Antibiotics) Allergy (Intermediate, Verified 12/18/24 13:07) Unknown phenobarbital (PHENOBARBITAL) Allergy (Unknown, Verified 12/18/24 13:07) SWELLING HPI Comments Details: 84 years old female with past medical history of hypertension, vitamin-D deficiency, osteoporosis, seen in the office for evaluation and management of thyroid nodule. Patient seen by PCP, reported that she complained of fatigue and not sounding like herself , her voice is raspy. She reported having voice change for several months. She also reports sore throat. She also reports feeling tired. Per patient report, her PCP examine her throat and order thyroid labs and US, both reports as normal. Referral was placed for non-toxic single nodule, with a note about iodine level low at 46. ROS: reports fatigue, sleeps well Gaining some weight Voice change No constipation No cold intolerance She dysphagia or odynophagia She does has a history of acid reflux Physical exam: General: Well appearing. NAD. Neck/Thyroid: Thyroid not palpable, no nodules. There is a small, nodularity in left neck, felt in very close proximity to sternocleidomastid muscle, deep, not firm nor soft. Not painful to palpation. Does seem to be adhered to deep tissue in the neck. To high to be in thyroid area. CV: RRR, no murmur. No edema. Resp:Lungs clear to auscultation bilaterally\ Abdomen: Soft, nontender. nondistended Extremities/Neuro: No weakness or tremor of outstretched hands Laboratory Tests 10/15/24 11/08/24 14:45 12:18 WBC 7.8 Hgb 14.7 Sodium 141 Potassium 4.6 Creatinine 0.77 Estimated GFR > 60 Calcium 9.7 TSH 3.40 Free T4 0.91 Imaging: US thyroid 11/25/24 FINDINGS: SIZE: Measurements of the thyroid lobes and nodules are given in sagittal, anteroposterior and transverse dimensions respectively. Right Thyroid Lobe: 3.0 x 1.8 x 1.2 cm, volume 3.4 mL. Parenchyma: The gland echotexture is normal. Scattered subcentimeter choroidal cysts. Thyroid vascularity is normal. Left Thyroid Lobe: 3.0 x 1.5 x 1.0 cm, volume 2.4 mL. Parenchyma: The gland echotexture is normal. Scattered subcentimeter choroidal cysts.Thyroid vascularity is normal. Isthmus: 0.2 cm in maximum AP dimension. Estimated total number of nodules greater than or equal to 1 cm: 0. Alarm Operator nodules are described as follows: NODES: No lymphadenopathy is seen in the tissue surrounding the thyroid gland. IMPRESSION: ACR TI-RADS category: 1 PFSH Medical History Acute dehydration Dysuria Dementia Recurrent UTI (urinary tract infection) Myoma Postmenopausal bleeding Palpitations Premature ventricular complex Breast cancer Vitamin D deficiency Osteoporosis Surgical History History of colonoscopy (~10/13/14) History of breast biopsy History of History of knee surgery Family History Father Appendicitis, acute Mother No problems noted. Social History Household Members: None Housing: House Alcohol intake: never Patient Tobacco Use Status: Former Tobacco user e-Cigarette/Vaping Use: Never Used Second Hand Smoke Exposure: Yes service: No Current occupational status: retired Cognitive needs: No Hearing needs: No Vision needs: Yes (glasses) Physical Exam Vital Signs: Last Vital Signs Pulse 85 12/18/24 13:04 BP 126/80 12/18/24 13:04 Pulse Ox 96 12/18/24 13:04 Oxygen Delivery Method Room Air 12/18/24 13:04 BMI result Body Mass Index 34.4 Assessment & Plan Assessment & Plan (1) Thyroid nodule: Code(s): E04.1 - Nontoxic single thyroid nodule Category: Medical Plan Patient referred for thyroid nodules but US did not show any evidence of thyroid nodules. Upon asking the patient, she reported raspy voice and sore throat for the last few months, but she also has history of GERD on Pantoprazole. Patient has a nodule in her neck, midway between clavicle and submandibular area, not painful, adhere to deep tissue, but is to high to be in thyroid. I discussed this with patient and advice to discuss with PCP possible referral to ENT for persistent voice change if appropriate. She does not need follow up with endocrine for thyroid nodules. Coding Level of Care Code New Pt Level 3 (06865) Diagnoses Thyroid nodule E04.1 Time Spent (min) 35 Comment Time spent reviewing previous records, labs, imaging, provider notes; and education
--- OUTSIDE RECORDS SUMMARY | 2024-12-18 18:10 | XMS_ITS | Clinical Summary ---
Author Organization [facility] Address [address] [place] [address] Phone Care Team Providers Care Agricultural Equipment Test Engineer Name Role Phone Pedro Prado MD Unavailable Meghan Hodge NP Unavailable [phone] Bayron Wilson MD Unavailable [phone] Unknown, Unknown Primary Care Provider Ena [...] 90 tablet 3 03/27/19 21 Active vit C,X-cgvazq-dzeyydy hin-minerals (PRESERVISION AREDS-2) capsule Take 1 capsule [...] malignant causes. I do not do a COMMERCIAL ESCROW OFFICER examinations but the patient should seek out a licensed clinical social worker. Since she lives in [place] we will set the patient up with Dr. Kashif Saha, licensed clinical social worker. Who will be marked a urgent consult. The licensed clinical social worker can decide whether to image her. We [...] Smoking Tobacco: Former Cigarettes 0.5 14 1 074 - 5885 Passive Smoke Exposure: Past Smokeless Tobacco: Never [...] EDT) SODIUM 139 133 - 146 mmol/L [facility] CHLORIDE 100 96 - 108 mmol/L [facility] POTASSIUM 4.5 3.3 - 5.1 mmol/L [facility] Comment:Specimen slightly he molyzed, result may be falsely elevated. CO2 28 21 - 35 mmol/L [facility] BUN 21(H) 6 - 19 mg/dL [facility] CREATININE 0.90 0.5 - 1.5 mg/dL [facility] GLUCOSE 90 70 - 99 mg/dL [facility] CALCIUM 10.1 8.4 - 10.3 mg/dL [facility] EGFR 65 >59 mL/min/1.7 3m2 [facility] Comment:Estimated glomerular filtration rate calculated using the CKD-EPI refit equation. ANION GAP 16 10 - 20 mmol/L [facility] Blood 06/24/2022 4:15 PM EDT 06/24/2022 4:17 PM EDT Pedro Prado MD LAB BLOOD ORDERABLES Final Re sult [facility] [address] [place] [address] * DEXA SCAN (07/06/2021) Historical Provider HEALTH MAINTENANCE Edited Result - Final from Last 3 Months or Most Recently Relevant to Health Maintenance Insurance [facility] MEDIC[facility] PART A & B [facility] MEDICARE REPLACEMENT [facility] PART A & B [facility] PPO MEDICARE [place] [address] [place] [address] MEDICARE PART A & B [facility] PPO MEDICARE REPLACEMENT [place] [place] [address] MEDICARE PART A & B [facility] MEDICARE REPLACEMENT [facility] PART A & B [facility] MEDICARE REPLACEMENT [facility] MED[facility] PART A & B [facility] MEDICARE REPLACEMENT [facility] MEDICARE PART A & B [employer] PPO MEDICARE REPLACEMENT [facility] MEDICARE PART A & B [employer] PPO MEDICARE REPLACEMENT [facility] MEDICARE PART A & B [facility] MEDICARE REPLACEMENT Care Teams Agricultural Equipment Test Engineer Relationship Specialty Start Date End Date Unknown, Unknown, PCP - General 06/26/23 Pedro Prado MD [address] [place] [address] [email or web address] Historical LMR Provider 12/17/16 Meghan Hodge NP [address] [place] [address] [email or web address] Historical LMR Provider 12/17/16 Bayron Wilson MD [address] [place] [address] [place] [address] Hospitalist 04/02/19 Additional Source Comments The information contained in this document represents components of the legal health record. It is not the complete legal health record.[facility]
--- OUTSIDE RECORDS SUMMARY | 2024-12-18 18:10 | XMS_ITS | Patient Health Record ---
Author Organization [facility] Address [address] [place] [address] Care Team Providers Care Biomed Tech Name Role Phone Pedro Prado MD Primary Care Provider Juan Manuel Mahoney Unavailable [phone] Allergies Allergen (clinical drug ingredient) Drug/Non Drug [...] Packs 240 GM as directed Orally as directed; Duration: 1 day(s) 07/17/2014 Active Atorvastatin Calcium 10 [...] Status Risk Notes Problem Colon cancer screening (452383869) Colon cancer screening (V76.51) Active confirmed Problem Gastroesophageal reflux disease (218249561) GERD (gastroesophag eal reflux disease) (530.81) Active confirmed Problem History of adenomatous polyp of colon (298965216) History of adenomatous polyp of colon (V12.72) Active confirmed Plan Of Treatment Future Test Test Name Order Date COLONOSCOPY 07/15/2014 Insurance Providers Payer Name Payer Address Payer Phone Subscriber Number Group Number Insured Name Patient Relationship to Insured Coverage Start Date Coverage End Date MEDICARE OF [place] [address] [place] [id number] SHELL NARVAEZ Self - patient is the insured [facility]ICAID [facility] [address] [place] [phone] [id number] SHELL NARVAEZ Self - patient is the [...] removed Diverticulosis Internal hemorrhoids Hyperlipidemia Seizures Breast oylzdf-gbge-iyptl-2004-sees Dr. Letitia parsons Denies [place],DM,CVA,Lung disease,renal dise ase Kidney stones Sleep apnea--uses a CPAP mask sometimes Surgical History Surgery Date(Month/Year) C-sections x4 left knee arthroscopy right knee arthroscopy CCY Lumpectomy and lymph nodes, left breast 2004
--- OUTSIDE RECORDS SUMMARY | 2024-12-18 18:10 | XMS_ITS | Clinical Summary ---
Author Organization [employer] Address [address] [place] [address] Care Team Providers Care Real Estate Management Specialist Name Role Phone Unavailable Primary Care [...]
== END 2024-12-18 13:37 | disposition home or self-care (01) ==
LOC: HO.ENCR 12:58
PROVIDERS: PCP Internal Medicine; Visit Provider Student in an Organized Health Care Education/Training Program
DX: E04.1 Nontoxic single thyroid nodule (principal)
CPT/HCPCS: 99203

== ENCOUNTER → 2024-12-18 12:58 | Outpatient (BNVA) | payer MEDICARE, MEDICAID, SELFPAY | PROVIDERS: PCP Internal Medicine; Visit Provider Student in an Organized Health Care Education/Training Program | DX: E04.1 Nontoxic single thyroid nodule (principal) | CPT/HCPCS: 99202 ==

== ENCOUNTER 2025-01-02 12:10 | Outpatient (REF) | payer MEDICARE, MEDICAID, SELFPAY ==
[2025-01-02 13:50] LABS: Albumin Level 4.3 g/dL (3.5-5.0); Anion Gap 12 (12-20); Blood Urea Nitrogen 12 mg/dL (9-16); Calcium 9.6 mg/dL (8.4-10.2); Carbon Dioxide 30 mmol/L (22-29); Chloride 105 mmol/L (96-108); Estimated Glomerular Filt Rate > 60; Potassium 4.2 mmol/L (3.3-5.1); Sodium 143 mmol/L (135-145)
--- OUTSIDE RECORDS SUMMARY | 2025-01-02 15:10 | XMS_ITS | Clinical Summary ---
Author Organization [facility] Address [address] [place] [address] Phone Care Team Providers Care Senior Ui Software Engineer Name Role Phone Pedro Prado MD Unavailable [phone] Meghan Hodge NP Unavailable [phone] Bayron Wilson MD Unavailable [phone] Unknown, Unknown Primary Care Provider Ena [...] 90 tablet 3 03/27/19 21 Active vit C,U-gdnnsw-lnkvsmk hin-minerals (PRESERVISION AREDS-2) capsule Take 1 capsule [...] malignant causes. I do not do a DASHBOARD DEVELOPER examinations but the patient should seek out a fire prevention officer. Since she lives in [place] we will set the patient up with Dr. Kashif Saha, fire prevention officer. Who will be marked a urgent consult. The fire prevention officer can decide whether to image her. We [...] Smoking Tobacco: Former Cigarettes 0.5 14 1 794 - 3132 Passive Smoke Exposure: Past Smokeless Tobacco: Never [...] Date/Time Associated Diagnosis Comments BASIC METABOLIC PANEL (BMP) Routine 06/24/2022 4:15 PM EDT Primary osteoarthritis involving multiple joints Vaginal bleeding Essential hypertension DEXA SCAN Routine 07/06/2021 from Last 3 Months or Most Recently Relevant to Health Maintenance Results * (ABNORMAL) Basic metabolic panel (06/24/2022 4:15 PM EDT) SODIUM 139 133 - 146 mmol/L [facility] CHLORIDE 100 96 - 108 mmol/L [facility] POTASSIUM 4.5 3.3 - 5.1 mmol/L [facility] Comment:Specimen slightly he molyzed, result may be falsely elevated. CO2 28 21 - 35 mmol/L [facility] BUN 21(H) 6 - 19 mg/dL [facility] CREATININE 0.90 0.5 - 1.5 mg/dL [facility] GLUCOSE 90 70 - 99 mg/dL [facility] CALCIUM 10.1 8.4 - 10.3 mg/dL [facility] EGFR 65 >59 mL/min/1.7 3m2 [facility] Comment:Estimated glomerular filtration rate calculated using the CKD-EPI refit equation. ANION GAP 16 10 - 20 mmol/L [facility] Blood 06/24/2022 4:15 PM EDT 06/24/2022 4:17 PM EDT Pedro Prado MD LAB BLOOD BKR ORDERABLES Jovanna l Result [facility] [address] [place] [address] * DEXA SCAN (07/06/2021) us Historical Provider HEALTH MAINTENANCE Edited Result - Final from Last 3 Months or Most Recently Relevant to Health Maintenance [facility] MEDIC[facility] REPLACEMENT [facility] & B [facility] PPO MEDICARE REPLACEMENT [facility] MEDICARE PART A & B [employer] PPO MEDICARE REPLACEMENT [facility] MEDICARE PART A & [place] [id number] [facility] P[facility] MEDICARE REPLACEMENT [facility] & B [facility] MEDIC[facility]PLAC[facility] A & B [facility] MEDICARE REPLACEMENT [facility] MEDICARE PART A & B [employer] PPO MEDICARE REPLACEMENT [facility] MEDICARE PART A & B [employer] PPO MEDICARE REPLACEMENT [facility] MEDICARE PART A & B [facility] MEDICARE REPLACEMENT Care Teams Senior Ui Software Engineer Relationship Specialty Start Date End Date Unknown, Unknown, PCP - General 06/26/23 Pedro Prado MD [address] [place] [address] [email or web address] Historical LMR Provider 12/17/16 Meghan Hodge NP [address] [place] [address] [email or web address] Historical LMR Provider 12/17/16 Bayron Wilson MD [address] [place] [address] [place] [address] Hospitalist 04/02/19 Additional Source Comments The information contained in this document represents components of the legal health record. It is not the complete legal health record.[facility]
--- OUTSIDE RECORDS SUMMARY | 2025-01-02 15:10 | XMS_ITS | Clinical Summary ---
Author Organization [employer] Address [address] [facility] [address] [place] [address] Care Team Providers Care Customs Brokerage Manager Name Role Phone Unavailable Primary Care Provider [...]
--- OUTSIDE RECORDS SUMMARY | 2025-01-02 15:10 | XMS_ITS | Patient Health Record ---
Author Organization [facility] Address [address] [place] [address] Care Team Providers Care Hogshead Stripper Name Role Phone Pedro Prado MD Primary Care Provider Juan Manuel Mahoney Unavailable [phone] Allergies Allergen (clinical drug ingredient) Drug/Non Drug [...] Status Risk Notes Problem Colon cancer screening (689421740) Colon cancer screening (V76.51) Active confirmed Problem Gastroesophageal reflux disease (265681069) GERD (gastroesophag eal reflux disease) (530.81) Active confirmed Problem History of adenomatous polyp of colon (457873285) History of adenomatous polyp of colon (V12.72) Active confirmed Plan Of Treatment Future Test Test Name Order Date COLONOSCOPY 07/15/2014 Insurance Providers Payer Name Payer Address Payer Phone Subscriber Number Group Number Insured Name Patient Relationship to Insured Coverage Start Date Coverage End Date MEDICARE OF [place] [address] [place] [id number] SHELL NARVAEZ Self - patient is the insured MEDICAID [facility] [address] [place] [phone] [id number] SHELL NARVAEZ Self - patient is the [...] removed Diverticulosis Internal hemorrhoids Hyperlipidemia Seizures Breast [id number]-[id number] Dr. Letitia parsons Denies [place],DM,CVA,Lung disease,renal dise ase Kidney stones Sleep apnea--uses a CPAP mask sometimes Surgical History Surgery Date(Month/Year) C-sections x4 left knee arthroscopy right knee arthroscopy CCY Lumpectomy and lymph nodes, left breast 2004
== END 2025-01-02 12:11 | disposition home or self-care (01) ==
LOC: HO.LAB 12:10
PROVIDERS: PCP Internal Medicine; Visit Provider Internal Medicine Endocrinology, Diabetes & Metabolism
DX: M81.0 Age-related osteoporosis without current pathological fracture (principal)
CPT/HCPCS: 36415; 80048; 82040

== ENCOUNTER 2025-01-09 12:44 | Outpatient (AMB) | payer MEDICARE, MEDICAID, SELFPAY ==
[2025-01-09 12:53] VITALS: BP 142/78; PULSE 76; TEMP 36.8; O2SAT 98; BMI 34.6
--- NOTE | 2025-01-09 12:53 | AM.OFFWIN_ITS ---
Intake Vital Signs 01/09/25 12:53 Height 5 ft Weight 177 lb BMI 34.6 BP 142/78 H Blood Pressure Location Rt brachial Position Sitting Pulse 76 Pulse Source Pulse Oximeter Temp 98.2 F Temp Source Oral Pulse Oximetry (%) 98 Oxygen Delivery Method Room Air Intake Visit Reasons: EP Sore throat Intake Note: Patient presents c/o sore throat, losing voice x2-3 days. Patient Tobacco Use Status: Former Tobacco user Allergies meperidine (Meperidine) Allergy (Intermediate, Verified 01/09/25 12:57) HIVES Sulfa (Sulfonamide Antibiotics) Allergy (Intermediate, Verified 01/09/25 12:57) Unknown phenobarbital (PHENOBARBITAL) Allergy (Unknown, Verified 01/09/25 12:57) SWELLING Do you need a note to return to daycare/school/sports/work: No HPI HPI Comments History of Present Illness Details 84 y/o Female presents to the walk-in [facility] with c/o sore throat for over a week. Reports pain with talking and hoarse voice. Denies difficulty swallowing, shortness of breath, chest pain, wheezing, cough, fever, or chills. Reports gums have been tender lately. She uses Peridex mouthwash and has a dental appointment scheduled in January. [facility] Medical History (Updated 01/09/25 @ 13:39 by Shanda Boswell NP) Sore throat Acute dehydration Dysuria Dementia Recurrent UTI (urinary tract infection) Myoma Postmenopausal bleeding Palpitations Premature ventricular complex Breast cancer Vitamin D deficiency Osteoporosis Surgical History History of colonoscopy (~10/13/14) History of breast biopsy History of History of knee surgery Family History Father Appendicitis, acute Mother No problems noted. Social History Household Members: None Housing: House Alcohol intake: never Patient Tobacco Use Status: Former Tobacco user e-Cigarette/Vaping Use: Never Used Second Hand Smoke Exposure: Yes service: No Current occupational status: retired Cognitive needs: No Hearing needs: No Vision needs: Yes (glasses) Review of Systems Const All systems reviewed & are unremarkable except as noted in HPI and below Physical Exam Vital Signs: Last Vital Signs Temp 98.2 F 01/09/25 12:53 Pulse 76 01/09/25 12:53 BP 142/78 H 01/09/25 12:53 Pulse Ox 98 01/09/25 12:53 Oxygen Delivery Method Room Air 01/09/25 12:53 BMI result Body Mass Index 34.6 Const General: no acute distress Nutritional Appearance: obese Orientation/consciousness: patient oriented x3 HEENT Head: Yes normocephalic Ears: external ears normal and TM's normal bilaterally General nose exam: Normal external nose present and No nasal discharge present Face and sinus: Yes sinuses nontender Mouth: moist mucous membranes and Abnormal oral and palatal mucosa present erythematous; no white patches, no lacerations and papules Teeth and gingiva: poor dentition Throat: Yes uvula midline Neck Neck: Yes full ROM and Yes trachea midline Lymphatic: lymphadenopathy (Tonsillar lymph node.) Resp Effort & Inspection: normal respiratory effort Auscultation: clear to auscultation bilaterally Cardio Heart sounds: S1 normal heart sound present and S2 normal heart sound present Neuro General: patient oriented x3 Results AMB Rapid Strep AMB Rapid Strep Negative Last Edit by Jhonny Washington CMA on 01/09/25 13 :31 Results Reviewed Results Reviewed: Laboratory Last Values Strep Scn Rapid Clinic Negative 01/09/25 13:06 Assessment & Plan Assessment & Plan (1) Sore throat: Code(s): J02.9 - Acute pharyngitis, unspecified Plan: Laryngitis ? likely viral vs irritation related. Rapid Strep Negative in office. Gingival tenderness ? likely local irritation; continue dental follow-up. Supportive care: increase oral fluids, rest voice. Warm saline gargles 2?3 times daily. Avoid spicy/acidic foods and alcohol-based mouthwash temporarily. May use throat lozenges or honey/lemon tea for symptom relief. Continue Peridex per dentist?s instructions. Monitor for worsening pain, difficulty swallowing, or fever ? return if symptoms persist beyond 10?14 days or worsen. Consinder ENT referral. Orders: Orders AMB Rapid Strep Screen Today Z13.9 - Encounter for screening, unspecified Coding Level of Care Code Est Pt Level 4 (58402) Diagnoses Sore throat J02.9 Time Spent (min) 20
--- OUTSIDE RECORDS SUMMARY | 2025-01-09 15:52 | XMS_ITS | Clinical Summary ---
Author Organization [facility] Address [address] [place] [address] Phone Care Team Providers Care Lot Worker Name Role Phone Pedro Prado MD Unavailable [phone] Meghan Hodge NP Unavailable [phone] Bayron Wilson MD Unavailable [phone] Unknown, Unknown Primary Care Provider Ena [...] 90 tablet 3 03/27/19 21 Active vit C,Y-mobulj-pauqrvu hin-minerals (PRESERVISION AREDS-2) capsule Take 1 capsule [...] malignant causes. I do not do a WORKER'S COMPENSATION CLAIMS EXAMINER examinations but the patient should seek out a operating manager. Since she lives in [place] we will set the patient up with Dr. Kashif Saha, operating manager. Who will be marked a urgent consult. The operating manager can decide whether to image her. We [...] Smoking Tobacco: Former Cigarettes 0.5 14 1 354 - 0003 Passive Smoke Exposure: Past Smokeless Tobacco: Never [...] patient's age to complete this topic IPV VACCINES Aged Out No longer eligi ble [...] SODIUM 139 133 - 146 mmol/L [facility] CHLORIDE 100 96 - 108 mmol/L [facility] POTASSIUM 4.5 3.3 - 5.1 mmol/L [facility] Comment:Specimen slightly he molyzed, result may be falsely elevated. CO2 28 21 - 35 mmol/L [facility] BUN 21(H) 6 - 19 mg/dL [facility] CREATININE 0.90 0.5 - 1.5 mg/dL [facility] GLUCOSE 90 70 - 99 mg/dL [facility] CALCIUM 10.1 8.4 - 10.3 mg/dL [facility] EGFR 65 >59 mL/min/1.7 3m2 [facility] Comment:Estimated glomerular filtration rate calculated using the CKD-EPI refit equation. ANION GAP 16 10 - 20 mmol/L [facility] Blood 06/24/2022 4:15 PM EDT 06/24/2022 4:17 PM EDT us Pedro Prado MD LAB BLOOD BKR ORDERABLES Jovanna l Result [facility] [address] [place] [address] * DEXA SCAN (07/06/2021) us Historical Provider HEALTH MAINTENANCE Edited Result - Final from Last 3 Months or Most Recently Relevant to Health Maintenance [facility] B [facility]PLAC[facility] MEDICARE [facility]PLACEMENT [facility] MED[facility] PART A & B [facility] [facility] MEDICARE REPLACEMENT [facility] MEDICARE PART A & B [facility] PPO MEDICARE REPLACEMENT [facility] B [facility] REPL[facility]EMENT [facility] MED[facility]PL[facility]EMENT [facility] MED[facility] PART A & B [facility] PPO MEDICARE [facility]PLACEMENT [facility] MED[facility]ARE PART A & B [facility] PPO MEDICARE REPLACEMENT [facility] MEDICARE PART A & B [facility] MEDICARE REPLACEMENT Care Teams Lot Worker Relationship Specialty Start Date End Date Unknown, Unknown, PCP - General 06/26/23 Pedro Prado MD [address] [place] [address] Historical LMR Provider 12/17/16 Meghan Hodge NP [address] [place] [address] Historical LMR Provider 12/17/16 Bayron Wilson MD [address] [place] [address] [place] [address] Hospitalist 04/02/19 Additional Source Comments The information contained in this document represents components of the legal health record. It is not the complete legal health record.[facility]
--- OUTSIDE RECORDS SUMMARY | 2025-01-09 15:52 | XMS_ITS | Patient Health Record ---
Author Organization [facility] Address [address] [place] [address] Care Team Providers Care Relay Motorman Name Role Phone Pedro Prado MD Primary Care Provider Juan Manuel Mahoney Unavailable [phone] Allergies Allergen (clinical drug ingredient) Drug/Non Drug [...] Status Risk Notes Problem Colon cancer screening (157833351) Colon cancer screening (V76.51) Active confirmed Problem Gastroesophageal reflux disease (114819174) GERD (gastroesophag eal reflux disease) (530.81) Active confirmed Problem History of adenomatous polyp of colon (221605016) History of adenomatous polyp of colon (V12.72) Active confirmed Plan Of Treatment Future Test Test Name Order Date COLONOSCOPY 07/15/2014 Insurance Providers Payer Name Payer Address Payer Phone Subscriber Number Group Number Insured Name Patient Relationship to Insured Coverage Start Date Coverage End Date MEDICARE OF [place] [address] [place] [id number] [phone] [id number] SHELL NARVAEZ Self - patient is the insured [facility]ICAID [facility] [address] [place] [phone] [id number] SHELL NARVAEZ Self - patient is the [...] removed Diverticulosis Internal hemorrhoids Hyperlipidemia Seizures Breast [id number]-[id number] Dr. Letitia parsons Denies [place],DM,CVA,Lung disease,renal dise ase Kidney stones Sleep apnea--uses a CPAP mask sometimes Surgical History Surgery Date(Month/Year) C-sections x4 left knee arthroscopy right knee arthroscopy [facility] Lumpectomy and lymph nodes, left breast 2004
--- OUTSIDE RECORDS SUMMARY | 2025-01-09 15:52 | XMS_ITS | Clinical Summary ---
Author Organization [employer] Address [address] 7[address] [place] [address] Care Team Providers Care Green Ware Caster Name Role Phone Unavailable Primary Care Provider [...]
== END 2025-01-09 13:54 | disposition home or self-care (01) ==
PROVIDERS: PCP Internal Medicine; Visit Provider Nurse Practitioner Family
DX: J02.9 Acute pharyngitis, unspecified (principal); Z13.9 Encounter for screening, unspecified

== ENCOUNTER → 2025-01-09 12:44 | Outpatient (BNVA) | payer MEDICARE, MEDICAID, SELFPAY | PROVIDERS: PCP Internal Medicine; Visit Provider Nurse Practitioner Family | DX: J02.9 Acute pharyngitis, unspecified (principal) | CPT/HCPCS: 87880; 99212 ==

== ENCOUNTER 2025-01-13 14:15 | Outpatient (AMB) | payer MEDICARE, MEDICAID, SELFPAY ==
[2025-01-13 14:30] VITALS: BP 136/82; PULSE 77; O2SAT 97; BMI 34.2
--- NOTE | 2025-01-13 14:30 | AM.OFFWIN_ITS ---
Intake Vital Signs 01/13/25 14:30 Height 5 ft Weight 175 lb BMI 34.2 BP 136/82 Blood Pressure Location Lt brachial Position Sitting Pulse 77 Pulse Source Pulse Oximeter Pulse Oximetry (%) 97 Oxygen Delivery Method Room Air Intake Visit Reasons: EP-rt ankle pain Intake Note: Patient presents c/o right ankle pain related to stumbling in her yard yest erday. Patient Tobacco Use Status: Former Tobacco user Allergies meperidine (Meperidine) Allergy (Intermediate, Verified 01/13/25 14:33) HIVES Sulfa (Sulfonamide Antibiotics) Allergy (Intermediate, Verified 01/13/25 14:33) Unknown phenobarbital (PHENOBARBITAL) Allergy (Unknown, Verified 01/13/25 14:33) SWELLING HPI HPI Comments History of Present Illness Details 84 y/o female presents to the walk-in [facility] with complaint of right lower extremity pain localized to the right ankle. Patient reports that yesterday evening she tripped and twisted her right ankle while walking in her yard. Since then, she has noted pain and tenderness over the ankle. She has been applying ice/heat and taking Tylenol with mild relief. Denies numbness, tingling, weakness, or inability to bear weight. No other injuries reported. [facility] Medical History (Updated 01/13/25 @ 15:11 by Shanda Bowsell NP) Right ankle strain Sore throat Acute dehydration Dysuria Dementia Recurrent UTI (urinary tract infection) Myoma Postmenopausal bleeding Palpitations Premature ventricular complex Breast cancer Vitamin D deficiency Osteoporosis Surgical History History of colonoscopy (~10/13/14) History of breast biopsy History of History of knee surgery Family History Father Appendicitis, acute Mother No problems noted. Social History Household Members: None Housing: House Alcohol intake: never Patient Tobacco Use Status: Former Tobacco user e-Cigarette/Vaping Use: Never Used Second Hand Smoke Exposure: Yes service: No Current occupational status: retired Cognitive needs: No Hearing needs: No Vision needs: Yes (glasses) Review of Systems Const All systems reviewed & are unremarkable except as noted in HPI and below Physical Exam Vital Signs: Last Vital Signs Pulse 77 01/13/25 14:30 BP 136/82 01/13/25 14:30 Pulse Ox 97 01/13/25 14:30 Oxygen Delivery Method Room Air 01/13/25 14:30 BMI result Body Mass Index 34.2 Const General: no acute distress Nutritional Appearance: overweight Orientation/consciousness: patient oriented x3 Neuro General: patient oriented x3, gait normal and moves all extremities Extrem Right lower extremity: ankle Details: normal to inspection, tenderness Location: of the lateral malleolus and of the medial malleolus, no edema and normal ROM; no swelling, no ecchymosis and no crepitus Psych Speech and movement: Normal speech and movement present Assessment & Plan Assessment & Plan (1) Right ankle strain: Code(s): S96.911A - Strain of unspecified muscle and tendon at ankle and foot level, right foot, initial encounter Qualifiers: Encounter type: initial encounter Qualified Code(s): S96.911A - Strain of unspecified muscle and tendon at ankle and foot level, right foot, initial encounter Plan: Right Ankle Sprain vs Strain. Continue Tylenol as needed for pain or NSAIDs. R.I.C.E.: Rest, ice 20 min 3?4?/day, compression wrap, elevation. Return if worsening pain, inability to bear weight, significant swelling, numbness/tingling. Coding Level of Care Code Est Pt Level 4 (53324) Diagnoses Strain of right ankle, initial encounter S96.911A Encounter type: initial encounter Time Spent (min) 20
== END 2025-01-13 15:13 | disposition home or self-care (01) ==
PROVIDERS: PCP Internal Medicine; Visit Provider Nurse Practitioner Family
DX: S96.911A Strain of unspecified muscle and tendon at ankle and foot level, right foot, initial encounter (principal)

== ENCOUNTER → 2025-01-13 14:15 | Outpatient (BNVA) | payer MEDICARE, MEDICAID, SELFPAY | PROVIDERS: PCP Internal Medicine; Visit Provider Nurse Practitioner Family | DX: S96.911A Strain of unspecified muscle and tendon at ankle and foot level, right foot, initial encounter (principal) | CPT/HCPCS: 99212 ==

== ENCOUNTER 2025-01-15 14:00 | Outpatient (AMB) | payer MEDICARE, MEDICAID, SELFPAY ==
--- NOTE | 2025-01-15 14:04 | A.OFFVIS_ITS ---
Vital Signs 01/15/25 14:05 Height 5 ft Weight 181 lb 3.52 oz BMI 35.4 BP 160/100 H Blood Pressure Location Rt brachial Position Sitting Pulse 92 Pulse Source Pulse Oximeter Pulse Oximetry (%) 99 Oxygen Delivery Method Room Air Intake Visit Reasons: Osteoporosis/prolia Intake Note: Patient present today for Osteoporosis and Prolia injection. Food Preparation Worker Required: No Accompanied by: Self / Same As Patient Allergies meperidine (Meperidine) Allergy (Intermediate, Verified 01/15/25 14:09) HIVES Sulfa (Sulfonamide Antibiotics) Allergy (Intermediate, Verified 01/15/25 14:09) Unknown phenobarbital (PHENOBARBITAL) Allergy (Unknown, Verified 01/15/25 14:09) SWELLING Medication List - Last Reconciled 01/15/25 by Juan Manuel Carrizales MD acetaminophen (Tylenol) 325 mg PO Q4H PRN cholecalciferol (vitamin D3) 100 mcg (2 x 50 mcg (2,000 unit)) PO DAILY 30 days cyanocobalamin (vitamin B-12) (Vitamin B-12) 1,000 mcg PO DAILY denosumab (Prolia) 60 mg subcut [id number] hydrochlorothiazide 12.5 mg PO DAILY magnesium oxide 400 mg PO DAILY memantine (Namenda) 10 mg PO QPM 90 days multivitamin 1 tab PO DAILY pantoprazole 40 mg PO DAILY HPI Comments Details: 84 YO Female who is seen in F/U for Osteoporosis. Patient last saw on 12/18/24 First diagnosed in 2018 after she suffered a compression fracture of the T8 vertebrate. She subsequently had kyphoplasty, which resulted in compression fracture of the T9 vertebrate. She was subsequently referred to Endocrinology. She underwent a full biochemical workup for secondary causes of Oste oporosis and this was WNL. She was started on Prolia 04/09/2019 and tolerated this well. She was due for her second dose in September 2019, but was scheduled for dental extractions so this was placed on hold. She then resumed therapy and had her most recent dose 05/18/2022. No history of pathologic fracture or ONJ. Has 0-1 servings of dietary calcium per day in the form of milk or c heese. Takes a Calcium supplement 600 mg once daily. She takes an additional Vitamin D 2000 IU daily. Takes Omeprazole daily. Was previously on phenobarbital for seizures, but not in many years. Denies ever using anticoagulant or glucocorticoid medication. Does no weight bearing exercise currently. Fracture history: Compression fracture of T8 Vertebrate in June 2018. Had Kyphoplasty 07/10/18 and subsequently suffered compression fracture of the T9 Vertebrate. Height loss: Has lost 4 inches in height. GRUBBER history: Menarche was age 14. Menses was always regular. . She did not breastfeed. Menopause was in her 50's. Did not use HRT. History of Kidney stones: She does have a history of kidney stones. Does not recall if these were calcium stones. Denies a family history of Osteoporosis or hip fracture. DXA dated 07/06/2021: FINDINGS: AP SPINE L1-L4: Current: BMD 1.012 g/cm2, Z-score -0.1, T-score -1.4, osteopenia, 0.4% increase from previous, 6.8% increase from baseline (<5% change is not significant). Prior: BMD 1.008 g/cm2. Baseline: BMD 0.948 g/cm2. LEFT FEMUR, NECK: Current: BMD 0.750 g/cm2, Z-score -0.3, T-score -2.1, osteopenia. Prior: BMD 0.737 g/cm2. Baseline: BMD 0.812 g/cm2. LEFT FEMUR, TOTAL: Current: BMD 0.873 g/cm2, Z-score 0.5, T-score -1.1, osteopenia, 4.6% increase from previous, 9.2% decrease from baseline (<5% change is not significant). Prior: BMD 0.835 g/cm2. Baseline: BMD 0.961 g/cm2. Labs: No recent pertinent labs. Secondary workup was negative. Some back pain but no fx since last visit . She has received almost 5 years of Prolia therapy. Recent bone density showed osteopenia Currently on Prolia due for an injection today. Been on Prolia for 5 years. Nofx since last visit [facility] Medical History (Updated 01/13/25 @ 15:11 by Shanda Boswell NP) Right ankle strain Sore throat Acute dehydration Dysuria Dementia Recurrent UTI (urinary tract infection) Myoma Postmenopausal bleeding Palpitations Premature ventricular complex Breast cancer Vitamin D deficiency Osteoporosis Surgical History History of colonoscopy (~10/13/14) History of breast biopsy History of History of knee surgery Family History Father Appendicitis, acute Mother No problems noted. Social History Household Members: None Housing: House Alcohol intake: never Patient Tobacco Use Status: Former Tobacco user e-Cigarette/Vaping Use: Never Used Second Hand Smoke Exposure: Yes service: No Current occupational status: retired Cognitive needs: No Hearing needs: No Vision needs: Yes (glasses) Physical Exam Vital Signs: Last Vital Signs Pulse 92 01/15/25 14:05 BP 160/100 H 01/15/25 14:05 Pulse Ox 99 01/15/25 14:05 Oxygen Delivery Method Room Air 01/15/25 14:05 BMI result Body Mass Index 35.4 Assessment & Plan Assessment & Plan (1) Osteoporosis: Code(s): M81.0 - Age-related osteoporosis without current pathological fracture Category: Medical Plan: This 83-year-old white female with a history of osteoporosis and compression fractures of the lumbar spine with negative secondary workup. She is currently receiving Prolia since 2020. DEXA bone density shows stability Plan is to continue the Prolia when the subsequent dose is due today. We will continue Prolia for full 10 years Coding Level of Care Code Est Pt Level 3 (27529) Diagnoses Osteoporosis M81.0
[2025-01-15 14:05] VITALS: BP 160/100; PULSE 92; O2SAT 99; BMI 35.4
--- OUTSIDE RECORDS SUMMARY | 2025-01-16 02:17 | XMS_ITS | Patient Health Record ---
Author Organization [facility] Address [address] [place] [address] Care Team Providers Care Brand Ambassador Promotional Model Name Role Phone Pedro Prado MD Primary Care Provider Juan Manuel Mahoney Unavailable [phone] Allergies Allergen (clinical drug ingredient) Drug/Non Drug Allergy documented on EMR Reaction Allergy Type Onset Date Status PCN (uncoded) Unknown Allergy Active phenobarbital Phenobarbitol (uncoded) Unknown Allergy Active meperidine Demerol Unknown Drug Allergy Active Reason For Referral No Information Medications Medication SIG (Take, Route, Frequency, Duration) Notes Start Date End Date Status Omeprazole 20 MG Capsule Delayed Release 1 capsule Orally Once a day Active Colyte w Flavor Packs 240 GM Solution Reconstituted as directed Orally as directed; Duration: 1 day(s) 07/17/2014 Active Atorvastatin Calcium 10 MG Tablet 1 tablet Orally Once a day Active Citalopram & Diet Manage Pro d 10 MG Miscellaneous Orally Active Gabapentin 600 MG Tablet 1 tablet Orally qd Active Multi Vitamin/Minerals 1 Tablet 1 Orally qd Active PreserVision/Lutein 1 Capsule 1 Orally qd Active hydroCHLOROthiazide 12.5 MG Capsule 1 capsule Orally Once a day Active VESIcare 10 MG Tablet 1 tablet Orally On ce a day Active Social History Social History Additional Details Category Social Info Options Details Miscellaneous: Marital status: Occupation: retired Section Notes: Nonsmoker; no alcohol Problems Problem Type SNOMED Code ICD Code Onset Dates Problem Status W/U Status Risk Notes Problem Colon cancer screening (086044809) Colon cancer screening (V76.51) Active confirmed Problem Gastroesophageal reflux disease (833017256) GERD (gastroesophag eal reflux disease) (530.81) Active confirmed Problem History of adenomatous polyp of colon (319304846) History of adenomatous polyp of colon (V12.72) Active confirmed Plan Of Treatment Future Test Test Name Order Date COLONOSCOPY 07/15/2014 Insurance Providers Payer Name Payer Address Payer Phone Subscriber Number Group Number Insured Name Patient Relationship to Insured Coverage Start Date Coverage End Date MEDICARE OF [place] [address] [place] [id number] SHELL NARVAEZ Self - patient is the insured [facility] [address] [place] [address] [id number] SHELL NARVAEZ Self - patient is the [...] removed Diverticulosis Internal hemorrhoids Hyperlipidemia Seizures Breast [id number]-[id number] Dr. Letitia Hamilton [place],DM,CVA,Lung disease,renal dise ase Kidney stones Sleep apnea--uses a CPAP mask sometimes Surgical History Surgery Date(Month/Year) C-sections x4 left knee arthroscopy right knee arthroscopy [facility] Lumpectomy and lymph nodes, left breast 2004
--- OUTSIDE RECORDS SUMMARY | 2025-01-16 02:17 | XMS_ITS | Clinical Summary ---
Author Organization [employer] Address [address] [facility] [facility] [address] [place] [address] Care Team Providers Care Advertising Account Representative Name Role Phone Unavailable Primary Care Provider [...]
--- OUTSIDE RECORDS SUMMARY | 2025-01-16 02:17 | XMS_ITS | Clinical Summary ---
Author Organization [facility] Address [address] [place] [address] Phone Care Team Providers Care Ob Scrub Tech Name Role Phone Pedro Prado MD Unavailable [phone] Meghan Hodge NP Unavailable [phone] Bayron Wilson MD Unavailable [phone] Unknown, Unknown Primary Care Provider Ena wset Allergies Active Allergy Reactions Criticality Noted Date [...] 90 tablet 3 03/27/19 21 Active vit C,R-huwanf-uvkvvey hin-minerals (PRESERVISION AREDS-2) capsule Take 1 capsule [...] malignant causes. I do not do a SOIL CHECKER examinations but the patient should seek out a cutter operator helper. Since she lives in [place] we will set the patient up with Dr. Kashif Saha, cutter operator helper. Who will be marked a urgent consult. The cutter operator helper can decide whether to image her. We [...] Smoking Tobacco: Former Cigarettes 0.5 14 1 784 - 4206 Passive Smoke Exposure: Past Smokeless Tobacco: Never [...] EDT) SODIUM 139 133 - 146 mmol/L CHLORIDE 100 96 - 108 mmol/L POTASSIUM 4.5 3.3 - 5.1 mmol/L Comment:Specimen slightly he molyzed, result may be falsely elevated. CO2 28 21 - 35 mmol/L BUN 21(H) 6 - 19 mg/dL CREATININE 0.90 0.5 - 1.5 mg/dL GLUCOSE 90 70 - 99 mg/dL CALCIUM 10.1 8.4 - 10.3 mg/dL EGFR 65 >59 mL/min/1.7 3m2 Comment:Estimated glomerular filtration rate calculated using the CKD-EPI refit equation. ANION GAP 16 10 - 20 mmol/L Blood 06/24/2022 4:15 PM EDT 06/24/2022 4:17 PM EDT Pedro Prado MD LAB BLOOD BKR ORDERABLES Jovanna l Result [address] [place] [address] * DEXA SCAN (07/06/2021) us Historical Provider HEALTH MAINTENANCE Edited Result - Final from Last 3 Months or Most Recently Relevant to Health Maintenance [facility] PART A & B [facility] MEDICARE REPLACEMENT [facility] PART A & B [facility] PPO MEDICARE REPLACEMENT [facility] MEDIC[facility] PART A & B [employer] PPO MEDICARE REPLACEMENT [facility] MEDIC[facility] PART A [place] [id number] [facility] RE[facility] PART A & B [facility] MEDICARE REPLACEMENT [facility] PART A & B [facility] MEDICARE REPLACEMENT [facility] MEDICARE PART A & B [facility] PPO MEDICARE REPLACEMENT [facility] MEDICARE PART A & B [facility] PPO MEDICARE REPLACEMENT [facility] MEDICARE PART A & B [facility] MEDICARE REPLACEMENT Care Teams Ob Scrub Tech Relationship Specialty Start Date End Date Unknown, Unknown, PCP - General 06/26/23 Pedro Prado MD [address] [place] [id number] [email or web address] Historical LMR Provider 12/17/16 Meghan Hodge NP [address] [place] [address] [email or web address] Historical LMR Provider 12/17/16 aByron Wilson MD [address] [place] [address] [place] [address] Hospitalist 04/02/19 Additional Source Comments The information contained in this document represents components of the legal health record. It is not the complete legal health record.[facility]
== END 2025-01-15 14:47 | disposition home or self-care (01) ==
LOC: HO.ENCR 14:01
PROVIDERS: PCP Internal Medicine; Visit Provider Internal Medicine Endocrinology, Diabetes & Metabolism
DX: M81.0 Age-related osteoporosis without current pathological fracture (principal)
CPT/HCPCS: 99213

== ENCOUNTER → 2025-01-15 14:00 | Outpatient (BNVA) | payer MEDICARE, MEDICAID, SELFPAY | PROVIDERS: PCP Internal Medicine; Visit Provider Internal Medicine Endocrinology, Diabetes & Metabolism | DX: M81.0 Age-related osteoporosis without current pathological fracture (principal); E55.9 Vitamin D deficiency, unspecified; Z87.310 Personal history of (healed) osteoporosis fracture; Z79.620 Long term (current) use of immunosuppressive biologic | CPT/HCPCS: 96372; 99212; J0897 ==

== ENCOUNTER 2025-01-22 14:21 | Outpatient (AMB) | payer MEDICARE, MEDICAID, SELFPAY ==
--- NOTE | 2025-01-22 14:23 | A.OFFPC_ITS ---
Vital Signs 01/22/25 14:24 Height 5 ft Weight 177 lb BMI 34.6 BP 140/80 H Blood Pressure Location Lt brachial Position Sitting Pulse 103 H Pulse Source Pulse Oximeter Temp 96.9 F Temp Source Temporal Artery Scan Pulse Oximetry (%) 98 Oxygen Delivery Method Room Air Intake Visit Reasons: Tiredness Intake Note: Patient is here to follow up on Tiredness and sprain of right ankle . Box Closing Machine Operator Required: No Instructional Services Librarian: Not Required per policy Accompanied by: Self / Same As Patient Allergies meperidine (Meperidine) Allergy (Intermediate, Verified 01/22/25 14:24) HIVES Sulfa (Sulfonamide Antibiotics) Allergy (Intermediate, Verified 01/22/25 14:24) Unknown phenobarbital (PHENOBARBITAL) Allergy (Unknown, Verified 01/22/25 14:24) SWELLING Tobacco use date assessed: 01/22/25 Fall risk assessment: No Falls in past year Last assessed Fall Risk: 01/22/25 Dental Screening Dental Screen Date: 11/07/24 [facility] Medical History (Updated 01/13/25 @ 15:11 by Shanda Boswell NP) Right ankle strain Sore throat Acute dehydration Dysuria Dementia Recurrent UTI (urinary tract infection) Myoma Postmenopausal bleeding Palpitations Premature ventricular complex Breast cancer Vitamin D deficiency Osteoporosis Surgical History History of colonoscopy (~10/13/14) History of breast biopsy History of History of knee surgery Family History Father Appendicitis, acute Mother No problems noted. Social History Household Members: None Housing: House Alcohol intake: never Patient Tobacco Use Status: Former Tobacco user e-Cigarette/Vaping Use: Never Used Second Hand Smoke Exposure: Yes service: No Current occupational status: retired Cognitive needs: No Hearing needs: No Vision needs: Yes (glasses) Questionnaire Thrive Questionnaire Date Thrive assessed: 11/07/24 I am a: Patient What is your living situation today?: I have a steady place to live Within the past 12 months, did the food you bought not last and you didn't have the money to get more?: Never true Within the past 12 months, did you worry whether your food would run out before you got money to buy more?: Never true Do you have trouble paying for medicines?: No Do you have trouble getting transportation to medical appointments?: No Do you have trouble paying your heating and electricity bill?: No Do you have trouble taking care of your child, family member or friend?: No Do you have trouble with day-to-day activities such as bathing, preparing meals, shopping, managing finances, etc.?: No Are you currently unemployed and looking for a job?: No Are you interested in more education?: No Please select the resources that you would like help with: Utilities Currently or been in a relationship where the following occur: No concerns reported THRIVE Score: 0 AZUL-7 AMB Questionnaire AZUL-7 Date AZUL - 7 assessed: 11/07/24 Source: Developed by Drs. Juan Manuel Camarillo, Eva Wesley, Davion Herrera and colleagues, with an educational sophia from [employer] Physical exam (Primary Care) Vital Signs: Last Vital Signs Temp 96.9 F 01/22/25 14:24 Pulse 103 H 01/22/25 14:24 BP 140/80 H 01/22/25 14:24 Pulse Ox 98 01/22/25 14:24 Oxygen Delivery Method Room Air 01/22/25 14:24 BMI result Body Mass Index 34.6 Tobacco/Smoking Status: Tobacco use Status Tobacco use date assessed 01/22/25 01/22/25 14:29 Patient Tobacco Use Status Former Tobacco user 01/22/25 14:23 e-Cigarette/Vaping Use Never Used 01/22/25 14:23 Thrive Assessment: Date of Thrive Assessment Date Thrive assessed 11/07/24 01/22/25 14:23 Currently or been in a relationship where the following occur: No concerns reported Coding Level of Care Code Est Pt Level 3 (50668) Complex visit Add On G2211 Diagnoses Right ankle sprain S93.401A Assessment & Plan Assessment & Plan (1) Right ankle sprain: Code(s): S93.401A - Sprain of unspecified ligament of right ankle, initial encounter Plan: History of Present Illness - The patient is an 84 year old individual presenting with a suspected right ankle sprain. - The injury occurred yesterday while the patient was walking on grass. - The patient reports the ankle is sore when weight-bearing. - The patient has received the influenza vaccine but not the COVID-19 vaccine. Social History Review of Systems - Musculoskeletal: Reports soreness in the right ankle upon weight-bearing. - Integumentary: Denies bruising on the affected ankle. Physical Exam General: Cooperative and healthy appearing Nutritional Appearance: Well nourished Orientation/consciousness: Patient oriented x3 Limitations: No limitations Head: Normal to inspection General: Appearance normal, both eyes and all related structures Neck: Normal visual inspection Chest: Normal palpation of entire chest wall Respiratory: Normal respiratory effort Neurology: Patient oriented x3 Results Plan - An ankle brace will be provided for the right ankle to provide support. - An X-ray is not indicated at this time, as there is no suspicion of a fracture. - Tylenol is recommended for pain management. - The patient is advised to rest the foot. Discussion Notes I assessed the patient for a right ankle sprain. I informed the patient that an X-ray is not necessary as there are no signs indicating a fracture. I recommended using an ankle brace, taking Tylenol for discomfort, and staying off the foot. I also confirmed the patient has had a flu shot but not a COVID-19 vaccine. Patient Instructions - A nurse will provide you with a brace for your right ankle. - You may take Tylenol for any discomfort. - Rest your foot and avoid putting weight on it.
[2025-01-22 14:24] VITALS: BP 140/80; PULSE 103; TEMP 36.1; O2SAT 98; BMI 34.6
--- OUTSIDE RECORDS SUMMARY | 2025-01-22 17:14 | XMS_ITS | Clinical Summary ---
Author Organization [facility] Address [address] [place] [address] Phone Care Team Providers Care Electrician Research Name Role Phone Pedro Prado MD Unavailable [phone] Meghan Hodge NP Unavailable [phone] Bayron Wilson MD Unavailable [phone] Unknown, Unknown Primary Care Provider Ena [...] 90 tablet 3 03/27/19 21 Active vit C,X-tnkopv-zsdutlu hin-minerals (PRESERVISION AREDS-2) capsule Take 1 capsule [...] malignant causes. I do not do a ENGINEERING PROFESSOR examinations but the patient should seek out a clinical reimbursement specialist. Since she lives in [place] we will set the patient up with Dr. Kashif Saha, clinical reimbursement specialist. Who will be marked a urgent consult. The clinical reimbursement specialist can decide whether to image her. [...] Smoking Tobacco: Former Cigarettes 0.5 14 1 324 - 8217 Passive Smoke Exposure: Past Smokeless Tobacco: Never [...] EDT) SODIUM 139 133 - 146 mmol/L [facility] CHLORIDE 100 96 - 108 mmol/L [facility] POTASSIUM 4.5 3.3 - 5.1 mmol/L [facility] Comment:Specimen slightly he molyzed, result may be falsely elevated. CO2 28 21 - 35 mmol/L [facility] BUN 21(H) 6 - 19 mg/dL [facility] CREATININE 0.90 0.5 - 1.5 mg/dL [facility] GLUCOSE 90 70 - 99 mg/dL [facility] CALCIUM 10.1 8.4 - 10.3 mg/dL [facility] EGFR 65 >59 mL/min/1.7 3m2 [facility] Comment:Estimated glomerular filtration rate calculated using the CKD-EPI refit equation. ANION GAP 16 10 - 20 mmol/L [facility] Blood 06/24/2022 4:15 PM EDT 06/24/2022 4:17 PM EDT Pedro Prado MD LAB BLOOD BKR ORDERABLES Jovanna l Result [facility] [address] [place] [address] * DEXA SCAN (07/06/2021) us Historical Provider HEALTH MAINTENANCE Edited Result - Final from Last 3 Months or Most Recently Relevant to Health Maintenance [facility]IC[facility] REPLACEMENT [facility] B [facility] PPO MEDICARE REPLACEMENT [facility] MEDICARE PART A & B [employer] PPO MEDICARE REPLACEMENT [facility] MEDICARE PART A [place] [id number] [facility] REPL[facility] B [facility] MEDIC[facility]PLAC[facility] B [facility] MEDICARE [facility]PLACEMENT [facility] MEDICARE PART A & B [employer] PPO MEDICARE REPLACEMENT [facility] MEDICARE PART A & B [employer] PPO MEDICARE REPLACEMENT [facility] MEDICARE PART A & B [facility] MEDICARE REPLACEMENT Care Teams Electrician Research Relationship Specialty Start Date End Date Unknown, Unknown, PCP - General 06/26/23 Pedro Prado MD [address] [place] [phone] [email or web address] Historical LMR Provider 12/17/16 Meghan Hodge NP [address] [place] [phone] [email or web address] Historical LMR Provider 12/17/16 Bayron Wilson MD [address] [place] [address] [place] [address] Hospitalist 04/02/19 Additional Source Comments The information contained in this document represents components of the legal health record. It is not the complete legal health record.[facility]
== END 2025-01-22 15:14 | disposition home or self-care (01) ==
LOC: HO.HMCH 14:22
PROVIDERS: PCP Internal Medicine; Visit Provider Internal Medicine
DX: S93.401A Sprain of unspecified ligament of right ankle, initial encounter (principal)

== ENCOUNTER → 2025-01-22 14:21 | Outpatient (BNVA) | payer MEDICARE, MEDICAID, SELFPAY | PROVIDERS: PCP Internal Medicine; Visit Provider Internal Medicine | DX: S93.401D Sprain of unspecified ligament of right ankle, subsequent encounter (principal) | CPT/HCPCS: 99212 ==

== ENCOUNTER 2025-01-29 16:53 | Emergency (ER) | payer MEDICARE, MEDICAID, SELFPAY ==
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
[2025-01-29 17:00] VITALS: BP 180/110; PULSE 94; O2SAT 97
[2025-01-29 18:05] VITALS: BP 206/93; PULSE 93; RESP 20; TEMP 36.1; O2SAT 96; BMI 33.2
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
--- OUTSIDE RECORDS SUMMARY | 2025-01-29 21:15 | XMS_ITS | Clinical Summary ---
Author Organization [facility] Address [address] [place] [address] Phone Care Team Providers Care Supervisor Mattress And Boxsprings Name Role Phone Pedro Prado MD Unavailable [phone] Meghan Hodge NP Unavailable [phone] Bayron Wilson MD Unavailable [phone] Unknown, Unknown Primary Care Provider Ena [...] 90 tablet 3 03/27/19 21 Active vit C,X-uttxif-uyllche hin-minerals (PRESERVISION AREDS-2) capsule Take 1 capsule [...] malignant causes. I do not do a PRESSER FIRST examinations but the patient should seek out a wool grader. Since she lives in [place] we will set the patient up with Dr. Kashif Saha, wool grader. Who will be marked a urgent consult. The wool grader can decide whether to image her. We [...] Smoking Tobacco: Former Cigarettes 0.5 14 1 184 - 8242 Passive Smoke Exposure: Past Smokeless Tobacco: Never [...] EDT) SODIUM 139 133 - 146 mmol/L [facility] CHLORIDE 100 96 - 108 mmol/L [facility] POTASSIUM 4.5 3.3 - 5.1 mmol/L [facility] Comment:Specimen slightly he molyzed, result may be falsely elevated. CO2 28 21 - 35 mmol/L [facility] BUN 21(H) 6 - 19 mg/dL [facility] CREATININE 0.90 0.5 - 1.5 mg/dL [facility] GLUCOSE 90 70 - 99 mg/dL [facility] CALCIUM 10.1 8.4 - 10.3 mg/dL [facility] EGFR 65 >59 mL/min/1.7 3m2 [facility] Comment:Estimated glomerular filtration rate calculated using the CKD-EPI refit equation. ANION GAP 16 10 - 20 mmol/L [facility] Blood 06/24/2022 4:15 PM EDT 06/24/2022 4:17 PM EDT Pedro Prado MD LAB BLOOD BKR ORDERABLES Jovanna l Result [facility] [address] [place] [address] * DEXA SCAN (07/06/2021) us Historical Provider HEALTH MAINTENANCE Edited Result - Final from Last 3 Months or Most Recently Relevant to Health Maintenance [facility]IC[facility]PLACEMENT [facility] & B [facility] PPO MEDICARE REPLACEMENT [facility] MEDICARE PART A & B [employer] PPO MEDICARE REPLACEMENT [facility] [place] A [place] [id number] [facility] RE[facility] B [facility] MEDICARE REPLAC[facility] B [facility] MEDICARE [facility]PLACEMENT [facility] MEDICARE PART A & B [facility] PPO MEDICARE REPLACEMENT [facility] MEDICARE PART A & B [facility] PPO MEDICARE REPLACEMENT [facility] MEDICARE PART A & B [facility] MEDICARE REPLACEMENT Care Teams Supervisor Mattress And Boxsprings Relationship Specialty Start Date End Date Unknown, Unknown, PCP - General 06/26/23 Pedro Prado MD [address] [place] [id number] [email or web address] Historical LMR Provider 12/17/16 Meghan Hodge NP [address] [place] [id number] [email or web address] Historical LMR Provider 12/17/16 Bayron Wilson MD [address] [place] [address] [place] [address] Hospitalist 04/02/19 Additional Source Comments The information contained in this document represents components of the legal health record. It is not the complete legal health record.[facility]
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
--- OUTSIDE RECORDS SUMMARY | 2025-01-29 21:16 | XMS_ITS | Clinical Summary ---
Author Organization [employer] Address [address] [place] [address] Care Team Providers Care Specialist Managers Name Role Phone Unavailable Primary Care Provider [...]
== END 2025-01-29 21:14 | disposition left against medical advice (07) ==
PROVIDERS: Emergency Provider Emergency Medicine
DX: S59.901A Unspecified injury of right elbow, initial encounter (principal); V43.52XA Car driver injured in collision with other type car in traffic accident, initial encounter; Y93.9 Activity, unspecified; Y92.9 Unspecified place or not applicable; Y99.9 Unspecified external cause status; I49.3 Ventricular premature depolarization; E55.9 Vitamin D deficiency, unspecified; M81.0 Age-related osteoporosis without current pathological fracture; Z87.891 Personal history of nicotine dependence; Z53.29 Procedure and treatment not carried out because of patient's decision for other reasons
CPT/HCPCS: 73080; 73090; 73130; 99281; 99283

== ENCOUNTER → 2025-01-29 18:13 | Outpatient (BNV) | payer MEDICARE, MEDICAID, SELFPAY | PROVIDERS: Visit Provider Radiology Diagnostic Radiology | DX: M25.521 Pain in right elbow (principal); V89.2XXA Person injured in unspecified motor-vehicle accident, traffic, initial encounter; Z04.3 Encounter for examination and observation following other accident | CPT/HCPCS: 73080; 73090; 73130 ==

== ENCOUNTER 2025-02-14 17:30 | Emergency (ER) | payer MEDICARE, MEDICAID, SELFPAY ==
--- NOTE | ~2025-02-14 | US_ITS ---
CLINICAL HISTORY: R CVAT US Renal Comparison: None provided Findings: Right kidney normal size and echotexture, 8.9 cm length. Left kidney normal size and echotexture, 8.7 cm length. No hydronephrosis of either kidney. Normal color Doppler. Hepatic steatosis. IMPRESSION: 1. Normal kidneys. This document has been electronically signed by: Juvenal Noyola MD on 02/14/2025 19:10:32
--- NOTE | ~2025-02-14 | XR_ITS ---
CLINICAL HISTORY: Right-sided rib pain 4 view, chest and right ribs Comparison: None provided Findings: No fractures or dislocations. The visualized lungs are normal. No right hemithorax rib fracture identified. Midthoracic vertebroplasties. Prior cholecystectomy. IMPRESSION: No acute rib fractures. This document has been electronically signed by: Juvenal Noyola MD on 02/14/2025 19:21:20
[2025-02-14 17:48] VITALS: BP 144/69; PULSE 79; RESP 18; TEMP 36.3; O2SAT 97; BMI 34.1
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
[2025-02-14 18:22] LABS: MANUAL DIFF FLAG NO
[2025-02-14 18:23] LABS: Hematocrit 44.5 % (37.0-47.0); Hemoglobin 15.2 g/dl (12.0-16.0); Imm Gran Abs Auto 0.02 X10*3/uL (0.00-0.03); Imm Gran Pct Auto 0.2 % (0.0-0.4); Lymphocytes Absolute Auto 3.4 X10*3/uL (1.2-4.9); Mean Corpuscular HGB Conc 34.2 g/dl (31.0-35.0); Mean Corpuscular Hemoglobin 31.1 pg (27.0-33.0); Mean Corpuscular Volume 91.0 fL (80.0-98.0); NRBC Abs Auto 0.000 X10*3/uL (0.0-0.012); NRBC Pct Auto 0.0 /100WBC (0.0-0.2); Platelet Count 220 X10*3/uL (160-400); Red Blood Count 4.89 X10*6/uL (4.20-5.50); White Blood Count 8.4 X10*3/uL (4.8-10.8)
[2025-02-14 18:39] LABS: Alanine Aminotransferase 18 U/L (0-31); Albumin Level 4.4 g/dL (3.5-5.0); Alkaline Phosphatase 61 U/L (39-117); Anion Gap 13 (12-20); Aspartate Amino Transferase 27 U/L (5-31); Blood Urea Nitrogen 12 mg/dL (9-16); Calcium 9.9 mg/dL (8.4-10.2); Carbon Dioxide 24 mmol/L (22-29); Chloride 105 mmol/L (96-108); Creatinine Clr Calc Pharmacy 47.2; Estimated Glomerular Filt Rate > 60; Lipase 19 U/L (8-78); Potassium 4.4 mmol/L (3.3-5.1); Sodium 138 mmol/L (135-145); Total Protein 7.1 g/dL (6.5-8.0)
[2025-02-14 20:32] VITALS: PULSE 101; TEMP 36.3; O2SAT 97
--- OUTSIDE RECORDS SUMMARY | 2025-02-14 20:36 | XMS_ITS | Patient Health Record ---
Author Organization [facility] Address [address] [place] [address] Care Team Providers Care Junior Network Engineer Name Role Phone Pedro Prado MD Primary Care Provider Juan Manuel Mahoney Unavailable [phone] Allergies Allergen (clinical drug ingredient) Drug/Non Drug [...] Status Risk Notes Problem Colon cancer screening (758120396) Colon cancer screening (V76.51) Active confirmed Problem Gastroesophageal reflux disease (143304721) GERD (gastroesophag eal reflux disease) (530.81) Active confirmed Problem History of adenomatous polyp of colon (385434505) History of adenomatous polyp of colon (V12.72) Active confirmed Plan Of Treatment Future Test Test Name Order Date COLONOSCOPY 07/15/2014 Insurance Providers Payer Name Payer Address Payer Phone Subscriber Number Group Number Insured Name Patient Relationship to Insured Coverage Start Date Coverage End Date MEDICARE OF [place] [address] [place] [id number] SHELL NARVAEZ Self - patient is the insured [facility] [address] [place] [address] [id number] SHELL NARVAEZ Self - patient is the [...] removed Diverticulosis Internal hemorrhoids Hyperlipidemia Seizures Breast [id number] Dr. Letitia Hamilton [place],DM,CVA,Lung disease,renal dise ase Kidney stones Sleep apnea--uses a CPAP mask sometimes Surgical History Surgery Date(Month/Year) C-sections x4 left knee arthroscopy right knee arthroscopy [facility] Lumpectomy and lymph nodes, left breast 2004
--- OUTSIDE RECORDS SUMMARY | 2025-02-14 20:36 | XMS_ITS | Clinical Summary ---
Author Organization Located Within [facility] Address [address] [place] [address] Phone Care Team Providers Care Manager Of Recruiting Name Role Phone Pedro Prado MD Unavailable [phone] Meghan Hodge NP Unavailable [phone] Bayron Wilson MD Unavailable [phone] Unknown, Unknown Primary Care Provider Ena [...] 90 tablet 3 03/27/19 21 Active vit C,H-zgcbwr-dlforrf hin-minerals (PRESERVISION AREDS-2) capsule Take 1 capsule [...] malignant causes. I do not do a SLIDER ASSEMBLER examinations but the patient should seek out a finisher map and chart. Since she lives in [place] we will set the patient up with Dr. Kashif Shaa, finisher map and chart. Who will be marked a urgent consult. The finisher map and chart can decide whether to image her. We [...] Smoking Tobacco: Former Cigarettes 0.5 14 1 224 - 3250 Passive Smoke Exposure: Past Smokeless Tobacco: Never [...] EDT) SODIUM 139 133 - 146 mmol/L [facility] CHLORIDE 100 96 - 108 mmol/L [facility] POTASSIUM 4.5 3.3 - 5.1 mmol/L [facility] Comment:Specimen slightly he molyzed, result may be falsely elevated. CO2 28 21 - 35 mmol/L [facility] BUN 21(H) 6 - 19 mg/dL [facility] CREATININE 0.90 0.5 - 1.5 mg/dL [facility] GLUCOSE 90 70 - 99 mg/dL [facility] CALCIUM 10.1 8.4 - 10.3 mg/dL [facility] EGFR 65 >59 mL/min/1.7 3m2 [facility] Comment:Estimated glomerular filtration rate calculated using the CKD-EPI refit equation. ANION GAP 16 10 - 20 mmol/L [facility] Blood 06/24/2022 4:15 PM EDT 06/24/2022 4:17 PM EDT Pedro Prado MD LAB BLOOD BKR ORDERABLES Jovanna l Result [facility] [address] [place] [address] * DEXA SCAN (07/06/2021) us Historical Provider HEALTH MAINTENANCE Edited Result - Final from Last 3 Months or Most Recently Relevant to Health Maintenance Insurance [facility] MEDICARE PART A & B [facility] [place] [place] [address] [facility] MEDICARE PART A & B [facility] PPO MEDICARE REPLACEMENT [facility] MEDICARE PART A & B [employer] PPO MEDICARE REPLACEMENT [facility] MEDICARE PART A & [place] [id number] [facility] MEDICARE PART A & B [facility] MEDICARE PART A & B [facility] MEDIC[facility] REPLACEMENT [facility] MEDICARE PART A & B [employer] PPO MEDICARE REPLACEMENT [facility] MEDICARE PART A & B [employer] PPO MEDICARE REPLACEMENT [facility] MEDICARE PART A & B [facility] MEDICARE REPLACEMENT Care Teams Manager Of Recruiting Relationship Specialty Start Date End Date Unknown, Unknown, PCP - General 06/26/23 Pedro Prado MD [address] [place] [id number] [email or web address] Historical LMR Provider 12/17/16 Meghan Hodge NP [address] [place] [id number] [email or web address] Historical LMR Provider 12/17/16 Bayron Wilson MD [address] [place] [address] [place] [address] Hospitalist 04/02/19 Additional Source Comments The information contained in this document represents components of the legal health record. It is not the complete legal health record.Located Within [facility]
--- OUTSIDE RECORDS SUMMARY | 2025-02-14 20:36 | XMS_ITS | Clinical Summary ---
Author Organization [facility] Address [address] [place] [address] Care Team Providers Care Tare Worker Name Role Phone Unavailable Primary Care Provider [...]
[2025-02-14 20:51] VITALS: BP 145/85
--- NOTE | 2025-02-14 21:48 | PC.NURSE ---
urine sample collected and sent to lab at this time
[2025-02-14 21:54] LABS: Appearance Urine Cloudy; Glucose Urine UA Negative (Negative); PH 5.5 (5.0-9.0); Specific Gravity - Urine 1.025 (1.005-1.025)
[2025-02-14 22:49] VITALS: BP 145/85; PULSE 80; RESP 18; TEMP 37.2; O2SAT 97
== END 2025-02-14 22:51 | disposition home or self-care (01) ==
PROVIDERS: Physician Assistant; Emergency Provider Emergency Medicine Emergency Medical Services; PCP Internal Medicine
DX: R10.A1 Flank pain, right side (principal); R11.0 Nausea; J02.9 Acute pharyngitis, unspecified; E86.0 Dehydration; F03.90 Unspecified dementia, unspecified severity, without behavioral disturbance, psychotic disturbance, mood disturbance, and anxiety; I49.3 Ventricular premature depolarization; E55.9 Vitamin D deficiency, unspecified; M81.0 Age-related osteoporosis without current pathological fracture; Z87.891 Personal history of nicotine dependence
CPT/HCPCS: 36415; 71101; 76775; 80048; 80076; 81003; 83690; 85025; 99284

== ENCOUNTER → 2025-02-14 17:50 | Outpatient (BNV) | payer MEDICARE, MEDICAID, SELFPAY | PROVIDERS: PCP Internal Medicine; Visit Provider Radiology Diagnostic Radiology | DX: R39.851 Costovertebral (angle) tenderness, right side (principal); R07.89 Other chest pain | CPT/HCPCS: 71101; 76775 ==